=== PATIENT | female | born 1945 | race Caucasian/White ===

== ENCOUNTER → 2017-06-11 06:35 | Outpatient (CLI) | payer MEDICARE, SELFPAY ==
[2017-06-11 07:48] LABS: AST(SGOT) 20 U/L (15-37); Alanine Aminotransfer ALT/SGPT 19 U/L (13-56); Albumin, Serum 3.7 g/dL (3.2-5.0); Alkaline Phosphatase 116 U/L (45-117); Cholesterol 147 mg/dL (200); Globulin 3.8 g/dL (2.2-4.2); High Density Lipoprotein 63 mg/dL; Protein, Total 7.5 g/dL (6.4-8.2); Triglycerides 111 mg/dL; Very Low Density Lipoprotein 22 mg/dL (5-40)
== END ==
PROVIDERS: Family Provider Nurse Practitioner; PCP Nurse Practitioner; Visit Provider Internal Medicine Cardiovascular Disease
DX: E78.5 Hyperlipidemia, unspecified (principal); Z79.899 Other long term (current) drug therapy
CPT/HCPCS: 36415; 80061; 80076

== ENCOUNTER → 2017-12-17 06:07 | Outpatient (CLI) | payer MEDICARE, SELFPAY ==
[2017-12-17 07:43] LABS: AST(SGOT) 21 U/L (15-37); Alanine Aminotransfer ALT/SGPT 19 U/L (13-56); Albumin, Serum 3.5 g/dL (3.2-5.0); Alkaline Phosphatase 131 U/L (45-117); Bilirubin, Direct 0.19 mg/dL (0.00-0.30); Cholesterol 125 mg/dL (200); Globulin 3.9 g/dL (2.2-4.2); High Density Lipoprotein 50 mg/dL; Protein, Total 7.4 g/dL (6.4-8.2); Triglycerides 123 mg/dL; Very Low Density Lipoprotein 25 mg/dL (5-40)
== END ==
PROVIDERS: Family Provider Nurse Practitioner; PCP Nurse Practitioner; Referring Provider Internal Medicine Cardiovascular Disease; Visit Provider Internal Medicine Cardiovascular Disease
DX: E78.5 Hyperlipidemia, unspecified (principal); Z79.899 Other long term (current) drug therapy
CPT/HCPCS: 36415; 80061; 80076

== ENCOUNTER 2018-02-17 20:04 | Emergency (ER) | payer MEDICARE, SELFPAY ==
[2018-02-17 20:04] VITALS: BP 161/100; PULSE 96; RESP 22; TEMP 36.9; O2SAT 96; BMI 32.8
[2018-02-17 20:41] VITALS: PULSE 95; RESP 25; O2SAT 97
--- NOTE | 2018-02-17 20:57 | RAD_ITS ---
STUDY: X-RAY CHEST REASON FOR EXAM: Female, 72 years old. Shortness of breath. TECHNIQUE: PA and lateral views of the chest. February 13, 2017 COMPARISON: None. FINDINGS: The lungs are hyperexpanded. There is chronic interstitial changes without new infiltrate or mass. There is no demonstrated pleural abnormality. Stable cardiomegaly. Stable cardiac pacemaker. Normal mediastinum and obinna. Normal visualized pulmonary arteries. There is atherosclerotic calcification of the aortic arch with tortuosity. There is demineralization of the osseous structures. There is degenerative osteoarthritis of the bilateral shoulders. Again seen is a large retrocardiac hiatal hernia. RAD/Chest PA and Lateral IMPRESSION: 1. Stable cardiac pacemaker and cardiomegaly. 2. Stable retrocardiac hiatal hernia. 3. No acute pulmonary disease or interval change. Electronically Signed: Norbert Menendez DO at 23:15 EST Tel [phone], Service support ,
--- NOTE | 2018-02-17 20:57 | EKG12_ITS ---
Test Reason : SOB Blood Pressure : / mmHG Vent. Rate : 090 BPM Atrial Rate : 090 BPM P-R Int : 184 ms QRS Dur : 080 ms QT Int : 368 ms P-R-T Axes : 040 004 060 degrees QTc Int : 450 ms Normal sinus rhythm Low voltage QRS Confirmed by ANJELICA GASPAR, KILEY ([id number]), deputy editor in chief EVANGELINA CAO ([id number] on 02/19/2018 3:23:02 PM Referred By: Pop Hurd Confirmed By:KILEY DEJESUS MD
[2018-02-17] MEDS: Ipratropium/Albuterol Sulfate 3 ML AMPUL.NEB INHALATION (21:04)
[2018-02-17] MEDS: Albuterol 2.5 MG/3 ML VIAL.NEB. INHALATION ×2 (21:04→21:17)
[2018-02-17 21:05] VITALS: PULSE 90; RESP 15
[2018-02-17] MEDS: MethylPREDNISolone 125 MG/2 ML Vial IV (21:13)
[2018-02-17 21:20] VITALS: PULSE 98; RESP 19
[2018-02-17 21:37] LABS: Absolute Lymphocyte Count 1.54 X10^3/ul (0.83-4.51); Absolute Neutrophil Count 4.3 X10^3/uL (2.0-7.7); Basophil# 0.03 X10^3/uL; Basophil% 0.4 % (0-1); Eosinophil# 0.29 X10^3/uL; Eosinophils% 4.2 % (0-5); Hematocrit 38.8 % (37-47); Hemoglobin 13.3 g/dl (12.0-15.0); Lymphocyte # 1.54 X10^3/ul (4.0); Lymphocyte % 22.1 % (19-41); Mean Corp Hgb Conc 34.3 g/gl (32-36); Mean Corpuscular Hgb 32.8 pg (27.0-32.0); Mean Corpuscular Volume 95.6 fL (81-99); Mean Platelet Vol. 9.9 fl (6.2-12.0); Monocyte# 0.77 X10^3/uL; Neutrophil # 4.33 X10^3/uL (2.7-7.7); Neutrophil % 62.2 % (47-70); POSITIVE COUNT NO; POSITIVE DIFFERENTIAL NO; POSITIVE MORPHOLOGY NO; Platelet Count 137 K/mm3 (150-450); RBC Distribution Width CV 12.3 % (11.6-14.6); RBC Distribution Width SD 42.7 fl (35.1-43.9); Red Blood Count 4.06 M/mm3 (4.2-5.4)
[2018-02-17 22:08] VITALS: BP 155/85; PULSE 68; RESP 25; O2SAT 98
[2018-02-17 22:14] LABS: Anion Gap 9 (5-15); BUN 15 mg/dL (7-18); BUN/Creat Ratio 13.4 RATIO (10-20); Calcium,Total 8.9 mg/dL (8.5-10.1); Chloride 107 mmol/L (98-107); Creatinine, Serum 1.12 mg/dL (0.55-1.02); EST Glomerular Filtration Rate 51 mL/min (>60); Est Glom Filt Rate - Afr Amer 61 mL/min (>60); Estimated Creatinine Clearance 41.88 ml/min; Glucose 94 mg/dL (74-106); Potassium 4.1 mmol/L (3.5-5.1); Sodium Level 143 mmol/L (136-145)
--- NOTE | 2018-02-17 22:46 | ED.VISSUMM ---
- ER Visit Summary Date of Service: 02/17/18 Chief Complaint: Shortness of breath, chills, wheezing History of Present Illness: The patient is a 72 F with a history of asthma. Patient is at increased shortness of breath over the past 3 or 4 weeks. She was seen by her PCP and started on Advair twice a day along with albuterol MDI. Patient reports no significant change in her symptoms with that. [facility] was exposed to a lot of cigarette smoke. She has increased shortness of breath and wheezing. She has not had fever or chills. She has not had significant chest pain. She has had mild cough with clear sputum. Physical Examination: Blood pressure is 161/100, temperature 98.5, heart rate 96, respiratory rate 22, pulse ox 96% on room air. When I enter the room she was on nasal cannula for comfort. Head and neck examination unremarkable. Heart is regular rate and rhythm. Lungs sounds with respiratory and expiratory wheezes throughout. Abdomen is soft nontender. Lower external examination was no calf tenderness or edema. Test Results: Two-view chest x-ray shows a stable hiatal hernia. No acute disease noted. EKG is sinus at 90 with no sign of acute ischemia. CBC significant only for platelet count of 137,000. Chemistry studies normal. Emergency Department Course and Treatment: Patient was given Solu-Medrol cycle of aerosols. On repeat evaluation she has significantly improved air movement throughout. She is taken off of the nasal cannula and on repeat examination her O2 sat was 91%. I walked her up and down the [place] on room air and her sats remained 94-95% with ambulation. At this time patient will continue her Advair twice a day and I want her to use her albuterol every 4-6 hours. She will also be given prednisone for home. She is to follow-up with her primary care provider in the next 5-7 days. Treatment Plan: [] Disposition: Discharge Impression: Asthma exacerbation This note was generated with [employer] dictation software. It may contain incorrect words, spelling, and punctuation that were not noted in review of the chart prior to signing ED Disposition - Plan for ED Patient: Disposition: Home or Assisted Living Chief Complaint: Shortness of Breath Instructions: ED Reactive Airway Disease Prescriptions: Prednisone 10 mg PO UD #33 tablet Referrals: Janessa Bravo, ADMINISTRATIVE ASST-C [Primary Care Provider] - 3-5 Days
--- NOTE | 2018-02-17 22:46 | ED.DEP ---
ED Disposition - Plan for ED Patient: Disposition: Home or Assisted Living Chief Complaint: Shortness of Breath Instructions: ED Reactive Airway Disease Prescriptions: Prednisone 10 mg PO UD #33 tablet Referrals: Janessa Bravo NP-C [Primary Care Provider] - 3-5 Days
[2018-02-17 22:58] VITALS: BP 138/92; PULSE 91; O2SAT 93
--- OUTSIDE RECORDS SUMMARY | 2018-04-13 01:52 | XMS RPT_ITS | Continuity of Care Document ---
:1945 Author Organization [facility] Address [facility] [place] [address] Phone Care Team Providers Name Role Phone Debi GASPAR, Ivana Albarado Unavailable Dr. Eduardo Lord Unavailable Shayy Oro Unavailable Unavailable Janessa Bravo CNP Unavailable Unavailable Unavailable Problems Name Dates Details Abnormal TSH (R79.89, 790.6) Comments: slight off recheck Status: Active Allergic rhinitis (J30.9, 477.9) Status: Active Annual Medicare Physical (Renamed from Medicare annual wellness visit, subsequent) (Z00.00, V70.0) Comments: 2-16 reveiwed with patient allquestions will do mammo plan every few years. colonscopy 2-16. told get living will and dpoa. tetanus told about. will do pneumonvax then prevnar in year and shingles at pharmacy now Status: Active BMI 35.0-35.9,adult (Z68.35, V85.35) Status: Active Bronchitis, acute (J20.9, 466.0) Comments: humdifier mucinex Status: Active Cardiomyopathy (I42.9, 425.4) 1995 Comments: cath good 00, ronald, EF 30%, defib Status: Active Current nonsmoker (Renamed from Current non-smoker) (Z78.9, V49.89) Status: Active Deliveries (Parity) Comments: 1 Status: Active Gastrointestinal hemorrhage with melena (K92.1, 578.1) Comments: no nsaids. no nose bleeds. EGD and colonscopy negative. [facility]. 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) Comments: told to use advair twice daily as maintennce for asthma, before spirometry is mod severe after albuterol spriometry mod airway, was not using advair, instructing to do so.has wood burner but may need to have off Status: Active Low back pain (M54.5, 724.2) Status: Active Mitral valve prolapse (I34.1, 424.0) Status: Active Obese (E66.9, 278.00) Status: Active Pregnancies () Comments: 1 Status: Active Short of breath on exertion (R06.02, 786.05) Comments: likely from untreat asthma Status: Active Medications Name Dates Details Advair Diskus 100-50 MCG/DOSE Inhalation Aerosol Powder Breath Activated 1 (one) Puff bid for 0 days Quantity: 1 {Disk} Refills: 0 Ordered:30-Jan-2018 Janessa Bravo CNP Start : 30-Jan-2018 Active COREG, 25MG (Oral Tablet) 1 Tablet bid for 0 days Quantity: 60 {Tablet} Refills: 0 Ordered:10-Mar-2015 Debi GASPAR, Ivana Chowdary MD Start : 10-Mar-2015 Active Losartan Potassium 25 MG Oral Tablet 1 (one) Tablet daily for 30 days Quantity: 30 {Tablet} Refills: 0 Ordered:30-Jan-2018 Janessa Bravo CNP Start : 30-Jan-2018 Active PRILOSEC OTC, 20MG (Oral Tablet Delayed Release) 1 qd for 0 days Refills: 0 Ordered:23-Feb-2009 Akshat LEO, Chelseactive ZOCOR, 20MG (Oral Tablet) 1 qd for 0 days Refills: 0 Ordered:23-Feb-2009 Akshat FINANCIAL PLANNING CONSULTANT, ChrissieActive ADVAIR DISKUS, 250-50MCG/DOSE (Inhalation Aerosol Powder Breath Activated) 1 (one) Misc BID for 0 days Quantity: 1 {Each} Refills: 0 Ordered:09-Mar-2015 Jackie Xavier Start : 01-Jan-2015 End : 09-Mar-2015 Inactive ALDACTONE, 25MG (Oral Tablet) 1 qd for 0 days Refills: 0 Ordered:01-Jan-2015 NIKHIL Reza End : 01-Jan-2015 Inactive CHERATUSSIN AC, 100-10MG/5ML (Oral Solution) 1 (one) Solution 1-2 tsp every 6 horus prn cough for 0 days Quantity: 8 {Fluid_Ounce} Refills: 0 Ordered:12-Jul-2015 NIKHIL Reza Start : 04-Jun-2015 End : 12-Jul-2015 Inactive Comments:eight LEVAQUIN, 500MG (Oral Tablet) 1 Tablet daily for 0 days Quantity: 10 {Tablet} Refills: 0 Ordered:09-Mar-2015 Jackie Xavier Start : 01-Jan-2015 End : 09-Mar-2015 Inactive LEVOFLOXACIN, 500MG (Oral Tablet) 1 (one) Tablet daily for 7 days Quantity: 7 {Tablet} Refills: 0 Ordered:30-Jan-2014 Shelly MCKEONJanessa Start : 30-Jan-2014 End : 06-Feb-2014 Inactive PREDNISONE, 10MG (Oral Tablet) 1 (one) Tablet TAD for 0 days Quantity: 12 {Tablet} Refills: 0 Ordered:09-Mar-2015 Jackei Xavier Start : 01-Jan-2015 End : 09-Mar-2015 Inactive Comments:2 a d for 3 d, 1 a d for 3d, 1/2 a d for 3 d VENTOLIN HFA, 108 (90 Base)MCG/ACT (Inhalation Aerosol Solution) 2 (two) Aerosol Soln Q 4hr/PRN for 0 days Quantity: 1 {Inhaler} Refills: 0 Ordered:09-Mar-2015 Jackie Xavier Start : 30-Jan-2014 End : 09-Mar-2015 Inactive ZITHROMAX Z-DIANE, 250MG (Oral Tablet) 1 (one) Tablet uad for 0 days Quantity: 1 {Package} Refills: 0 Ordered:12-Jul-2015 NIKHIL Reza Start : 04-Jun-2015 End : 12-Jul-2015 Inactive ZYRTEC, 10MG (Oral Tablet) Tablet QD for 0 days Quantity: 30 {Tablet} Refills: 1 Ordered:19-Aug-2009 NIKHIL Reza Start : 21-Feb-2008 Inactive ADVAIR DISKUS, 250-50MCG/DOSE (Inhalation Aerosol Powder Breath Activated) 1 Misc Twice daily for 0 days Quantity: 1 {Misc} Refills: 2 Ordered:30-Jan-2014 Brittani Oden LPN Start : 02-Jan-2011 End : 30-Jan-2014 Discontinued Cozaar 25 MG Oral Tablet 1 Tablet qd for 0 days Quantity: 30 {Tablet} Refills: 0 Ordered:30-Jan-2018 Shayy Oro Start : 01-Jan-2015 End : 30-Jan-2018 Discontinued FERREX 150 FORTE PLUS, 50-100MG (Oral Capsule) 1 (one) Capsule bid for 0 days Quantity: 60 {Capsule} Refills: 2 Ordered:23-Apr-2015 Debi GASPAR, Ivana Dias MD, Ivana Albarado Start : 23-Apr-2015 End : 23-Apr-2015 Discontinued Allergies and Adverse Reactions Name Dates Details Penicillins (Allergy) Status: Active Past Medical History Name Dates Details Acute sinusitis, unspecified (J01.90, 461.9) Status: Inactive as of 19-Aug-2009 Anemia, unspecified type (D64.9, 285.9) Comments: pt never have colonscopy no bleeding. yoel stool cards send for scope and labs. asa on hold Status: Inactive as of 04-Jun-2015 CHRONIC OBSTRUCTIVE ASTHMA WITH (ACUTE) EXACERBATION (J44.1, 493.22) Comments: refuse solmedrol because cause tachy adn anxious. if not turn around or worsen then willhav eot do injectionl Status: Inactive as of 23-Apr-2015 Cough (R05, 786.2) Status: Inactive as of 23-Apr-2015 Encounter for screening mammogram for breast cancer (Renamed from Encounter for screening mammogram for malignant neoplasm of breast) (Z12.31, V76.12) Status: Inactive as of 23-Apr-2015 Encounter for screening mammogram for breast cancer (Renamed from Encounter for screening mammogram for malignant neoplasm of breast) (Z12.31, V76.12) Status: Inactive as of 04-Jun-2015 FMX of DM Comments: check fbs at home 90's talk about following Status: Inactive as of 03-Sep-2008 Functional disturbances following cardiac surgery (429.4) Comments: sinus nodual dysfunction pacer Status: Inactive as of 01-Jan-2015 Pneumococcal vaccination given (Z23, V06.6) Status: Inactive as of 04-Jun-2015 Screening for osteoporosis (Renamed from Encounter for screening for osteoporosis) (Z13.820, V82.81) Status: Inactive as of 04-Jun-2015 sinus dominique dysfunction Comments: pacer Status: Inactive as of 19-Aug-2009 Unspecified asthma with (acute) exacerbation (J45.901, 493.92) Status: Inactive as of 01-Jan-2015 Well Woman Exam (V72.31) (Renamed from Well Woman V72.31 (p,m)) (V72.31) Status: Inactive as of 01-Jan-2015 Wheezing (R06.2, 786.07) Status: Inactive as of 01-Jan-2015 Procedures Procedure Dates Details Appendectomy Completed Comments: 2006 Pacemaker, defibrillator 2005 Dr. Hurd Completed Tubal Ligation - Laproscopic Completed Comments: 1978 Date Value Details 18-Jan-2018 Cardiology Visit Report Result: Comments: See Note; NOTES: [facility] [address] [place] [address]. [address] [place] [address] OFFICE VISIT Date of Service: 01/15/18 MR#: [id number] Acct: [id number] Name: LIBIA MOYA Re p #: [id number] : 1945 Provider: Velma Sullivan Age/Sex: 72/F Location: [facility] Status: Signed HPI HPI Chief Complaint: Follow-up visit. Details: LIBIA MOYA, is a 72 F who presents to the [facility] today for a cardiovascular follow-up. She has a history of nonischemic cardiomyopathy with a biventricular ICD, hypertension and hyperlipidemia From a cardiac standpoint, patient is doing well. S he does not have any chest discomfort/heaviness/tightness. Her exercise tolerance is stable for her age. She does not have any worsening symptoms of shortness of breath. She does not have any orthopnea. She denies PND. She does not have any symptoms of congestive heart failure. She does not have any palpitations that she is aware of. She does not have any lightheadedness or dizziness. She does not hav e any near-syncope or syncope. She does not have any lower extremity edema. She does not have any symptoms of claudication. Intake Vital Signs01/15/18 Height 5 ft 6 in 01/15/18 Weight: 206 lb 8 Body Mass Index (BMI) 33.2 01/15/18 Blood Pressure 138/84 H 01/15/18 Blood Pressure Location Lt brachial Intake Visit Reasons: 6 M FU Paleobotanist Required: No Accompanied by: none Is patient in pain ?: No Allergies amlodipine [From Norvasc] Allergy (Verified 01/15/18 13:24) Unknown clarithromycin [From Biaxin] Allergy (Verified 01/15/18 13:24) Unknown lisinopril [From Prinivil] Allergy (Verified 1 13:24) Unknown pantoprazole [From Protonix] Allergy (Verified 01/15/18 13:24) Unknown Penicillins [PCN] Allergy (Verified 01/15/18 13:24) Rash Medications Fluticasone/Salmeterol [Advair 100-5 0 Diskus] 1 ea IH BID PRN 02/14/17 [History Confirmed 01/15/18] carvedilol 25 mg tablet 25 mg PO BID #180 tab 01/15/18 [Rx Confirmed 01/15/18] losartan 25 mg tablet 25 mg PO DAILY #90 tab 01/15/18 [Rx C onfirmed 01/15/18] omeprazole 20 mg capsule,delayed release 20 mg PO DAILY #90 cap 01/15/18 [Rx Confirmed 01/15/18] simvastatin 20 mg tablet 20 mg PO QHS #90 tab 01/15/18 [Rx Confirmed 01/15/18] PFSH Medical History Chronic systolic congestive heart failure (Chronic) LBBB (left bundle branch block) (Chronic) Cardiomyopathy in other diseases classified elsewhere (Chronic) HTN (hypertension) (Chroni c) HLD (hyperlipidemia) (Chronic) Dilated cardiomyopathy (Chronic) Paroxysmal ventricular tachycardia (Chronic) MVP (mitral valve prolapse) (Chronic) Palpitations (Chronic) Surgical History Presence of biventricular implantable cardioverter-defibrillator (ICD) (Chronic) History of appendectomy (Chronic 03/2006) History of tubal ligation (Chronic 1979) Hx laparoscopic cholecystectomy (Chronic 2009) Family History Father Myocardial infarction CAD (coronary artery disease) Ferry's disease Mother Diabetes Myocardial infarction Hypertension FH: CABG (coronary artery bypa ss surgery) Grandfather Myocardial infarction Brother Ferry's disease Sister Ferry's disease Diabetes Son Diabetes Social History Smoking Status: Never smoker alcohol intake: never substance use type: does not use caffeine: Yes Type: coffee what type of physical activity do you participate in: none seatbelt use: always do you feel safe at home: Yes ROS Const Const: Negative fo r body ache, fever(s), chills, night sweats, daytime sleepiness, difficulty sleeping, weight gain, weight loss, increased appetite, poor appetite, anorexia, other, frequent falls, headache(s), weakness, fatigue or excessive sweating Eyes Eyes: Negative for blind spots, loss of peripheral vision, transient loss of vision, change in vision, floaters, tunnel vision, other, blurry vision or double vision ENT ENT: Negative for headache(s) or balance problems Cardio Chest Pain: No Palpitations: Yes Edema: None Muscle aches with walking: None Resp Respiratory: Positive for SOB with activity; negative for S OB at rest, SOB orthopnea\SOB lying down, Cough, Coughing up blood/hemoptysis, chest congestion, pain on inspiration, snoring, stridor, wheezing, crackles, paroxysmal nocturnal dyspnea or other GI GI: N egative nausea, vomiting, heartburn, constipation, belching, bloating, cramping, vomiting blood/hematemesis, bright, red blood in stools, black,tarry stools, loose stools, Difficulty Swallowing or other : Negative for hematuria, frequent nighttime urination/ nocturia, erectile dysfunction or abnormal vaginal bleeding Musc Musc: Negative for muscle aches/ myalgia, muscle weakness, joint pain or ba jonah problems Skin Skin: Negative redness, non-healing lesions, unusual bruising, skin ulcer, wounds, jaundice, other or rash Neuro Neuro: Negative for frequent falls, headache(s), weakness, blurry vis ion or double vision Jc Hematologic/Lymphatic: Negative for easy bleeding, easy bruising, enlarged lymph nodes or other Endo Endo: Negative for fatigue or excessive sweating Psych Psych: Negative for anxiety, depression, thoughts of harming anyone, thoughts of harming yourself, visual hallucinations, panic attacks or audible hallucinations Allergy Allergy/Immunology: Negative for rash Cardiology E xam Const Appearance: cooperative, no acute distress and well developed Orientation: alert, awake and oriented x3 Head Head: normocephalic and atraumatic Mouth: moist mucous membranes Eyes General: appe arance normal, both eyes and all related structures Conjunctivae: conjunctivae normal Pupils: PERRL EOM: EOM intact bilaterally Neck Neck: normal visual inspection, no lymphadenopathy and no JVD Carotid s: Negative bruit Neck Mass: Negative Neck mass Chest Chest inspection: normal inspection of the chest, symmetric chest movement and Pacemaker/ICD Yes left pectoral incision Auscultation: Bilateral: Yaakov ar to Auscultation Cardio Palpation: normal PMI Rate: regular rate Rhythm: regular rhythm Heart sounds: S1 normal and S2 normal; negative rub, gallop or murmur GI GI: normal to inspection, soft, no hepa tosplenomegaly and bowel sounds present; negative tender Neuro General: alert, awake, oriented x3, CN's II-XI intact bilaterally and moves all extremities Extremities Pulses: Normal: Right Posterior Tib ial Pulse, Left Posterior Tibial Pulse, Right Radial Pulse, Left Radial Pulse Lower Extremity Edema: None: Bilateral Psych Psychological: normal affect Supplemental Info Echocardiogram in 2016 demonst rated: Normal LV size. Mild concentric left ventricular hypertrophy. Moderately severe global left ventricular systolic dysfunction. The estimated ejection fraction is 35 %. Mild-Moderate (1-2+) eccent ronda mitral valve insufficiency. Pulmonary artery systolic pressure is 32 mmHg. Mild (1+) eccentric aortic valve insufficiency. Contrast injection was performed. Compared to prior study, there is no sign ificant change. Assessment AND Plan 1. Cardiomyopathy in other diseases classified elsewhere I43 Plan - CLAUDIO Meza Stable, patient does not have any symptoms of congestive heart failure. She will continue with current medical management and risk factor modification 2. Essential hypertension I10 Plan - CLAUDIO Meza Adequately controlled on current medications. Will not make any adjustments. 3. Pure hypercholesterolemia E78.00; E78.0 Sander - CLAUDIO Meza Patient will continue with current low-dose statin. Recent lipid profile demonstrates total cholesterol of 1 25, HDL 50, LDL 50 4. Presence of biventricular implantable cardioverter-defibrillator (ICD) Z95.810 ICD REPLACEMENT 03/23/2011; GENERATOR CHANGE 02/15/2017 Plan - CLAUDIO Meza ICD is func tioning appropriately. We will continue to monitor with routine scheduled ICD interrogations. Patient has not had any discharges from their device. Plan Detail Other Medications New: Changed: Refilled: Additional Comments - CLAUDIO Meza The above patient was discussed with Dr. Hurd, he agrees with plan of care. Thank you for allowing us to participate in patient's plan of care, if you have any questions please do not hesitate to call. This note was generated using a voice recognition system and there may be incorrect words, spelling or punctuation errors that were not noted when rev iewing the office note prior to saving. 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) Coding Level of Care Code Off vis,est,level 3 Diagnoses Cardiomyopathy in other diseases classified elsewhere I43 Essential hypertension I10 Hypertension type: essential hypertension Pure hypercholesterolemia E78.00; E78.0 Hyperlipidemia type: pure hypercholesterolemia Presence of biventricular implantable cardioverter-defi brillator (ICD) Z95.810 Coding Level of Care Code Off vis,est,level 3 Diagnoses Cardiomyopathy in other diseases classified elsewhere I43 Essential hypertension I10 Hypertension type: essential hyper tension Pure hypercholesterolemia E78.00; E78.0 Hyperlipidemia type: pure hypercholesterolemia Presence of biventricular implantable cardioverter-defibrillator (ICD) Z95.810 01/17/18 1023 <El ectronically signed by Velma SNYDER> Date Velma SNYDER 01/18/18 0823<Electronically signed by Pop Hurd MD&amp ;#62; Cosigner Signature: Date (if applicable) Pop Hurd MD CC: Janessa Bravo MUNA 29-Nov-2017 Pacemaker Check Result: Comments: See Note; NOTES: [facility] [address] [place] [address] Pacemaker Check Date of Service: 11/28/171704 MR#: [id number] Acct: [id number] Name: CAMACHO MOYA Rep #: [id number] : 1945 From: Cathleen Cross Age/Sex: 72/F Location[facility] Status: Signed Billing Codes ICD Device Billing: ICD Dev Interrogate (Rmt) 11/28/171708 <Electroni john paul signed by Cathleen Cross > Date Cathleen Cross 11/29/17 1026<Electronically signed by Pop Hurd MD> Cosigner Signature: Date (if applicable) Pop Hurd MD CC: 12-Jul-2017 Cardiology Visit Report Result: Comments: See Note; NOTES: [facility] [address] [place] [address] OFFICE VISIT Date of Service: 07/12/17 MR#: [id number] Acct: [id number] Name: LIBIA MOYA Re p #: [id number] : 1945 Provider: Pop Hurd MD Age/Sex: 71/F Location: [facility] Status: Signed HPI HPI Chief Complaint: Follow-up visit. Details: LIBIA MOYA, is a 71 F who presents to the [facility] today for a follow-up visit. She is a lady with a history of nonischemic cardiomyopathy status post biventricular ICD implantation hypertension hyperlipidemia who underwent a generator change in 2016. She returns for routine follow-up visit she denies any neck, jaw discomfort suggest angina no dizziness no diaphoresis no near syncope or syncope and no defibrillator discharge. She says that she has been short of breath sometimes when she works outside with activity but not when she is inside. You do remember that she had previously had a pulmonary function test. Her last echocardiogram had demonstrated an ejection fraction of 35% with global hypokinesis moderate mitral regurgitation and right ventricular systolic pressure of 32 mmHg. No significant changes were noted compared to the prev ious test. Her physical exam today demonstrates clear lung voss regular rate and rhythm and no pedal edema. Intake Vital Signs07/12/17 Height 5 ft 6 in 07/12/17 Weight: 206 lb 07/12/17 Body Mass Ind ex (BMI) 33.2 07/12/17 Blood Pressure 112/88 07/12/17 Blood Pressure Location Lt brachial Intake Visit Reasons: 6 M FU Paleobotanist Required: No Accompanied by: None Is patient in pain?: No Allergies amlodipine [From Norvasc] Allergy (Verified 07/12/17 11:28) Unknown clarithromycin [From Biaxin] Allergy (Verified 07/12/17 11:28) Unknown lisinopril [From Prinivil] Allergy (Verified 07/12/17 11:28) Un known pantoprazole [From Protonix] Allergy (Verified 07/12/17 11:28) Unknown Penicillins [PCN] Allergy (Verified 07/12/17 11:28) Rash Medications Carvedilol [Coreg] 25 mg PO BID 03/25/15 [History Con firmed 07/12/17] Omeprazole [Prilosec] 20 mg PO DAILY 03/25/15 [History Confirmed 07/12/17] Simvastatin [Zocor] 20 mg PO QHS 03/25/15 [History Confirmed 07/12/17] Fluticasone/Salmeterol [Advair 100-50 D iskus] 1 ea IH BID PRN 02/14/17 [History Confirmed 07/12/17] Furosemide 40 mg PO DAILY PRN 02/14/17 [History Confirmed 07/12/17] Losartan Potassium [Cozaar] 25 mg PO DAILY 02/14/17 [History Confirmed ] Ejection fraction %: 35 to 39 (35% per echo 07/23/2015) [facility] Medical History Chronic systolic congestive heart failure (Chronic) LBBB (left bun dle branch block) (Chronic) Cardiomyopathy in other diseases classified elsewhere (Chronic) HTN (hypertension) (Chronic) HLD (hyperlipidemia) (Chronic) Dilated cardiomyopathy (Chronic) Paroxysmal ventri cular tachycardia (Chronic) MVP (mitral valve prolapse) (Chronic) Palpitations (Chronic) Surgical History Presence of biventricular implantable cardiove rter-defibrillator (ICD) (Chronic) History of appendectomy (Chronic 03/2006) History of tubal ligation (Chronic 1979) Hx laparoscopic cholecystectomy (Chronic 04/2009) Family History (Reviewed 06/18 09/03 @ 11:44 by Pop Hurd MD) Father Myocardial infarction CAD (coronary artery disease) Ferry's disease Mother Diabetes Myocardial infarction Hypertension FH: CABG (coronary a rtery bypass surgery) Grandfather Myocardial infarction Brother Ferry's disease Sister Ferry's disease Diabetes Son Diabetes Social History Smoking Status: Never smoker alcohol int marshall: never substance use type: does not use caffeine: Yes Type: coffee what type of physical activity do you participate in: none seatbelt use: always do you feel safe at home: Yes ROS Const C onst: Negative for body ache, fever(s), chills, night sweats, daytime sleepiness, difficulty sleeping, weight gain, weight loss, increased appetite, poor appetite, anorexia, other, frequent falls, heada alli(s), weakness, fatigue or excessive sweating Eyes Eyes: Negative for blind spots, loss of peripheral vision, transient loss of vision, change in vision, floaters, tunnel vision, other, blurry vision or double vision ENT ENT: Negative for hearing loss, tinnitus, Nosebleed/epistaxis, post nasal drip, bleeding gums, hoarseness, neck pain, dry mouth, other, balance problems, dizziness, headache(s), ton [place] swelling or lip swelling Cardio Chest Pain: No Palpitations: Yes Edema: None Muscle aches with walking: None Resp Respiratory: Positive for SOB with activity; negative for SOB at rest, SOB orthopnea \SOB lying down, Cough, Coughing up blood/hemoptysis, chest congestion, pain on inspiration, snoring, stridor, wheezing, crackles, paroxysmal nocturnal dyspnea or other GI GI: Negative nausea, vomiting, heartburn, constipation, belching, bloating, cramping, vomiting blood/hematemesis, bright, red blood in stools, black,tarry stools, loose stools, Difficulty Swallowing or other : Negative for jc turia, frequent nighttime urination/ nocturia, erectile dysfunction or abnormal vaginal bleeding Musc Musc: Negative for muscle aches/ myalgia, muscle weakness, joint pain or balance problems Skin Skin: Negative redness, non-healing lesions, unusual bruising, skin ulcer, wounds, jaundice, other or rash Neuro Neuro: Negative for dizziness, lightheadedness, near syncope, syncope, orthostatic symptoms, f requent falls, headache(s), weakness, confusion, memory loss, restless legs, blurry vision, double vision, vertigo, seizures, lack of coordination or other Jc Hematologic/Lymphatic: Negative for easy bleeding, easy bruising, enlarged lymph nodes or other Endo Endo: Negative for fatigue, cold intolerance, heat intolerance, excessive sweating, flushing, increased thirst/drinking, increased hunger, rosy r loss, hair growth or other Psych Psych: Negative for anxiety, depression, thoughts of harming anyone, thoughts of harming yourself, visual hallucinations, panic attacks or audible hallucinations Aller gy Allergy/Immunology: Negative for throat swelling, Negative for tongue swelling, Negative for hives, Negative for rash, Negative for lip swelling Cardiology Exam Const Appearance: cooperative, healt hy appearing, well developed, well groomed and no acute distress Nutritional Appearance: well nourished and average body habitus Orientation: alert, awake and oriented x3 Head Head: normal to inspection , normocephalic and atraumatic Ears: hearing grossly normal bilaterally and external ears normal Nose: external nose normal, nasal mucous membranes and turbinates normal, nares normal, septum normal, no nasal discharge Face and Sinus: face symmetric Mouth: oral mucosae normal, tongue normal, oropharynx normal and moist mucous membranes Teeth and gingiva: dentition normal Throat: posterior oropharynx n ormal, tonsils normal and uvula midline Eyes General: appearance normal, both eyes and all related structures Eyelids: eyelids normal Conjunctivae: conjunctivae normal Pupils: PERRL, normal by confronta tion and accommodation normal EOM: EOM intact bilaterally Neck Neck: normal visual inspection, trachea midline and no JVD JVD: +5 Carotids: normal carotid upstroke and bounding pulses Chest Chest inspec tion: normal inspection of the chest, symmetric chest movement and normal respiratory effort Auscultation: Bilateral: Clear to Auscultation Cardio Palpation: normal PMI Rate: regular rate Rhythm: regula r rhythm Heart sounds: S1 normal, S2 normal and normal, physiologic split S2; negative rub, gallop or murmur GI GI: normal to inspection, soft, no hepatosplenomegaly and bowel sounds present Neuro Gener al: alert, awake, oriented x3, no focal sensory deficit, gait normal and moves all extremities Skin Skin: no rashes or lesions noted Extremities Pulses: Normal: Right Femoral Pulse, Left Femoral Pulse, Right Dorsalis Pedis Pulse, Left Dorsalis Pedis Pulse, Right Posterior Tibial Pulse, Left Posterior Tibial Pulse, Right Radial Pulse, Left Radial Pulse Lower Extremity Edema: None: Bilateral Musculoskel Musculoskeletal: No joint tenderness Psych Psychological: normal affect Assessment AND Plan 1. 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 She does not have any angiographically active coronary disease but she does have left ventricular systolic dysfunction but with pulmonary artery systolic pressures which are acceptable. It is not c lear whether this is due to allergic phenomenon or whether this may be due to an intrinsic lung condition. She is on fluticasone salmeterol and I may recommend that she have another pulmonary function t est performed. 2. Cardiomyopathy in other diseases classified elsewhere I43 Plan She does have a history of cardiomyopathy with stable ejection fraction. She is on the losartan and the beta-honey as well as a diuretic as needed. No other changes will be advocated. 3. Presence of biventricular implantable cardioverter-defibrillator (ICD) Z95.810 ICD REPLACEMENT 03/23/2011; GENERATOR CHANGE 02/16/20 17 Plan She does have a history of a biventricular defibrillator placement. Her last ICD interrogation post change out demonstrated no evidence of VT or VF and adequate lead and battery impedance. She will continue to follow up in the ICD clinic. 4. HLD (hyperlipidemia) E78.5 Plan Her most recent lipid profile demonstrated total cholesterol of 47 LDL 62 and HDL 63. No changes will be made with regar d to the above. Her liver function tests within normal limits. Thank you for allowing me to participate in her care. Thank you for allowing me to participate in the care of your patient. Please don't h esitate to call if any issues arise Plan Detail Follow Up 6 Months (mmm) Coding Level of Care Code Off vis,est,level 3 Diagnoses Shortness of breath on exertion R06.02 Cardiomyopathy in other diseas es classified elsewhere I43 Presence of biventricular implantable cardioverter- defibrillator (ICD) Z95.810 HLD (hyperlipidemia) E78.5 Coding Level of Care Code Off vis,est,level 3 Diagnoses Shortness of breath on exertion R06.02 Cardiomyopathy in other diseases classified elsewhere I43 Presence of biventricular implantable cardioverter-defibrillator (ICD) Z95.810 HLD (hyperlipidemia) E78.5 07/12 1148 <Electronically signed by Pop Hurd MD> Date Pop Hurd MD Cosigner Signature: Date (if applicable) CC: Janessa Bravo MUNA 31-May-2017 Pacemaker Check Result: Comments: See Note; NOTES: [facility] [address] [place] [address]. [address] [place] [address] Pacemaker Check Date of Service: 05/21/17 1144 MR#: [id number] Acct: [id number] Name: CAMACHO MOYA Rep #: [id number] : 1945 From: Pop Hurd MD Age/Sex: 71/F [place] [facility] Status: Signed Comments Summary Comments: Remote Bi-VICD Evaluation: Remote interrogation shows no VT/VF epis odes since generator change 01/27/30. Presenting rhythm shows NSR @ 82 bpm. Cliff pacing programmed to ventricular pace as little as possible and programmed VVI @ 40 ppm d/t narrow QRS.Battery longev ity approx 8 yrs. 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 Lead impedances and sensing remain stable. Normal remote Bi-VICD function. Pt notified remote transmission received and next f/u appt scheduled for in 3 mos. Device Device Claudy e Interviewed: 05/21/17 Follow-up Location: remote Interview Reason: scheduled follow up Classroom Monitor: Major Aide Name: [employer] SALES REPRESENTATIVE-D IS-1/DF-1 Model: G154 Serial #: [id number] Implant Date: 02/15/17 Year(s): 0 Implant Physician: Dr. Mohinder Garcia Patient Characteristics Patient Substrate: Nonischemic cardiomyopathy Ejection fraction %: 35 to 39 By: Echo Underlying rhythm: Sinus rhythm Pacemaker Depe ndent: No Device Characteristics Device: Biventricular Type: Implantable defibrillator Remote Follow-Up: Latitude Leads Lead #1 Classroom Monitor Lead 1: [employer] Model Lead 1: 4470 Serial# Lead 1: [id number] D ate Implanted Lead 1: 05/16/05 Position Lead 1: RA Lead #2 Classroom Monitor Lead 2: [employer] Model Lead 2: 0814 Serial# Lead 2: [id number] Date Implanted Lead 2: 05/16/05 Position Lead 2: RV Lead #3 Classroom Monitor Lead 3: [employer] Model Lead 3: 4518 Serial# Lead 3: [id number] Date Implanted Lead 3: 05/16/05 Position Lead 3: LV Diagnostics Pacing % RA Pacin % RV Pacin % LV Pacin Arrhythmias VF Episodes: 0 Fast VT Episodes: 0 Slow VT Episodes: 0 Non-Sust Episodes: 0 Measurements Battery Charge Time (Sec): 9.7 Battery Status: MAYUR Predicted Remaining Longevity (months or years): 8 mos RA Measurements Si gnal Amplitude (mV): 2.4 Impedance (Ohms): 471 RV Measurements Signal Amplitude (mV): 20.5 Impedance (Ohms): 699 Shock Impedance (Ohms): 46 LV Measurements Signal Amplitude (mV): 9.2 Impedance (Ohms): 5 19 Tachy Settings VF Therapies VF Therapy Status On On On On On On Energy 41 41 41 41 41 41 Pathway ATP: During charging on FVT Therapies FVT Therapy Status On On On On On On VT Therapies FVT T herapy Status Off Off Off Off Off Off Comments: Cliff Settings Cliff Settings Pacemaker Mode VVI Lower Rate Limit (bpm) 40 Hysteresis Rate (bpm) Max Track Rate (bpm) Max Sensor Rate (bpm) Max AV Delay (msec) Max PV Delay (msec) Max PVARP (msec) Output/Sensing V/PW (ms) 2.0/0.4 2.3/0.4 Sensitivity RA RV LV AGC 0.25 0.6 1.0 AGC Comments: Billing Codes ICD Device Billing: ICD Dev Inte rrogate (Rmt) Assessment AND Plan Problems 1. Presence of biventricular implantable cardioverter-defibrillator (ICD) Z95.810 2. Syncope and collapse R55 3. Paroxysmal ventricular tachycardia I47.2 4. Dilated cardiomyopathy I42.0 05/31/17 1053 <Electronically signed by Pop Hurd MD> Date Pop Hurd MD 05/31/17 1009<Elec tronically signed by Cathleen Cross > Cosignquin Signature: Date (if applicable) Cathleen Cross CC: 01-Mar-2017 Office Visit Report Result: Comments: See Note; NOTES: [facility] [address] [place] [address]. [place] [address] OFFICE VISIT Date of Service: 02/23/17 MR#: [id number] Acct: [id number] Patient: LIBIA MOYA Rep #: [id number] : 1945 Provider: Cathleen Cross Age/Sex: 71/F Location[place] [facility] Status: Signed Device Device Date Interviewed: 02/23/17 Follow-up Location: in office Interview Reason: device implant (woun d check post generator change) Classroom Monitor: [employer] Name: [employer]QUIPMENT SALES REPRESENTATIVE- D IS-1/DF-1 Model: G154 Serial #: [id number] Implant Date: 02/15/17 Year(s): 0 Implant Physician: Dr. Mohinder Garcia Patient Ashwini racteristics Patient Substrate: Nonischemic cardiomyopathy Ejection fraction %: 35 to 39 By: Echo Underlying rhythm: Sinus rhythm Pacemaker Dependent: No Device Characteristics Device: Biventricular Typ e: Implantable defibrillator Remote Follow-Up: Latitude Device Physical Exam Yes Incision well healed and Incision erythema Leads Lead #1 Classroom Monitor Lead 1: [employer] Model Lead 1: 4470 Serial# Lead 1 : [id number] Date Implanted Lead 1: 05/16/05 Position Lead 1: RA Lead #2 Classroom Monitor Lead 2: [employer] Model Lead 2: 0814 Serial# Lead 2: [id number] Date Implanted Lead 2: 05/16/05 Position Lead 2: RV Lead #3 Ma nufacturer Lead 3: [employer] Model Lead 3: 4518 Serial# Lead 3: [id number] Date Implanted Lead 3: 05/16/05 Position Lead 3: LV Tachy Settings VF ms (bpm) FVT ms (bpm) VT ms (bpm) Monitor Monitor Only ms (b pm) VF Therapies VF Therapy Status On/Off On/Off On/Off On/Off On/Off On/Off Energy Pathway ATP: During charging FVT Therapies FVT Therapy Status On/Off On/Off On/Off On/Off On/Off On/Off VT Therap ies FVT Therapy Status On/Off On/Off On/Off On/Off On/Off On/Off Comments: Cliff Settings Cliff Settings Pacemaker Mode Lower Rate Limit (bpm) Hysteresis Rate (bpm) Max Track Rate (bpm) Max S ensor Rate (bpm) Max AV Delay (msec) Max PV Delay (msec) Max PVARP (msec) Output/Sensing V/PW (ms) Sensitivity RA RV LV Comments: Comments Summary Comments: Wound Check: 1 wk post Bi-VICD gen erator change wound check completed. Left pectoral pocket/incision open to air with steri-strips off. Incision well approximated with some redness around incision. No drainage, hot to touch or swelling noted. No hematoma or ecchymosis noted. Pt afebrile T=98.2 degrees F temporally. Remote Latitude monitor ordered and next remote check scheduled for in 3 mos. 03/01/17 1621 <Electronically si gned by Pop Hurd MD> Date Pop Hurd MD 02/23/17 1217<Electronically signed by Cathleen Cross > Cosigner Signature: Date __ (if applicable) Cathleen Cross CC: 15-Feb-2017 Operative Report Result: Comments: See Note; NOTES: [facility] Medical Records Department [address] [place] [address] Operative Report 02/15/17 1309 MR#: [id number] Acct: [id number] Name: LIBIA MOYA Rep #: [id number] : 1945 71 From: Mohinder Garcia MD PCP: Janessa Bravo Status: REG SDC Y Location: [facility] Operative Report Date of Procedure: 02/15/17 Preoperative diagnosis is device at end of l delma for normal battery depletion. Postoperative diagnosis same as above. After informed consent and IV antibiotics the patient was brought to the [facility] and the skin over t he device was prepped and draped in the usual sterile manner. Intermittent boluses of Versed, fentanyl were used for sedation and analgesia as well as 1% subcutaneous lidocaine. An incision was made ov er the pre-existing device. Using blunt and Bovie dissection the pocket was opened and the device was removed. Careful attention was paid not to injure the pre- existing leads. The leads were removed fro m the device header and they were interrogated. There is normal lead function. Hemostasis was obtained. The pocket was flushed with antibiotic solution. The sponge and needle count were correct. The new device was brought to the field. The leads were placed in the appropriate position in the header and secured by the set screw. The leads and the device were then placed in the pocket. The pocket was cl osed with a deep layer of running 2-0 Vicryl, a superficial layer of running 4- 0 Vicryl, skin with Steri-Strips which were covered with a rolled 4 x 4 and Tegaderm. Patient left the room with the device programmed to proper parameters and there were no complications. [place] QRS is narrow so no BiV pacing for now, but reassess QRS at follow up All lead parameters were tested and found to be functiona lly normal. Lead and device serial and model numbers are available in the chart documents provided by the device company retail account representative procedure summary. 02/15/17 1314 <Electronically sig abimael by Mohinder Garcia MD> Date Mohinder Garcia MD CC: Janessa Bravo; Mohinder Garcia MD Signed 13-Feb-2017 Chest PA and Lateral Result: Comments: See Note; NOTES: [facility] Imaging Services [address] [place] [address] Chest PA and Lateral MR#: [id number] Acct: [id number] Name: LIBIA MOYA Rep #: [id number] : 1945 F 71 From: Edson Dillon MD PCP: Janessa Bravo Status: PRE VAC Study: Chest PA and Lateral Date of Exam: 02/13/17 Exam# [id number] Ordering Dr: Pop Hurd MD STUDY: X-RAY CHEST REASO N FOR EXAM: Female, 71 years old. Preoperative exam. TECHNIQUE: Frontal and lateral views of the chest. COMPARISON: None. FINDINGS: There is a 3-lead pacemaker in place. The lungs are clear. There are no pleural effusions. There is no pneumothorax. The heart is normal in size. The visualized osseous structures are within normal limits. RAD/Chest PA and Lateral IMPRESSION: Clear lungs. Electronically Signed: Edson Dillon, at 15:52 EST Tel , Service support , Fa x [phone] CC: Janessa Bravo; Pop Hurd MD Television Production Clerk: Signed 23-Jul-2015 Echocardiogram Complete Result: Comments: See Note; NOTES: [facility] Cardiovascular Services [address] [place] [address] Echo Complete W/ Contrast 07/22/15 1100 MR#: [id number] Acct: [id number] Name: LIBIA MOYA Rep #: [id number] : 1945 69 From: Pop Hurd MD Attending Dr: Ronald GASPAR,Pop Status: REG CLI Ordering Dr: Pop Hurd MD Date: 07/22/15 Location: [facility] Sex: F C Admit enzo: Reason For Study: cardiomyopathy Procedure This was a 2D Doppler, Color Flow transthoracic echocardiogram. Contrast injection was performed. Exam performed in department. Left Ventric le Normal LV size. Mild concentric left ventricular hypertrophy. Moderately severe global left ventricular systolic dysfunction. The estimated ejection fraction is 35 %. No regional wall motion abno rmalities noted. Right Ventricle Normal RV size. ICD or pacer leads identified within the right ventricle. Normal systolic function. Atria The left atrium is mildly enlarged. Normal right atrium. Mitral Valve Bileaflet diffuse mitral valve thickening. Mild-Moderate (1-2+) eccentric mitral valve insufficiency. Tricuspid Valve Normal tricuspid valve. Mild (1+) tricuspid valve insufficiency. Pulmonary artery systolic pressure is 32 mmHg. Aortic Valve Trisinus/trileaflet aortic valve. Mild diffuse aortic valve thickening. Mild (1+) eccentric aortic valve insufficiency. Pulmonic Sol ve Normal pulmonic valve. Great Vessels Normal aortic root. The pulmonary artery is normal size. Normal inferior vena cava. Pericardium/Pleural No pericardial effusion. Medication Definity0.3m l given slow IV push to enhance endocardial definition. MMode/2D Measurements AND Calculations LVIDd: 5.0 cm IVSd: 1.2 cm Ao root diam: 3.3 cm LVIDs: 3.3 cm LVPWd: 1.2 cm LA dimension: 2.7 cm RVDd: 3.2 cm FS: 33.1 % LAV(MOD-bp): 78.4 ml MR PISA radius: 0.36 cm LAV(MOD-bp) Indexed: 38.4 ml/m2 LA A4 area: 22.6 cm2 LAV(MOD-sp2): 74.5 ml LAV(MOD-sp4): 77.9 ml RA A4 area: 19.1 cm2 Doppler Measurements AND Calculations MV E max radha: 58.5 cm/sec Lat Peak E' Radha: 4.3 cm/sec Med Peak E' Radha: 4.4 cm/sec MV A max radha: 91.7 cm/sec E/E' lat: 13.6 E/E' med: 13.2 MV E/A: 0.64 Ao V2 max: 119.5 cm/sec LV V1 max: 68.3 cm/sec MR max radha: 529.5 cm/sec Ao max P.7 mmHg LV V1 max P.9 mmHg MR max P.2 mmHg MR mean radha: 414.0 cm/sec MR ángel n P.9 mmHg MR VTI: 190.3 cm MR PISA: 0.83 cm2 PA V2 max: 92.4 cm/sec PI end-d radha: 126.1 cm/sec TR max radha: 261.2 cm/sec TR max P.3 mmHg Interpretation Summary Normal LV size. Mild concentric left ventricular hypertrop hy. Moderately severe global left ventricular systolic dysfunction. The estimated ejection fraction is 35 %. Mild-Moderate (1-2+) eccentric mitral valve insufficiency. Pulmonary artery systolic pres sure is 32 mmHg. Mild (1+) eccentric aortic valve insufficiency. Contrast injection was performed. Compared to prior study, there is no significant change. Ordering Physician: Pop Hurd Referring Physician: Ivana Carrera M.D. Performed By: Rhonda Haro, FERNANDEZ, RVT 07/23/15 0732 Date Pop Hurd MD CC: Ivana Carrera MD Date Dictated: 07/22/15 1100 Date Transc ribed: 07/23/15 0732 Television Production Clerk: Signed Family History Unknown Family Member Name Dates Details Father Comments: [place], HTN, hyperlipidemia, age 58 Status: Active Maternal Grandmother Comments: pancreatic cancer Status: Active Mother Comments: IDDM,HYN, hyperlipidemia, [place] age 68 Status: Active Sister 1 Comments: IDDM later, younger than pt Status: Active Social History Name Dates Details Caffeine Use Comments: very little Status: Active Current Work/Study Status Comments: Retired Status: Active Exercise History Comments: Light Status: Active Living Situation Comments: , Lives with spouse Status: Active No Drug Use Status: Active Non Drinker/No Alcohol Use Status: Active Non Smoker/No Tobacco Use Status: Active Tobacco Use: Never smoker. Status: Active Smoking Status Name Dates Details Never smoker Vital Signs Date Test Result Details :26 Temperature 97 f Pulse 75 /min Comments: Pattern: Regular Respiration Rate 18 /min Comments: Pattern: Unlabored O2 SAT 95 % Comments: Room air BP Systolic 132 mm[Hg] Comments: Patient Position: Sitting; Cuff Location: Left Arm; Cuff Size: Standard BP Diastolic 86 mm[Hg] Comments: Patient Position: Sitting; Cuff Location: Left Arm; Cuff Size: Standard Weight 205.375 lb Height 63.75 in Body Mass Index Calculated 35.53 kg/m2 Body Surface Area Calculated 1.97 m2 :07 Temperature 97.6 f Comments: Method: Temporal Pulse 90 /min Comments: Pattern: Regular Respiration Rate 28 /min Comments: Pattern: Wheezing O2 SAT 96 % Comments: Room air BP Systolic 124 mm[Hg] Comments: Patient Position: Sitting; Cuff Location: Left Arm; Cuff Size: Large BP Diastolic 80 mm[Hg] Comments: Patient Position: Sitting; Cuff Location: Left Arm; Cuff Size: Large Weight 215 lb Height 63.75 in Body Mass Index Calculated 37.19 kg/m2 Body Surface Area Calculated 2.01 m2 :15 Pulse 80 /min Comments: Pattern: Regular Respiration Rate 16 /min Comments: Pattern: Unlabored O2 SAT 97 % Comments: Room air BP Systolic 118 mm[Hg] Comments: Patient Position: Sitting; Cuff Location: Left Arm; Cuff Size: Standard BP Diastolic 80 mm[Hg] Comments: Patient Position: Sitting; Cuff Location: Left Arm; Cuff Size: Standard Weight 215 lb Height 63.75 in Body Mass Index Calculated 37.19 kg/m2 Body Surface Area Calculated 2.01 m2 :07 Temperature 97 f Comments: Method: Oral Pulse 95 /min Comments: Pattern: Regular Respiration Rate 16 /min Comments: Pattern: Unlabored O2 SAT 97 % Comments: Room air BP Systolic 102 mm[Hg] Comments: Patient Position: Sitting; Cuff Location: Left Arm; Cuff Size: Standard BP Diastolic 60 mm[Hg] Comments: Patient Position: Sitting; Cuff Location: Left Arm; Cuff Size: Standard Weight 215 lb Height 63.75 in Body Mass Index Calculated 37.19 kg/m2 Body Surface Area Calculated 2.01 m2 :13 Temperature 97.8 f Comments: Method: Temporal Pulse 95 /min Comments: Pattern: Regular Respiration Rate 24 /min Comments: Pattern: Wheezing O2 SAT 98 % Comments: Room air BP Systolic 104 mm[Hg] Comments: Patient Position: Sitting; Cuff Location: Left Arm; Cuff Size: Large BP Diastolic 74 mm[Hg] Comments: Patient Position: Sitting; Cuff Location: Left Arm; Cuff Size: Large Weight 215 lb Height 63.75 in Body Mass Index Calculated 37.19 kg/m2 Body Surface Area Calculated 2.01 m2 :51 Temperature 97.9 f Comments: Method: Oral Pulse 70 /min Comments: Pattern: Regular Respiration Rate 18 /min O2 SAT 98 % Comments: Room air BP Systolic 146 mm[Hg] Comments: Patient Position: Sitting; Cuff Location: Left Arm; Cuff Size: Standard BP Diastolic 88 mm[Hg] Comments: Patient Position: Sitting; Cuff Location: Left Arm; Cuff Size: Standard Weight 215 lb Height 63.75 in Body Mass Index Calculated 37.19 kg/m2 Body Surface Area Calculated 2.01 m2 :32 Temperature 98.4 f Comments: Method: Oral Pulse 72 /min Comments: Pattern: Regular Respiration Rate 18 /min Comments: Pattern: Unlabored O2 SAT 96 % Comments: Room air BP Systolic 122 mm[Hg] Comments: Patient Position: Sitting; Cuff Location: Left Arm; Cuff Size: Large BP Diastolic 82 mm[Hg] Comments: Patient Position: Sitting; Cuff Location: Left Arm; Cuff Size: Large Weight 215 lb Height 63.75 in Body Mass Index Calculated 37.19 kg/m2 Body Surface Area Calculated 2.01 m2 :47 Temperature 98.6 f Comments: Method: Oral Pulse 80 /min Comments: Pattern: Regular Respiration Rate 20 /min Comments: Pattern: Wheezing O2 SAT 98 % Comments: Room air BP Systolic 124 mm[Hg] Comments: Patient Position: Sitting; Cuff Location: Left Arm; Cuff Size: Large BP Diastolic 80 mm[Hg] Comments: Patient Position: Sitting; Cuff Location: Left Arm; Cuff Size: Large :29 Temperature 97.7 f Comments: Method: Oral Pulse 94 /min Comments: Pattern: Regular Respiration Rate 18 /min Comments: Pattern: Unlabored O2 SAT 97 % Comments: Room air BP Systolic 126 mm[Hg] Comments: Patient Position: Sitting; Cuff Location: Left Arm; Cuff Size: Standard BP Diastolic 84 mm[Hg] Comments: Patient Position: Sitting; Cuff Location: Left Arm; Cuff Size: Standard Weight 0 lb Height 0 in Head Circumference 0.00 cm :23 Temperature 98.3 f Comments: Method: Undefined Pulse 68 /min Comments: Pattern: Regular Respiration Rate 18 /min Comments: Pattern: Undefined O2 SAT 97 % Comments: Room air BP Systolic 124 mm[Hg] Comments: Patient Position: Sitting; Cuff Location: Left Arm; Cuff Size: Large BP Diastolic 88 mm[Hg] Comments: Patient Position: Sitting; Cuff Location: Left Arm; Cuff Size: Large Weight 0 lb Height 0 in Head Circumference 0.00 cm :23 Temperature 97.5 f Comments: Method: Oral Pulse 84 /min Comments: Pattern: Regular Respiration Rate 18 /min Comments: Pattern: Unlabored Weight 0 lb Height 0 in Head Circumference 0.00 cm :00 Temperature 97.8 f Comments: Method: Oral Pulse 60 /min Comments: Pattern: Regular Respiration Rate 16 /min Comments: Pattern: Unlabored BP Systolic 124 mm[Hg] Comments: Patient Position: Sitting; Cuff Location: Left Arm; Cuff Size: Standard BP Diastolic 80 mm[Hg] Comments: Patient Position: Sitting; Cuff Location: Left Arm; Cuff Size: Standard Weight 210 lb Height 63.75 in Body Mass Index Calculated 36.33 kg/m2 Body Surface Area Calculated 1.99 m2 Head Circumference 0.00 cm Results Date Description Value Details :13 Lipid Profile Comments: [facility] [address], [place], [id number] VLDL 25 mg/dL (Normal) Range: 5-40 LDL 50 mg/dL (Normal) Range: 0-130 HDL 50 mg/dL (Normal) Comments: The drugs N-Acetylcysteine and Metamizole may falselydepress this assay. Reference Range HDL <40 mg/dL Low HDL Cholesterol HDL >or= 60 mg/dL High HDL Cholesterol TRIG 123 mg/dL (Normal) Comments: The drugs N-Acetylcysteine and Metamizole may falselydepress this assay.Serum Triglycerides Reference Interval Normal <150 mg/dL Borderline high 150 - 199 mg/dL High 200 - 499 mg/dL Very High > or = 500 mg/dL CHOL 125 mg/dL (Normal) Comments: <200 mg/dL Desirable 200-240 mg/dL Borderline >240 mg/dL High Risk :13 Liver Profile Comments: [facility] [address] [place], [place], [id number] D BILI 0.19 mg/dL (Normal) Range: 0.00-0.30 T BILI 0.60 mg/dL (Normal) Range: 0.20-1.00 ALT 19 U/L (Normal) Range: 13-56 ALK P 131 U/L (Abnormal) Range: 45-117 AST 21 U/L (Normal) Range: 15-37 GLOB 3.9 g/dL (Normal) Range: 2.2-4.2 ALB 3.5 g/dL (Normal) Range: 3.2-5.0 T PROT 7.4 g/dL (Normal) Range: 6.4-8.2 [id number]:40 Lipid Profile Comments: Order Date: 12/21/16Order Info: [id number] - *Hepatic Function PanelOrder Info: [id number] - *Lipid Profile CC PCPComments: 12 hours fasting, may have water.[facility] [address] [place], [place], [id number] VLDL 22 mg/dL (Normal) Range: 5-40 LDL 62 mg/dL (Normal) Range: 0-130 HDL 63 mg/dL (Normal) Comments: The drugs N-Acetylcysteine and Metamizole may falselydepress this assay. Reference Range HDL <40 mg/dL Low HDL Cholesterol HDL >or= 60 mg/dL High HDL Cholesterol TRIG 111 mg/dL (Normal) Comments: The drugs N-Acetylcysteine and Metamizole may falselydepress this assay.Serum Triglycerides Reference Interval Normal <150 mg/dL Borderline high 150 - 199 mg/dL High 200 - 499 mg/dL Very High > or = 500 mg/dL CHOL 147 mg/dL (Normal) Comments: <200 mg/dL Desirable 200-240 mg/dL Borderline >240 mg/dL High Risk 63-Hhc-46807:40 Liver Profile Comments: Order Date: 12/21/16Order Info: [id number] - *Hepatic Function PanelOrder Info: [id number] - *Lipid Profile CC PCPComments: 12 hours fasting, may have water.[facility] [address] [place], [place], [id number] D BILI 0.20 mg/dL (Normal) Range: 0.00-0.30 T BILI 0.70 mg/dL (Normal) Range: 0.20-1.00 ALT 19 U/L (Normal) Range: 13-56 Comments: Please note revised ALT reference range wkepgphnk25/28/2018. ALK P 116 U/L (Normal) Range: 45-117 AST 20 U/L (Normal) Range: 15-37 GLOB 3.8 g/dL (Normal) Range: 2.2-4.2 ALB 3.7 g/dL (Normal) Range: 3.2-5.0 T PROT 7.5 g/dL (Normal) Range: 6.4-8.2 01-Syz-013935:17 Basic Metabolic Profile (BMP) Comments: Order Date: 02/12/17Order Info: [id number] - *BMPComments: Reason: For ICD generator change with Dr. Garcia [facility]/17[facility] [address] [place], [place], [id number] GAP 7 (Normal) Range: 5-15 CO2 27.0 mmol/L (Normal) Range: 21.0-32.0 CL 109 mmol/L (Abnormal) Range: 98-107 K 3.9 mmol/L (Normal) Range: 3.5-5.1 NA 143 mmol/L (Normal) Range: 136-145 CA 8.8 mg/dL (Normal) Range: 8.5-10.1 BUN/CRE 12.7 {RATIO} (Normal) Range: 10-20 EST GFR - AA 69 mL/min (Normal) Comments: GFR Calc EST GFR 57 mL/min (Abnormal) Comments: Non- GFR Calc CREAT,SERUM 1.02 mg/dL (Normal) Range: 0.55-1.02 Comments: The validity of the calculated GFR AND GFRAA in patients over70 years has not been determined. Clinical correlation isessential. BUN 13 mg/dL (Normal) Range: 7-18 GLU 97 mg/dL (Normal) Range: 70-110 11-Vqy-517081:17 CBC-Complete Blood Cnt No Diff Comments: Order Date: 02/12/17Order Info: [id number] - *CBC without DiffComments: Reason: For ICD generator change with Dr. Garcia on 02/15/17[facility] [address] [place], [address] MPV 11.2 fL (Normal) Range: 6.2-12.0 PLT 168 K/mm3 (Normal) Range: 150-450 RDW SD 41.6 fL (Normal) Range: 35.1-43.9 RDW CV 12.1 % (Normal) Range: 11.6-14.6 MCHC 35.0 {g/gl} (Normal) Range: 32-36 MCH 34.3 pg (Abnormal) Range: 27.0-32.0 MCV 97.9 fL (Normal) Range: 81-99 HCT 37.1 % (Normal) Range: 37-47 HGB 13.0 g/dL (Normal) Range: 12.0-15.0 RBC 3.79 {M/mm3} (Abnormal) Range: 4.2-5.4 WBC 7.6 K/mm3 (Normal) Range: 4.4-11.0 77-Iex-304284:17 Prothrombin Time w/INR Comments: Order Date: 02/12/17Order Info: [id number] - *PT/INRComments: For ICD generator change with Dr. Garcia on 02/15/17[facility] [address] [place], [address]( [phone] INR 1.1 (Normal) PROTIME 13.8 s (Normal) Range: 11.7-14.9 58-Sdq-145042:17 Urinalysis, Routine (Dipstick) Comments: Order Date: 02/12/17Order Info: [id number] - *UA - Urinalysis w/o MicroComments: Reason: For ICD generator change with Dr. Garcia on 02/15/17How was Urine Obtained? BLUE PRINTS TRIMMER TO [facility] [address] [place], [place], [id number] LEUK ESTERASE 500 /ul (Abnormal) OCCULT BLOOD-UR 10 /ul (Abnormal) NITRITE UR Negative (Normal) UROBILI Normal mg/dL (Normal) PROT DIPSTX 15 mg/dL (Abnormal) pH UR 5.0 (Normal) Range: 5.0 - 8.0 SP.GR. DIPSTX 1.020 (Normal) Range: 1.002-1.030 KETONE UR Negative mg/dL (Normal) BILIRUBIN URINE 1 mg/dL (Abnormal) Comments: COLOR OF URINE MAY AFFECT DIPSTICK RESULTS. GLUCOSE, UR Normal mg/dL (Normal) CLARITY Sl. Cloudy (Normal) COLOR Yellow (Normal) :09 Lipid Profile Comments: Order Date: 06/14/16Order Info: [id number] - *Hepatic Function PanelOrder Info: [id number] - *Lipid Profile CC PCPComments: 12 hours fasting, may have water.[facility] Vcqqendyqb3852 [facility] [address]. [place], [place], [address] VLDL 21 mg/dL (Normal) Range: 5-40 LDL 69 mg/dL (Normal) Range: 0-130 HDL 60 mg/dL (Normal) Comments: The drugs N-Acetylcysteine and Metamizole may falselydepress this assay. Reference Range HDL <40 mg/dL Low HDL Cholesterol HDL >or= 60 mg/dL High HDL Cholesterol TRIG 103 mg/dL (Normal) Comments: The drugs N-Acetylcysteine and Metamizole may falselydepress this assay.Serum Triglycerides Reference Interval Normal <150 mg/dL Borderline high 150 - 199 mg/dL High 200 - 499 mg/dL Very High > or = 500 mg/dL CHOL 150 mg/dL (Normal) Comments: <200 mg/dL Desirable 200-240 mg/dL Borderline >240 mg/dL High Risk :09 Liver Profile Comments: Order Date: 06/14/16Order Info: [id number] - *Hepatic Function PanelOrder Info: [id number] - *Lipid Profile CC PCPComments: 12 hours fasting, may have water.[facility] [address] [place], [place], [id number] D BILI 0.18 mg/dL (Normal) Range: 0.00-0.30 T BILI 0.80 mg/dL (Normal) Range: 0.20-1.00 ALT 20 U/L (Normal) Range: 12-78 ALK P 122 U/L (Abnormal) Range: 45-117 AST 18 U/L (Normal) Range: 15-37 GLOB 3.8 g/dL (Abnormal) Range: 2.3-3.5 ALB 3.5 g/dL (Normal) Range: 3.4-5.0 T PROT 7.3 g/dL (Normal) Range: 6.4-8.2 01-Uzo-498673:12 CBC W/Diff, Automated Comments: Order Date: 01/06/16Order Info: [id number] - *CBC with DifferentialComments: Reason: hx anemiaOrder Date: 01/06/16Order Info: [id number] - *FerritinComments: Reason: hx anemiaWooAdams [facility] Hospital [facility] [address] [place], [place], [id number] Absolute Lymph 1.80 {X10_3/ul} (Normal) Range: 0.83-4.51 Absolute Neut 3.7 {X10_3/uL} (Normal) Range: 2.0-7.7 IM GRAN % 0.300 % (Normal) Range: 0.0-0.9 Comments: IG% - Immature Granulocytes (promyelocytes, myelocytes andmetamyelocytes) > 1% indicates that a LEFT SHIFT is Present. BASO% 0.3 % (Normal) Range: 0-1 EO% 6.0 % (Abnormal) Range: 0-5 MONO% 8.2 % (Normal) Range: 0-10 LY% 27.7 % (Normal) Range: 19-41 NEUT% 57.5 % (Normal) Range: 47-70 MPV 10.8 fL (Normal) Range: 6.2-12.0 PLT 176 K/mm3 (Normal) Range: 150-450 RDW SD 41.1 fL (Normal) Range: 35.1-43.9 RDW CV 12.0 % (Normal) Range: 11.6-14.6 MCHC 33.9 {g/gl} (Normal) Range: 32-36 MCH 33.0 pg (Abnormal) Range: 27.0-32.0 MCV 97.2 fL (Normal) Range: 81-99 HCT 38.3 % (Normal) Range: 37-47 HGB 13.0 g/dL (Normal) Range: 12.0-15.0 RBC 3.94 {M/mm3} (Abnormal) Range: 4.2-5.4 WBC 6.5 K/mm3 (Normal) Range: 4.4-11.0 62-Vuw-458742:12 Ferritin Comments: Order Date: 01/06/16Order Info: [id number] - *IronOrder Info: [id number] - *FerritinComments: Reason: hx anemiaOrder Date: 01/06/16Order Info: [id number] - *FerritinComments: Reason: [facility] [address] [place], [place], [phone] FERRITIN 131 ng/mL (Normal) Range: 8-252 19-Oyo-909164:12 Iron Comments: Order Date: 01/06/16Order Info: [id number] - *IronOrder Info: [id number] - *FerritinComments: Reason: hx anemiaOrder Date: 01/06/16Order Info: [id number] - *FerritinComments: Reason: [facility] anemiaWDetwiler [facility] [address]dd[address] [place], [place], [address] IRON 206 ug/dL (Abnormal) Range: 50-170 17-Xvf-46953:48 Lipid Profile Comments: Order Date: 12/15/15OV Order #: [id number] Healthcare [facility] Glen[facility]igh [address] [place], [address] VLDL 21 mg/dL (Normal) Range: 5-40 LDL 67 mg/dL (Normal) Range: 0-130 HDL 57 mg/dL (Normal) Comments: The drugs N-Acetylcysteine and Metamizole may falsely deressthis assay. Reference Range HDL <40 mg/dL Low HDL Cholesterol HDL >or= 60 mg/dL High HDL Cholesterol TRIG 106 mg/dL (Normal) Comments: The drugs N-Acetylcysteine and Metamizole may falsely deressthis assay.Serum Triglycerides Reference Interval Normal <150 mg/dL Borderline high 150 - 199 mg/dL High 200 - 499 mg/dL Very High > or = 500 mg/dL CHOL 145 mg/dL (Normal) Comments: <200 mg/dL Desirable 200-240 mg/dL Borderline >240 mg/dL High Risk :48 Liver Profile Comments: Order Date: 12/15/15OV Order #: [id number] [facility] Hospital [address]hx[address] [place], [place], [address] D BILI 0.18 mg/dL (Normal) Range: 0.00-0.30 T BILI 0.70 mg/dL (Normal) Range: 0.20-1.00 ALT 18 U/L (Normal) Range: 12-78 ALK P 124 U/L (Normal) Range: 50-136 AST 20 U/L (Normal) Range: 15-37 GLOB 3.8 g/dL (Abnormal) Range: 2.3-3.5 ALB 3.6 g/dL (Normal) Range: 3.4-5.0 T PROT 7.4 g/dL (Normal) Range: 6.4-8.2 :56 Lipid Profile Comments: [facility] [address] [place], [place], [address] VLDL 30 mg/dL (Normal) Range: 5-40 LDL 91 mg/dL (Normal) Range: 0-130 HDL 59 mg/dL (Normal) Comments: Reference Range HDL <40 mg/dL Low HDL Cholesterol HDL >or= 60 mg/dL High HDL Cholesterol TRIG 151 mg/dL (Normal) Comments: Serum Triglycerides Reference Interval Normal <150 mg/dL Borderline high 150 - 199 mg/dL High 200 - 499 mg/dL Very High > or = 500 mg/dL CHOL 180 mg/dL (Normal) Comments: <200 mg/dL Desirable 200-240 mg/dL Borderline >240 mg/dL High Risk :56 Liver Profile Comments: [facility] [address] [place], [place], [address] D BILI 0.13 mg/dL (Normal) Range: 0.00-0.30 T BILI 0.60 mg/dL (Normal) Range: 0.20-1.00 ALT 23 U/L (Normal) Range: 12-78 ALK P 119 U/L (Normal) Range: 50-136 AST 23 U/L (Normal) Range: 15-37 Comments: Slight Hemolysis, Result may be falsely increased. GLOB 4.5 g/dL (Abnormal) Range: 2.3-3.5 ALB 3.4 g/dL (Normal) Range: 3.4-5.0 T PROT 7.9 g/dL (Normal) Range: 6.4-8.2 :19 CBC WITH MANUAL DIFF Comments: recheck in 4 weeks; PATIENT NOT FASTINGPERFORMED BY: [facility][id number] [facility] [id number] Information: [id number] (83548) Immature Grans (Abs) 0.0 {x10E3/uL} (Normal) Range: 0.0-0.1 Immature Granulocytes 0 % (Normal) Baso (Absolute) 0.0 {x10E3/uL} (Normal) Range: 0.0-0.2 Eos (Absolute) 0.5 {x10E3/uL} (Abnormal) Range: 0.0-0.4 Monocytes(Absolute) 0.6 {x10E3/uL} (Normal) Range: 0.1-0.9 Lymphs (Absolute) 1.8 {x10E3/uL} (Normal) Range: 0.7-3.1 Neutrophils (Absolute) 4.8 {x10E3/uL} (Normal) Range: 1.4-7.0 Basos 1 % (Normal) Eos 7 % (Normal) Monocytes 8 % (Normal) Lymphs 23 % (Normal) Neutrophils 61 % (Normal) Platelets 187 {x10E3/uL} (Normal) Range: 150-379 RDW 18.4 % (Abnormal) Range: 12.3-15.4 MCHC 32.8 g/dL (Normal) Range: 31.5-35.7 MCH 29.0 pg (Normal) Range: 26.6-33.0 MCV 88 fL (Normal) Range: 79-97 Hematocrit 39.0 % (Normal) Range: 34.0-46.6 Hemoglobin 12.8 g/dL (Normal) Range: 11.1-15.9 RBC 4.41 {x10E6/uL} (Normal) Range: 3.77-5.28 WBC 7.8 {x10E3/uL} (Normal) Range: 3.4-10.8 :15 CBC W/Diff, Automated Comments: [facility] [address] [place], [place], [address] Absolute Lymph 1.36 {X10_3/ul} (Normal) Range: 0.83-4.51 Absolute Neut 2.7 {X10_3/uL} (Normal) Range: 2.0-7.7 IM GRAN % 0.200 % (Normal) Range: 0.0-0.9 Comments: IG% - Immature Granulocytes (promyelocytes, myelocytes andmetamyelocytes) > 1% indicates that a LEFT SHIFT is Present. BASO% 0.4 % (Normal) Range: 0-1 EO% 5.9 % (Abnormal) Range: 0-5 MONO% 7.6 % (Normal) Range: 0-10 LY% 28.6 % (Normal) Range: 19-41 NEUT% 57.3 % (Normal) Range: 47-70 MPV 10.1 fL (Normal) Range: 6.2-12.0 PLT 189 K/mm3 (Normal) Range: 150-450 RDW SD 60.1 fL (Abnormal) Range: 35.1-43.9 RDW CV 18.0 % (Abnormal) Range: 11.6-14.6 MCHC 31.0 {g/gl} (Abnormal) Range: 32-36 MCH 28.4 pg (Normal) Range: 27.0-32.0 MCV 91.5 fL (Normal) Range: 81-99 HCT 35.5 % (Abnormal) Range: 37-47 HGB 11.0 g/dL (Abnormal) Range: 12.0-15.0 RBC 3.88 {M/mm3} (Abnormal) Range: 4.2-5.4 WBC 4.8 K/mm3 (Normal) Range: 4.4-11.0 :15 Iron Comments: [facility] [address] [place], [address] IRON 70 ug/dL (Normal) Range: 50-170 Comments: Moderate Hemolysis, Result may be falsely increased. :15 Iron Binding Capacity,Total Comments: [facility] [address] [place], [address] TIBC 285 ug/dL (Normal) Range: 250-450 Comments: Moderate Hemolysis, Result may be falsely increased. :15 Retic Panel Comments: [facility] [address] [place], [address] IPF 2.9 % (Normal) Range: 1.0-7.9 Comments: Low PLT + Low IPF suggest a bone marrow production disorderLow PLT + high IPF suggests peripheral destruction(e.g.ITP, TTP, HIT, DIC, autoimmune) or bone marrow recoveryTrending of serial IPF measuremen ts is recommended whenevaluating for bone marrow responesValue above normal range indicates an increase in RBCcellular response from bone marrow. RET-HE 33.0 pg (Normal) Range: 30-35 IM RET FRACTION 5.70 % (Normal) Range: 3.00-15.90 RETIC 1.94 % (Abnormal) Range: 0.5-1.5 01-Wum-544349:08 Fecal Occult Blood , Office (17245) Fecal Occult Blood , Office (Inhouse) positive (Normal) 70-Zyi-632571:42 HAPTOGLOBIN (46775) Comments: all rest today; PATIENT NOT FASTINGPERFORMED BY: [employer]6370 [facility] [id number] BY: [employer] [id number] Haptoglobin 59 mg/dL (Normal) Range: 34-200 66-Tfe-395814:42 CBC, PLATELETS & AUT DIFF Comments: recheck this in 6 weeks; PATIENT NOT FASTINGPERFORMED BY: [employer] Ugneje3241 [facility] [id number] BY: [employer] [id number] Information: [id number] (00172) Immature Grans (Abs) 0.0 {x10E3/uL} (Normal) Range: 0.0-0.1 Immature Granulocytes 0 % (Normal) Baso (Absolute) 0.0 {x10E3/uL} (Normal) Range: 0.0-0.2 Eos (Absolute) 0.4 {x10E3/uL} (Normal) Range: 0.0-0.4 Monocytes(Absolute) 0.5 {x10E3/uL} (Normal) Range: 0.1-0.9 Lymphs (Absolute) 1.7 {x10E3/uL} (Normal) Range: 0.7-3.1 Neutrophils (Absolute) 3.7 {x10E3/uL} (Normal) Range: 1.4-7.0 Basos 1 % (Normal) Eos 7 % (Normal) Monocytes 8 % (Normal) Lymphs 26 % (Normal) Neutrophils 58 % (Normal) Platelets 239 {x10E3/uL} (Normal) Range: 150-379 RDW 13.9 % (Normal) Range: 12.3-15.4 MCHC 32.8 g/dL (Normal) Range: 31.5-35.7 MCH 28.3 pg (Normal) Range: 26.6-33.0 MCV 86 fL (Normal) Range: 79-97 Hematocrit 24.4 % (Abnormal) Range: 34.0-46.6 Hemoglobin 8.0 g/dL (Abnormal) Range: 11.1-15.9 RBC 2.83 {x10E6/uL} (Abnormal) Range: 3.77-5.28 WBC 6.4 {x10E3/uL} (Normal) Range: 3.4-10.8 96-Ide-475791:42 SPEP (06880) Comments: PATIENT NOT FASTINGPERFORMED BY: [facility] Hyyxjh2386 [facility] [id number] BY: BN [facility] Vnzusgxiqh6982 [facility] [id number] Please note: SPRCS (Normal) Comments: Protein electrophoresis scan will follow via computer, mail, orcourier delivery. A/G Ratio 1.3 (Normal) Range: 0.7-2.0 Globulin, Total 2.9 g/dL (Normal) Range: 2.0-4.5 M-Simeon Not Observed g/dL (Normal) Gamma Globulin 1.2 g/dL (Normal) Range: 0.5-1.6 Beta Globulin 1.0 g/dL (Normal) Range: 0.6-1.3 Lqaub-7-Vegljjuh 0.6 g/dL (Normal) Range: 0.4-1.2 Owsun-5-Kluofunb 0.2 g/dL (Normal) Range: 0.1-0.4 Albumin 3.7 g/dL (Normal) Range: 3.2-5.6 Protein, Total, Serum 6.6 g/dL (Normal) Range: 6.0-8.5 :42 FOLIC ACID SERUM (32951) Comments: PATIENT NOT FASTINGPERFORMED BY: Ovelin [facility] [id number] BY: [employer] [id number] Folate (Folic Acid), Serum 18.8 ng/mL (Normal) Comments: A serum folate concentration of less than 3.1 ng/mL isconsidered to represent clinical deficiency. 92-Pii-001587:42 Methymalonic Acid, Serum Comments: PATIENT NOT FASTINGPERFORMED BY: Ovelin [facility] Memorial HospitalPet ReadyUNC Health Wayne [id number] BY: [employer] [id number] (61047) Methylmalonic Acid, Serum 479 nmol/L (Abnormal) Range: 0-378 86-Pin-993482:42 VITAMIN B-12 Comments: PATIENT NOT FASTINGPERFORMED BY: Ovelin [facility] [id number] BY: [employer] [id number] (CYANOCOBALAMIN) (79295) Vitamin B12 259 pg/mL (Normal) Range: 211-946 93-Icq-334369:42 RETICULOCYTE COUNT MANUL Comments: PATIENT NOT FASTINGPERFORMED BY: [place] [id number] [facility] [id number] BY: [address] [id number] (10681) Reticulocyte Count 2.5 % (Normal) Range: 0.6-2.6 22-Ilp-684606:42 LDH (LD) (LACTATE Comments: PATIENT NOT FASTINGPERFORMED BY: [address] [id number] BY: [address] [id number] DEHYDROGENASE) (58144) LDH 175 [iU]/L (Normal) Range: 119-226 74-Lcc-573168:42 IRON BINDING CAPACITY Comments: PATIENT NOT FASTINGPERFORMED BY: [address] [id number] BY: [address] [id number] (TIBC) (44019) Iron Saturation 6 % (Abnormal) Range: 15-55 Iron, Serum 17 ug/dL (Abnormal) Range: 35-155 UIBC 265 ug/dL (Normal) Range: 150-375 Iron Bind.Cap.(TIBC) 282 ug/dL (Normal) Range: 250-450 48-Xzy-112130:42 FERRITIN (63921) Comments: PATIENT NOT FASTINGPERFORMED BY: [address] [id number] BY: [address] [id number] Ferritin, Serum 7 ng/mL (Abnormal) Range: 15-150 39-Gio-863361:44 CBC W/Diff, Automated Comments: [facility] [address] [place], [place], [id number] Absolute Lymph 1.47 {X10_3/ul} (Normal) Range: 0.83-4.51 Absolute Neut 3.4 {X10_3/uL} (Normal) Range: 2.0-7.7 IM GRAN % 0.000 % (Normal) Range: 0.0-0.9 Comments: IG% - Immature Granulocytes (promyelocytes, myelocytes andmetamyelocytes) > 1% indicates that a LEFT SHIFT is Present. BASO% 0.4 % (Normal) Range: 0-1 EO% 6.0 % (Abnormal) Range: 0-5 MONO% 7.3 % (Normal) Range: 0-10 LY% 26.2 % (Normal) Range: 19-41 NEUT% 60.1 % (Normal) Range: 47-70 MPV 10.2 fL (Normal) Range: 6.2-12.0 PLT 243 K/mm3 (Normal) Range: 150-450 RDW SD 43.1 fL (Normal) Range: 35.1-43.9 RDW CV 13.4 % (Normal) Range: 11.6-14.6 MCHC 31.5 {g/gl} (Abnormal) Range: 32-36 MCH 28.1 pg (Normal) Range: 27.0-32.0 MCV 89.4 fL (Normal) Range: 81-99 HCT 27.0 % (Abnormal) Range: 37-47 HGB 8.5 g/dL (Abnormal) Range: 12.0-15.0 RBC 3.02 {M/mm3} (Abnormal) Range: 4.2-5.4 WBC 5.6 K/mm3 (Normal) Range: 4.4-11.0 07-Ydr-867268:44 Comprehensive Metabolic Profil Comments: [facility] [address]frxtkrp[address] [place], [place], [id number] GAP 7 (Normal) Range: 5-15 CO2 23.0 mmol/L (Normal) Range: 21.0-32.0 CL 110 mmol/L (Abnormal) Range: 98-107 K 4.2 mmol/L (Normal) Range: 3.5-5.1 NA 140 mmol/L (Normal) Range: 136-145 T BILI 0.60 mg/dL (Normal) Range: 0.20-1.00 ALT 23 U/L (Normal) Range: 12-78 ALK P 104 U/L (Normal) Range: 50-136 AST 19 U/L (Normal) Range: 15-37 CA 8.7 mg/dL (Normal) Range: 8.5-10.1 A/G 1.0 {RATIO} (Normal) Range: 0.9-2.4 GLOB 3.7 g/dL (Abnormal) Range: 2.3-3.5 ALB 3.7 g/dL (Normal) Range: 3.4-5.0 T PROT 7.4 g/dL (Normal) Range: 6.4-8.2 BUN/CRE 16.8 {RATIO} (Normal) Range: 10-20 EST GFR - AA 70 mL/min (Normal) Comments: GFR Calc EST GFR 58 mL/min (Abnormal) Comments: Non- GFR Calc CREAT,SERUM 1.01 mg/dL (Normal) Range: 0.55-1.20 Comments: The validity of the calculated GFR AND GFRAA in patients over70 years has not been determined. Clinical correlation isessential. BUN 17 mg/dL (Normal) Range: 7-18 GLU 90 mg/dL (Normal) Range: 70-110 :44 T4 Total, Thyroxin Comments: [facility] F[address]yszjdfld1236 [facility] [address]. [place], [place], [id number] T4 THYROXIN 8.5 ug/dL (Normal) Range: 4.8-13.9 :44 Thyroid Stim Hormone (TSH) Comments: [facility] [address] [place], [place], [address] TSH 3.80 {uIU/mL} (Abnormal) Range: 0.358-3.74 :57 Lipid Profile Comments: Test performed at:[facility] Ehkxvmyxkc3538 [facility] [address]. [place], [place] [address] VLDL 24 mg/dL (Normal) Range: 5-40 LDL 74 mg/dL (Normal) Range: 0-130 HDL 58 mg/dL (Normal) Comments: Reference Range HDL <40 mg/dL Low HDL Cholesterol HDL >or= 60 mg/dL High HDL Cholesterol TRIG 121 mg/dL (Normal) Comments: Serum Triglycerides Reference Interval Normal <150 mg/dL Borderline high 150 - 199 mg/dL High 200 - 499 mg/dL Very High > or = 500 mg/dL CHOL 156 mg/dL (Normal) Comments: <200 mg/dL Desirable 200-240 mg/dL Borderline >240 mg/dL High Risk :57 Liver Profile Comments: Test performed at:[facility] [address]ric[address] [place] [address] D BILI 0.14 mg/dL (Normal) Range: 0.00-0.30 T BILI 0.60 mg/dL (Normal) Range: 0.20-1.00 ALT 24 U/L (Normal) Range: 12-78 ALK P 131 U/L (Normal) Range: 50-136 AST 23 U/L (Normal) Range: 15-37 GLOB 3.5 g/dL (Normal) Range: 2.3-3.5 ALB 3.6 g/dL (Normal) Range: 3.4-5.0 T PROT 7.1 g/dL (Normal) Range: 6.4-8.2 :40 Lipid Profile Comments: Test performed at:[facility] [address] [place] [address] VLDL 19 mg/dL (Normal) Range: 5-40 LDL 89 mg/dL (Normal) Range: 0-130 HDL 57 mg/dL (Normal) Comments: Reference Range HDL <40 mg/dL Low HDL Cholesterol HDL >or= 60 mg/dL High HDL Cholesterol TRIG 93 mg/dL (Normal) Range: 0-199 Comments: Serum Triglycerides Reference Interval Normal <150 mg/dL Borderline high 150 - 199 mg/dL High 200 - 499 mg/dL Very High > or = 500 mg/dL CHOL 165 mg/dL (Normal) Comments: <200 mg/dL Desirable 200-240 mg/dL Borderline >240 mg/dL High Risk :40 Liver Profile Comments: Test performed at:[facility] Ponhhbfjnn4969 [facility] [place], [place] [id number] D BILI 0.18 mg/dL (Normal) Range: 0.00-0.30 T BILI 0.80 mg/dL (Normal) Range: 0.00-4.00 ALT 23 U/L (Normal) Range: 12-78 ALK P 130 U/L (Normal) Range: 50-136 AST 23 U/L (Normal) Range: 15-37 GLOB 3.9 g/dL (Normal) Range: 2.7-4.2 ALB 3.8 g/dL (Normal) Range: 3.4-5.0 T PROT 7.7 g/dL (Normal) Range: 6.4-8.2 :42 LIPID VLDL 23 mg/dL (Normal) Range: 5-40 LDL 75 mg/dL (Normal) Range: 0-130 HDL 54 mg/dL (Normal) Comments: Reference RangeHDL <40 mg/dL Low HDL CholesterolHDL >or= 60 mg/dL High HDL Cholesterol TRIG 114 mg/dL (Normal) Range: 0-199 Comments: Serum Triglycerides Reference IntervalNormal <150 mg/dLBorderline high 150 - 199 mg/dLHigh 200 - 499 mg/ dLVery High > or = 500 mg/dL CHOL 152 mg/dL (Normal) Comments: <200 mg/dL [id number] mg/dL Borderline>240 mg/dL High Risk :42 LIVER BID 0.20 mg/dL (Normal) Range: 0.00-0.30 BIT 0.80 mg/dL (Normal) Range: 0.00-4.00 ALT 23 U/L (Normal) Range: 12-78 ALK 123 U/L (Normal) Range: 50-136 AST 22 U/L (Normal) Range: 15-37 ALB 3.8 g/dL (Normal) Range: 3.4-5.0 TPROT 7.7 g/dL (Normal) Range: 6.4-8.2 :08 LIPID HDL 55 mg/dL (Normal) Comments: Reference RangeHDL <40 mg/dL Low HDL CholesterolHDL >or= 60 mg/dL High HDL Cholesterol LDL 79 mg/dL (Normal) Range: 0-130 VLDL 25 mg/dL (Normal) Range: 5-40 CHOL 159 mg/dL (Normal) Comments: <200 mg/dL [id number] mg/dL Borderline>240 mg/dL High Risk TRIG 124 mg/dL (Normal) Comments: Serum Triglycerides Reference IntervalNormal <150 mg/dLBorderline high 150 - 199 mg/dLHigh 200 - 499 mg/ dLVery High > or = 500 mg/dL :08 LIVER ALB 3.7 g/dL (Normal) Range: 3.4-5.0 ALK P 111 U/L (Normal) Range: 50-136 ALT 19 U/L (Normal) Range: 12-78 AST 14 U/L (Abnormal) Range: 15-37 D BILI 0.13 mg/dL (Normal) Range: 0.00-0.30 T BILI 0.60 mg/dL (Normal) Range: 0.00-1.00 T PROT 7.5 g/dL (Normal) Range: 6.4-8.2 :06 LIPID CHOL 142 mg/dL (Normal) Comments: <200 mg/dL [id number] mg/dL Borderline>240 mg/dL High Risk HDL 50 mg/dL (Normal) Comments: Reference RangeHDL <40 mg/dL Low HDL CholesterolHDL >or= 60 mg/dL High HDL Cholesterol LDL 73 mg/dL (Normal) Range: 0-130 TRIG 95 mg/dL (Normal) Comments: Serum Triglycerides Reference IntervalNormal <150 mg/dLBorderline high 150 - 199 mg/dLHigh 200 - 499 mg/ dLVery High > or = 500 mg/dL VLDL 19 mg/dL (Normal) Range: 5-40 :06 LIVER ALK P 116 U/L (Normal) Range: 50-136 ALT 25 U/L (Normal) Range: 12-78 D BILI 0.17 mg/dL (Normal) Range: 0.00-0.30 T BILI 0.60 mg/dL (Normal) Range: 0.00-1.00 ALB 3.8 g/dL (Normal) Range: 3.4-5.0 AST 21 U/L (Normal) Range: 15-37 T PROT 7.5 g/dL (Normal) Range: 6.4-8.2 [id number] BILAT SCRN DIGITAL & CAD Radiology Report See Note (Normal) Comments: Exam Number: [id number] MAMMOGRAM, BILATERAL SCREENING DIGITAL AND CAD HISTORYRoutine screening. Full field digital images were obtained in mediolateral oblique andcraniocaudal projections. CAD images w ere reviewed. The current study is compared to the examinations of June 1998 andAugust 1999. There is a mild extent of fibroglandular parenchyma present. There isno skin thickening or retraction, vinay ectural distortion, or clusterof suspicious microcalcifications. There are a few scatteredcalcifications on both sides. A pacemaker battery projects in theright axilla. If there is no suspicious palp able abnormality,followup mammogram in 1 year is recommended. IMPRESSIONThere is no radiographic evidence of malignancy identified. FINAL ASSESSMENTBenign findings. BIRADS Category 2. A letter regardin g these results has been sent to the patient. This interpretation was rendered by a radiologist certified under theMammography Quality Standards Act of 1992 (MQSA). The mammograms werealso examined wi th computer-aided detection software ([employer].). Reported By: MIKA ALVAREZ M.D. [id number] BMP BUN 15 mg/dL (Normal) Range: 7-18 BUN/CRE 13.6 {RATIO} (Normal) Range: 10-20 CA 9.5 mg/dL (Normal) Range: 8.5-10.1 CL 101 mmol/L (Normal) Range: 98-107 CO2 29.9 mmol/L (Normal) Range: 21.0-32.0 CREAT,SERUM 1.1 mg/dL (Abnormal) Range: 0.6-1.0 GAP 7 (Normal) Range: 5-15 GLU 83 mg/dL (Normal) Range: 70-110 K 4.3 mmol/L (Normal) Range: 3.5-5.1 NA 138 mmol/L (Normal) Range: 136-145 [id number] CBCD BASO% 0.6 % (Normal) Range: 0-1 EO% 6.9 % (Abnormal) Range: 0-5 HCT 38.6 % (Normal) Range: 37-47 HGB 13.7 g/dL (Normal) Range: 12.0-16.0 LY% 23.0 % (Normal) Range: 19-41 MCH 33.8 pg (Abnormal) Range: 27.0-32.0 MCHC 35.6 g/dL (Normal) Range: 32-36 MCV 95.1 fL (Normal) Range: 81-99 MONO% 5.8 % (Normal) Range: 0-10 MPV 9.0 fL (Normal) Range: 6.5-12.0 NEUT% 63.7 % (Normal) Range: 47-70 PLT 232 K/mm3 (Normal) Range: 150-450 RBC 4.06 {M/mm3} (Abnormal) Range: 4.2-5.4 RDW 12.5 % (Normal) Range: 11.6-14.6 WBC 9.1 K/mm3 (Normal) Range: 4.4-11.0 [id number] ROUTINE UA BILIRUBIN URINE SeeNote (Normal) Comments: Result: NEGATIVE CLARITY CLEAR (Normal) COLOR STRAW (Normal) GLUCOSE, UR SeeNote (Normal) Comments: Result: NEGATIVE KETONE UR SeeNote mg/dL (Normal) Comments: Result: NEGATIVE LEUK ESTERASE 1+ (Abnormal) NITRITE UR SeeNote (Normal) Comments: Result: NEGATIVE OCCULT BLOOD-UR SeeNote (Normal) Comments: Result: NEGATIVE pH UR 5.5 (Normal) Range: 5.0-8.0 PROT DIPSTX SeeNote (Normal) Comments: Result: NEGATIVE SP.GR. DIPSTX 1.010 (Normal) Range: 1.002-1.030 UROBILI 0.2 EU/dl (Normal) Range: 0.2 - 1.0 Plan of Care Name Dates Details Instructions BMI 35.0-35.9,adult : Follow up in 4 weeks Indication: BMI 35.0-35.9,adult Current nonsmoker (Renamed from Current non-smoker) : Eprescribed prescriptions (G8553) Indication: Current nonsmoker (Renamed from Current non-smoker) Screening for osteoporosis (Renamed from Encounter for screening for osteoporosis) : Self breast exam Indication: Screening for osteoporosis (Renamed from Encounter for screening for osteoporosis) Screening for osteoporosis (Renamed from Encounter for screening for osteoporosis) : *Well Female Maintenance (KF) Indication: Screening for osteoporosis (Renamed from Encounter for screening for osteoporosis) Annual Medicare Physical (Renamed from Medicare annual wellness visit, subsequent) : Eprescribed prescriptions (G8553) Indication: Annual Medicare Physical (Renamed from Medicare annual wellness visit, subsequent) Anemia, unspecified type : Anemia: anemia Indication: Anemia, unspecified type Anemia, unspecified type : Eprescribed prescriptions (G8553) Indication: Anemia, unspecified type Current nonsmoker (Renamed from Current non-smoker) : Eprescribed prescriptions (G8553) Indication: Current nonsmoker (Renamed from Current non-smoker) Cough : Follow up if no improvement or if symptoms worsen Indication: Cough Unspecified asthma with (acute) exacerbation : Eprescribed prescriptions (G8553) Indication: Unspecified asthma with (acute) exacerbation Cough : [facility] Indication: Cough CHRONIC OBSTRUCTIVE ASTHMA WITH (ACUTE) EXACERBATION : Solu Medrol Injection/ Education Indication: CHRONIC OBSTRUCTIVE ASTHMA WITH (ACUTE) EXACERBATION Planned Observations T4, FREE (THYROXINE) ([id number])Indication: Abnormal TSH On: :01 Request TSH ([id number])Indication: Abnormal TSH On: :01 Request Ferritin ([id number])Indication: AJIT (iron deficiency anemia) On: :00 Request CBC with auto diff ([id number])Indication: AJIT (iron deficiency anemia) On: :00 Request T4, FREE (THYROXINE) ([id number])Indication: Abnormal TSH On: :20 Request Comments: recheck 6 weeks. Anti-TPO Antibody ([id number])Indication: Abnormal TSH On: :19 Request Comments: recheck 6 weeks TSH ([id number])Indication: Abnormal TSH On: :19 Request Comments: recheck 6 weeks FECAL OCCULT- Tubes sent home ([id number])Indication: Anemia, unspecified type On: :18 Request IRON ([id number])Indication: Anemia, unspecified type On: [id number] Request URINALYSIS W/O MICRO ([id number])Indication: Hyperlipemia, mixed On: :33 Request CBC (Auto) ([id number])Indication: Hyperlipemia, mixed On: :33 Request Metabolic Panel, Basic ([id number])Indication: Hyperlipemia, mixed On: :33 Request Planned Encounters Medical; 3 Week FU - 4 week On: 27-Feb-2018 10:15 [facility] Janessa Bravo CNP Planned Procedures Aerosol Treatment ([id number])By: Shelly On: 30-Jan-2018 Intent Janessa MCKEON Spirometry ([id number])By: Shelly MCKEON, On: 30-Jan-2018 Intent Janessa Baker Radiology - ChestBy: Debi GASPAR, On: 04-Jun-2015 Intent Ivana Carrera MD, Ivana Albarado Comments: if not mario rin 1 week PNEUM VAC ADLT/IMUMNOSPR, SBC/INTRM On: 23-Apr-2015 Intent ([id number])By: Ivana Carrera MD, MD, Dana M DEXA SCAN AXIAL SKELETON ([id number])By: On: 23-Apr-2015 Intent Ivana Carrera MD, MD, Dana Comments: do at least 2 years from last M MAMMOGRAM, SCREENING, BOTH BREAST On: 23-Apr-2015 Intent ([id number])By: Ivana Carrera MD, MD, Dana M MAMMOGRAM, SCREENING, BOTH BREAST On: 09-Mar-2015 Intent ([id number])By: Ivana Carrera MD, MD, Dana M Aerosol Treatment ([id number])By: On: 01-Jan-2015 Intent Ivana Carrera MD, MD, Dana M Aerosol Treatment ([id number])By: Shelly On: 30-Jan-2014 Intent MIKE Ana Cristina Aerosol Treatment ([id number])By: Shelly On: 02-Jan-2011 Intent MIKE Ana Cristina Pulse Oximetry ([id number])By: Higinio GARCIA, On: 02-Jan-2011 Intent Sissy Pulse Oximetry ([id number])By: Juaquin On: 19-Aug-2009 Intent NIKHIL Spirometry ([id number])By: Juaquin On: 19-Aug-2009 Intent NIKHIL Inhaler Demonstration ([id number])By: On: 23-Feb-2009 Intent Shelly MCKEON Ana Cristina Pulse Oximetry ([id number])By: Shelly On: 23-Feb-2009 Intent MIKE Ana Cristina Aerosol Treatment ([id number])By: Shelly On: 23-Feb-2009 Intent MIKE Ana Cristina Solu -Medrol Injection, 125 mg On: 23-Feb-2009 Intent ([id number])By: Shelly MCKEON Ana Cristina Comments: Lot #[id number]-right [id number] mggiven by:BRIANNE Aerosol Treatment ([id number])By: Bridget On: 22-Jun-2008 Gabriela Suggs DO Comments: done by drew air exchg less wheeze Solu- Medrol Injection, 125mg On: 22-Jun-2008 Intent ([id number])By: Gabriela Gill DO Comments: Lot #:[id number] date:mount given:125mgRoute: IMSite given:right buttuckGiven by: CUAUHTEMOC Ramirez Pulse Oximetry ([id number])By: Billy, On: 22-Jun-2008 Intent Mehnaz Comments: 97% Spirometry ([id number])By: Debi GASPAR, On: 21-Feb-2008 Intent Ivana Cornell MD Pulse Oximetry ([id number])By: Debi On: 21-Feb-2008 Intent Ivana GASPAR MD, Dana M MAMMOGRAM, SCREENING, BOTH BREASTS On: 01-Nov-2007 Intent ([id number])By: Ivana Carrera MD, MD, Dana M Bio Z ([id number])By: Ivana Carrera MD On: 01-Nov-2007 Intent Ivana Carrera MD Instructions Name Dates Details Current nonsmoker (Renamed from Current non-smoker) : How to access health information online Indication: Current nonsmoker (Renamed from Current non-smoker) Current nonsmoker (Renamed from Current non-smoker) : How to access health information online - Detail Indication: Current nonsmoker (Renamed from Current non-smoker) Current nonsmoker (Renamed from Current non-smoker) : Patient Instructions Indication: Current nonsmoker (Renamed from Current non-smoker) Bronchitis, acute : How to access health information online Indication: Bronchitis, acute Bronchitis, acute : How to access health information online - Detail Indication: Bronchitis, acute Bronchitis, acute : Patient Instructions Indication: Bronchitis, acute Annual Medicare Physical (Renamed from Medicare annual wellness visit, subsequent) : How to access health information online Indication: Annual Medicare Physical (Renamed from Medicare annual wellness visit, subsequent) Annual Medicare Physical (Renamed from Medicare annual wellness visit, subsequent) : How to access health information online - Detail Indication: Annual Medicare Physical (Renamed from Medicare annual wellness visit, subsequent) Annual Medicare Physical (Renamed from Medicare annual wellness visit, subsequent) : Patient Instructions Indication: Annual Medicare Physical (Renamed from Medicare annual wellness visit, subsequent) Anemia, unspecified type : How to access health information online Indication: Anemia, unspecified type Anemia, unspecified type : How to access health information online - Detail Indication: Anemia, unspecified type Anemia, unspecified type : Patient Instructions Indication: Anemia, unspecified type Current nonsmoker (Renamed from Current non-smoker) : How to access health information online Indication: Current nonsmoker (Renamed from Current non-smoker) Current nonsmoker (Renamed from Current non-smoker) : How to access health information online - Detail Indication: Current nonsmoker (Renamed from Current non-smoker) Current nonsmoker (Renamed from Current non-smoker) : Patient Instructions Indication: Current nonsmoker (Renamed from Current non-smoker) Unspecified asthma with (acute) exacerbation : How to access health information online Indication: Unspecified asthma with (acute) exacerbation Encounters Office Visit On: 30-Jan-2018 11:26 Encounter Reason: Shortness of Breath - Symptoms include dyspnea (on exersion). Onset was 2 month(s) ago. 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 [place] like full of phlegm in am Was told in past had allergy and asthma but did not have to use advair routinely only as needed. Went to porcelain technician and did not feel problem with heart.Encounter Diagnosis: Current nonsmoker (Renamed from Current non-smoker), Hypertensive heart disease, BMI 35.0-35.9,adult, Short of breath on exertion, Intrinsic asthma [facility] Office Visit On: 04-Jun-2015 12:06 Encounter Reason: Bronchitis, Acute, Adult - The last clinic visit was 1 week(s) ago. Symptoms include productive cough, wheezing, shortness of breath, fatigue, rhinorrhea and pleuritic chest pain.Encounter Diagnosis: Bronchitis, acute, End: 04-Jun-2015 12:16 Current nonsmoker (Renamed from Current non-smoker) [facility] Lab Order On: 23-Apr-2015 17:26 Encounter Diagnosis: AJIT (iron deficiency anemia) End: 23-Apr-2015 17:26 [facility] Office Visit On: 23-Apr-2015 11:12 Encounter Reason: Follow up tests - Date: (04/19/15 blood work)., [ADDITIONAL REASON] Annual Medicare Exam - The patient had reviewed and updated the family history, End: 23-Apr-2015 12:18 medication/s, past medical history and social history. Yes the patient did have ( Alert) a mini mental status exam done today. The activities of daily living the patient needs help with are none. T he patient has put area rugs through house, but the patient has not had fecal incontinence, had urinary incontinence, missed or ran out of medications to soon, driven in past 6 months, fallen in the pas t 6 months, gotten lost, has a medalert necklace or bracelet or put handrails in bathroom. The patient has completed the following preventative measures: mammography (possibly 3 yrs) and colonoscopy (04/19/15 Dr. Lord). The patient does not have durable power of workers compensation attorney or living will. The patient has noticed nothing from the geriatic depression scale. Other providers contributing to the patient's care are porcelain technician (Dr. Hurd). Encounter Diagnosis: Annual Medicare Physical (Renamed from Medicare annual wellness visit, subsequent), Encounter for screening mammogram for breast cancer (Renamed from Encounter for screening mammogram for malignant neoplasm of breast), Screening for osteoporosis (Renamed from Encounter for screening for osteoporosis), Hypertensive heart disease, Hyperlipemia, mixed, Intrinsic asthma, Current nonsmoker (Renamed from Current non-smoker), GERD (gastroesophageal reflux disease), Allergic rhinitis, Mitral valve prolapse, Anemia, unspecified type, Low back pain, Obese, Abnormal TSH, AJIT (iron deficiency anemia), Cardiomyopathy, Gastrointestinal hemorrhage with melena, Pneumococcal vaccination given [facility] Office Visit On: 01-Apr-2015 10:07 Encounter Diagnosis: Anemia, unspecified type End: 05-Apr-2015 6:24 [facility] Phone Encounter On: 22-Mar-2015 11:16 Encounter Diagnosis: AJIT (iron deficiency anemia) End: 22-Mar-2015 11:20 [facility] Office Visit On: 09-Mar-2015 15:06 Encounter Reason: Follow up tests - Date: (03/08 blood work from [facility]Encounter Diagnosis: Anemia, unspecified type, Abnormal TSH, Encounter for screening mammogram for breast cancer (Renamed from Encounter for screening mammogram f End: 09-Mar-2015 15:26 or malignant neoplasm of breast) [facility] Office Visit On: 01-Jan-2015 8:33 Encounter Reason: COPD, Acute Exacerbation - The last clinic visit was 5 day(s) ago. Symptoms include dyspnea, wheezing and productive cough. Onset was sudden. The patient describes this as moderate in severity and worse End: 01-Jan-2015 11:27 hamzah. Associated symptoms include upper respiratory infection symptoms. Previous presentation included dyspnea, wheezing and cough.Encounter Diagnosis: CHRONIC OBSTRUCTIVE ASTHMA WITH (ACUTE) EXACERBATION (493.22), Current nonsmoker (Renamed from Current non-smoker) [facility] Office Visit On: 30-Jan-2014 9:45 Encounter Reason: Cough - The onset of the cough has been sudden. The cough is characterized as productive of mucoid sputum. The amount of sputum produced is scanty. The cough occurs all the time. The symptoms have been End: 30-Jan-2014 10:08 associated with runny nose and wheezing, while the symptoms have not been associated with headache.Encounter Diagnosis: ASTHMA, UNSPECIFIED, WITH ACUTE EXACERBATION (493.92), Wheezing (786.07), Cough (786.2) [facility] Office Visit On: 02-Jan-2011 11:29 Encounter Reason: Cough - The onset of the cough has been acute (x 3 weeks). The cough is characterized as productive of mucoid sputum. The amount of sputum produced is less than a half a cup per day. The cough occurs a End: 02-Jan-2011 14:59 ll the time. The symptoms are aggravated by supine posture. The symptoms have been associated with dyspnea and wheezing. the color of the sputum is clear (unknown (she says that she swallows it)).Encounter Diagnosis: Wheezing (786.07), Cough (786.2) , ASTHMA, UNSPECIFIED, WITH ACUTE EXACERBATION (493.92) [facility] Office Visit On: 19-Aug-2009 11:46 Encounter Reason: Cough - The onset of the cough has been acute. The cough is characterized as productive of mucoid sputum. The amount of sputum produced is less than a half a cup per day. The cough occurs all the time. End: 19-Aug-2009 12:17 The symptoms have been associated with dyspnea ,hoarseness and wheezing. the color of the sputum is yellowish. Encounter Diagnosis: Wheezing (786.07), Asthma,Intrinsic (493.11) [facility] Office Visit On: 23-Feb-2009 10:20 Encounter Reason: Asthma - The onset of the asthma has been sudden and has been occurring in all year round pattern for 3 weeks. The course has been constant. nothing. The asthma has no relieving factors. Associated feat End: 23-Feb-2009 12:23 ures include wheezing ,short of breath ,fatigue and night symptoms. Previous evaluations have included pulmonary function test. There has been no use of medications. Encounter Diagnosis: CHRONIC OBSTRUCTIVE ASTHMA WITH (ACUTE) EXACERBATION (493.22), Wheezing (786.07), Acute sinusitis, unspecified (461.9), Cough (786.2) [facility] Historical Summary On: 03-Sep-2008 16:16 [facility] End: 03-Sep-2008 16:19 Office Visit On: 22-Jun-2008 11:21 Encounter Reason: Upper respiratory infection - The duration of the symptoms are 2 weeks The course has been without change. The upper respiratory infection has no relieving factors. Associated features include cough ,na End: 22-Jun-2008 13:04 sachin discharge/stuffy nose and purulent nasal discharge. Previous evaluations have included sinus CT scan. allergies ,cardiac arrythmias and heart disease. Encounter Diagnosis: CHRONIC OBSTRUCTIVE ASTHMA WITH (ACUTE) EXACERBATION (493.22), Wheezing (786.07) [facility] Office Visit On: 21-Feb-2008 11:19 Encounter Reason: Cough - The onset of the cough has been gradual and 3 weeks ago. The cough is characterized as productive of mucoid sputum. The amount of sputum produced is less than a half a cup per day. The cough occ End: 21-Feb-2008 12:06 urs all the time. The symptoms have been associated with runny nose ,sore throat (scratchy) and wheezing (at night.), while the symptoms have not been associated with fever or headache. Note for Cough : allergies. wheeze at night alot nasal drip. no purulent sputum. have woodburner stove. use claritin in pastEncounter Diagnosis: Allergic Rhinitis(477.9), Wheezing (786.07), Cardiomyopathy(425.4) [facility] Office Visit On: 01-Nov-2007 10:54 Encounter Reason: new patient female physical - Last seen more than 1 year ago. General health: feels well with minor complaints ,has good energy level and is sleeping well. The patient's appetite is normal. Nutrition: n End: 01-Nov-2007 11:43 ormal/adequate. Exercises 2 days per week. Sleeps on average 6 hours per night. Normal bowel and bladder habits. Safety measures include appropriate use of safety belts and home smoke detectors. There a re no current emotional problems. screening, mammography () ,screening, Pap smear ( Dr. Carver ) and screening, visual acuity (wears glasses 2006 ). Encounter Diagnosis: sinus dominique dysfunction, Cardiomyopathy(425.4), Low back pain (724.2), Obesity (278.00), GERD (530.81), Hyperlipidemia, Mixed (272.2), Hypertensive heart dx. (402.90), Allergic Rhinitis(477.9), FMX of DM, Well Woman Exam (V72.31) (Renamed from Well Woman V72.31 (p,m)) [facility] Payers [facility]; a guarantor
--- OUTSIDE RECORDS SUMMARY | 2018-04-13 01:54 | XMS RPT_ITS | Continuity of Care Document ---
:1945 Author Organization [facility] Address [facility] [facility] 2 [place] [address] Phone Care Team Providers Name Role Phone Debi GASPAR, Ivana Albarado Unavailable Dr. Eduardo Lord Unavailable Shayy Oro Unavailable Unavailable Shelly MCKEON, Ana Cristina Unavailable Julito VILLALTANMiranda L Unavailable Unavailable Unavailable Unavailable Problems Name Dates Details [...] 00, ronald, EF 30%, defib Status: Active Cough (R05, 786.2) Status: Active Current nonsmoker (Renamed from Current non-smoker) (Z78.9, V49.89) Status: Active Deliveries (Parity) Comments: 1 Status: Active Gastrointestinal hemorrhage with melena (K92.1, 578.1) Comments: no nsaids. no nose bleeds. EGD and colonscopy negative. will call [place] and see what set up for. Status: [...] advair, instructing to do so.has wood burner recent smoke ex posure to cigarette at [facility] with flare to ER on 02-20-18 Status: Active Low back pain (M54.5, 724.2) Status: Active Mitral valve prolapse (I34.1, 424.0) Status: Active Obese (E66.9, 278.00) Status: Active Pregnancies () Comments: 1 Status: Active Short of breath on exertion (R06.02, 786.05) Comments: likely from untreat asthma Status: Active Unspecified Diagnosis Status: Active Medications Name Dates Details Advair Diskus 100-50 MCG/DOSE Inhalation Aerosol Powder Breath Activated 1 (one) Puff bid for 0 days Quantity: 2 {Disk} Refills: 4 Ordered:20-Feb-2018 Shelly MCKEON Ana Cristina Start : 20-Feb-2018 Active Albuterol Sulfate (2.5 MG/3ML) 0.083% Inhalation Nebulization Solution 1 (one) each qid prn for 30 days Quantity: 1 {Box} Refills: 11 Ordered:25-Feb-2018 Gabriela Gill DO Start : 25-Feb-2018 Active COREG, 25MG (Oral Tablet) 1 Tablet bid for 0 days Quantity: 60 {Tablet} Refills: 0 Ordered:10-Mar-2015 Debi GASPAR, Ivana Dias MD, Ivana Albarado Start : 10-Mar-2015 Active Levaquin 500 MG Oral Tablet 1 Tablet daily for 7 days Quantity: 7 {Tablet} Refills: 0 Ordered:20-Feb-2018 Shelly MCKEONJanessa Start : 20-Feb-2018 Active Losartan Potassium 25 MG Oral Tablet 1 (one) Tablet daily for 30 days Quantity: 30 {Tablet} Refills: 0 Ordered:30-Jan-2018 Brittneeshane Janessa MCKEON Start : 30-Jan-2018 Active Nebulizer Device 1 (one) Device uad qid prn for 999 days Quantity: 1 {Each} Refills: 0 Ordered:20-Feb-2018 Long MEAT AND POULTRY INSPECTOR, Miranda L Start : 20-Feb-2018 Active Nebulizer/Tubing/Mouthpiece Kit 1 (one) Kit uad qid prn for albuterol for 30 days Quantity: 30 {Each} Refills: 3 Ordered:20-Feb-2018 Long MEAT AND POULTRY INSPECTOR, Miranda L Start : 20-Feb-2018 Active PRILOSEC OTC, 20MG (Oral Tablet Delayed Release) 1 qd for 0 days Refills: 0 Ordered:23-Feb-2009 Akshat MEAT AND POULTRY INSPECTOR, ChrissieActive ZOCOR, 20MG (Oral Tablet) 1 qd for 0 days Refills: 0 Ordered:23-Feb-2009 Akshat MEAT AND POULTRY INSPECTOR, ChrissieActive ADVAIR DISKUS, 250-50MCG/DOSE (Inhalation Aerosol Powder [...] : 04-Jun-2015 End : 12-Jul-2015 Inactive Comments:eight LEVOFLOXACIN, 500MG (Oral Tablet) 1 (one) Tablet daily for 7 days Quantity: 7 {Tablet} Refills: 0 Ordered:30-Jan-2014 Janessa Bravo CNP Start : 30-Jan-2014 End : 06-Feb-2014 Inactive PREDNISONE, 10MG (Oral Tablet) 1 (one) Tablet TAD for 0 days Quantity: 12 {Tablet} Refills: 0 Ordered:09-Mar-2015 Jackie Xavier Start [...] days Quantity: 60 {Capsule} Refills: 2 Ordered:23-Apr-2015 Ivana Carrera MD, MD, Ivana Albarado Start : 23-Apr-2015 End : 23-Apr-2015 Discontinued Allergies and Adverse Reactions Name Dates Details Penicillins (Allergy) Status: Active Past Medical History Name Dates Details Acute sinusitis, unspecified (J01.90, 461.9) Status: Inactive as of 19-Aug-2009 Anemia, unspecified type (D64.9, 285.9) Comments: pt never have colonscopy no bleeding. [email or web address] stool cards send for scope and labs. asa on hold Status: Inactive as of 04-Jun-2015 CHRONIC OBSTRUCTIVE ASTHMA WITH (ACUTE) EXACERBATION (J44.1, 493.22) Comments: refuse solmedrol because cause tachy adn anxious. if not turn around or worsen then willhav eot do injectionl Status: Inactive as of 23-Apr-2015 Encounter for screening mammogram for breast cancer (Renamed from Encounter for screening mammogram for malignant neoplasm of breast) (Z12.31, V76.12) Status: Inactive as of 04-Jun-2015 Encounter for screening mammogram for breast cancer (Renamed from Encounter for screening mammogram for malignant neoplasm of breast) (Z12.31, V76.12) Status: Inactive as of 23-Apr-2015 FMX of DM Comments: check fbs at [...] Laproscopic Completed Comments: 1979 Date Value Details 19-Feb-2018 12 Lead Electrocardiogram Result: Comments: See Note; NOTES: [facility] Cardiovascular Services [address] [place] [address] 12 Lead EKG 02/17/182017 MR#: [id number] Acct: [id number] Name: LIBIA MOYA Rep # : [id number] : 1945 72 From: Matthew Dejesus MD Attending Dr: Status: DEP ER Ordering Dr: Mehnaz Sun MD Date: 02/17/18 Location: ED Sex: F C Admitted: Test Reason : SOB Blood Pressure : / mmHG Vent. Rate : 090 BPM Atrial Rate : 090 BPM P-R Int : 184 ms QRS Dur : 080 ms QT Int : 368 ms P-R-T Axes : 040 004 060 degrees QTc Int : 450 ms Normal sinus rhythm Low voltage QRS Confirmed by ANJELICA GASPAR, MATTHEW ([id number]), editorial director EVANGELINA CAO ([id number]) on 02/19/2018 3:23:02 PM Referred By: Pop Hurd Confirmed By:MATTHEW DEJESUS MD 02/19/18 1523 Date __ Matthew Dejesus MD CC: Janessa Bravo NP; Pop Hurd MD; Mehnaz Sun MD Signed 18-Feb-2018 Emergency Department Summary Result: Comments: See Note; NOTES: [facility] Medical Records Department [address] [place] [address] Emergency Department Summary 02/17/18 2246 MR#: [id number] Acct: [id number] Name: LIBIA MOYA Rep #: [id number] : 1945 72 From: Mehnaz Sun MD PCP: Janessa Bravo NP Status: DEP ER - ER Visit Summary Date of Service: 02/17/18 Chief Complaint: Shortness of breath, chills, wheezing History of Present Illness: The patient is a 72 F with a history of asthma. Patient is at increased shortness of breath over the past 3 or 4 weeks. She was seen by her PCP and started on Adva ir twice a day along with albuterol MDI. Patient reports no significant change in her symptoms with that. [facility]. She has increased shortnes s of breath and wheezing. She has not had fever or chills. She has not had significant chest pain. She has had mild cough with clear sputum. Physical Examination: Blood pressure is 161/100, temperature 98.5, heart rate 96, respiratory rate 22, pulse ox 96% on room air. When I enter the room she was on nasal cannula for comfort. Head and neck examination unremarkable. Heart is regular rate and rhythm. Lungs sounds with respiratory and expiratory wheezes throughout. Abdomen is soft nontender. Lower external examination was no calf tenderness or edema. Test Results: Two-view chest x-ray shows a stabl e hiatal hernia. No acute disease noted. EKG is sinus at 90 with no sign of acute ischemia. CBC significant only for platelet count of 137,000. Chemistry studies normal. Emergency Department Course and Treatment: Patient was given Solu-Medrol cycle of aerosols. On repeat evaluation she has significantly improved air movement throughout. She is taken off of the nasal cannula and on repeat examination her O2 sat was 91%. I walked her up and down the [place] on room air and her sats remained 94-95% with ambulation. At this time patient will continue her Advair twice a day and I want her to use her albute rol every 4-6 hours. She will also be given prednisone for home. She is to follow- up with her primary care provider in the next 5-7 days. Treatment Plan: [] Disposition: Discharge Impression: Asthma exacerbation This note was generated with [employer] dictation software. It may contain incorrect words, spelling, and punctuation that were not noted in review of the chart prior to signing ED Disposi tion - Plan for ED Patient: Disposition: Home or Assisted Living Chief Complaint: Shortness of Breath Instructions: ED Reactive Airway Disease Prescriptions: Prednisone 10 mg PO UD #33 tablet Referrals : Janessa Bravo NP-C [Primary Care Provider] - 3-5 Days What to do if you have Problems For any increased pain, shortness of breath, bleeding, nausea or vomiting, chest pain, or any unexpected problem s, contact your Primary Care Provider. Call [facility] ([phone]) or report to the closest Emergency Room. Call 911 if necessary. [phone] <Electronically signed by Mehnaz banda MD> Date Mehnaz Sun MD Cosigner Signature (If Indicated): Date CC: Janessa Bravo BRAZER FURNACE 17-Feb-2018 Discharge Instruction Result: Comments: See Note; NOTES: [facility] Medical Records Department [address] [place] [address] Discharge Instruction 02/17/182245 MR#: [id number] Acct: [id number] Name: CAMACHO MOYA Rep #: [id number] : 1945 72 From: Mehnaz Sun MD PCP: Janessa Bravo NP Status: REG ER ED Disposition - Plan for ED Patient: Disposition: Home or Assisted Living Chief Complaint: Short ness of Breath Instructions: ED Reactive Airway Disease Prescriptions: Prednisone 10 mg PO UD #33 tablet Referrals: Janessa Bravo BRAZER FURNACE-C [Primary Care Provider] - 3- 5 Days What to do if you have Problems For any increased pain, shortness of breath, bleeding, nausea or vomiting, chest pain, or any unexpected problems, contact your Primary Care Provider. Call [facility] ([phone]) or report to the closest Emergency Room. Call 911 if necessary. 02/17/182246 <Electronically signed by Mehnaz Sun MD> Date Mehnaz Sun MD Cosigner Signature (If Indicated): Date CC: Janessa Bravo NP 17-Feb-2018 Chest PA and Lateral Result: Comments: See Note; NOTES: [facility] Imaging Services [address] [place] [address] Chest PA and Lateral MR#: [id number] Acct: [id number] Name: LIBIA MOYA Rep #: [id number] : 1945 F 72 From: Norbert Menendez DO PCP: Janessa Bravo NP Status: DEP ER Study: Chest PA and Lateral Date of Exam: 02/17/18 Exam# [id number] Ordering Dr: Mehnaz Sun MD STUDY: X-RAY CHEST REAS ON FOR EXAM: Female, 72 years old. Shortness of breath. TECHNIQUE: PA and lateral views of the chest. February 13, 2017 COMPARISON: None. FINDINGS: The lungs are hyperexpanded. There is chronic interstitial changes without new infiltrate or mass. There is no demonstrated pleural abnormality. Stable cardiomegaly. Stable cardiac pacemaker. Normal mediastinum and obinna. Normal visualized pulmonary arteries. There is atherosclerotic calcification of the aortic arch with tortuosity. There is demineralization of the osseous structures. There is degenerative osteoar thritis of the bilateral shoulders. Again seen is a large retrocardiac hiatal hernia. RAD/Chest PA and Lateral IMPRESSION: 1. Stable cardiac pac emaker and cardiomegaly. 2. Stable retrocardiac hiatal hernia. 3. No acute pulmonary disease or interval change. Electronically Signed: Norbert Menendez DO at 23:15 EST Tel [phone], Service s upport , CC: Janessa Bravo NP; Mehnaz Sun MD Fly Raiser Lockstitch: Signed 18-Jan-2018 Cardiology Visit Report Result: Comments: See Note; NOTES: [facility] [address] [place] [address] OFFICE VISIT Date of Service: 01/15/18 MR#: [id number] Acct: [id number] Name: LIBIA MOYA Re p #: [id number] : 1945 Provider: Velma Sullivan Age/Sex: 72/F [place] [facility] Status: Signed [facility] Chief Complaint: Follow-up visit. Details: LIBIA MOYA, is a 72 F [facility]. She has [...] Lt brachial Intake Visit Reasons: 6 M Beauty Operator Required: No Accompanied by: none Is patient [...] Father Myocardial infarction CAD (coronary artery disease) Negra's disease Mother Diabetes Myocardial infarction Hypertension FH: CABG (coronary artery bypa ss surgery) Grandfather Myocardial infarction Brother Negra's disease Sister Negra's disease Diabetes Son Diabetes Social History Smoking [...] any adjustments. 3. Pure hypercholesterolemia E78.00; E78.0 Plan - CLAUDIO Meza Patient will continue with [...] saving. Follow Up 6 Months (6-9 months DEXTRINE MIXER) Coding Level of Care Code Off vis,est,level [...] applicable) Pop Hurd MD CC: Janessa Bravo NP 29-Nov-2017 Pacemaker Check Result: Comments: See Note; NOTES: [facility] [address] [place] [address] Pacemaker Check Date of Service: 11/28/171704 MR#: [id number] Acct: [id number] Name: CAMACHO MOYA Rep #: [id number] : 1945 From: Cathleen Cross Age/Sex: 72/F [place] [facility] Status: Signed Billing Codes ICD Device Billing: ICD Dev Interrogate (Rmt) 11/28/17 170 <Fela coker signed by Cathleen Cross > Date Cathleen Cross 11/29/17 1026<Electronically signed by Pop Hurd MD> Cosigner Signature: Date (if applicable) Pop Hurd MD CC: 12-Jul-2017 Cardiology Visit Report Result: Comments: See Note; NOTES: [facility] [address] [place] [address] OFFICE VISIT Date of Service: 07/12/17 MR#: [id number] Acct: [id number] Name: LIBIA MOYA p #: [id number] : 1945 Provider: Pop Hurd MD Age/Sex: 71/F [place] [facility] Status: Signed HPI HPI Chief Complaint: Follow-up visit. Details: LIBIA MOYA, is a 71 F who presents to the [facility] today for a follow-up visit. She is [...] Lt brachial Intake Visit Reasons: 6 M Beauty Operator Required: No Accompanied by: None Is patient [...] Father Myocardial infarction CAD (coronary artery disease) Tate's disease Mother Diabetes Myocardial infarction Hypertension FH: CABG (coronary a rtery bypass surgery) Grandfather Myocardial infarction Brother Negra's disease Sister Negra's disease Diabetes Son Diabetes Social History Smoking [...] history of shortness of breath which is lead pressman abraham. She does not have any angiographically [...] Signature: Date (if applicable) CC: Janessa Bravo BRAZER FURNACE 31-May-2017 Pacemaker Check Result: Comments: See Note; NOTES: [facility] [address] [place] [address] Pacemaker Check Date of Service: 05/21/17 1144 MR#: [id number] Acct: [id number] Name: CAMACHO MOYA Rep #: [id number] : 1945 From: Pop Hurd MD Age/Sex: 71/F Location[place] [facility] Status: Signed Comments Summary Comments: Remote Bi-VICD Evaluation: Remote interrogation shows no VT/VF epis odes since generator change 01/27/30. Presenting rhythm shows NSR @ 82 bpm. Cliff pacing programmed to ventricular pace as little as possible and programmed VVI @ 40 ppm d/t narrow QRS.Battery longev ity approx 8 yrs. CASINO CASHIER MANAGER=0%. Lead impedances and sensing remain stable. Normal remote Bi-VICD function. Pt notified remote transmission received and next f/u appt scheduled for in 3 mos. Device Device Claudy e Interviewed: 05/21/17 Follow-up Location: remote Interview Reason: scheduled follow up Sole Seamer: Buggl Name: Dynagen SANDWICH BOARD CARRIER-D IS-1/DF-1 Model: G154 Serial #: [id number] Implant Date: 02/15/17 Year(s): 0 Implant Physician: Dr. Mohinder Garcia Patient Characteristics Patient Substrate: Nonischemic cardiomyopathy Ejection fraction %: 35 to 39 By: Echo Underlying rhythm: Sinus rhythm Pacemaker Depe ndent: No Device Characteristics Device: Biventricular Type: Implantable defibrillator Remote Follow-Up: Latitude Leads Lead #1 Sole Seamer Lead 1: SecureOne Data Solutionsant Model Lead 1: 4470 Serial# Lead 1: [id number] D ate Implanted Lead 1: 05/16/05 Position Lead 1: RA Lead #2 Sole Seamer Lead 2: Guidant Model Lead 2: 0814 Serial# Lead 2: [id number] Date Implanted Lead 2: 05/16/05 Position Lead 2: RV Lead #3 Sole Seamer Lead 3: Guidant Model Lead 3: 4518 Serial# Lead 3: [id number] Date Implanted Lead 3: 05/16/05 Position Lead [...] 1009<Elec tronically signed by Cathleen Cross > Anna Signature: Date (if applicable) Cathleen Cross CC: 01-Mar-2017 Office Visit Report Result: Comments: See Note; NOTES: [place] [address] [place] [address] OFFICE VISIT Date of Service: 02/23/17 MR#: [id number] Acct: [id number] Patient: LIBIA MOYA Rep #: [id number] : 1945 Provider: Cathleen Cross Age/Sex: 71/F [place] [facility] Status: Signed Device Device Date Interviewed: 02/23/17 Follow-up Location: in office Interview Reason: device implant (woun d check post generator change) Sole Seamer: Buggl Name: Dynagen SANDWICH BOARD CARRIER- D IS-1/DF-1 Model: G154 Serial #: [id number] Implant Date: 02/15/17 Year(s): 0 Implant Physician: Dr. Mohinder Garcia Patient Ashwini racteristics Patient Substrate: Nonischemic cardiomyopathy Ejection fraction %: 35 to 39 By: Echo Underlying rhythm: Sinus rhythm Pacemaker Dependent: No Device Characteristics Device: Biventricular Typ e: Implantable defibrillator Remote Follow-Up: Latitude Device Physical Exam Yes Incision well healed and Incision erythema Leads Lead #1 Sole Seamer Lead 1: SecureOne Data Solutionsant Model Lead 1: 4470 Serial# Lead 1 : [id number] Date Implanted Lead 1: 05/16/05 Position Lead 1: RA Lead #2 Sole Seamer Lead 2: SecureOne Data Solutionsant Model Lead 2: 0814 Serial# Lead 2: [id number] Date Implanted Lead 2: 05/16/05 Position Lead 2: RV Lead #3 Ma nufacturer Lead 3: Guidant Model Lead 3: 4518 Serial# Lead 3: [id number] Date Implanted Lead 3: 05/16/05 Position Lead [...] Operative Report Result: Comments: See Note; NOTES: [facility] Medical Records Department [address] [place] [address] Operative Report 02/15/17 1309 MR#: [id number] Acct: [id number] Name: LIBIA MOYA Rep #: [id number] : 1945 71 From: Mohinder Garcia MD PCP: Janessa Bravo Status: REG [facility] Location: [facility] Operative Report Date of Procedure: 02/15/17 Preoperative diagnosis is device at end of l delma for normal battery depletion. Postoperative diagnosis same as above. After informed consent and IV antibiotics the patient was brought to the [facility] and the skin over t [...] proper parameters and there were no complications. [place] QRS is narrow so no BiV pacing for now, but reassess QRS at follow up All lead parameters were tested and found to be functiona lly normal. Lead and device serial and model numbers are available in the chart documents provided by the device company counter sales representative procedure summary. 02/15/17 1314 <Electronically sig abimael by Mohinder Garcia MD> Date Mohinder Garcia MD CC: Janessa Bravo; Mohinder Garcia MD Signed 13-Feb-2017 Chest PA and Lateral Result: Comments: See Note; NOTES: [facility] Imaging Services [address] [place] [address] Chest PA and Lateral MR#: [id number] Acct: [id number] Name: LIBIA MOYA Rep #: [id number] : 1945 F 71 From: Edson Dillon MD PCP: Janessa Bravo Status: PRE [facility] Study: Chest PA and Lateral Date of Exam: 02/13/17 Exam# [id number] Ordering Dr: Pop Hurd MD STUDY: X-RAY [...] Tel , Service support , Fa x [phone] CC: Janessa Bravo; Pop Hurd MD Fly Raiser Lockstitch: Signed 23-Jul-2015 Echocardiogram Complete Result: Comments: See Note; NOTES: [facility] Cardiovascular Services [address] [place] [address] Echo Complete W/ Contrast 07/22/15 1100 MR#: [id number] Acct: [id number] Name: LIBIA MOYA Rep #: [id number] : 1945 69 From: Pop Hurd MD Attending Dr: Pop Hurd MD Status: REG CLI Ordering Dr: Pop Hurd [...] Date Dictated: 07/22/15 1100 Date Transc ribed: 07/23/1532 Fly Raiser Lockstitch: Signed Family History Unknown Family Member Name Dates Details Father Comments: [place], HTN, hyperlipidemia, age 58 Status: Active Maternal Grandmother Comments: pancreatic cancer Status: Active Mother Comments: IDDM,HYN, hyperlipidemia, [place] age 68 Status: Active Sister 1 Comments: [...] smoker Vital Signs Date Test Result Details :53 Temperature 97.8 f Comments: Method: Temporal Pulse 79 /min Comments: Pattern: Regular Respiration Rate 18 /min Comments: Pattern: Unlabored O2 SAT 94 % Comments: Room air BP Systolic 140 mm[Hg] Comments: Patient Position: Sitting; Cuff Location: Left Arm; Cuff Size: Standard BP Diastolic 86 mm[Hg] Comments: Patient Position: Sitting; Cuff Location: Left Arm; Cuff Size: Standard Weight 203.375 lb Height 63.75 in Body Mass Index Calculated 35.18 kg/m2 Body Surface Area Calculated 1.96 m2 :26 Temperature 97 f Pulse 75 /min [...] 0.00 cm Results Date Description Value Details :29 Basic Metabolic Profile (BMP) Comments: [facility] [address] [place], [place], [id number] GAP 9 (Normal) Range: 5-15 CO2 27.0 mmol/L (Normal) Range: 21.0-32.0 CL 107 mmol/L (Normal) Range: 98-107 K 4.1 mmol/L (Normal) Range: 3.5-5.1 NA 143 mmol/L (Normal) Range: 136-145 CA 8.9 mg/dL (Normal) Range: 8.5-10.1 BUN/CRE 13.4 {RATIO} (Normal) Range: 10-20 Estimated CRCL 41.88 ml/min (Normal) EST GFR - AA 61 mL/min (Normal) Comments: GFR Calc EST GFR 51 mL/min (Abnormal) Comments: Non- GFR Calc CREAT,SERUM 1.12 mg/dL (Abnormal) Range: 0.55-1.02 Comments: The validity of the calculated GFR AND GFRAA in patients over70 years has not been determined. Clinical correlation isessential. BUN 15 mg/dL (Normal) Range: 7-18 GLU 94 mg/dL (Normal) Range: 74-106 Comments: Please note revised GLUCOSE reference range mnotujenw65/02/2018. 3-Qcq-919662:29 CBC W/Diff, Automated Comments: [facility] [address] [place], [address] Absolute Lymph 1.54 {X10_3/ul} (Normal) Range: 0.83-4.51 Absolute Neut 4.3 {X10_3/uL} (Normal) Range: 2.0-7.7 IM GRAN % 0.100 % (Normal) Range: 0.0-0.9 Comments: IG% - Immature Granulocytes (promyelocytes, myelocytes andmetamyelocytes) > 1% indicates that a LEFT SHIFT is Present. BASO% 0.4 % (Normal) Range: 0-1 EO% 4.2 % (Normal) Range: 0-5 MONO% 11.0 % (Abnormal) Range: 0-10 LY% 22.1 % (Normal) Range: 19-41 NEUT% 62.2 % (Normal) Range: 47-70 MPV 9.9 fL (Normal) Range: 6.2-12.0 PLT 137 K/mm3 (Abnormal) Range: 150-450 RDW SD 42.7 fL (Normal) Range: 35.1-43.9 RDW CV 12.3 % (Normal) Range: 11.6-14.6 MCHC 34.3 {g/gl} (Normal) Range: 32-36 MCH 32.8 pg (Abnormal) Range: 27.0-32.0 MCV 95.6 fL (Normal) Range: 81-99 HCT 38.8 % (Normal) Range: 37-47 HGB 13.3 g/dL (Normal) Range: 12.0-15.0 RBC 4.06 {M/mm3} (Abnormal) Range: 4.2-5.4 WBC 7.0 K/mm3 (Normal) Range: 4.4-11.0 17-Dec-20176:13 Lipid Profile Comments: [facility] [address] [place], [address] VLDL 25 mg/dL (Normal) Range: 5-40 LDL [...] 200-240 mg/dL Borderline >240 mg/dL High Risk 17-Dec-20176:13 Liver Profile Comments: [facility] [address] [place], [place], [id number] D BILI 0.19 mg/dL (Normal) Range: 0.00-0.30 T BILI 0.60 mg/dL (Normal) Range: 0.20-1.00 ALT 19 U/L (Normal) Range: 13-56 ALK P 131 U/L (Abnormal) Range: 45-117 AST 21 U/L (Normal) Range: 15-37 GLOB 3.9 g/dL (Normal) Range: 2.2-4.2 ALB 3.5 g/dL (Normal) Range: 3.2-5.0 T PROT 7.4 g/dL (Normal) Range: 6.4-8.2 93-Qcu-78082:40 Lipid Profile Comments: Order Date: 12/21/16Order Info: [id number] - *Hepatic Function PanelOrder Info: [id number] - *Lipid Profile CC PCPComments: 12 hours fasting, may have water.[facility] [address] [place], [place], [address] VLDL 22 mg/dL (Normal) Range: 5-40 LDL [...] 200-240 mg/dL Borderline >240 mg/dL High Risk 76-Gij-95911:40 Liver Profile Comments: Order Date: 12/21/16Order Info: [id number] - *Hepatic Function PanelOrder Info: [id number] - *Lipid Profile CC PCPComments: 12 hours fasting, may have water.[facility] [address] [place], [place], [id number] D BILI 0.20 mg/dL (Normal) Range: 0.00-0.30 T BILI 0.70 mg/dL (Normal) Range: 0.20-1.00 ALT 19 U/L (Normal) Range: 13-56 Comments: Please note revised ALT reference range memptbfnj99/28/2018. ALK P 116 U/L (Normal) Range: 45-117 AST 20 U/L (Normal) Range: 15-37 GLOB 3.8 g/dL (Normal) Range: 2.2-4.2 ALB 3.7 g/dL (Normal) Range: 3.2-5.0 T PROT 7.5 g/dL (Normal) Range: 6.4-8.2 33-Ulg-954515:17 Basic Metabolic Profile (BMP) Comments: Order Date: 02/12/17Order Info: 0667-1 - *BMPComments: Reason: For ICD generator change with Dr. Garcia on 02/15/17[facility] [address] [place], [place], [address] GAP 7 (Normal) Range: 5-15 CO2 27.0 [...] 7-18 GLU 97 mg/dL (Normal) Range: 70-110 44-Fuw-176118:17 CBC-Complete Blood Cnt No Diff Comments: Order Date: 02/12/17Order Info: 24779-7 - *CBC without DiffComments: Reason: For ICD generator change with Dr. Garcia on 02/15/17[facility] [address] [place] [place], [address] MPV 11.2 fL (Normal) Range: [...] 4.2-5.4 WBC 7.6 K/mm3 (Normal) Range: 4.4-11.0 93-Vzh-551510:17 Prothrombin Time w/INR Comments: Order Date: 02/12/17Order Info: 6301-6 - *PT/INRComments: For ICD generator change with Dr. Garcia on 02/15/17[facility] [address] [place], [address]( [phone] INR 1.1 (Normal) PROTIME 13.8 s (Normal) Range: 11.7-14.9 52-Jnr-168867:17 Urinalysis, Routine (Dipstick) Comments: Order Date: 02/12/17Order Info: 0610-1 - *UA - Urinalysis w/o MicroComments: Reason: For ICD generator change with Dr. Garcia on 02/15/17How was Urine Obtained? [employer] [facility] [address] [place], [place], [address] LEUK ESTERASE 500 /ul (Abnormal) OCCULT BLOOD-UR [...] Info: 0788-1 - *Hepatic Function PanelOrder Info: 63790-2 - *Lipid Profile CC PCPComments: 12 hours fasting, may have water.[facility] [address] [facility] [address]. [place], [place], [address] VLDL 21 mg/dL (Normal) Range: 5-40 LDL [...] Info: 0788-1 - *Hepatic Function PanelOrder Info: 97801-1 - *Lipid Profile CC PCPComments: 12 hours fasting, may have water.[facility] [address], [address] D BILI 0.18 mg/dL (Normal) Range: 0.00-0.30 T BILI 0.80 mg/dL (Normal) Range: 0.20-1.00 ALT 20 U/L (Normal) Range: 12-78 ALK P 122 U/L (Abnormal) Range: 45-117 AST 18 U/L (Normal) Range: 15-37 GLOB 3.8 g/dL (Abnormal) Range: 2.3-3.5 ALB 3.5 g/dL (Normal) Range: 3.4-5.0 T PROT 7.3 g/dL (Normal) Range: 6.4-8.2 35-Gsh-666879:12 CBC W/Diff, Automated Comments: Order Date: 01/06/16Order Info: [id number] - *CBC with DifferentialComments: Reason: hx anemiaOrder Date: 01/06/16Order Info: [id number] - *FerritinComments: Reason: [facility]WOhio[facility] [address] [place], [place], [address] Absolute Lymph 1.80 {X10_3/ul} (Normal) Range: 0.83-4.51 [...] 4.2-5.4 WBC 6.5 K/mm3 (Normal) Range: 4.4-11.0 41-Fde-707234:12 Ferritin Comments: Order Date: 01/06/16Order Info: [id number] - *IronOrder Info: 2276-4 - *FerritinComments: Reason: hx anemiaOrder Date: 01/06/16Order Info: 2275-4 - *FerritinComments: Reason: hx anemiaWOhioHealth [address]olinp[address] [place], [place], [address](368) FERRITIN 131 ng/mL (Normal) Range: 8-252 99-Vda-012889:12 Iron Comments: Order Date: 01/06/16Order Info: 2498-4 - *IronOrder Info: 2276-4 - *FerritinComments: Reason: hx anemiaOrder Date: 01/06/16Order Info: 2276-4 - *FerritinComments: Reason: hx anemiaWOhioHealth [address]zebyj[address] [place], [place], [address](351) IRON 206 ug/dL (Abnormal) Range: 50-170 :48 Lipid Profile Comments: Order Date: 12/15/15OV Order #: [id number] Memorial Hospital [address] [place], [place], [address](686) VLDL 21 mg/dL (Normal) Range: 5-40 LDL [...] Profile Comments: Order Date: 12/15/15OV Order #: [id number] [facility] [address] [place], [place], [address] D BILI 0.18 mg/dL (Normal) Range: 0.00-0.30 T BILI 0.70 mg/dL (Normal) Range: 0.20-1.00 ALT 18 U/L (Normal) Range: 12-78 ALK P 124 U/L (Normal) Range: 50-136 AST 20 U/L (Normal) Range: 15-37 GLOB 3.8 g/dL (Abnormal) Range: 2.3-3.5 ALB 3.6 g/dL (Normal) Range: 3.4-5.0 T PROT 7.4 g/dL (Normal) Range: 6.4-8.2 :56 Lipid Profile Comments: [facility] [address] [place], [place], [address] VLDL 30 mg/dL (Normal) Range: 5-40 LDL [...] mg/dL High Risk :56 Liver Profile Comments: [facility] [address] [place], [place], [address] D BILI 0.13 mg/dL (Normal) Range: 0.00-0.30 [...] 4 weeks; PATIENT NOT FASTINGPERFORMED BY: MILTON LabCoVirtua MarltonHbxchn6575 [facility] [id number] Information: [id number] (43024) Immature Grans (Abs) 0.0 {x10E3/uL} (Normal) Range: [...] Range: 3.4-10.8 :15 CBC W/Diff, Automated Comments: [facility] [address] [place], [place], [address] Absolute Lymph 1.36 {X10_3/ul} (Normal) Range: 0.83-4.51 [...] K/mm3 (Normal) Range: 4.4-11.0 :15 Iron Comments: [facility] [address] [place], [address] IRON 70 ug/dL (Normal) Range: 50-170 Comments: Moderate Hemolysis, Result may be falsely increased. :15 Iron Binding Capacity,Total Comments: [facility] [address] [place], [address] TIBC 285 ug/dL (Normal) Range: 250-450 Comments: Moderate Hemolysis, Result may be falsely increased. :15 Retic Panel Comments: [facility] [address] [place], [address] IPF 2.9 % (Normal) Range: 1.0-7.9 Comments: [...] 3.00-15.90 RETIC 1.94 % (Abnormal) Range: 0.5-1.5 66-Mja-869144:08 Fecal Occult Blood , Office (62183) Fecal Occult Blood , Office (Inhouse) positive (Normal) 15-Shw-168574:42 HAPTOGLOBIN (00957) Comments: all rest today; PATIENT NOT FASTINGPERFORMED BY: [facility] [facility] [id number] BY: [employer] [id number] Haptoglobin 59 mg/dL (Normal) Range: 34-200 16-Yka-047387:42 CBC, PLATELETS & AUT DIFF Comments: recheck this in 6 weeks; PATIENT NOT FASTINGPERFORMED BY: [employer] [address] [facility] [id number] BY: [employer] [id number] Information: [id number] (15811) Immature Grans (Abs) 0.0 {x10E3/uL} (Normal) Range: [...] 3.77-5.28 WBC 6.4 {x10E3/uL} (Normal) Range: 3.4-10.8 64-Xuw-893112:42 [facility] (63285) Comments: PATIENT NOT FASTINGPERFORMED BY: [facility] Faatlx0392 [facility] [id number] BY: BN [facility] [address] [id number] Please note: SPRCS (Normal) Comments: Protein electrophoresis scan will follow via computer, mail, orcourier delivery. A/G Ratio 1.3 (Normal) Range: 0.7-2.0 Globulin, Total 2.9 g/dL (Normal) Range: 2.0-4.5 M-Simeon Not Observed g/dL (Normal) Gamma Globulin 1.2 g/dL (Normal) Range: 0.5-1.6 Beta Globulin 1.0 g/dL (Normal) Range: 0.6-1.3 Ewedz-7-Vcrzgfmd 0.6 g/dL (Normal) Range: 0.4-1.2 Zouvs-8-Ovmshcmm 0.2 g/dL (Normal) Range: 0.1-0.4 Albumin 3.7 g/dL (Normal) Range: 3.2-5.6 Protein, Total, Serum 6.6 g/dL (Normal) Range: 6.0-8.5 :42 FOLIC ACID SERUM (38469) Comments: PATIENT NOT FASTINGPERFORMED BY: [facility]70 [place] [facility] [id number] BY: [employer] [id number] Folate (Folic Acid), Serum 18.8 ng/mL (Normal) Comments: A serum folate concentration of less than 3.1 ng/mL isconsidered to represent clinical deficiency. 46-Npt-728054:42 Methymalonic Acid, Serum Comments: PATIENT NOT FASTINGPERFORMED BY: [facility]70 [facility] [id number] BY: [employer] [id number] (65449) Methylmalonic Acid, Serum 479 nmol/L (Abnormal) Range: 0-378 84-Wau-911808:42 VITAMIN B-12 Comments: PATIENT NOT FASTINGPERFORMED BY: Clickst6370 [place] [facility] [place] [id number] BY: [employer] [id number] (CYANOCOBALAMIN) (07308) Vitamin B12 259 pg/mL (Normal) Range: 211-946 61-Vxb-789496:42 RETICULOCYTE COUNT MANUL Comments: PATIENT NOT FASTINGPERFORMED BY: [employer] [address] [facility] [id number] BY: [address] [id number] (73227) Reticulocyte Count 2.5 % (Normal) Range: 0.6-2.6 :42 LDH (LD) (LACTATE Comments: PATIENT NOT FASTINGPERFORMED BY: [address] [id number] BY: [address] [id number] DEHYDROGENASE) (20299) LDH 175 [iU]/L (Normal) Range: 119-226 38-Hqb-996046:42 IRON BINDING CAPACITY Comments: PATIENT NOT FASTINGPERFORMED BY: [address] [id number] BY: [address] [id number] (TIBC) (32670) Iron Saturation 6 % (Abnormal) Range: 15-55 Iron, Serum 17 ug/dL (Abnormal) Range: 35-155 UIBC 265 ug/dL (Normal) Range: 150-375 Iron Bind.Cap.(TIBC) 282 ug/dL (Normal) Range: 250-450 :42 FERRITIN (42612) Comments: PATIENT NOT FASTINGPERFORMED BY: [address] [id number] BY: [address] [id number] Ferritin, Serum 7 ng/mL (Abnormal) Range: 15-150 84-Tdk-937363:44 CBC W/Diff, Automated Comments: [facility] [address] [place], [address] Absolute Lymph 1.47 {X10_3/ul} (Normal) Range: 0.83-4.51 [...] 4.2-5.4 WBC 5.6 K/mm3 (Normal) Range: 4.4-11.0 85-Ymx-829796:44 Comprehensive Metabolic Profil Comments: [facility] [address] [place], [address] GAP 7 (Normal) Range: 5-15 CO2 23.0 [...] Range: 70-110 :44 T4 Total, Thyroxin Comments: [facility] [address] [place], [address] T4 THYROXIN 8.5 ug/dL (Normal) Range: 4.8-13.9 :44 Thyroid Stim Hormone (TSH) Comments: [facility] Rky[address] [facility] [place], [address] TSH 3.80 {uIU/mL} (Abnormal) Range: 0.358-3.74 :57 Lipid Profile Comments: Test performed at:[facility] Ihenghmiox5162 [facility]. [place], [place] [address] VLDL 24 mg/dL (Normal) Range: 5-40 LDL [...] Risk :57 Liver Profile Comments: Test performed at:[facility] [address] [place] [address] D BILI 0.14 mg/dL (Normal) Range: 0.00-0.30 T BILI 0.60 mg/dL (Normal) Range: 0.20-1.00 ALT 24 U/L (Normal) Range: 12-78 ALK P 131 U/L (Normal) Range: 50-136 AST 23 U/L (Normal) Range: 15-37 GLOB 3.5 g/dL (Normal) Range: 2.3-3.5 ALB 3.6 g/dL (Normal) Range: 3.4-5.0 T PROT 7.1 g/dL (Normal) Range: 6.4-8.2 :40 Lipid Profile Comments: Test performed at:[facility] [address] [place] [address] VLDL 19 mg/dL (Normal) Range: [...] Risk :40 Liver Profile Comments: Test performed at:[facility] [address] [place], [place] [address] D BILI 0.18 mg/dL (Normal) Range: 0.00-0.30 [...] CHOL 152 mg/dL (Normal) Comments: <200 mg/dL Qzijwzccb782-726 mg/dL Borderline>240 mg/dL High Risk :42 LIVER [...] CHOL 159 mg/dL (Normal) Comments: <200 mg/dL Pjzvmuqir819-245 mg/dL Borderline>240 mg/dL High Risk TRIG 124 [...] CHOL 142 mg/dL (Normal) Comments: <200 mg/dL Gkwscqjlm394-778 mg/dL Borderline>240 mg/dL High Risk HDL 50 [...] T PROT 7.5 g/dL (Normal) Range: 6.4-8.2 87-Yem-475137:42 BILAT SCRN DIGITAL & CAD Radiology Report See Note (Normal) Comments: Exam Number: [id number] MAMMOGRAM, BILATERAL SCREENING DIGITAL AND CAD HISTORYRoutine [...] werealso examined wi th computer-aided detection software ([employer].). Reported By: MIKA ALVAREZ M.D. :46 BMP BUN 15 mg/dL (Normal) Range: 7-18 BUN/CRE 13.6 {RATIO} (Normal) Range: 10-20 CA 9.5 mg/dL (Normal) Range: 8.5-10.1 CL 101 mmol/L (Normal) Range: 98-107 CO2 29.9 mmol/L (Normal) Range: 21.0-32.0 CREAT,SERUM 1.1 mg/dL (Abnormal) Range: 0.6-1.0 GAP 7 (Normal) Range: 5-15 GLU 83 mg/dL (Normal) Range: 70-110 K 4.3 mmol/L (Normal) Range: 3.5-5.1 NA 138 mmol/L (Normal) Range: 136-145 :46 CBCD BASO% 0.6 % (Normal) Range: 0-1 [...] 11.6-14.6 WBC 9.1 K/mm3 (Normal) Range: 4.4-11.0 57-Esh-899614:46 ROUTINE UA BILIRUBIN URINE SeeNote (Normal) Comments: [...] Details Instructions BMI 35.0-35.9,adult : Follow up if no improvement or if symptoms worsen Indication: BMI 35.0-35.9,adult Current nonsmoker (Renamed from Current non-smoker) : Eprescribed prescriptions (G8553) Indication: Current nonsmoker (Renamed from Current non-smoker) BMI 35.0-35.9,adult : Follow up in 4 [...] exacerbation Cough : [facility] Indication: Cough CHRONIC OBSTRUCTIVE ASTHMA WITH (ACUTE) EXACERBATION : Solu Medrol Injection/ Education Indication: CHRONIC OBSTRUCTIVE ASTHMA WITH (ACUTE) EXACERBATION Planned Observations T4, FREE (THYROXINE) (55913)Indication: Abnormal TSH On: : Request TSH ([id number])Indication: Abnormal TSH On: : Request Ferritin (49746)Indication: AJIT (iron deficiency anemia) On: : Request CBC with auto diff (29650)Indication: AJIT (iron deficiency anemia) On: :00 Request T4, FREE (THYROXINE) (62340)Indication: Abnormal TSH On: :20 Request Comments: recheck 6 weeks. Anti-TPO Antibody (04745)Indication: Abnormal TSH On: :19 Request Comments: recheck 6 weeks TSH (56155)Indication: Abnormal TSH On: :19 Request Comments: recheck 6 weeks FECAL OCCULT- Tubes sent home (99271)Indication: Anemia, unspecified type On: :18 Request IRON (85202)Indication: Anemia, unspecified type On: :18 Request URINALYSIS W/O MICRO (66431)Indication: Hyperlipemia, mixed On: :33 Request CBC (Auto) (71221)Indication: Hyperlipemia, mixed On: :33 Request Metabolic Panel, Basic (98262)Indication: Hyperlipemia, mixed On: :33 Request Planned Encounters Medical; 1 Week FU - On: 27-Feb-2018 14:45 [facility] Janessa Bravo CNP Planned Procedures Aerosol Treatment (50716)By: Shelly On: 20-Feb-2018 Intent Janessa MCKEON Solu -Medrol Injection, 125 mg On: 20-Feb-2018 Intent (J2930)By: Janessa Bravo CNP Comments: Solumedrol 125mg InjectionLot-- [id number]-- GMpt tolerated wellAHMET DIEZ Aerosol Treatment (60430)By: Shelly On: 30-Jan-2018 Intent MIKEJanessa Spirometry (97243)By: Shelly MCKEON, On: 30-Jan-2018 Intent Janessa Baker Radiology - ChestBy: Debi GASPAR, On: 04-Jun-2015 Intent Ivana Cornell MD Comments: if not mario rin 1 week PNEUM VAC ADLT/IMUMNOSPR, SBC/INTRM On: 23-Apr-2015 Intent (24004)By: Ivana Carrera MD, MD, Dana M DEXA SCAN AXIAL SKELETON (04513)By: On: 23-Apr-2015 Intent Ivana Carrera MD, MD, Dana Comments: do at least 2 years from last M MAMMOGRAM, SCREENING, BOTH BREAST On: 23-Apr-2015 Intent (02523)By: Ivana Carrera MD, MD, Dana M MAMMOGRAM, SCREENING, BOTH BREAST On: 09-Mar-2015 Intent (13985)By: Ivana Carrera MD, MD, Dana M Aerosol Treatment (68840)By: On: 01-Jan-2015 Intent Ivana Carrera MD, MD, Dana M Aerosol Treatment (19377)By: Shelly On: 30-Jan-2014 Intent MIKEJanessa Aerosol Treatment (46472)By: Shelly On: 02-Jan-2011 Intent MIKE Ana Cristina Pulse Oximetry (83319)By: Higinio RN, On: 02-Jan-2011 Intent Sissy Pulse Oximetry (94939)By: Juaquin, On: 19-Aug-2009 Intent NIKHIL Spirometry (11779)By: Juaquin On: 19-Aug-2009 Intent NIKHIL Inhaler Demonstration (49218)By: On: 23-Feb-2009 Intent Shelly MCKEON Ana Cristina Pulse Oximetry (18439)By: Shelly On: 23-Feb-2009 Intent MIKE Ana Cristina Aerosol Treatment (97947)By: Shelly On: 23-Feb-2009 Intent Janessa MCKEON Solu -Medrol Injection, 125 mg On: 23-Feb-2009 Intent (J2930)By: Janessa Bravo CNP Comments: Lot #[id number]-right [id number] mggiven by:BRIANNE Aerosol Treatment (22710)By: Bridget On: 22-Jun-2008 Gabriela Suggs DO Comments: done by drew air exchg less wheeze Solu- Medrol Injection, 125mg On: 22-Jun-2008 Intent (J2930)By: Gabriela Gill DO Comments: Lot #:[id number] date:mount given:125mgRoute: IMSite given:right buttuckGiven by: CUAUHTEMOC Ramirez Pulse Oximetry (43590)By: Billy On: 22-Jun-2008 Intent Mehnaz Comments: 97% Spirometry (84164)By: Debi GASPAR, On: 21-Feb-2008 Intent Ivana Cornell MD Pulse Oximetry (45498)By: Debi On: 21-Feb-2008 Intent Ivana GASPAR MD, Dana M MAMMOGRAM, SCREENING, BOTH BREASTS On: 01-Nov-2007 Intent (34428)By: Ivana Carrera MD, MD, Dana M Bio Z (57091)By: Ivana Carrera MD On: 01-Nov-2007 Intent Ivana Carrera MD Planned Medications INJECTION, METHYLPREDNISOLONE SODIUM SUCCINATE, UP TO 125 MG Ordered: 20-Feb-2018 Pending Janessa Bravo CNP Instructions Name Dates Details Current nonsmoker (Renamed [...] Indication: Unspecified asthma with (acute) exacerbation Encounters Phone Encounter On: 20-Feb-2018 15:24 Encounter Diagnosis: Unspecified Diagnosis End: 20-Feb-2018 15:26 [facility] Office Visit On: 20-Feb-2018 14:52 Encounter Reason: Follow up ER - Reason for hospitalization note: (shortness of breath/asthma exacerbation). Patient has been compliant with instructions. Current medication use: experiencing side effects (having trouble End: 20-Feb-2018 16:09 sleeping from prednisone). The patient feels well with minor complaints, has good energy level and is sleeping poorly. Patient sleeps 4 hours per night. Nutrition: balanced diet. Note for Follow up ER : Had asthma flare after exposed to cigarette smoke, went to ER with reactive airway disease put on prednisone po at home and continues advair and albuterol., [ADDITIONAL REASON] Asthma, Acute Episode - Note for Acute episode of asthma: ASthma flares worse in last 6 months then with smoke exposure had to go to ER is asking for nebulizer Encounter Diagnosis: Current nonsmoker (Renamed from Current non-smoker), BMI 35.0-35.9,adult, Intrinsic asthma, Cough (786.2) [facility] Office Visit On: 30-Jan-2018 11:26 Encounter Reason: Shortness of Breath - Symptoms include dyspnea (on exersion). Onset was 2 month(s) ago. 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 [place] like full of phlegm in am Was told in past had allergy and asthma but did not have to use advair routinely only as needed. Went to commercial engineer and did not feel problem with heart.Encounter [...] patient does not have durable power of media senior recruiter or living will. The patient has noticed nothing from the geriatic depression scale. Other providers contributing to the patient's care are commercial engineer (Dr. Hurd). Encounter Diagnosis: Annual Medicare Physical [...] Woman V72.31 (p,m)) [facility] Payers [facility]/[employer]; a guarantor
--- OUTSIDE RECORDS SUMMARY | 2018-04-13 01:55 | XMS RPT_ITS | Continuity of Care Document ---
:1945 Author Organization [facility] Address [facility] 2 [place] [address] Phone Care Team Providers Name Role Phone [...] bleeds. EGD and colonscopy negative. [facility] and see what set up for. Status: [...] for 0 days Refills: 0 Ordered:23-Feb-2009 Akshat WEB MOBILE DESIGNER, ChrissieActive ADVAIR DISKUS, 250-50MCG/DOSE (Inhalation Aerosol Powder [...] Visit Report Result: Comments: See Note; NOTES: [facility] [address] [place] [address]. [address] [place] [address] OFFICE VISIT Date of Service: 01/15/18 MR#: [id number] Acct: [id number] Name: ILBIA MOYA Re p #: [id number] : 1945 Provider: Velma Sullivan Age/Sex: 72/F Location: [facility] Status: Signed HPI HPI Chief Complaint: Follow-up visit. Details: LIBIA MOYA, is a 72 F who [facility] for a cardiovascular follow-up. 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 [place] [address] Pacemaker Check Date of Service: 11/28/171704 MR#: [id number] Acct: [id number] Name: CAMACHO MOYA Rep #: [id number] : 1945 From: Cathleen Cross Age/Sex: 72/F Location: [facility] Status: Signed Billing Codes ICD Device Billing: ICD Dev Interrogate (Rmt) 11/28/171708 <Electroni john paul signed by Cathleen Cross > Date Cathleen Cross 11/29/17 1026<Electronically signed by Pop Hurd MD> Cosigner Signature: Date (if applicable) Pop Hurd MD CC: 12-Jul-2017 Cardiology Visit Report Result: Comments: See Note; NOTES: [facility] [address] [place] [address] OFFICE VISIT Date of Service: 07/12/17 MR#: [id number] Acct: [id number] Name: LIBIA MOYA Re p #: [id number] : 1945 Provider: Pop Hurd MD Age/Sex: 71/F Location: [facility] Status: Signed HPI HPI Chief Complaint: Follow-up visit. Details: LIBIA MOYA, is a 71 F who presents [facility] for a follow-up visit. 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 She does not have any angiographically [...] Pacemaker Check Result: Comments: See Note; NOTES: [facility] [address] [place] [address]. [address] [place] [address] Pacemaker Check Date of Service: 05/21/17 1144 MR#: [id number] Acct: [id number] Name: CAMACHO MOYA Rep #: [id number] : 1945 From: Pop Hurd MD Age/Sex: 71/F Location: [facility] Status: Signed Comments Summary Comments: Remote Bi-VICD Evaluation: Remote interrogation shows no VT/VF epis odes since generator change 01/27/30. Presenting rhythm shows NSR @ 82 bpm. Cliff pacing programmed to ventricular pace as little as possible and programmed VVI @ 40 ppm d/t narrow QRS.Battery longev ity approx 8 yrs. PACKAGE DYER=0%. Lead impedances and sensing remain stable. Normal remote Bi-VICD function. Pt notified remote transmission received and next f/u appt scheduled for in 3 mos. Device Device Claudy e Interviewed: 05/21/17 Follow-up Location: remote Interview Reason: scheduled follow up Vehicle Technician: [employer] Name: Dynagen ARMORED TRUCK DRIVER-D IS-1/DF-1 Model: G154 Serial #: [id number] Implant Date: 02/15/17 Year(s): 0 Implant Physician: Dr. Mohinder Garcia Patient Characteristics Patient Substrate: Nonischemic cardiomyopathy Ejection fraction %: 35 to 39 By: Echo Underlying rhythm: Sinus rhythm Pacemaker Depe ndent: No Device Characteristics Device: Biventricular Type: Implantable defibrillator Remote Follow-Up: Latitude Leads Lead #1 Vehicle Technician Lead 1: FlipKey Model Lead 1: 4470 Serial# Lead 1: [id number] D ate Implanted Lead 1: 05/16/05 Position Lead 1: RA Lead #2 Vehicle Technician Lead 2: FlipKey Model Lead 2: 0814 Serial# Lead 2: [id number] Date Implanted Lead 2: 05/16/05 Position Lead 2: RV Lead #3 Vehicle Technician Lead 3: FlipKey Model Lead 3: 4518 Serial# Lead 3: [id number] Date Implanted Lead 3: 05/16/05 Position Lead [...] Visit Report Result: Comments: See Note; NOTES: [facility] [address] [place] [address]. [place] [address] OFFICE VISIT Date of Service: 02/23/17 MR#: [id number] Acct: [id number] Patient: LIBIA MOYA Rep #: [id number] : 1945 Provider: Cathleen Cross Age/Sex: 71/F Location: [facility] Status: Signed Device Device Date Interviewed: 02/23/17 Follow-up Location: in office Interview Reason: device implant (woun d check post generator change) Vehicle Technician: [employer] Name: Dynagen ARMORED TRUCK DRIVER- D IS-1/DF-1 Model: G154 Serial #: [id number] Implant Date: 02/15/17 Year(s): 0 Implant Physician: Dr. Mohinder Garcia Patient Ashwini racteristics Patient Substrate: Nonischemic cardiomyopathy Ejection fraction %: 35 to 39 By: Echo Underlying rhythm: Sinus rhythm Pacemaker Dependent: No Device Characteristics Device: Biventricular Typ e: Implantable defibrillator Remote Follow-Up: Latitude Device Physical Exam Yes Incision well healed and Incision erythema Leads Lead #1 Vehicle Technician Lead 1: Guidant Model Lead 1: 4470 Serial# Lead 1 : [id number] Date Implanted Lead 1: 05/16/05 Position Lead 1: RA Lead #2 Vehicle Technician Lead 2: Guidant Model Lead 2: 0814 Serial# Lead 2: [id number] Date Implanted Lead 2: 05/16/05 Position Lead 2: RV Lead #3 Ma nufacturer Lead 3: Guidant Model Lead 3: 4518 Serial# Lead 3: [id number] Date Implanted Lead 3: 05/16/05 Position Lead [...] Operative Report Result: Comments: See Note; NOTES: [facility] Medical Records Department [address] [place] [address] Operative Report 02/15/17 1309 MR#: [id number] Acct: [id number] Name: LIBIA MOYA Rep #: [id number] : 1945 71 From: Mohinder Garcia MD PCP: Janessa Bravo Status: REG SDC Y Location: [facility] Operative Report Date of Procedure: 02/15/17 Preoperative diagnosis is device at end of l delma for normal battery depletion. Postoperative diagnosis same as above. After informed consent and IV antibiotics the patient was brought to the [facility] and the skin over t [...] proper parameters and there were no complications. [place] QRS is narrow so no BiV pacing for now, but reassess QRS at follow up All lead parameters were tested and found to be functiona lly normal. Lead and device serial and model numbers are available in the chart documents provided by the device company sales solutions representative procedure summary. 02/15/17 1314 <Electronically sig abimael by Mohinder Garcia MD> Date Mohinder Garcia MD CC: Janessa Bravo; Mohinder Garcia MD Signed 13-Feb-2017 Chest PA and Lateral Result: Comments: See Note; NOTES: [facility] Imaging Services [address] [place] [address] Chest PA and Lateral MR#: [id number] Acct: [id number] Name: LIBIA MOYA Rep #: [id number] : 1945 F 71 From: Edson Dillon MD PCP: Janessa Bravo Status: PRE WIC Study: Chest PA and Lateral Date of Exam: 02/13/17 Exam# [id number] Ordering Dr: Pop Hurd MD STUDY: X-RAY [...] Tel , Service support , Fa x [phone] CC: Janessa Bravo; Pop Hurd MD Receiving Inspector: Signed 23-Jul-2015 Echocardiogram Complete Result: Comments: See Note; NOTES: [facility] Cardiovascular Services [address] [place] [address] Echo Complete W/ Contrast 07/22/15 1100 MR#: [id number] Acct: [id number] Name: LIBIA MOYA Rep #: [id number] : 1945 69 From: Pop Hurd MD [...] 07/22/15 1100 Date Transc ribed: 07/23/15 0732 Receiving Inspector: Signed Family History Unknown Family Member Name Dates Details Father Comments: [place], HTN, hyperlipidemia, age 58 Status: Active Maternal Grandmother Comments: pancreatic cancer Status: Active Mother Comments: IDDM,HYN, hyperlipidemia, [place] age 68 Status: Active Sister 1 Comments: [...] Description Value Details :13 Lipid Profile Comments: [facility] [address], [place], [address] VLDL 25 mg/dL (Normal) Range: 5-40 LDL [...] mg/dL High Risk :13 Liver Profile Comments: [facility] [address] [place], [place], [address] D BILI 0.19 mg/dL (Normal) Range: 0.00-0.30 T BILI 0.60 mg/dL (Normal) Range: 0.20-1.00 ALT 19 U/L (Normal) Range: 13-56 ALK P 131 U/L (Abnormal) Range: 45-117 AST 21 U/L (Normal) Range: 15-37 GLOB 3.9 g/dL (Normal) Range: 2.2-4.2 ALB 3.5 g/dL (Normal) Range: 3.2-5.0 T PROT 7.4 g/dL (Normal) Range: 6.4-8.2 04-Toa-24591:40 Lipid Profile Comments: Order Date: 12/21/16Order Info: 0788-1 - *Hepatic Function PanelOrder Info: 35769-8 - *Lipid Profile CC PCPComments: 12 hours fasting, may have water.[facility] [address] [place], [place], [address] VLDL 22 mg/dL (Normal) Range: 5-40 LDL [...] 200-240 mg/dL Borderline >240 mg/dL High Risk 65-Tde-80079:40 Liver Profile Comments: Order Date: 12/21/16Order Info: 0788-1 - *Hepatic Function PanelOrder Info: 23696-0 - *Lipid Profile CC PCPComments: 12 hours fasting, may have water.[facility] [address] [place], [place], [address] D BILI 0.20 mg/dL (Normal) Range: 0.00-0.30 T BILI 0.70 mg/dL (Normal) Range: 0.20-1.00 ALT 19 U/L (Normal) Range: 13-56 Comments: Please note revised ALT reference range hokoxrixp72/28/2018. ALK P 116 U/L (Normal) Range: 45-117 AST 20 U/L (Normal) Range: 15-37 GLOB 3.8 g/dL (Normal) Range: 2.2-4.2 ALB 3.7 g/dL (Normal) Range: 3.2-5.0 T PROT 7.5 g/dL (Normal) Range: 6.4-8.2 38-Kax-925718:17 Basic Metabolic Profile (BMP) Comments: Order Date: 02/12/17Order Info: 0667-1 - *BMPComments: Reason: For ICD generator change with [facility]. Garcia [facility] [address] [place], [place], [address] GAP 7 (Normal) Range: 5-15 CO2 27.0 [...] 7-18 GLU 97 mg/dL (Normal) Range: 70-110 29-Xva-667974:17 CBC-Complete Blood Cnt No Diff Comments: Order Date: 02/12/17Order Info: 61513-8 - *CBC without DiffComments: Reason: For ICD generator change with Dr. Garcia on 02/15/17[facility] [address] [place], [address] MPV 11.2 fL (Normal) Range: [...] 4.2-5.4 WBC 7.6 K/mm3 (Normal) Range: 4.4-11.0 29-Zct-874715:17 Prothrombin Time w/INR Comments: Order Date: 02/12/17Order Info: 6301-6 - *PT/INRComments: For ICD generator change with Dr. Garcia on 02/15/17[facility] [address] [place], [address]( [phone] INR 1.1 (Normal) PROTIME 13.8 s (Normal) Range: 11.7-14.9 86-Yij-813918:17 Urinalysis, Routine (Dipstick) Comments: Order Date: 02/12/17Order Info: 0610-1 - *UA - Urinalysis w/o MicroComments: Reason: For ICD generator change with Dr. Garcia on 02/15/17How was Urine Obtained? SALES OPERATIONS ASSISTANT TO [facility] [address] [place], [place], [address] LEUK ESTERASE 500 /ul (Abnormal) OCCULT BLOOD-UR [...] Info: 0788-1 - *Hepatic Function PanelOrder Info: 91443-1 - *Lipid Profile CC PCPComments: 12 hours fasting, may have water.[facility] [address] [facility] [address]. [place], [place], [address] VLDL 21 mg/dL (Normal) Range: 5-40 LDL [...] Info: 0788-1 - *Hepatic Function PanelOrder Info: 31591-3 - *Lipid Profile CC PCPComments: 12 hours fasting, may have water.[facility] [address] [place], [place], [address] D BILI 0.18 mg/dL (Normal) Range: 0.00-0.30 T BILI 0.80 mg/dL (Normal) Range: 0.20-1.00 ALT 20 U/L (Normal) Range: 12-78 ALK P 122 U/L (Abnormal) Range: 45-117 AST 18 U/L (Normal) Range: 15-37 GLOB 3.8 g/dL (Abnormal) Range: 2.3-3.5 ALB 3.5 g/dL (Normal) Range: 3.4-5.0 T PROT 7.3 g/dL (Normal) Range: 6.4-8.2 81-Fdh-577367:12 CBC W/Diff, Automated Comments: Order Date: 01/06/16Order Info: 0184-1 - *CBC with DifferentialComments: Reason: hx anemiaOrder Date: 01/06/16Order Info: 2276-4 - *FerritinComments: Reason: hx anemiaWooUC [facility] [address] [place], [place], [address] Absolute Lymph 1.80 {X10_3/ul} (Normal) Range: 0.83-4.51 [...] 4.2-5.4 WBC 6.5 K/mm3 (Normal) Range: 4.4-11.0 17-Qur-805552:12 Ferritin Comments: Order Date: 01/06/16Order Info: 2498-4 - *IronOrder Info: 2276-4 - *FerritinComments: Reason: hx anemiaOrder Date: 01/06/16Order Info: 2276-4 - *FerritinComments: Reason: [facility]WTri[facility] [address] [place], [place], [address]) FERRITIN 131 ng/mL (Normal) Range: 8-252 60-Xky-778206:12 Iron Comments: Order Date: 01/06/16Order Info: 2498-4 - *IronOrder Info: 2276-4 - *FerritinComments: Reason: hx anemiaOrder Date: 01/06/16Order Info: 2276-4 - *FerritinComments: Reason: hx anemiaWTriHealth [facility] [address] [place], [place], [address] IRON 206 ug/dL (Abnormal) Range: 50-170 48-Fmi-05967:48 Lipid Profile Comments: Order Date: 12/15/15OV Order #: [id number] [address] [place], [address] VLDL 21 mg/dL (Normal) Range: [...] Profile Comments: Order Date: 12/15/15OV Order #: [id number] [address] [place], [place], [address] D BILI 0.18 mg/dL (Normal) Range: 0.00-0.30 T BILI 0.70 mg/dL (Normal) Range: 0.20-1.00 ALT 18 U/L (Normal) Range: 12-78 ALK P 124 U/L (Normal) Range: 50-136 AST 20 U/L (Normal) Range: 15-37 GLOB 3.8 g/dL (Abnormal) Range: 2.3-3.5 ALB 3.6 g/dL (Normal) Range: 3.4-5.0 T PROT 7.4 g/dL (Normal) Range: 6.4-8.2 :56 Lipid Profile Comments: [facility] [address] [place], [place], [address] VLDL 30 mg/dL (Normal) Range: 5-40 LDL [...] mg/dL High Risk :56 Liver Profile Comments: [facility] [address] [place], [place], [address] D BILI 0.13 mg/dL (Normal) Range: 0.00-0.30 [...] 4 weeks; PATIENT NOT FASTINGPERFORMED BY: MILTON LabCoRobert Wood Johnson University Hospital at RahwayUhadux0192 [facility] [id number] Information: [id number] (63704) Immature Grans (Abs) 0.0 {x10E3/uL} (Normal) Range: [...] Range: 3.4-10.8 :15 CBC W/Diff, Automated Comments: [facility] [address] [place], [place], [address] Absolute Lymph 1.36 {X10_3/ul} (Normal) Range: 0.83-4.51 [...] K/mm3 (Normal) Range: 4.4-11.0 :15 Iron Comments: [facility] [address] [place], [address] IRON 70 ug/dL (Normal) Range: 50-170 Comments: Moderate Hemolysis, Result may be falsely increased. :15 Iron Binding Capacity,Total Comments: [facility] [address] [place], [address] TIBC 285 ug/dL (Normal) Range: 250-450 Comments: Moderate Hemolysis, Result may be falsely increased. :15 Retic Panel Comments: [facility] [address] [place], [address] IPF 2.9 % (Normal) Range: 1.0-7.9 Comments: [...] 3.00-15.90 RETIC 1.94 % (Abnormal) Range: 0.5-1.5 54-Rog-024432:08 Fecal Occult Blood , Office (14949) Fecal Occult Blood , Office (Inhouse) positive (Normal) 87-Heh-154996:42 HAPTOGLOBIN (66697) Comments: all rest today; PATIENT NOT FASTINGPERFORMED BY: [employer]6370 [facility] [id number] BY: [employer] [id number] Haptoglobin 59 mg/dL (Normal) Range: 34-200 86-Cho-253886:42 CBC, PLATELETS & AUT DIFF Comments: recheck this in 6 weeks; PATIENT NOT FASTINGPERFORMED BY: Critical Linksrp Svixxa9618 [facility] [id number] BY: [employer] [id number] Information: [id number] (75815) Immature Grans (Abs) 0.0 {x10E3/uL} (Normal) Range: [...] 3.77-5.28 WBC 6.4 {x10E3/uL} (Normal) Range: 3.4-10.8 06-Mkm-463112:42 SPEP (49637) Comments: PATIENT NOT FASTINGPERFORMED BY: CB [facility] Xrxbno9232 [facility] [id number] BY: BN [facility] Wzgmpjpfeg4275 [facility] [id number] Please note: SPRCS (Normal) Comments: Protein electrophoresis scan will follow via computer, mail, orcourier delivery. A/G Ratio 1.3 (Normal) Range: 0.7-2.0 Globulin, Total 2.9 g/dL (Normal) Range: 2.0-4.5 M-Simeon Not Observed g/dL (Normal) Gamma Globulin 1.2 g/dL (Normal) Range: 0.5-1.6 Beta Globulin 1.0 g/dL (Normal) Range: 0.6-1.3 Fjlwd-2-Swigbpxu 0.6 g/dL (Normal) Range: 0.4-1.2 Dycwc-7-Miiprjxx 0.2 g/dL (Normal) Range: 0.1-0.4 Albumin 3.7 g/dL (Normal) Range: 3.2-5.6 Protein, Total, Serum 6.6 g/dL (Normal) Range: 6.0-8.5 :42 FOLIC ACID SERUM (68694) Comments: PATIENT NOT FASTINGPERFORMED BY: [employer] [facility] [id number] BY: [employer] [id number] Folate (Folic Acid), Serum 18.8 ng/mL (Normal) Comments: A serum folate concentration of less than 3.1 ng/mL isconsidered to represent clinical deficiency. 16-Hwe-402686:42 Methymalonic Acid, Serum Comments: PATIENT NOT FASTINGPERFORMED BY: [employer] [facility] HospitalZevez CorporationFirstHealth [facility] [id number] BY: [employer] [id number] (78[address]) Methylmalonic Acid, Serum 479 nmol/L (Abnormal) Range: 0-378 24-Nwv-638550:42 VITAMIN B-12 Comments: PATIENT NOT FASTINGPERFORMED BY: [place] [facility] [id number] BY: PIE [employer] [id number] (CYANOCOBALAMIN) (09880) Vitamin B12 259 pg/mL (Normal) Range: 211-946 81-Yvp-699647:42 RETICULOCYTE COUNT MANUL Comments: PATIENT NOT FASTINGPERFORMED BY: [place] 6[address] [facility] [id number] BY: [address] [id number] (83303) Reticulocyte Count 2.5 % (Normal) Range: 0.6-2.6 94-Hcp-281705:42 LDH (LD) (LACTATE Comments: PATIENT NOT FASTINGPERFORMED BY: [address] [id number] BY: [address] [id number] DEHYDROGENASE) (23404) LDH 175 [iU]/L (Normal) Range: 119-226 85-Mjo-546190:42 IRON BINDING CAPACITY Comments: PATIENT NOT FASTINGPERFORMED BY: [address] [id number] BY: [address] [id number] (TIBC) (01379) Iron Saturation 6 % (Abnormal) Range: 15-55 Iron, Serum 17 ug/dL (Abnormal) Range: 35-155 UIBC 265 ug/dL (Normal) Range: 150-375 Iron Bind.Cap.(TIBC) 282 ug/dL (Normal) Range: 250-450 55-Ofp-923499:42 FERRITIN (68089) Comments: PATIENT NOT FASTINGPERFORMED BY: [address] [id number] BY: [address] [id number] Ferritin, Serum 7 ng/mL (Abnormal) Range: 15-150 74-Sik-073537:44 CBC W/Diff, Automated Comments: [facility] [address] [place], [place], [address] Absolute Lymph 1.47 {X10_3/ul} (Normal) Range: 0.83-4.51 [...] 4.2-5.4 WBC 5.6 K/mm3 (Normal) Range: 4.4-11.0 69-Tnw-176313:44 Comprehensive Metabolic Profil Comments: [facility] [address] [place], [place], [address] GAP 7 (Normal) Range: 5-15 CO2 23.0 [...] Range: 70-110 :44 T4 Total, Thyroxin Comments: [facility] [address]wae[address] [facility] [address] [place], [place], [address] T4 THYROXIN 8.5 ug/dL (Normal) Range: 4.8-13.9 :44 Thyroid Stim Hormone (TSH) Comments: [facility] [address] [place], [place], [address] TSH 3.80 {uIU/mL} (Abnormal) Range: 0.358-3.74 :57 Lipid Profile Comments: Test performed at:[facility] G[address]fgzsxcea6839 [facility] [address] [place], [place] [address] VLDL 24 mg/dL (Normal) Range: 5-40 LDL [...] Risk :57 Liver Profile Comments: Test performed at:[facility] [address] [place] [address] D BILI 0.14 mg/dL (Normal) Range: 0.00-0.30 T BILI 0.60 mg/dL (Normal) Range: 0.20-1.00 ALT 24 U/L (Normal) Range: 12-78 ALK P 131 U/L (Normal) Range: 50-136 AST 23 U/L (Normal) Range: 15-37 GLOB 3.5 g/dL (Normal) Range: 2.3-3.5 ALB 3.6 g/dL (Normal) Range: 3.4-5.0 T PROT 7.1 g/dL (Normal) Range: 6.4-8.2 :40 Lipid Profile Comments: Test performed at:[facility] [address] [place] [address] VLDL 19 mg/dL (Normal) Range: [...] Risk :40 Liver Profile Comments: Test performed at:[facility] Vnarjbgpft1849 [facility] [place], [place] [address] D BILI 0.18 mg/dL (Normal) Range: 0.00-0.30 [...] CHOL 152 mg/dL (Normal) Comments: <200 mg/dL Tmqbhxxzb717-954 mg/dL Borderline>240 mg/dL High Risk :42 LIVER [...] CHOL 159 mg/dL (Normal) Comments: <200 mg/dL Vvwseragg783-354 mg/dL Borderline>240 mg/dL High Risk TRIG 124 [...] CHOL 142 mg/dL (Normal) Comments: <200 mg/dL Ceeqnyapx042-667 mg/dL Borderline>240 mg/dL High Risk HDL 50 [...] T PROT 7.5 g/dL (Normal) Range: 6.4-8.2 09-Ymf-635020:42 BILAT SCRN DIGITAL & CAD Radiology Report See Note (Normal) Comments: Exam Number: [id number] MAMMOGRAM, BILATERAL SCREENING DIGITAL AND CAD HISTORYRoutine [...] werealso examined wi th computer-aided detection software (HaveMyShift.). Reported By: MIKA ALVAREZ M.D. 95-Rhn-254346:46 BMP BUN 15 mg/dL (Normal) Range: 7-18 BUN/CRE 13.6 {RATIO} (Normal) Range: 10-20 CA 9.5 mg/dL (Normal) Range: 8.5-10.1 CL 101 mmol/L (Normal) Range: 98-107 CO2 29.9 mmol/L (Normal) Range: 21.0-32.0 CREAT,SERUM 1.1 mg/dL (Abnormal) Range: 0.6-1.0 GAP 7 (Normal) Range: 5-15 GLU 83 mg/dL (Normal) Range: 70-110 K 4.3 mmol/L (Normal) Range: 3.5-5.1 NA 138 mmol/L (Normal) Range: 136-145 07-Izu-325702:46 CBCD BASO% 0.6 % (Normal) Range: 0-1 [...] 11.6-14.6 WBC 9.1 K/mm3 (Normal) Range: 4.4-11.0 07-Gyl-535509:46 ROUTINE UA BILIRUBIN URINE SeeNote (Normal) Comments: [...] exacerbation Cough : [facility] Indication: Cough CHRONIC OBSTRUCTIVE ASTHMA WITH (ACUTE) EXACERBATION : Solu Medrol Injection/ Education Indication: CHRONIC OBSTRUCTIVE ASTHMA WITH (ACUTE) EXACERBATION Planned Observations T4, FREE (THYROXINE) (77301)Indication: Abnormal TSH On: :01 Request TSH (61775)Indication: Abnormal TSH On: :01 Request Ferritin (41283)Indication: AIJT (iron deficiency anemia) On: :00 Request CBC with auto diff (16072)Indication: AJIT (iron deficiency anemia) On: :00 Request T4, FREE (THYROXINE) (19455)Indication: Abnormal TSH On: :20 Request Comments: recheck 6 weeks. Anti-TPO Antibody (22749)Indication: Abnormal TSH On: :19 Request Comments: recheck 6 weeks TSH (04142)Indication: Abnormal TSH On: :19 Request Comments: recheck 6 weeks FECAL OCCULT- Tubes sent home (18058)Indication: Anemia, unspecified type On: :18 Request IRON (42934)Indication: Anemia, unspecified type On: 78-Ncm-360409:18 Request URINALYSIS W/O MICRO (02386)Indication: Hyperlipemia, mixed On: :33 Request CBC (Auto) (40313)Indication: Hyperlipemia, mixed On: :33 Request Metabolic Panel, Basic (10059)Indication: Hyperlipemia, mixed On: :33 Request Planned Encounters Medical; 3 Week FU - 4 week On: 27-Feb-2018 10:15 [facility] Janessa Bravo CNP Planned Procedures Aerosol Treatment (24329)By: Shelly On: 30-Jan-2018 Intent Janessa MCKEON Spirometry (76252)By: Shelly MCKEON, On: 30-Jan-2018 Intent Janessa Baker Radiology - ChestBy: Debi GASPAR, On: 04-Jun-2015 Intent Ivana Carrera MD, Ivana Albarado Comments: if not mario rin 1 week PNEUM VAC ADLT/IMUMNOSPR, SBC/INTRM On: 23-Apr-2015 Intent (14249)By: Ivana Carrera MD, MD, Dana M DEXA SCAN AXIAL SKELETON ([id number])By: On: 23-Apr-2015 Intent Ivana Carrera MD, MD, Dana Comments: do at least 2 years from last M MAMMOGRAM, SCREENING, BOTH BREAST On: 23-Apr-2015 Intent ([id number])By: Ivana Carrera MD, MD, Dana M MAMMOGRAM, SCREENING, BOTH BREAST On: 09-Mar-2015 Intent ([id number])By: Ivana Carrera MD, MD, Dana M Aerosol Treatment ([id number])By: On: 01-Jan-2015 Intent Ivana Carrera MD, MD, Dana M Aerosol Treatment ([id number])By: Shelly On: 30-Jan-2014 Intent MIKE Ana Cristina Aerosol Treatment ([id number])By: Shelly On: 02-Jan-2011 Intent MIKE Ana Cristina Pulse Oximetry ([id number])By: Higinio GARCIA, On: 02-Jan-2011 Intent Sissy Pulse Oximetry ([id number])By: Juaquin On: 19-Aug-2009 Intent NIKHIL Spirometry ([id number])By: Juaquin On: 19-Aug-2009 Intent NIKHIL Inhaler Demonstration ([id number])By: On: 23-Feb-2009 Intent Shelly MCKEON Ana Cristina Pulse Oximetry ([id number])By: Shelly On: 23-Feb-2009 Intent MIKE Ana Cristina Aerosol Treatment ([id number])By: Shelly On: 23-Feb-2009 Intent MIKE Ana Cristina Solu -Medrol Injection, 125 mg On: 23-Feb-2009 Intent ([id number])By: Shelly MCKEON Ana Cristina Comments: Lot #[id number]-right [id number] mggiven by:BRIANNE Aerosol Treatment ([id number])By: Bridget On: 22-Jun-2008 Gabriela Suggs DO Comments: done by drew air exchg less wheeze Solu- Medrol Injection, 125mg On: 22-Jun-2008 Intent ([id number])By: Gabriela Gill DO Comments: Lot #:[id number] date:mount given:125mgRoute: IMSite given:right buttuckGiven by: CUAUHTEMOC Ramirez Pulse Oximetry ([id number])By: Billy, On: 22-Jun-2008 Intent Mehnaz Comments: 97% Spirometry ([id number])By: Debi GASPAR, On: 21-Feb-2008 Intent Ivana Cornell MD Pulse Oximetry ([id number])By: Debi On: 21-Feb-2008 Intent Ivana GASPAR MD, Dana M MAMMOGRAM, SCREENING, BOTH BREASTS On: 01-Nov-2007 Intent ([id number])By: Ivana Carrera MD, MD, Dana M Bio Z ([id number])By: Ivana Carrera MD On: 01-Nov-2007 Intent Ivana [...] 30-Jan-2018 12:45 has had wheezing at night. Osgood like full of phlegm in am Was told in past had allergy and asthma but did not have to use advair routinely only as needed. Went to superior court clerk and did not feel problem with heart.Encounter [...] patient does not have durable power of sports attorney or living will. The patient has noticed nothing from the geriatic depression scale. Other providers contributing to the patient's care are superior court clerk (Dr. Hurd). Encounter Diagnosis: Annual Medicare Physical [...] Woman V72.31 (p,m)) [facility]/StudentFunder; a guarantor
--- OUTSIDE RECORDS SUMMARY | 2018-04-13 01:57 | XMS RPT_ITS | Continuity of Care Document ---
:1945 Author Organization [facility] Address [facility]7 [facility] 2 [place] [address] Phone Care Team Providers Name Role Phone [...] bleeds. EGD and colonscopy negative. will call monika and see what set up for. 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 Status: Active Low back pain (M54.5, 724.2) [...] days Quantity: 2 {Disk} Refills: 4 Ordered:20-Feb-2018 Janessa Bravo CNP Start : 20-Feb-2018 Active Albuterol Sulfate (2.5 MG/3ML) 0.083% Inhalation Nebulization Solution 1 (one) each qid prn for 30 days Quantity: 1 {Box} Refills: 11 Ordered:25-Feb-2018 Gabriela Gill DO Start : 25-Feb-2018 Active COREG, 25MG (Oral Tablet) 1 Tablet bid for 0 days Quantity: 60 {Tablet} Refills: 0 Ordered:10-Mar-2015 Debi GASPAR, Ivana Dias MD, Ivana Albarado Start : 10-Mar-2015 Active Losartan Potassium 25 MG Oral Tablet 1 (one) Tablet daily for 30 days Quantity: 30 {Tablet} Refills: 0 Ordered:30-Jan-2018 Shelly MCKEON Ana Cristina Start : 30-Jan-2018 Active Nebulizer Device 1 (one) Device Device uad qid prn for 999 days Quantity: 1 {Each} Refills: 0 Ordered:20-Feb-2018 Shayy Oro Start : 20-Feb-2018 Active Nebulizer/Tubing/Mouthpiece Kit 1 (one) Kit Kit uad qid prn for albuterol for 30 days Quantity: 30 {Each} Refills: 3 Ordered:20-Feb-2018 Shayy Oro Start : 20-Feb-2018 Active PRILOSEC OTC, 20MG (Oral Tablet Delayed Release) 1 qd for 0 days Refills: 0 Ordered:23-Feb-2009 Akshat CONTROL PANEL TESTER, ChrissieActive ZOCOR, 20MG (Oral Tablet) 1 qd for 0 days Refills: 0 Ordered:23-Feb-2009 Akshat CONTROL PANEL TESTER, ChrissieActive ADVAIR DISKUS, 250-50MCG/DOSE (Inhalation Aerosol Powder [...] : 04-Jun-2015 End : 12-Jul-2015 Inactive Comments:eight Levaquin 500 MG Oral Tablet 1 Tablet daily for 7 days Quantity: 7 {Tablet} Refills: 0 Ordered:20-Feb-2018 Shelly MCKEON Ana Cristina Start : 20-Feb-2018 End : 27-Feb-2018 Inactive LEVOFLOXACIN, 500MG (Oral Tablet) 1 (one) [...] Comments: pt never have colonscopy no bleeding. [facility] medical stool cards send for scope and labs. [...] Lead Electrocardiogram Result: Comments: See Note; NOTES: [facility] Cardiovascular Services [address] [place] [address] 12 Lead EKG 02/17/182017 MR#: [id number] Acct: [id number] Name: LIBIA MOYA Rep # : [id number] : 1945 72 From: Matthew Dejesus MD [...] QRS Confirmed by ANJELICA GASPAR, MATTHEW ([id number]), desk editor EVANGELINA CAO ([id number]) on 02/19/2018 3:23:02 PM Referred By: Pop Hurd Confirmed By:MATTHEW DEJESUS MD 02/19/18 1523 Date __ Matthew Dejesus MD CC: Janessa Bravo NP; Pop Hurd MD; Mehnaz Sun MD Signed 18-Feb-2018 Emergency Department Summary Result: Comments: See Note; NOTES: [facility] Medical Records Department [address] [place] [address] Emergency Department Summary 02/17/18 2246 MR#: [id number] Acct: [id number] Name: LIBIA MOYA Rep #: [id number] : 1945 72 From: Mehnaz Sun MD [...] with that. [facility] [...] Asthma exacerbation This note was generated with [employer] dictation software. It may contain incorrect words, [...] your Primary Care Provider. Call [facility] ([phone]) or report to the closest Emergency Room. Call 911 if necessary. 02/18/18 004 <Electronically signed by Mehnaz banda MD> Date Mehnaz Sun MD Cosigner Signature (If Indicated): Date CC: Janessa Bravo CHROMOSOMAL DISORDERS COUNSELOR 17-Feb-2018 Discharge Instruction Result: Comments: See Note; NOTES: [facility] Medical Records Department [address] [place] [address] Discharge Instruction 02/17/182245 MR#: [id number] Acct: [id number] Name: CAMACHO MOYA Rep #: [id number] : 1945 72 From: Mehnaz Sun MD PCP: Janessa Bravo NP Status: REG ER ED Disposition - Plan for ED Patient: Disposition: Home or Assisted Living Chief Complaint: Short ness of Breath Instructions: ED Reactive Airway Disease Prescriptions: Prednisone 10 mg PO UD #33 tablet Referrals: Janessa Bravo NP-C [Primary Care Provider] - 3- 5 Days What to do if you have Problems For any increased pain, shortness of breath, bleeding, nausea or vomiting, chest pain, or any unexpected problems, contact your Primary Care Provider. Call [facility] ([phone]) or report to the closest Emergency Room. Call 911 if necessary. 02/17/182246 <Electronically signed by Mehnaz Sun MD> Date Mehnaz Sun MD Cosigner Signature (If Indicated): Date CC: Janessa Bravo NP 17-Feb-2018 Chest PA and Lateral Result: Comments: See Note; NOTES: [facility] Imaging Services [address] [place] [address] Chest PA and Lateral MR#: [id number] Acct: [id number] Name: LIBIA MOYA Rep #: [id number] : 1945 F 72 From: Norbert Menendez DO PCP: Janessa Bravo NP Status: DEP ER Study: Chest PA and Lateral Date of Exam: 02/17/18 Exam# [id number] Ordering Dr: Mehnaz Sun MD STUDY: X-RAY [...] Norbert Menendez DO at 23:15 EST Tel [phone], Service s upport , CC: Janessa Bravo NP; Mehnaz Sun MD Aviation Technical Systems Specialist: Signed 18-Jan-2018 Cardiology Visit Report Result: Comments: See Note; NOTES: [facility] [address] [place] [address] OFFICE VISIT Date of Service: 01/15/18 MR#: [id number] Acct: [id number] Name: LIBIA MOYA Re p #: [id number] : 1945 Provider: Velma Sullivan Age/Sex: 72/F Location: [facility] Status: Signed HPI HPI Chief Complaint: Follow-up visit. Details: LIBIA MOYA, is a 72 F who presents to the [facility] today for a cardiovascular follow-up. 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 [place] [address] Pacemaker Check Date of Service: 11/28/171704 MR#: [id number] Acct: [id number] Name: CAMACHO MOYA Rep #: [id number] : 1945 From: Cathleen Cross Age/Sex: 72/F Location: [facility] Status: Signed Billing Codes ICD Device Billing: ICD Dev Interrogate (Rmt) 11/28/17 170 <Fela amatoy signed by Cathleen Cross > Date Cathleen Cross 11/29/17 1026<Electronically signed by Pop Hurd MD> Cosigner Signature: Date (if applicable) Pop Hurd MD CC: 12-Jul-2017 Cardiology Visit Report Result: Comments: See Note; NOTES: [facility] [address] [place] [address] OFFICE VISIT Date of Service: 07/12/17 MR#: [id number] Acct: [id number] Name: LIBIA MOYA p #: [id number] : 1945 Provider: Pop Hurd MD Age/Sex: 71/F Location: [facility] Status: Signed HPI HPI Chief Complaint: Follow-up visit. Details: LIBIA MOYA, is a 71 F who presents to the [facility] today for a follow-up visit. She [...] brachial Intake Visit Reasons: 6 M FU Geography Teacher Required: No Accompanied by: None Is patient [...] 35 to 39 (35% per echo 07/23/2015) [facility] Medical History Chronic systolic congestive [...] Father Myocardial infarction CAD (coronary artery disease) Horry's disease Mother Diabetes Myocardial infarction Hypertension FH: CABG (coronary a rtery bypass surgery) Grandfather Myocardial infarction Brother Negra's disease Sister Horry's disease Diabetes Son Diabetes Social History Smoking [...] history of shortness of breath which is chromosomal disorders counselor abraham. She does not have any angiographically [...] Signature: Date (if applicable) CC: Janessa Bravo CHROMOSOMAL DISORDERS COUNSELOR 31-May-2017 Pacemaker Check Result: Comments: See Note; NOTES: [facility] [address] [place] [address] Pacemaker Check Date of Service: 05/21/17 1144 MR#: [id number] Acct: [id number] Name: CAMACHO MOYA Rep #: [id number] : 1945 From: Pop Hurd MD Age/Sex: 71/F Location: [facility] Status: Signed Comments Summary Comments: Remote Bi-VICD Evaluation: Remote interrogation shows no VT/VF epis odes since generator change 01/27/30. Presenting rhythm shows NSR @ 82 bpm. Cliff pacing programmed to ventricular pace as little as possible and programmed VVI @ 40 ppm d/t narrow QRS.Battery longev ity approx 8 yrs. ICE PULLER=0%. Lead impedances and sensing remain stable. Normal remote Bi-VICD function. Pt notified remote transmission received and next f/u appt scheduled for in 3 mos. Device Device Claudy e Interviewed: 05/21/17 Follow-up Location: remote Interview Reason: scheduled follow up Heater Worker: [employer] Name: Dynagen PERINATAL BREASTFEEDING ASSISTANT-D IS-1/DF-1 Model: G154 Serial #: [id number] Implant Date: 02/15/17 Year(s): 0 Implant Physician: Dr. Mohinder Garcia Patient Characteristics Patient Substrate: Nonischemic cardiomyopathy Ejection fraction %: 35 to 39 By: Echo Underlying rhythm: Sinus rhythm Pacemaker Depe ndent: No Device Characteristics Device: Biventricular Type: Implantable defibrillator Remote Follow-Up: Latitude Leads Lead #1 Heater Worker Lead 1: Guidant Model Lead 1: 4470 Serial# Lead 1: [id number] D ate Implanted Lead 1: 05/16/05 Position Lead 1: RA Lead #2 Heater Worker Lead 2: Guidant Model Lead 2: 0814 Serial# Lead 2: [id number] Date Implanted Lead 2: 05/16/05 Position Lead 2: RV Lead #3 Heater Worker Lead 3: Guidant Model Lead 3: 4518 Serial# Lead 3: [id number] Date Implanted Lead 3: 05/16/05 Position Lead [...] 1009<Elec tronically signed by Cathleen Cross > Cosigner Signature: Date (if applicable) Cathleen Cross CC: 01-Mar-2017 Office Visit Report Result: Comments: See Note; NOTES: [place] [address] [place] [address] OFFICE VISIT Date of Service: 02/23/17 MR#: [id number] Acct: [id number] Patient: LIBIA MOYA Rep #: [id number] : 1945 Provider: Cathleen Cross Age/Sex: 71/F Location: [facility] Status: Signed Device Device Date Interviewed: 02/23/17 Follow-up Location: in office Interview Reason: device implant (woun d check post generator change) Heater Worker: [employer] Name: Dynagen PERINATAL BREASTFEEDING ASSISTANT- D IS-1/DF-1 Model: G154 Serial #: [id number] Implant Date: 02/15/17 Year(s): 0 Implant Physician: Dr. Mohinder Garcia Patient Ashwini racteristics Patient Substrate: Nonischemic cardiomyopathy Ejection fraction %: 35 to 39 By: Echo Underlying rhythm: Sinus rhythm Pacemaker Dependent: No Device Characteristics Device: Biventricular Typ e: Implantable defibrillator Remote Follow-Up: Latitude Device Physical Exam Yes Incision well healed and Incision erythema Leads Lead #1 Heater Worker Lead 1: Ontuitiveant Model Lead 1: 4470 Serial# Lead 1 : [id number] Date Implanted Lead 1: 05/16/05 Position Lead 1: RA Lead #2 Heater Worker Lead 2: Guidant Model Lead 2: 0814 Serial# Lead 2: [id number] Date Implanted Lead 2: 05/16/05 Position Lead 2: RV Lead #3 Ma nufacturer Lead 3: Guidant Model Lead 3: 4518 Serial# Lead 3: [id number] Date Implanted Lead 3: 05/16/05 Position Lead [...] Operative Report Result: Comments: See Note; NOTES: [facility] Medical Records Department [address] [place] [address] Operative Report 02/15/17 1309 MR#: [id number] Acct: [id number] Name: LIBIA MOYA Rep #: [id number] : 1945 71 From: Mohinder Garcia MD PCP: Janessa Bravo Status: REG SD Y Location: [facility] Operative Report Date of Procedure: 02/15/17 Preoperative diagnosis is device at end of l delma for normal battery depletion. Postoperative diagnosis same as above. After informed consent and IV antibiotics the patient was brought to the [facility] and the skin over t [...] proper parameters and there were no complications. [place] QRS is narrow so no BiV pacing for now, but reassess QRS at follow up All lead parameters were tested and found to be functiona lly normal. Lead and device serial and model numbers are available in the chart documents provided by the device company telephone service representative procedure summary. 02/15/17 1314 <Electronically sig abimael by Mohinder Garcia MD> Date Mohinder Garcia MD CC: Janessa Bravo; Mohinder Garcia MD Signed 13-Feb-2017 Chest PA and Lateral Result: Comments: See Note; NOTES: [facility] Imaging Services [address] [place] [address] Chest PA and Lateral MR#: [id number] Acct: [id number] Name: LIBIA MOYA Rep #: [id number] : 1945 F 71 From: Edson Dillon MD PCP: Janessa Bravo Status: PRE [facility] Study: Chest PA and Lateral Date of Exam: 02/13/17 Exam# [id number] Ordering Dr: Pop Hurd MD STUDY: X-RAY [...] Tel , Service support , Fa x [phone] CC: Janessa Bravo; Pop Hurd MD Aviation Technical Systems Specialist: Signed 23-Jul-2015 Echocardiogram Complete Result: Comments: See Note; NOTES: [facility] Cardiovascular Services [address] [place] [address] Echo Complete W/ Contrast 07/22/15 1100 MR#: [id number] Acct: [id number] Name: LIBIA MOYA Rep #: [id number] : 1945 69 From: Pop Hurd MD [...] Dictated: 07/22/15 1100 Date Transc ribed: 07/23/1532 Aviation Technical Systems Specialist: Signed Family History Unknown Family Member Name Dates Details Father Comments: [place], HTN, hyperlipidemia, age 58 Status: Active Maternal Grandmother Comments: pancreatic cancer Status: Active Mother Comments: IDDM,HYN, hyperlipidemia, [place] age 68 Status: Active Sister 1 Comments: [...] smoker Vital Signs Date Test Result Details :34 Temperature 98.2 f Comments: Method: Temporal Pulse 68 /min Comments: Pattern: Regular Respiration Rate 17 /min Comments: Pattern: Unlabored O2 SAT 97 % Comments: Room air BP Systolic 126 mm[Hg] Comments: Patient Position: Sitting; Cuff Location: Left Arm; Cuff Size: Standard BP Diastolic 80 mm[Hg] Comments: Patient Position: Sitting; Cuff Location: Left Arm; Cuff Size: Standard Weight 203.375 lb Height 63.75 in Body Mass Index Calculated 35.18 kg/m2 Body Surface Area Calculated 1.96 m2 :53 Temperature 97.8 f Comments: Method: Temporal [...] Height 0 in Head Circumference 0.00 cm : Temperature 97.8 f Comments: Method: Oral Pulse [...] 0.00 cm Results Date Description Value Details 0-Vhb-452272:29 Basic Metabolic Profile (BMP) Comments: [facility] [address] [place], [address] GAP 9 (Normal) Range: 5-15 CO2 27.0 [...] Comments: Please note revised GLUCOSE reference range gwzozpibj08/02/2018. 4-Tyf-941782:29 CBC W/Diff, Automated Comments: [facility] [address] [place], [place], [address] Absolute Lymph 1.54 {X10_3/ul} (Normal) Range: 0.83-4.51 [...] (Normal) Range: 4.4-11.0 17-Dec-20176:13 Lipid Profile Comments: [facility] [address] [place], [place], [address] VLDL 25 mg/dL (Normal) Range: 5-40 LDL [...] mg/dL High Risk 17-Dec-20176:13 Liver Profile Comments: [facility] [address] [place], [place], [address] D BILI 0.19 mg/dL (Normal) Range: 0.00-0.30 T BILI 0.60 mg/dL (Normal) Range: 0.20-1.00 ALT 19 U/L (Normal) Range: 13-56 ALK P 131 U/L (Abnormal) Range: 45-117 AST 21 U/L (Normal) Range: 15-37 GLOB 3.9 g/dL (Normal) Range: 2.2-4.2 ALB 3.5 g/dL (Normal) Range: 3.2-5.0 T PROT 7.4 g/dL (Normal) Range: 6.4-8.2 96-Eet-29928:40 Lipid Profile Comments: Order Date: 12/21/16Order Info: 0788-1 - *Hepatic Function PanelOrder Info: 45461-0 - *Lipid Profile CC PCPComments: 12 hours fasting, may have water.[facility] [address] [place], [place], [address] VLDL 22 mg/dL (Normal) Range: 5-40 LDL [...] 200-240 mg/dL Borderline >240 mg/dL High Risk 73-Cig-86489:40 Liver Profile Comments: Order Date: 12/21/16Order Info: 0788-1 - *Hepatic Function PanelOrder Info: 79452-0 - *Lipid Profile CC PCPComments: 12 hours fasting, may have water.[facility] [address] [place], [place], [address] D BILI 0.20 mg/dL (Normal) Range: 0.00-0.30 T BILI 0.70 mg/dL (Normal) Range: 0.20-1.00 ALT 19 U/L (Normal) Range: 13-56 Comments: Please note revised ALT reference range xsmvzyqoz37/28/2018. ALK P 116 U/L (Normal) Range: 45-117 AST 20 U/L (Normal) Range: 15-37 GLOB 3.8 g/dL (Normal) Range: 2.2-4.2 ALB 3.7 g/dL (Normal) Range: 3.2-5.0 T PROT 7.5 g/dL (Normal) Range: 6.4-8.2 72-Ltq-828454:17 Basic Metabolic Profile (BMP) Comments: Order Date: 02/12/17Order Info: 0667-1 - *BMPComments: Reason: For ICD generator change with Dr. Garcia on 02/15/17[facility] [address] [place], [place], [address] GAP 7 (Normal) Range: 5-15 CO2 27.0 [...] 7-18 GLU 97 mg/dL (Normal) Range: 70-110 63-Qsr-696842:17 CBC-Complete Blood Cnt No Diff Comments: Order Date: 02/12/17Order Info: 15582-6 - *CBC without DiffComments: Reason: For ICD generator change with Dr. Garcia on 02/15/17[facility] [address] [place], [place], [address] MPV 11.2 fL (Normal) Range: 6.2-12.0 PLT [...] 4.2-5.4 WBC 7.6 K/mm3 (Normal) Range: 4.4-11.0 56-Kkz-611329:17 Prothrombin Time w/INR Comments: Order Date: 02/12/17Order Info: 6301-6 - *PT/INRComments: For ICD generator change with Dr. Garcia on 02/15/17[facility] [address] [place], [place], [address]( [phone] INR 1.1 (Normal) PROTIME 13.8 s (Normal) Range: 11.7-14.9 73-Jcn-600612:17 Urinalysis, Routine (Dipstick) Comments: Order Date: 02/12/17Order Info: 0610-1 - *UA - Urinalysis w/o MicroComments: Reason: For ICD generator change with Dr. Garcia on 02/15/17How was Urine Obtained? PREPRESS SUPERVISOR TO [facility] [address] [facility] [place], [address] LEUK ESTERASE 500 /ul (Abnormal) OCCULT BLOOD-UR [...] CLARITY Sl. Cloudy (Normal) COLOR Yellow (Normal) 02-Ywl-43543:09 Lipid Profile Comments: Order Date: 06/14/16Order Info: 0788-1 - *Hepatic Function PanelOrder Info: 29438-0 - *Lipid Profile CC PCPComments: 12 hours fasting, may have water.[facility] [address] [place], [place], [address] VLDL 21 mg/dL (Normal) Range: 5-40 LDL [...] Info: 0788-1 - *Hepatic Function PanelOrder Info: 95223-8 - *Lipid Profile CC PCPComments: 12 hours fasting, may have water.[facility] [address] [place], [address] D BILI 0.18 mg/dL (Normal) Range: 0.00-0.30 T BILI 0.80 mg/dL (Normal) Range: 0.20-1.00 ALT 20 U/L (Normal) Range: 12-78 ALK P 122 U/L (Abnormal) Range: 45-117 AST 18 U/L (Normal) Range: 15-37 GLOB 3.8 g/dL (Abnormal) Range: 2.3-3.5 ALB 3.5 g/dL (Normal) Range: 3.4-5.0 T PROT 7.3 g/dL (Normal) Range: 6.4-8.2 15-Fov-083553:12 CBC W/Diff, Automated Comments: Order Date: 01/06/16Order Info: 0184-1 - *CBC with DifferentialComments: Reason: hx anemiaOrder Date: 01/06/16Order Info: 2276-4 - *FerritinComments: Reason: hx anemiaWooAshtabula [facility] Labor [address] [place], [place], [address] Absolute Lymph 1.80 {X10_3/ul} (Normal) Range: 0.83-4.51 [...] 4.2-5.4 WBC 6.5 K/mm3 (Normal) Range: 4.4-11.0 87-Uyx-825064:12 Ferritin Comments: Order Date: 01/06/16Order Info: 2498-4 - *IronOrder Info: 2276-4 - *FerritinComments: Reason: hx anemiaOrder Date: 01/06/16Order Info: 2276-4 - *FerritinComments: Reason: [facility]WCl[facility] [address] [place], [address] FERRITIN 131 ng/mL (Normal) Range: 8-252 71-Hrc-422147:12 Iron Comments: Order Date: 01/06/16Order Info: 2498-4 - *IronOrder Info: 2276-4 - *FerritinComments: Reason: hx anemiaOrder Date: 01/06/16Order Info: 2276-4 - *FerritinComments: Reason: hx anemiaWCl[facility] Hospital [address] [place], [place], [address](086) IRON 206 ug/dL (Abnormal) Range: 50-170 :48 Lipid Profile Comments: Order Date: 12/15/15OV Order #: [id number] Medical [facility] [address], [place], [address] VLDL 21 mg/dL (Normal) Range: 5-40 LDL [...] Profile Comments: Order Date: 12/15/15OV Order #: [id number] [facility] Medical Center [address] [place], [place], [address] D BILI 0.18 mg/dL (Normal) Range: 0.00-0.30 T BILI 0.70 mg/dL (Normal) Range: 0.20-1.00 ALT 18 U/L (Normal) Range: 12-78 ALK P 124 U/L (Normal) Range: 50-136 AST 20 U/L (Normal) Range: 15-37 GLOB 3.8 g/dL (Abnormal) Range: 2.3-3.5 ALB 3.6 g/dL (Normal) Range: 3.4-5.0 T PROT 7.4 g/dL (Normal) Range: 6.4-8.2 :56 Lipid Profile Comments: [facility] [address] [facility] [place], [place], [address] VLDL 30 mg/dL (Normal) Range: 5-40 LDL [...] mg/dL High Risk :56 Liver Profile Comments: [facility] [address] [place], [place], [address] D BILI 0.13 mg/dL (Normal) Range: 0.00-0.30 [...] in 4 weeks; PATIENT NOT FASTINGPERFORMED BY: [facility]CoR[facility]itan [facility] CenterPwfwbf4431 [facility] [id number] Information: [id number] ([id number]) Immature Grans (Abs) 0.0 {x10E3/uL} (Normal) Range: [...] Range: 3.4-10.8 :15 CBC W/Diff, Automated Comments: [facility] [address] [facility] [place]. [place], [place], [address] Absolute Lymph 1.36 {X10_3/ul} (Normal) Range: 0.83-4.51 [...] K/mm3 (Normal) Range: 4.4-11.0 :15 Iron Comments: [address] [place], [address] IRON 70 ug/dL (Normal) Range: 50-170 Comments: Moderate Hemolysis, Result may be falsely increased. :15 Iron Binding Capacity,Total Comments: [address] [place], [address] TIBC 285 ug/dL (Normal) Range: 250-450 Comments: Moderate Hemolysis, Result may be falsely increased. :15 Retic Panel Comments: [address] [place], [place], [address](577) IPF 2.9 % (Normal) Range: 1.0-7.9 Comments: [...] 3.00-15.90 RETIC 1.94 % (Abnormal) Range: 0.5-1.5 15-Zus-967240:08 Fecal Occult Blood , Office (45443) Fecal Occult Blood , Office (Inhouse) positive (Normal) 12-Kgq-917387:42 HAPTOGLOBIN (07036) Comments: all rest today; PATIENT NOT FASTINGPERFORMED BY: CB [facility] Ohhfav3130 [facility] [id number] BY: BN [facility] [id number] Haptoglobin 59 mg/dL (Normal) Range: 34-200 34-Zwc-245847:42 CBC, PLATELETS & AUT DIFF Comments: recheck this in 6 weeks; PATIENT NOT FASTINGPERFORMED BY: MILTON [facility] Bgcbhw6109 Oshea [facility] [id number] BY: [facility] [address] [id number] Information: [id number] (23780) Immature Grans (Abs) 0.0 {x10E3/uL} (Normal) Range: [...] 3.77-5.28 WBC 6.4 {x10E3/uL} (Normal) Range: 3.4-10.8 04-Tld-408579:42 SPEP (39454) Comments: PATIENT NOT FASTINGPERFORMED BY: [employer] Vgquhc2101 [facility] [id number] BY: [employer] [id number] Please note: SPRCS (Normal) Comments: Protein electrophoresis scan will follow via computer, mail, orcourier delivery. A/G Ratio 1.3 (Normal) Range: 0.7-2.0 Globulin, Total 2.9 g/dL (Normal) Range: 2.0-4.5 M-Siemon Not Observed g/dL (Normal) Gamma Globulin 1.2 g/dL (Normal) Range: 0.5-1.6 Beta Globulin 1.0 g/dL (Normal) Range: 0.6-1.3 Nkobc-3-Yolesofl 0.6 g/dL (Normal) Range: 0.4-1.2 Jfspq-1-Irdobxmz 0.2 g/dL (Normal) Range: 0.1-0.4 Albumin 3.7 g/dL (Normal) Range: 3.2-5.6 Protein, Total, Serum 6.6 g/dL (Normal) Range: 6.0-8.5 37-Fen-367173:42 FOLIC ACID SERUM (10507) Comments: PATIENT NOT FASTINGPERFORMED BY: Qoostar Iyjitg6711 [facility] [id number] BY: [address] [id number] Folate (Folic Acid), Serum 18.8 ng/mL (Normal) Comments: A serum folate concentration of less than 3.1 ng/mL isconsidered to represent clinical deficiency. 17-Chy-869781:42 Methymalonic Acid, Serum Comments: PATIENT NOT FASTINGPERFORMED BY: [employer] Ftqome2099 [facility] [id number] BY: [employer] [id number] (75755) Methylmalonic Acid, Serum 479 nmol/L (Abnormal) Range: 0-378 77-Lpa-344004:42 VITAMIN B-12 Comments: PATIENT NOT FASTINGPERFORMED BY: [facility]6370 [facility] [id number] BY: [address] [id number] (CYANOCOBALAMIN) (95392) Vitamin B12 259 pg/mL (Normal) Range: 211-946 28-Hjl-591912:42 RETICULOCYTE COUNT MANUL Comments: PATIENT NOT FASTINGPERFORMED BY: [facility] FoundationSh[facility] ExtremeElizabeth [place] [id number] [facility] [id number] BY: [address] [id number] (83371) Reticulocyte Count 2.5 % (Normal) Range: 0.6-2.6 38-Zee-289428:42 LDH (LD) (LACTATE Comments: PATIENT NOT FASTINGPERFORMED BY: [address] [id number] BY: [address] [id number] DEHYDROGENASE) (91692) LDH 175 [iU]/L (Normal) Range: 119-226 69-Kxg-816901:42 IRON BINDING CAPACITY Comments: PATIENT NOT FASTINGPERFORMED BY: [facility] Extreme[place] 7494870 [facility] [id number] BY: [address] [id number] (TIBC) (82262) Iron Saturation 6 % (Abnormal) Range: 15-55 Iron, Serum 17 ug/dL (Abnormal) Range: 35-155 UIBC 265 ug/dL (Normal) Range: 150-375 Iron Bind.Cap.(TIBC) 282 ug/dL (Normal) Range: 250-450 60-Hgc-418239:42 FERRITIN (25832) Comments: PATIENT NOT FASTINGPERFORMED BY: [place] [id number] [facility] [id number] BY: [address] [id number] Ferritin, Serum 7 ng/mL (Abnormal) Range: 15-150 76-Fbh-984657:44 CBC W/Diff, Automated Comments: [facility] [address] [place], [place], [id number] Absolute Lymph 1.47 {X10_3/ul} (Normal) Range: 0.83-4.51 [...] 4.2-5.4 WBC 5.6 K/mm3 (Normal) Range: 4.4-11.0 75-Gbz-910023:44 Comprehensive Metabolic Profil Comments: [facility] [address] [place], [place], [id number] GAP 7 (Normal) Range: 5-15 CO2 23.0 [...] 7-18 GLU 90 mg/dL (Normal) Range: 70-110 02-Rpi-419186:44 T4 Total, Thyroxin Comments: [facility] [address] [place], [address] T4 THYROXIN 8.5 ug/dL (Normal) Range: 4.8-13.9 01-Bty-279871:44 Thyroid Stim Hormone (TSH) Comments: [facility] [address] [facility] [place], [address] TSH 3.80 {uIU/mL} (Abnormal) Range: 0.358-3.74 46-Rcn-91598:57 Lipid Profile Comments: Test performed at:[facility] [address] [place] [address] VLDL 24 mg/dL (Normal) Range: 5-40 LDL [...] Risk :57 Liver Profile Comments: Test performed at:[facility] [address] [place], [place] [id number] D BILI 0.14 mg/dL (Normal) Range: 0.00-0.30 T BILI 0.60 mg/dL (Normal) Range: 0.20-1.00 ALT 24 U/L (Normal) Range: 12-78 ALK P 131 U/L (Normal) Range: 50-136 AST 23 U/L (Normal) Range: 15-37 GLOB 3.5 g/dL (Normal) Range: 2.3-3.5 ALB 3.6 g/dL (Normal) Range: 3.4-5.0 T PROT 7.1 g/dL (Normal) Range: 6.4-8.2 :40 Lipid Profile Comments: Test performed at:[facility] [address] [place] [address] VLDL 19 mg/dL (Normal) Range: [...] Risk :40 Liver Profile Comments: Test performed at:[facility] [address] [facility] [place] [address] D BILI 0.18 mg/dL (Normal) Range: 0.00-0.30 [...] CHOL 152 mg/dL (Normal) Comments: <200 mg/dL Iziuqcquu320-643 mg/dL Borderline>240 mg/dL High Risk :42 LIVER [...] CHOL 159 mg/dL (Normal) Comments: <200 mg/dL Wmbwdaudf025-840 mg/dL Borderline>240 mg/dL High Risk TRIG 124 [...] CHOL 142 mg/dL (Normal) Comments: <200 mg/dL Ajkvqkdss085-389 mg/dL Borderline>240 mg/dL High Risk HDL 50 [...] T PROT 7.5 g/dL (Normal) Range: 6.4-8.2 71-Jiu-774172:42 BILAT SCRN DIGITAL & CAD Radiology Report See Note (Normal) Comments: Exam Number: [id number] MAMMOGRAM, BILATERAL SCREENING DIGITAL AND CAD HISTORYRoutine [...] werealso examined wi th computer-aided detection software (COZero, Tendril, iCatapult.). Reported By: MIKA ALVAREZ M.D. 29-Adg-303192:46 BMP BUN 15 mg/dL (Normal) Range: 7-18 BUN/CRE 13.6 {RATIO} (Normal) Range: 10-20 CA 9.5 mg/dL (Normal) Range: 8.5-10.1 CL 101 mmol/L (Normal) Range: 98-107 CO2 29.9 mmol/L (Normal) Range: 21.0-32.0 CREAT,SERUM 1.1 mg/dL (Abnormal) Range: 0.6-1.0 GAP 7 (Normal) Range: 5-15 GLU 83 mg/dL (Normal) Range: 70-110 K 4.3 mmol/L (Normal) Range: 3.5-5.1 NA 138 mmol/L (Normal) Range: 136-145 66-Wta-759149:46 CBCD BASO% 0.6 % (Normal) Range: 0-1 [...] 11.6-14.6 WBC 9.1 K/mm3 (Normal) Range: 4.4-11.0 50-Afn-248021:46 ROUTINE UA BILIRUBIN URINE SeeNote (Normal) Comments: [...] Plan of Care Name Dates Details Instructions Intrinsic asthma : Reviewed Diagnostic Tests Indication: Intrinsic asthma Intrinsic asthma : Reviewed Lab Indication: Intrinsic asthma Current nonsmoker (Renamed from Current non-smoker) : Eprescribed prescriptions (G8553) Indication: Current nonsmoker (Renamed from Current non-smoker) BMI 35.0-35.9,adult : Follow up if no [...] exacerbation Cough : [facility] Indication: Cough CHRONIC OBSTRUCTIVE ASTHMA WITH (ACUTE) EXACERBATION : Solu Medrol Injection/ Education Indication: CHRONIC OBSTRUCTIVE ASTHMA WITH (ACUTE) EXACERBATION Planned Observations T4, FREE (THYROXINE) (78725)Indication: Abnormal TSH On: : Request TSH ([id number])Indication: Abnormal TSH On: : Request Ferritin (98392)Indication: AJIT (iron deficiency anemia) On: :00 Request CBC with auto diff (49110)Indication: AJIT (iron deficiency anemia) On: :00 Request T4, FREE (THYROXINE) ([id number])Indication: Abnormal TSH On: :20 Request Comments: recheck 6 weeks. Anti-TPO Antibody (21419)Indication: Abnormal TSH On: :19 Request Comments: recheck 6 weeks TSH (29155)Indication: Abnormal TSH On: :19 Request Comments: recheck 6 weeks FECAL OCCULT- Tubes sent home (19201)Indication: Anemia, unspecified type On: :18 Request IRON ([id number])Indication: Anemia, unspecified type On: 51-Ghg-180712:18 Request URINALYSIS W/O MICRO (57611)Indication: Hyperlipemia, mixed On: :33 Request CBC (Auto) (45122)Indication: Hyperlipemia, mixed On: :33 Request Metabolic Panel, Basic (85183)Indication: Hyperlipemia, mixed On: :33 Request Planned Procedures Aerosol Treatment (93489)By: Shelly On: 20-Feb-2018 Intent Janessa MCKEON Solu -Medrol Injection, 125 mg On: 20-Feb-2018 Intent (J2930)By: Janessa Bravo CNP Comments: Solumedrol 125mg InjectionLot-- [id number]-- GMpt tolerated wellTLOCKLEAR, CONTROL PANEL TESTER Aerosol Treatment (94104)By: Shelly On: 30-Jan-2018 Intent Janessa MCKEON Spirometry (66542)By: Shelly MCKEON, On: 30-Jan-2018 Intent Janessa Baker Radiology - ChestBy: Debi GASPAR, On: 04-Jun-2015 Intent Ivana Cornell MD Comments: if not mario rin 1 week PNEUM VAC ADLT/IMUMNOSPR, SBC/INTRM On: 23-Apr-2015 Intent ([id number])By: Ivana Carrera MD, MD, Dana M DEXA SCAN AXIAL SKELETON (37659)By: On: 23-Apr-2015 Intent Ivana Carrera MD, MD, Dana Comments: do at least 2 years from last M MAMMOGRAM, SCREENING, BOTH BREAST On: 23-Apr-2015 Intent ([id number])By: Ivana Carrera MD, MD, Dana M MAMMOGRAM, SCREENING, BOTH BREAST On: 09-Mar-2015 Intent (20973)By: Ivana Carrera MD, MD, Dana M Aerosol Treatment (36221)By: On: 01-Jan-2015 Intent Ivana Carrera MD, MD, Dana M Aerosol Treatment (84955)By: Shelly On: 30-Jan-2014 Intent MIKE Ana Cristina Aerosol Treatment (11167)By: Shelly On: 02-Jan-2011 Intent Janessa MCKEON Pulse Oximetry (33225)By: Higinio GARCIA, On: 02-Jan-2011 Intent Sissy Pulse Oximetry (88651)By: Juaquin, On: 19-Aug-2009 Intent NIKHIL Spirometry (03958)By: Juaquin, On: 19-Aug-2009 Intent NIKHIL Inhaler Demonstration (09447)By: On: 23-Feb-2009 Intent Shelly Janessa MCKEON Pulse Oximetry (69595)By: Shelly On: 23-Feb-2009 Intent Janessa MCKEON Aerosol Treatment (61810)By: Shelly On: 23-Feb-2009 Intent Janessa MCKEON Solu -Medrol Injection, 125 mg On: 23-Feb-2009 Intent ([id number])By: Shelly Janessa MCKEON Comments: Lot #[id number]-right [id number] mggiven by:BRIANNE Aerosol Treatment (95269)By: Bridget On: 22-Jun-2008 Intent Gabriela LYNNE Comments: done by drew air exchg less wheeze Solu- Medrol Injection, 125mg On: 22-Jun-2008 Intent ([id number])By: Gabriela Gill DO Comments: Lot #:[id number] date:mount given:125mgRoute: IMSite given:right buttuckGiven by: CUAUHTEMOC Ramirez Pulse Oximetry (71710)By: Billy On: 22-Jun-2008 Intent Mehnaz Comments: 97% Spirometry (51523)By: Debi GASPAR, On: 21-Feb-2008 Intent Ivana Cornell MD Pulse Oximetry (86019)By: Debi On: 21-Feb-2008 Intent Ivana GASPAR MD, Dana M MAMMOGRAM, SCREENING, BOTH BREASTS On: 01-Nov-2007 Intent (82050)By: Ivana Carrera MD, MD, Dana M Bio Z ([id number])By: Ivana Carrera MD On: 01-Nov-2007 Intent Ivana Carrera MD Planned Medications INJECTION, METHYLPREDNISOLONE SODIUM SUCCINATE, UP TO 125 MG Ordered: 5-Dec-2018 Pending Janessa Bravo CNP Instructions Name Dates [...] with (acute) exacerbation Encounters Office Visit On: 27-Feb-2018 14:33 Encounter Reason: Follow up acute care visit - The patient feeling better since last seen. Note for Follow up acute care visit: Tapering off of prednisone, was triggered by smokeEncounter Diagnosis: BMI 35.0-35.9,adult, End: 27-Feb-2018 15:20 Current nonsmoker (Renamed from Current non-smoker), Intrinsic asthma, Hypertensive heart disease [facility] Phone Encounter On: 20-Feb-2018 15:24 Encounter Diagnosis: [...] 30-Jan-2018 12:45 has had wheezing at night. [place] like full of phlegm in am Was told in past had allergy and asthma but did not have to use advair routinely only as needed. Went to information technology data analyst and did not feel problem with heart.Encounter [...] patient does not have durable power of patent attorney or living will. The patient has noticed nothing from the geriatic depression scale. Other providers contributing to the patient's care are information technology data analyst (Dr. Hurd). Encounter Diagnosis: Annual Medicare Physical [...] Woman V72.31 (p,m)) [facility] Payers [facility]/[employer]; a guarantor
--- OUTSIDE RECORDS SUMMARY | 2018-04-13 01:58 | XMS RPT_ITS | Continuity of Care Document ---
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 (Normal) Range: 4.4-11.0 [id number]:46 ROUTINE UA BILIRUBIN URINE SeeNote (Normal) Comments: [...] exacerbation Cough : [facility] with [facility] Indication: Cough CHRONIC OBSTRUCTIVE ASTHMA WITH (ACUTE) EXACERBATION : Solu Medrol Injection/ Education Indication: CHRONIC OBSTRUCTIVE ASTHMA WITH (ACUTE) EXACERBATION Planned Observations T4, FREE (THYROXINE) ([id number])Indication: Abnormal TSH On: : Request TSH ([id number])Indication: Abnormal TSH On: : Request Ferritin ([id number])Indication: AJIT (iron deficiency anemia) On: : Request CBC with auto diff ([id number])Indication: AJIT (iron deficiency anemia) On: :00 Request T4, FREE (THYROXINE) ([id number])Indication: Abnormal TSH On: :20 Request Comments: recheck 6 weeks. Anti-TPO Antibody ([id number])Indication: Abnormal TSH On: :19 Request Comments: recheck 6 weeks TSH ([id number])Indication: Abnormal TSH On: :19 Request Comments: recheck 6 weeks FECAL OCCULT- Tubes sent home ([id number])Indication: Anemia, unspecified type On: :18 Request IRON ([id number])Indication: Anemia, unspecified type On: :18 Request URINALYSIS W/O MICRO ([id number])Indication: Hyperlipemia, mixed On: :33 Request CBC (Auto) ([id number])Indication: Hyperlipemia, mixed On: :33 Request Metabolic Panel, Basic ([id number])Indication: Hyperlipemia, mixed On: :33 Request Planned Encounters Medical; 1 Week FU - On: 27-Feb-2018 14:45 [facility] Janessa Bravo CNP Planned Procedures Aerosol Treatment ([id number])By: Shelly On: 20-Feb-2018 Intent Janessa MCKEON Solu -Medrol Injection, 125 mg On: 20-Feb-2018 Intent ([id number])By: Janessa Bravo CNP Comments: Solumedrol 125mg InjectionLot-- [id number]-- GMpt tolerated wellAHMET DIEZ Aerosol Treatment ([id number])By: Shelly On: 30-Jan-2018 Intent MIKEJanessa Spirometry ([id number])By: Shelly MCKEON, On: 30-Jan-2018 Intent Janessa Baker Radiology - ChestBy: Debi GASPAR, On: 04-Jun-2015 Intent Ivana Cornell MD Comments: if not mario rin 1 week PNEUM VAC ADLT/IMUMNOSPR, SBC/INTRM On: 23-Apr-2015 Intent ([id number])By: Ivana Carrera MD, MD, Dana M DEXA SCAN AXIAL SKELETON ([id number])By: On: 23-Apr-2015 Intent Ivana Carrera MD, MD, Dana Comments: do at least 2 years from last M MAMMOGRAM, SCREENING, BOTH BREAST On: 23-Apr-2015 Intent ([id number])By: Ivana Carrera MD, MD, Dana M MAMMOGRAM, SCREENING, BOTH BREAST On: 09-Mar-2015 Intent ([id number])By: Ivana Carrera MD, MD, Dana M Aerosol Treatment ([id number])By: On: 01-Jan-2015 Intent Ivana Carrera MD, MD, Dana M Aerosol Treatment ([id number])By: Shelly On: 30-Jan-2014 Intent MIKEJanessa Aerosol Treatment ([id number])By: Shelly On: 02-Jan-2011 Intent MIKE Ana Cristina Pulse Oximetry ([id number])By: Higinio RN, On: 02-Jan-2011 Intent Sissy Pulse Oximetry ([id number])By: Juaquin, On: 19-Aug-2009 Intent NIKHIL Spirometry ([id number])By: Juaquin On: 19-Aug-2009 Intent NIKHIL Inhaler Demonstration ([id number])By: On: 23-Feb-2009 Intent Shelly MCKEON Ana Cristina Pulse Oximetry ([id number])By: Shelly On: 23-Feb-2009 Intent MIKE Ana Cristina Aerosol Treatment ([id number])By: Shelly On: 23-Feb-2009 Intent Janessa MCKEON Solu -Medrol Injection, 125 mg On: 23-Feb-2009 Intent ([id number])By: Janessa Bravo CNP Comments: Lot #[id number]-right payBtoz589 mggiven by:BRIANNE Aerosol Treatment ([id number])By: Bridget On: 22-Jun-2008 Gabriela Suggs DO Comments: done by drew air exchg less wheeze Solu- Medrol Injection, 125mg On: 22-Jun-2008 Intent ([id number])By: Gabriela Gill DO Comments: Lot #:[id number] date:mount given:125mgRoute: IMSite given:right buttuckGiven by: CUAUHTEMOC Ramirez Pulse Oximetry ([id number])By: Billy On: 22-Jun-2008 Intent Mehnaz Comments: 97% Spirometry ([id number])By: Debi GASPAR, On: 21-Feb-2008 Intent Ivana Cornell MD Pulse Oximetry ([id number])By: Debi On: 21-Feb-2008 Intent Ivana GASPAR MD, Dana M MAMMOGRAM, SCREENING, BOTH BREASTS On: 01-Nov-2007 Intent ([id number])By: Ivana Carrera MD, MD, Dana M Bio Z ([id number])By: Ivana Carrera MD On: 01-Nov-2007 Intent Ivana [...] 30-Jan-2018 12:45 has had wheezing at night. [place] like full of phlegm in am Was told in past had allergy and asthma but did not have to use advair routinely only as needed. Went to manager of application development and did not feel problem with heart.Encounter [...] patient does not have durable power of wellhead pumper or living will. The patient has noticed nothing from the geriatic depression scale. Other providers contributing to the patient's care are manager of application development (Dr. Hurd). Encounter Diagnosis: Annual Medicare Physical [...] Woman V72.31 (p,m)) [facility] Payers [facility]/27 bards; a guarantor
--- OUTSIDE RECORDS SUMMARY | 2018-04-13 01:58 | XMS RPT_ITS ---
:1945 Author Organization [place] Support Name Relationship Address Phone ZELDA MOYA) [address] + [place] [address] NITA, ZI [address] + [place] [address] R Unknown Unavailable Unavailable ZELDA MOYA) [address] + [place] [address] NITA, ZI [employer] Unavailable + [place] [address] R Unknown Unavailable Unavailable ZELDA MOYA) [address] + [place] [address] NITA, ZI [employer] Unavailable + [place] [address] R Unknown Unavailable Unavailable ZELDA MOYA) [address] + [place] [address] NITA, ZI [employer] Unavailable + R Unknown Unavailable Unavailable ZELDA MOYA) [address] + [place] [address] NITA, ZI [employer] Unavailable + R Unknown Unavailable Unavailable ZELDA MOYA) [address] + [place] [address] NITA, ZI [employer] Unavailable + R Unknown Unavailable Unavailable ZELDA MOYA) [address] + [place] [address] NITA, ZI [employer] Unavailable + R Unknown Unavailable Unavailable ZELDA MOYA) [address] + [place] [address] NITA, ZI [employer] Unavailable + R Unknown Unavailable Unavailable ZELDA MOYA) [address] + [place] [address] NITA, ZI [facility] . + ., [place] . R Unknown Unavailable Unavailable Care Team Providers Name Role Phone Ivana Carrera MD Attending Unavailable Ivana Carrera MD Referring Unavailable Ivana Carrera MD Consulting Unavailable Vannessa, Pop Attending Unavailable Ciesa, Janessa Referring Unavailable Ciesa, Janessa Primary Care Unavailable Vannessa, Pop Attending Unavailable Vannessa, Napoleon Referring Unavailable Ciesa, Janessa Primary Care Unavailable Jannet Hall Attending Unavailable Vannessa, Pop Attending Unavailable Ciesa, Janessa Referring Unavailable Ciesa, Janessa Primary Care Unavailable Cathleen Cross Attending Unavailable Ciesa, Janessa Referring Unavailable Ciesa, Janessa Primary Care Unavailable Cathleen Cross Attending Unavailable Ciesa, Janessa Referring Unavailable Ciesa, Janessa Primary Care Unavailable Vannessa, Napoleon Attending Unavailable Vannessa, Pop Referring Unavailable Ciesa, Janessa Primary Care Unavailable Velma Sullivan Attending Unavailable Ciesa, Janessa Referring Unavailable Ciesa, Janessa Primary Care Unavailable Mehnaz Sun Attending Unavailable Vannessa, Napoleon Referring Unavailable Purpose Purpose PROBLEMS PROBLEMS DATE TYPE CONDITION / CODE ATTENDING STATUS SOURCE 07/12/2017 Unknown E78.5 - Vannessa, Napoleon Active [facility] Hyperlipidemia, Community unspecified / Hospital E78.5(ICD-10) Repository 07/12/2017 Unknown R06.02 - Shortness Vannessa, Pop Active [facility] of breath / Community R06.02(ICD-10) Hospital Repository 07/12/2017 Unknown I43 - Cardiomyopathy Vannessa, Napoleon Active [facility] in diseases Community classified elsewhere Hospital / I43(ICD-10) Repository 07/12/2017 Unknown Z95.810 - Presence Vannessa, Pop Active [facility] automatic Community (implantable) Hospital cardiac Repository defibrillator / Z95.810(ICD-10) 06/11/2017 Unknown Z79.899 - Other long Vannessa, Napoleon Active [facility] term (current) drug Community therapy / Hospital Z79.899(ICD-10) Repository PROCEDURES PROCEDURES No Procedure Records FoundVITAL SIGNS VITAL SIGNS No Vital Signs Records FoundRESULTS RESULTS 12 LEAD ELECTROCARDIOGRAM Observed: 02/19/2018 Status: F Source: [facility] 3:23 PM [facility] Cardiovascular Services [address] [place] [address] 12 Lead EKG 02/17/182017 MR#: [id number] Acct: [id number] Name: DAVID MOYA Rep #: [id number] : 1945 72 From: Matthew Dejesus MD [...] QRS Confirmed by ANJELICA GASPAR, MATTHEW ([id number]), pictures editor EVANGELINA CAO ([id number]) on 02/19/2018 3:23:02 PM Referred By: Pop Hurd Confirmed By:MATTHEW DEJESUS MD 02/19/18 1523 Date Matthew Dejesus MD CC: Janessa Bravo NP; Pop Hurd MD; Mehnaz Sun MD Signed EMERGENCY DEPARTMENT Observed: 02/18/2018 Status: F Source: [facility] SUMMARY 12:46 AM [facility] Medical Records Department [address] [place] [address] Emergency Department Summary 02/17/18 2246 MR#: [id number] Acct: [id number] Name: DAVID MOYA Rep #: [id number] : 1945 72 From: Mehnaz Sun MD [...] seen by her PCP and started on Advair twice a day along with albuterol MDI. Patient reports no significant change in her symptoms with that. Today she went to the [facility] was exposed to a lot of cigarette smoke. She has increased shortness of breath and wheezing. She has not [...] Test Results: Two-view chest x-ray shows a stable hiatal hernia. No acute disease noted. EKG [...] and I want her to use her albuterol every 4-6 hours. She will also be given prednisone for home. She is to follow-up with her primary care provider in the next 5-7 days. Treatment Plan: [] Disposition: Discharge Impression: Asthma exacerbation This note was generated with [employer] dictation software. It may contain incorrect words, spelling, and punctuation that were not noted in review of the chart prior to signing ED Disposition - Plan for ED Patient: Disposition: Home or Assisted Living Chief Complaint: Shortness of Breath Instructions: ED Reactive Airway Disease Prescriptions: Prednisone 10 mg PO UD #33 tablet Referrals: Janessa Bravo, MUNA-C [Primary Care Provider] - 3-5 Days What to do if you have Problems For any increased pain, shortness of breath, bleeding, nausea or vomiting, chest pain, or any unexpected problems, contact your Primary Care Provider. Call [facility] ([phone]) or report to the closest Emergency Room. Call 911 if necessary. 02/18/18 0046 <Electronically signed by Mehnaz Sun MD> Date Mehnaz Sun MD Cosigner Signature (If Indicated): Date CC: Janessa Bravo NP DISCHARGE INSTRUCTION Observed: 02/17/2018 Status: F Source: [place] 10:47 PM [facility] REPOSITORY [facility] Medical Records Department [address] [place] [address] Discharge Instruction 02/17/182245 MR#: [id number] Acct: [id number] Name: DAVID MOYA Rep #: [id number] : 1945 72 From: Mehnaz Sun MD [...] your Primary Care Provider. Call [facility] ([phone]) or report to the closest Emergency Room. Call 911 if necessary. 02/17/182246 <Electronically signed by Mehnaz Sun MD> Date Mehnaz Sun MD Cosigner Signature (If Indicated): Date CC: Janessa Bravo ADJUNCT PSYCHOLOGY PROFESSOR CBC W/DIFF, AUTOMATED Collected: 02/17/2018 Status: F Source: [place] 9:29 PM [facility] REPOSITORY TYPE CODE TESTS RESULT OUT OF RANGE REFERENCE UNITS LAB L100.1000 4.4-11.0 K/mm3 Normal WBC 7.0 LAB L100.1200 4.2-5.4 M/mm3 Low RBC 4.06 LAB L100.1300 12.0-15.0 g/dl Normal HGB 13.3 LAB L100.1400 37-47 % Normal HCT 38.8 LAB L100.1500 81-99 fL Normal MCV 95.6 LAB L100.1600 27.0-32.0 pg High MCH 32.8 LAB L100.1700 32-36 g/gl Normal MCHC 34.3 LAB L100.1810 11.6-14.6 % Normal RDW CV 12.3 LAB L100.1820 35.1-43.9 fl Normal RDW SD 42.7 LAB L100.1900 150-450 K/mm3 Low PLT 137 LAB L100.2000 6.2-12.0 fl Normal MPV 9.9 LAB L100.2100 47-70 % Normal NEUT% 62.2 LAB L100.2200 19-41 % Normal LY% 22.1 LAB L100.2300 0-10 % High MONO% 11.0 LAB L100.2400 0-5 % Normal EO% 4.2 LAB L100.2500 0-1 % Normal BASO% 0.4 LAB L100.2550 0.0-0.9 % Normal IM GRAN % 0.100 Result Comment: IG% - Immature Granulocytes (promyelocytes, myelocytes and metamyelocytes) > 1% indicates that a LEFT SHIFT is Present. LAB L100.2620 2.0-7.7 X10 3/uL Normal Absolute Neut 4.3 LAB L100.2720 0.83-4.51 X10 3/ul Normal Absolute Lymph 1.54 Performed By: #### L100.0100 #### [facility] [place], [place], [id number] BASIC METABOLIC Collected: 02/17/2018 Status: F Source: [facility] PROFILE (BMP) 9:29 PM [facility] REPOSITORY TYPE CODE TESTS RESULT OUT OF RANGE REFERENCE UNITS LAB L501.0100 74-106 mg/dL Normal GLU 94 Result Comment: Please note revised GLUCOSE reference range effective 2017. LAB L501.1000 7-18 mg/dL Normal BUN 15 LAB L501.1100 0.55-1.02 mg/dL High CREAT,SERUM 1.12 Result Comment: The validity of the calculated GFR AND GFRAA in patients over 70 years has not been determined. Clinical correlation is essential. LAB L501.1110 >60 mL/min Low EST GFR 51 Result Comment: Non- GFR Calc LAB L501.1115 >60 mL/min Normal EST GFR - AA 61 Result Comment: GFR Calc LAB L501.1255 ml/min Normal Estimated CRCL 41.88 LAB L501.1300 10-20 RATIO Normal BUN/CRE 13.4 LAB L501.2200 8.5-10 mg/dL Normal .1 CA 8.9 LAB L501.5300 136-14 mmol/L Normal 5 NA 143 LAB L501.5600 3.5-5. mmol/L Normal 1 K 4.1 LAB L501.5900 98-107 mmol/L Normal CL 107 LAB L501.6100 21.0-3 mmol/L Normal 2.0 CO2 27.0 LAB L501.6200 5-15 Normal GAP 9 Performed By: #### L500.2500 #### [facility] [address] [place], [address] CHEST PA AND LATERAL Observed: 02/17/2018 Status: F Source: [place] 8:59 PM [facility] REPOSITORY [facility] Imaging Services [address] [place] [address] Chest PA and Lateral MR#: [id number] Acct: [id number] Name: DAVID MOYA Rep #: [id number] : 1945 F 72 From: Norbert Menendez DO PCP: Janessa Bravo NP Status: DEP ER Study: Chest PA and Lateral Date of Exam: 02/17/18 Exam# [id number] Ordering Dr: Mehnaz Sun MD STUDY: X-RAY CHEST REASON FOR EXAM: Female, 72 years old. Shortness [...] of the osseous structures. There is degenerative osteoarthritis of the bilateral shoulders. Again seen is a large retrocardiac hiatal hernia. RAD/Chest PA and Lateral IMPRESSION: 1. Stable cardiac pacemaker and cardiomegaly. 2. Stable retrocardiac hiatal hernia. 3. No acute pulmonary disease or interval change. Electronically Signed: Norbert Menendez DO at 23:15 EST Tel [phone], Service support , CC: Janessa Bravo NP; Mehnaz Sun MD [place] Tender: Signed CARDIOLOGY VISIT Observed: 01/18/2018 Status: F Source: [place] REPORT 8:23 AM [facility] REPOSITORY [facility] [address] [place] [address] OFFICE VISIT Date of Service: 01/15/18 MR#: [id number] Acct: [id number] Name: DAVID MOYA Rep #: [id number] : 1945 Provider: Velma Sullivan Age/Sex: 72/F Location: [facility] Status: Signed [facility] Chief Complaint: Follow-up visit. Details: DAVID MOYA is a 72 F who presents to the office today for a cardiovascular follow-up. She has a history of nonischemic cardiomyopathy with a biventricular ICD, hypertension and hyperlipidemia From a cardiac standpoint, patient is doing well. She does not have any chest discomfort/heaviness/tightness. Her [...] any lightheadedness or dizziness. She does not have any near-syncope or syncope. She does not have any lower extremity edema. She does not have any symptoms of claudication. Intake Vital Signs01/15/18 Height 5 ft 6 in 01/15/18 Weight: 206 lb 01/15/18 Body Mass Index (BMI) 33.2 01/15/18 Blood Pressure 138/84 H 01/15/18 Blood Pressure Location Lt brachial Intake Visit Reasons: 6 M Refinish Technician Required: No Accompanied by: none Is patient in pain?: No Allergies amlodipine [From Norvasc] Allergy (Verified 01/15/18 13:24) Unknown clarithromycin [From Biaxin] Allergy (Verified 01/15/18 13:24) Unknown lisinopril [From Prinivil] Allergy (Verified 01/15/18 13:24) Unknown pantoprazole [From Protonix] Allergy (Verified 01/15/18 13:24) Unknown Penicillins [PCN] Allergy (Verified 01/15/18 13:24) Rash Medications Fluticasone/Salmeterol [Advair 100-50 Diskus] 1 ea IH BID PRN 02/14/17 [History Confirmed 01/15/18] carvedilol 25 mg tablet 25 mg PO BID #180 tab 01/15/18 [Rx Confirmed 01/15/18] losartan 25 mg tablet 25 mg PO DAILY #90 tab 01/15/18 [Rx Confirmed 01/15/18] omeprazole 20 mg capsule,delayed release 20 [...] Hx laparoscopic cholecystectomy (Chronic 04/2009) Family History Father Myocardial infarction CAD (coronary artery disease) Ontario's disease Mother Diabetes Myocardial infarction Hypertension FH: CABG (coronary artery bypass surgery) Grandfather Myocardial infarction Brother Ontario's disease Sister Ontario's disease Diabetes Son Diabetes Social History Smoking Status: Never smoker alcohol intake: never substance use type: does not use caffeine: Yes Type: coffee what type of physical activity do you participate in: none seatbelt use: always do you feel safe at home: Yes ROS Const Const: Negative for body ache, fever(s), chills, night [...] activity; negative for SOB at rest, SOB orthopnea\SOB lying down, Cough, [...] Negative for frequent falls, headache(s), weakness, blurry vision or double vision Jc Hematologic/Lymphatic: Negative for easy bleeding, easy bruising, enlarged lymph nodes or other Endo Endo: Negative for fatigue or excessive sweating Psych Psych: Negative for anxiety, depression, thoughts of harming anyone, thoughts of harming yourself, visual hallucinations, panic attacks or audible hallucinations Allergy Allergy/Immunology: Negative for rash Cardiology Exam Const Appearance: cooperative, no acute distress and well developed Orientation: alert, awake and oriented x3 Head Head: normocephalic and atraumatic Mouth: moist mucous membranes Eyes General: appearance normal, both eyes and all related structures Conjunctivae: conjunctivae normal Pupils: PERRL EOM: EOM intact bilaterally Neck Neck: normal visual inspection, no lymphadenopathy and no JVD Carotids: Negative bruit Neck Mass: Negative Neck mass Chest Chest inspection: normal inspection of the chest, symmetric chest movement and Pacemaker/ICD Yes left pectoral incision Auscultation: Bilateral: Clear to Auscultation Cardio Palpation: normal PMI Rate: regular rate Rhythm: regular rhythm Heart sounds: S1 normal and S2 normal; negative rub, gallop or murmur GI GI: normal to inspection, soft, no hepatosplenomegaly and bowel sounds present; negative tender Neuro General: alert, awake, oriented x3, CN's II-XI intact bilaterally and moves all extremities Extremities Pulses: Normal: Right Posterior Tibial Pulse, Left Posterior Tibial Pulse, Right Radial Pulse, Left Radial Pulse Lower Extremity Edema: None: Bilateral Psych Psychological: normal affect Supplemental Info Echocardiogram in 2016 demonstrated: Normal LV size. Mild concentric left ventricular hypertrophy. Moderately severe global left ventricular systolic dysfunction. The estimated ejection fraction is 35 %. Mild-Moderate (1-2+) eccentric mitral valve insufficiency. Pulmonary artery systolic pressure is 32 mmHg. Mild (1+) eccentric aortic valve insufficiency. Contrast injection was performed. Compared to prior study, there is no significant change. Assessment AND Plan 1. Cardiomyopathy in [...] Recent lipid profile demonstrates total cholesterol of 125, HDL 50, LDL 50 4. Presence of biventricular implantable cardioverter-defibrillator (ICD) Z95.810 ICD REPLACEMENT 03/23/2011; GENERATOR CHANGE 02/15/2017 Plan - CLAUDIO Meza ICD is functioning appropriately. We will continue to monitor with [...] punctuation errors that were not noted when reviewing the office note prior to saving. 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) Coding Level of Care Code Off vis,est,level 3 Diagnoses Cardiomyopathy in other diseases classified elsewhere I43 Essential hypertension I10 Hypertension type: essential hypertension Pure hypercholesterolemia E78.00; E78.0 Hyperlipidemia type: pure hypercholesterolemia Presence of biventricular implantable cardioverter-defibrillator (ICD) Z95.810 Coding Level of Care Code Off vis,est,level 3 Diagnoses Cardiomyopathy in other diseases classified elsewhere I43 Essential hypertension I10 Hypertension type: essential hypertension Pure hypercholesterolemia E78.00; E78.0 Hyperlipidemia type: pure hypercholesterolemia Presence of biventricular implantable cardioverter-defibrillator (ICD) Z95.810 01/17/18 1023 <Electronically signed by Velma SNYDER> Date Velma SNYDER 01/18/18 0823<Electronically signed by Pop Hurd MD> Cosigner Signature: Date (if applicable) Pop Hurd MD CC: Janessa Bravo NP LIVER PROFILE Collected: 12/17/2017 Status: F Source: [place] 6:13 AM [facility] REPOSITORY TYPE CODE TESTS RESULT OUT OF RANGE REFERENCE UNITS LAB L501.1500 6.4-8.2 g/dL Normal T PROT 7.4 LAB L501.1800 3.2-5.0 g/dL Normal ALB 3.5 LAB L501.1950 2.2-4.2 g/dL Normal GLOB 3.9 LAB L501.4100 15-37 U/L Normal AST 21 LAB L501.4305 45-117 U/L High ALK P 131 LAB L501.4405 13-56 U/L Normal ALT 19 LAB L501.4600 0.20-1.00 mg/dL Normal T BILI 0.60 LAB L501.4700 0.00-0.30 mg/dL Normal D BILI 0.19 Performed By: #### L500.3400, L500.4100 #### [facility] [address] [place], [place], [address] LIPID PROFILE Collected: 12/17/2017 Status: F Source: [place] 6:13 AM [facility] REPOSITORY TYPE CODE TESTS RESULT OUT OF RANGE REFERENCE UNITS LAB L501.4900 200 mg/dL Normal CHOL 125 Result Comment: <200 mg/dL Desirable 200-240 mg/dL Borderline >240 mg/dL High Risk LAB L501.5000 mg/dL Normal TRIG 123 Result Comment: The drugs N-Acetylcysteine and Metamizole may falsely depress this assay. Serum Triglycerides Reference Interval Normal <150 mg/dL Borderline high 150 - 199 mg/dL High 200 - 499 mg/dL Very High > or = 500 mg/dL LAB L501.6400 mg/dL Normal HDL 50 Result Comment: The drugs N-Acetylcysteine and Metamizole may falsely depress this assay. Reference Range HDL <40 mg/dL Low HDL Cholesterol HDL >or= 60 mg/dL High HDL Cholesterol LAB L501.6500 0-130 mg/dL Normal LDL 50 LAB L501.6600 5-40 mg/dL Normal VLDL 25 Performed By: #### L500.3400, L500.4100 #### [facility] [address] [place], [place], [address] PACEMAKER CHECK Observed: 11/29/2017 Status: F Source: [place] 10:26 AM [facility] REPOSITORY [address] [place] [address] Pacemaker Check Date of Service: 11/28/171704 MR#: [id number] Acct: [id number] Name: DAVID MOYA Rep #: [id number] : 1945 From: Cathleen Cross Age/Sex: 72/F Location: [facility] Status: Signed Billing Codes ICD Device Billing: ICD Dev Interrogate (Rmt) 11/28/17 170 <Electronically signed by Cathleen Cross > Date Cathleen Cross 11/29/17 1026<Electronically signed by Pop Hurd MD> Cosigner Signature: Date (if applicable) Pop Hurd MD CC: CARDIOLOGY VISIT Observed: 07/12/2017 Status: F Source: NAT[place] REPORT 11:48 AM [facility] REPOSITORY [facility] [address] [place] [address] OFFICE VISIT Date of Service: 07/12/17 MR#: [id number] Acct: [id number] Name: DAVID MOYA Rep #: [id number] : 1945 Provider: Pop Hurd MD Age/Sex: 71/F Location: [facility] Status: Signed HPI HPI Chief Complaint: Follow-up visit. Details: DAVID MOYA, is a 71 F who presents to the office today for a follow-up visit. She is a lady with a history of nonischemic cardiomyopathy status post biventricular ICD implantation hypertension hyperlipidemia who underwent a generator change in January 2017. She returns for routine follow-up visit she [...] significant changes were noted compared to the previous test. Her physical exam today demonstrates clear lung voss regular rate and rhythm and no pedal edema. Intake Vital Signs07/12/17 Height 5 ft 6 in 07/12/17 Weight: 206 lb 07/12/17 Body Mass Index (BMI) 33.2 07/12/17 Blood Pressure 112/88 07/12/17 Blood Pressure Location Lt brachial Intake Visit Reasons: 6 M Refinish Technician Required: No Accompanied by: None Is patient in pain?: No Allergies amlodipine [From Norvasc] Allergy (Verified 07/12/17 11:28) Unknown clarithromycin [From Biaxin] Allergy (Verified 07/12/17 11:28) Unknown lisinopril [From Prinivil] Allergy (Verified 07/12/17 11:28) Unknown pantoprazole [From Protonix] Allergy (Verified 07/12/17 11:28) Unknown Penicillins [PCN] Allergy (Verified 07/12/17 11:28) Rash Medications Carvedilol [Coreg] 25 mg PO BID 03/25/15 [History Confirmed 07/12/17] Omeprazole [Prilosec] 20 mg PO DAILY 03/25/15 [History Confirmed 07/12/17] Simvastatin [Zocor] 20 mg PO QHS 03/25/15 [History Confirmed 07/12/17] Fluticasone/Salmeterol [Advair 100-50 Diskus] 1 ea IH BID PRN 02/14/17 [History Confirmed 07/12/17] Furosemide 40 mg PO DAILY PRN 02/14/17 [History Confirmed 07/12/17] Losartan Potassium [Cozaar] 25 mg PO DAILY 02/14/17 [History Confirmed 07/12/17] Ejection fraction %: 35 to 39 (35% per echo 07/23/2015) [facility] Medical History Chronic systolic congestive heart [...] Hx laparoscopic cholecystectomy (Chronic 04/2009) Family History Father Myocardial infarction CAD (coronary artery disease) Ontario's disease Mother Diabetes Myocardial infarction Hypertension FH: CABG (coronary artery bypass surgery) Grandfather Myocardial infarction Brother Ontario's disease Sister Ontario's disease Diabetes Son Diabetes Social History Smoking Status: Never smoker alcohol intake: never substance use type: does not use caffeine: Yes Type: coffee what type of physical activity do you participate in: none seatbelt use: always do you feel safe at home: Yes ROS Const Const: Negative for body ache, fever(s), chills, night [...] dry mouth, other, balance problems, dizziness, headache(s), tongue swelling or lip swelling Cardio Chest Pain: No Palpitations: Yes Edema: None Muscle aches with walking: None Resp Respiratory: Positive for SOB with activity; negative for SOB at rest, SOB orthopnea\SOB lying down, Cough, [...] dizziness, lightheadedness, near syncope, syncope, orthostatic symptoms, frequent falls, headache(s), weakness, confusion, memory loss, restless legs, blurry vision, double vision, vertigo, seizures, lack of coordination or other Jc Hematologic/Lymphatic: Negative for easy bleeding, easy bruising, enlarged lymph nodes or other Endo Endo: Negative for fatigue, cold intolerance, heat intolerance, excessive sweating, flushing, increased thirst/drinking, increased hunger, hair loss, hair growth or other Psych Psych: Negative for anxiety, depression, thoughts of harming anyone, thoughts of harming yourself, visual hallucinations, panic attacks or audible hallucinations Allergy Allergy/Immunology: Negative for throat swelling, Negative for tongue swelling, Negative for hives, Negative for rash, Negative for lip swelling Cardiology Exam Const Appearance: cooperative, healthy appearing, well developed, well groomed and no acute distress Nutritional Appearance: well nourished and average body habitus Orientation: alert, awake and oriented x3 Head Head: normal to inspection, normocephalic and atraumatic Ears: hearing grossly normal bilaterally and external ears normal Nose: external nose normal, nasal mucous membranes and turbinates normal, nares normal, septum normal, no nasal discharge Face and Sinus: face symmetric Mouth: oral mucosae normal, tongue normal, oropharynx normal and moist mucous membranes Teeth and gingiva: dentition normal Throat: posterior oropharynx normal, tonsils normal and uvula midline Eyes General: appearance normal, both eyes and all related structures Eyelids: eyelids normal Conjunctivae: conjunctivae normal Pupils: PERRL, normal by confrontation and accommodation normal EOM: EOM intact bilaterally Neck Neck: normal visual inspection, trachea midline and no JVD JVD: +5 Carotids: normal carotid upstroke and bounding pulses Chest Chest inspection: normal inspection of the chest, symmetric chest movement and normal respiratory effort Auscultation: Bilateral: Clear to Auscultation Cardio Palpation: normal PMI Rate: regular rate Rhythm: regular rhythm Heart sounds: S1 normal, S2 normal and normal, physiologic split S2; negative rub, gallop or murmur GI GI: normal to inspection, soft, no hepatosplenomegaly and bowel sounds present Neuro General: alert, awake, oriented x3, no focal sensory [...] history of shortness of breath which is chronic. She does not have any angiographically active coronary disease but she does have left ventricular systolic dysfunction but with pulmonary artery systolic pressures which are acceptable. It is not clear whether this is due to allergic phenomenon or whether this may be due to an intrinsic lung condition. She is on fluticasone salmeterol and I may recommend that she have another pulmonary function test performed. 2. Cardiomyopathy in other diseases classified elsewhere I43 Plan She does have a history of cardiomyopathy with stable ejection fraction. She is on the losartan and the beta-honey as well as a diuretic as needed. No other changes will be advocated. 3. Presence of biventricular implantable cardioverter-defibrillator (ICD) Z95.810 ICD REPLACEMENT 03/23/2011; GENERATOR CHANGE 02/15/2017 Plan She does have a history of [...] 63. No changes will be made with regard to the above. Her liver function tests within normal limits. Thank you for allowing me to participate in her care. Thank you for allowing me to participate in the care of your patient. Please don't hesitate to call if any issues arise Plan Detail Follow Up 6 Months (mmm) Coding Level of Care Code Off vis,est,level 3 Diagnoses Shortness of breath on exertion R06.02 Cardiomyopathy in other diseases classified elsewhere I43 Presence of biventricular implantable cardioverter-defibrillator (ICD) Z95.810 HLD (hyperlipidemia) E78.5 Coding Level of Care Code Off vis,est,level 3 Diagnoses Shortness of breath on exertion R06.02 Cardiomyopathy in other diseases classified elsewhere I43 Presence of biventricular implantable cardioverter-defibrillator (ICD) Z95.810 HLD (hyperlipidemia) E78.5 07/12/17 1148 <Electronically signed by Pop Hurd MD> Date Pop Hurd MD Cosigner Signature: Date (if applicable) CC: Janessa Bravo NP LIVER PROFILE Collected: 06/11/2017 Status: F Source: [place] 6:40 AM [facility] REPOS[facility] Order Comment: Order Date: 12/21/16 Order Info: 0788-1 - *Hepatic Function Panel Order Info: 18927-0 - *Lipid Profile CC PCP Comments: 12 hours fasting, may have water. TYPE CODE TESTS RESULT OUT OF RANGE REFERENCE UNITS LAB L501.1500 6.4-8.2 g/dL Normal T PROT 7.5 LAB L501.1800 3.2-5.0 g/dL Normal ALB 3.7 LAB L501.1950 2.2-4.2 g/dL Normal GLOB 3.8 LAB L501.4100 15-37 U/L Normal AST 20 LAB L501.4305 45-117 U/L Normal ALK P 116 LAB L501.4405 13-56 U/L Normal ALT 19 Result Comment: Please note revised ALT reference range effective 2017. LAB L501.4600 0.20-1.00 mg/dL Normal T BILI 0.70 LAB L501.4700 0.00-0.30 mg/dL Normal D BILI 0.20 Performed By: #### L500.3400 #### [facility], [address] LIPID PROFILE Collected: 06/11/2017 Status: F Source: NATALIYA 6:40 AM [facility] REPOSIT[facility] Order Comment: Order Date: 12/21/16 Order Info: 0788-1 - *Hepatic Function Panel Order Info: 51260-5 - *Lipid Profile CC PCP Comments: 12 hours fasting, may have water. TYPE CODE TESTS RESULT OUT OF RANGE REFERENCE UNITS LAB L501.4900 200 mg/dL Normal CHOL 147 Result Comment: <200 mg/dL Desirable 200-240 mg/dL Borderline >240 mg/dL High Risk LAB L501.5000 mg/dL Normal TRIG 111 Result Comment: The drugs N-Acetylcysteine and Metamizole may falsely depress this assay. Serum Triglycerides Reference Interval Normal <150 mg/dL Borderline high 150 - 199 mg/dL High 200 - 499 mg/dL Very High > or = 500 mg/dL LAB L501.6400 mg/dL Normal HDL 63 Result Comment: The drugs N-Acetylcysteine and Metamizole may falsely depress this assay. Reference Range HDL <40 mg/dL Low HDL Cholesterol HDL >or= 60 mg/dL High HDL Cholesterol LAB L501.6500 0-130 mg/dL Normal LDL 62 LAB L501.6600 5-40 mg/dL Normal VLDL 22 Performed By: #### L500.4100 #### [facility] [address] [place], [address] PACEMAKER CHECK Observed: 05/31/2017 Status: F Source: NATALIYA 10:53 AM [facility] REPOSITORY [facility] [address] [place] [address] Pacemaker Check Date of Service: 05/21/17 1144 MR#: [id number] Acct: [id number] Name: DAVID MOYA Rep #: [id number] : 1945 From: Pop Hurd MD Age/Sex: 71/F Location: [facility] Status: Signed Comments Summary Comments: Remote Bi-VICD Evaluation: Remote interrogation shows no VT/VF episodes since generator change 01/27/30. Presenting rhythm shows NSR @ 82 bpm. Cliff pacing programmed to ventricular pace as little as possible and programmed VVI @ 40 ppm d/t narrow QRS.Battery longevity approx 8 yrs. TECHNICAL TRAINING MANAGER=0%. Lead impedances and sensing remain stable. Normal remote Bi-VICD function. Pt notified remote transmission received and next f/u appt scheduled for in 3 mos. Device Device Date Interviewed: 05/21/17 Follow-up Location: remote Interview Reason: scheduled follow up Artificial Flowers Supervisor: eNovance Name: Dynagen SOURCING CONSULTANT-D IS-1/DF-1 Model: G154 Serial #: [id number] Implant Date: 02/15/17 Year(s): 0 Implant Physician: Dr. Mohinder Garcia Patient Characteristics Patient Substrate: Nonischemic cardiomyopathy Ejection fraction %: 35 to 39 By: Echo Underlying rhythm: Sinus rhythm Pacemaker Dependent: No Device Characteristics Device: Biventricular Type: Implantable defibrillator Remote Follow-Up: Latitude Leads Lead #1 Artificial Flowers Supervisor Lead 1: Hire Space Model Lead 1: 4470 Serial# Lead 1: [id number] Date Implanted Lead 1: 05/16/05 Position Lead 1: RA Lead #2 Artificial Flowers Supervisor Lead 2: Hire Space Model Lead 2: 0814 Serial# Lead 2: [id number] Date Implanted Lead 2: 05/16/05 Position Lead 2: RV Lead #3 Artificial Flowers Supervisor Lead 3: Improve Digitalant Model Lead 3: 4518 Serial# Lead 3: [id number] Date Implanted Lead 3: 05/16/05 Position Lead 3: LV Diagnostics Pacing % RA Pacin % RV Pacin % LV Pacin Arrhythmias VF Episodes: 0 Fast VT Episodes: 0 Slow VT Episodes: 0 Non-Sust Episodes: 0 Measurements Battery Charge Time (Sec): 9.7 Battery Status: MAYUR Predicted Remaining Longevity (months or years): 8 mos RA Measurements Signal Amplitude (mV): 2.4 Impedance (Ohms): 471 RV Measurements Signal Amplitude (mV): 20.5 Impedance (Ohms): 699 Shock Impedance (Ohms): 46 LV Measurements Signal Amplitude (mV): 9.2 Impedance (Ohms): 519 Tachy Settings VF Therapies VF Therapy Status On On On On On On Energy 41 41 41 41 41 41 Pathway ATP: During charging on FVT Therapies FVT Therapy Status On On On On On On VT Therapies FVT Therapy Status Off Off Off Off Off Off [...] ICD Device Billing: ICD Dev Interrogate (Rmt) Assessment AND Plan Problems 1. Presence of biventricular implantable cardioverter-defibrillator (ICD) Z95.810 2. Syncope and collapse R55 3. Paroxysmal ventricular tachycardia I47.2 4. Dilated cardiomyopathy I42.0 05/31/17 1053 <Electronically signed by Pop Hurd MD> Date Pop Hurd MD 05/31/17 1009<Electronically signed by Cathleen Cross > Cosigner Signature: Date (if applicable) Cathleen Cross CC: ALLERGIES ALLERGIES DATE TYPE / CODE NAME / CODE REACTION SEVERITY SOURCE 02/17/2018 Drug Penicillins/ Rash Unknown [facility] All[facility]4160 [id number](R Hospital 38369(SNOMED XNORM) Repository CT) 02/17/2018 Drug lisinopril/F Unknown Unknown [facility] Allergy/4160 [id number](RX Hospital 94671(SNOMED NORM) Repository CT) 02/17/2018 Drug clarithromyc Unknown Unknown [facility] Allergy/4160 in/[id number] Hospital 98735(SNOMED 8(RXNORM) Repository CT) 02/17/2018 Drug amlodipine/F Unknown Unknown [facility] Allergy/4160 [id number]( Hospital 47511(SNOMED NORM) Repository CT) 02/17/2018 Drug pantoprazole Unknown Unknown [facility] Allergy/4160 /[id number]( Hospital [facility](SNOMED RXNORM) Repository CT) ENCOUNTERS ENCOUNTERS ADMIT/DISCHARGE ACCOUNT ADMITTING ENCOUNTER LOCATION SOURCE NUMBER CLASS 02/20/2018 [id number] Ambulatory Building:[facility] Practices Repository 02/17/2018/ [id number] Emergency Nataliya Nataliya 8 3 [facility] ing:ED Repository 01/15/2018/ [id number] Ambulatory BMSBuilding:B [facility] 8 5 [facility] Repository 12/17/2017 [id number] Ambulatory [facility] 0 [facility] ing:LAB Repository 11/28/2017/ [id number] Ambulatory BMSBuilding:B [place] 8 4 [facility] Repository 08/23/2017/ [id number] Ambulatory BMSBuilding:B [place] 8 2 [facility] Repository 07/12/2017/ [id number] Ambulatory BMSBuilding:B [facility] 8 0 [facility] Repository 07/09/2017 [id number] Ambulatory BMSBuilding:B Nataliya 9 [facility] Repository 06/11/2017 [id number] Ambulatory [facility] 4 [facility] ing:LAB Repository 05/21/2017/ [id number] Ambulatory BMSBuilding:B [place] 8 2 [facility] Repository FUNCTIONAL STATUS FUNCTIONAL STATUS No Functional Status Records FoundEQUIPMENT EQUIPMENT No Equipment Records FoundPAYERS PAYERS ENCOUNTER GUARANTOR PAYER SUBSCRIBER SOURCE 02/20/2018 David A CorpDOB: Primary David A CorpDOB: [place]IP Practices Insurance:Medical [id number] Repository [facility] Number: [place], [place] [address]Uzw: [phone] [phone] [address]Msr: Date:0730-28-84Dzpg [phone] () ()Tel: [phone]) Name:CPO [place] [phone] () [address], [place] [address]AY: 02/20/2018 Secondary GD CorpDOB: [place]IP Practices Insurance:Medical [id number] [facility] Number: [facility] [place] [id number] [address]Bns: (330) Date: - [phone] (HP) [id number] Name:[facility] [place]e [place] [id number]: 02/20/2018 Tertiary David Pickard CorpDOB: [place]IP Practices Insurance:Medical [id number] Repository [facility] Jitendra Number: [place] [id number] [address]Odo: Date:2009-03-19 - ~(3 2563-90-05Xzzg 30 (HP) Name:[facility] Carolee [place] [id number]: 02/20/2018 Tertiary David Pickard CorpDOB: [place]IP Practices Insurance:MedicarePol [id number] Repository icy Number: Jitendra [id number] [place], [place] Date: - [phone]: [id number] ~(3 Name:[facility] [address] (HP) [address], [place] [address]KO: 02/20/2018 Tertiary David Pickard CorpDOB: [place]IP Practices Insurance:Hum//Medica [id number] Repository re [facility] Jitendra Number: [place] [id number] [address]Ixn: Date:2009-10-17 - ~(3 [id number] 30 (HP) Name:[address] [address]NX: 02/17/2018 JUWAN ZELDA Primary Insurance:MMO DAVID A CORPDOB: Nataliya [id number] JITENDRA MEDICAREPolicy [id number] [place], [place] Number: [facility] [address]Kuz: [phone] [id number] Repository [phone] (HP) Date:3178-45-63VV [address] [place] [address]EO: 02/17/2018 Secondary NOT GIVENUNK Nataliya Insurance:SELF PAY [facility] Number: Effective Repository Date:2018-02-17 01/15/2018 JUWAN ZELDA Primary Insurance:MMO DAVID Melly CORPDOB: Nataliya [id number] JITENDRA MEDICAREPolicy [id number] Number: Hospital [address]Lgu: [phone] [id number] Repository [phone] (HP) Date:6750-67-70HI [address] [address]GZ: 01/15/2018 Secondary NOT GIVENUNK [facility] Insurance:SELF PAY [facility] Number: Effective Repository Date:2018-01-14 12/17/2017 JUWAN NDIAYE Primary Insurance:MMO DAVID Melly CORPDOB: Nataliya [id number] JITENDRA MEDICAREPolicy [id number], [place] Number: Hospital [address]Zey: [phone] [id number] Repository [phone] (HP) Date:3852-51-74GJ [address] [place], [place] [address]WP: 12/17/2017 Secondary NOT GIVENUNK Nataliya Insurance:SELF PAY Community [facility] Number: Effective Repository Date:2017-12-17 11/28/2017 Juwan Ndiaye Primary Insurance:MMAnnie HERNANDEZ Melly CORPDOB: [place] [id number] Jitendra MEDICAREPoly [id number] Number: Hospital [id number]: [phone] [id number] Repository [phone] (HP) Date:1271-25-43FH [address] [address]WZ: 11/28/2017 Secondary NOT GIVENUNK Nataliya Insurance:SELF PAY Community [facility] Number: Effective Repository Date:2017-11-28 08/23/2017 Juwan Zelda Primary Insurance:MMO DAVID Melly CORPDOB: [facility] [id number] Jitendra MEDICAREPolicy [id number][place] Number: Hospital [address]Jlt: [phone] [id number] Repository [phone] (HP) Date:4897-08-20OH [address] [place], [place] [address]WP: 08/23/2017 Secondary NOT GIVENUNK Nataliya Insurance:SELF PAY Community [facility] Number: Effective Repository Date:2017-09-05 07/12/2017 Juwan Zelda Primary Insurance:MMAnnie Pickard CORPDOB: Nataliya [id number] Jitendra MEDICAREPolicy [id number] Number: Hospital [address]Gff: [phone] [id number] Repository [phone] (HP) Date:5469-13-11AO [address] [address]RV: 07/12/2017 Secondary NOT GIVENUNK Nataliya Insurance:SELF PAY [facility] Number: Effective Repository Date:2017-06-20 07/09/2017 Juwan Zelda Primary Insurance:MMO DAVID Pickard CORPDOB: Nataliya [id number] Jitendra MEDICAREPolicy [id number], [place] Number: Hospital [id number]: 330 [id number] Repository [phone] (HP) Date:4322-77-19[address] [address]TF: 07/09/2017 Secondary NOT GIVENUNK Nataliya Insurance:SELF PAY Community [facility] Number: Effective Repository Date:2017-07-09 06/11/2017 Juwan Zelda Primary Insurance:MMAnnie Pickard CORPDOB: [place] [id number] Jitendra MEDICAREPolicy [id number], [place] Number: Hospital [id number]: 330 [id number] Repository [phone] (HP) Date:9177-01-41NQ [address] [address]GE: 06/11/2017 Secondary NOT GIVENUNK Nataliya Insurance:SELF PAY Community [facility] Number: Effective Repository Date:2017-06-11 05/21/2017 Juwan Zelda Primary Insurance:JENI Pickard CORPDOB: Nataliya [id number] Jitendra MEDICAREPolicy [id number], [place] Number: Hospital [address]Wjr: [phone] [id number] Repository [phone] () Date:3215-67-30AV [address] [address]BQ: 05/21/2017 Secondary NOT GIVENUNK [place] Insurance:SELF PAY [facility] Number: Effective Repository Date:2017-02-23 SOCIAL HISTORY SOCIAL HISTORY No Social History Records FoundFAMILY HISTORY FAMILY HISTORY No Family History Records FoundADVANCE DIRECTIVES ADVANCE DIRECTIVES No Advanced Directives Records FoundINFORMATION SOURCE INFORMATION SOURCE DATE CREATED AUTHOR AUTHOR'S ORGANIZATION 03/06/2018 [facility]
== END 2018-02-17 22:58 | disposition home or self-care (01) ==
PROVIDERS: Emergency Provider Emergency Medicine; Family Provider Nurse Practitioner; PCP Nurse Practitioner; Referring Provider Internal Medicine Cardiovascular Disease
DX: J45.901 Unspecified asthma with (acute) exacerbation (principal); I10 Essential (primary) hypertension; E78.00 Pure hypercholesterolemia, unspecified; K44.9 Diaphragmatic hernia without obstruction or gangrene
CPT/HCPCS: 36415; 71046; 80048; 85025; 93005; 94640; 96374; 99283; A4216

== ENCOUNTER 2018-04-19 07:19 | Emergency (ER) | payer MEDICARE, SELFPAY ==
[2018-04-19 07:20] VITALS: BP 117/77; PULSE 105; RESP 18; TEMP 37; O2SAT 96; BMI 30.7
[2018-04-19] MEDS: 0.9% Normal Saline 1,000 ML 1000 ML IV (08:03)
[2018-04-19] MEDS: Ondansetron 4 MG/2 ML Vial IV (08:03)
[2018-04-19 08:04] LABS: Absolute Neutrophil Count 10.2 X10^3/uL (2.0-7.7); Basophil# 0.02 X10^3/uL; Basophil% 0.2 % (0-1); Eosinophil# 0.06 X10^3/uL; Eosinophils% 0.5 % (0-5); Hematocrit 42.3 % (37-47); Hemoglobin 14.7 g/dl (12.0-15.0); Mean Corp Hgb Conc 34.8 g/gl (32-36); Mean Corpuscular Hgb 32.9 pg (27.0-32.0); Mean Corpuscular Volume 94.6 fL (81-99); Mean Platelet Vol. 10.5 fl (6.2-12.0); Monocyte# 1.08 X10^3/uL; Monocyte% 8.5 % (0-10); Neutrophil # 10.18 X10^3/uL (2.7-7.7); Neutrophil % 79.6 % (47-70); Platelet Count 154 K/mm3 (150-450); RBC Distribution Width CV 12.5 % (11.6-14.6); RBC Distribution Width SD 42.9 fl (35.1-43.9); Red Blood Count 4.47 M/mm3 (4.2-5.4); White Blood Count 12.8 K/mm3 (4.4-11.0)
[2018-04-19 08:09] LABS: POSITIVE COUNT NO; POSITIVE DIFFERENTIAL NO; POSITIVE MORPHOLOGY NO
[2018-04-19 08:16] LABS: Anion Gap 13 (5-15); BUN 19 mg/dL (7-18); BUN/Creat Ratio 12.4 RATIO (10-20); Calcium,Total 8.9 mg/dL (8.5-10.1); Chloride 108 mmol/L (98-107); Creatinine, Serum 1.53 mg/dL (0.55-1.02); EST Glomerular Filtration Rate 35 mL/min (>60); Est Glom Filt Rate - Afr Amer 43 mL/min (>60); Estimated Creatinine Clearance 30.66 ml/min; Glucose 124 mg/dL (74-106); Potassium 3.7 mmol/L (3.5-5.1); Sodium Level 138 mmol/L (136-145)
--- NOTE | 2018-04-19 09:17 | ED.DCSUM_ITS ---
- ER Visit Summary Date of Service: 04/19/18 Chief Complaint: Nausea, vomiting and diarrhea History of Present Illness: The patient is a 72 F history of asthma and prior appendectomy, cholecystectomy and a pacemaker defibrillator. Patient states for the last 3 days she has had nausea, vomiting and diarrhea. Has been able to hold some fluids down. But limited. No melena. No hematemesis. Other than some mild cramping no significant abdominal pain. No fever or dysuria. She has had no recent hospitalization. She is on no antibiotics recently. No history of C. difficile or exposure to it. Physical Examination: Older female no acute distress. Vital signs are stable and afebrile. H EENT exam dry mucous membranes. Otherwise unremarkable. Neck nontender no lymphadenopathy. Lungs clear to auscultation bilaterally. Heart regular rhythm no murmur. Abdomen is soft, nontender. Normal bowel sounds no peritoneal signs. No signs of obstruction. Extremities moves all 4. No edema. Skin unremarkable. No rashes. Back nontender. Neurologically she is awake and alert. Moving all 4 extremities. No focal motor deficits. Test Results: CBC shows a white count of 12.8. Hemoglobin 14 and hematocrit 42. No bands. Electrolytes show a CO2 of 17. Gap of 13. BUN 19 and creatinine 1.53 which is higher than her baseline. Emergency Department Course and Treatment: Patient clinically appears to be mildly dehydrated. I do not think she needs tested for C. difficile because she has had no recent hospitalization or surgery. She is been on no recent antibiotics. And this is only been a 3-day history. She and I discussed that the diarrhea would continue she may need stool testing. Patient was treated with a liter of normal saline. And IV Zofran. She is feeling much better on repeat exam at ms 9:15 AM. Is able to tolerate p.o. fluids. Is comfortable being discharged home. Treatment Plan: Zofran as needed. Imodium as needed. Plenty of fluids and rest. Follow-up with your doctor if not improving or return if worse. Disposition: Discharge Impression: Acute nausea, vomiting and diarrhea secondary to viral gastroenteritis Mild dehydration This note was generated with [employer] software. It may contain incorrect words, spelling, and punctuation that were not noted in review of the chart prior to signing ED Disposition - Plan for ED Patient: Referrals: Janessa Bravo, DRUGLESS PHYSICIAN-C [Primary Care Provider] -
--- NOTE | 2018-04-19 09:19 | DCINST.ED_ITS ---
ED Disposition - Plan for ED Patient: Disposition: Home or Assisted Living Instructions: ED Gastroenteritis Viral Prescriptions: Ondansetron [Zofran Odt] 4 mg PO Q8H PRN PRN #7 tab PRN Reason: Nausea Referrals: Janessa Bravo, MANAGER [employer]POR[employer]ATEGY-C [Primary Care Provider] - 3-5 Days if not improving Additional Instructions: Plenty of fluids and rest. Zofran as needed for nausea. Imodium as needed for diarrhea. Follow-up with your primary care provider if not improving you may need stool cultures done but at this time this appears to be a viral gastroenteritis.
[2018-04-19 10:04] VITALS: BP 118/67; PULSE 71; RESP 16; O2SAT 96
== END 2018-04-19 10:05 | disposition home or self-care (01) ==
PROVIDERS: Emergency Provider Emergency Medicine; Family Provider Nurse Practitioner; PCP Nurse Practitioner
DX: E86.0 Dehydration (principal); K52.9 Noninfective gastroenteritis and colitis, unspecified; J45.909 Unspecified asthma, uncomplicated; Z90.49 Acquired absence of other specified parts of digestive tract; Z95.0 Presence of cardiac pacemaker
CPT/HCPCS: 80048; 85025; 96361; 96374; 99283; J7030; A4216; J2405

== ENCOUNTER → 2018-09-05 10:45 | Outpatient (CLI) | payer MEDICARE, SELFPAY ==
[2018-08-09 10:49] VITALS: BMI 32.9
--- NOTE | 2018-09-05 10:46 | ECHOD_ITS ---
Reason For Study: NON-ischemic Cardiomyopathy Procedure This was a 2D Doppler, Color Flow transthoracic echocardiogram. Exam performed in department. Left Ventricle Normal LV size. The estimated ejection fraction is 35 %. Stage 2 diastolic dysfunction. There is moderate to severe global hypokinesis of the left ventricle. Right Ventricle Normal RV size. ICD or pacer leads identified within the right ventricle. Normal systolic function. Atria The left atrium is mildly enlarged. The right atrium is mildly enlarged. Mitral Valve Normal mitral valve. Mild (1+) eccentric mitral valve insufficiency. Tricuspid Valve Normal tricuspid valve. Mild (1+) tricuspid valve insufficiency. Pulmonary artery systolic pressure is 25 mmHg. Aortic Valve Trisinus/trileaflet aortic valve. Mild focal aortic valve calcification. Pulmonic Valve Normal pulmonic valve. Great Vessels Normal aortic root. The pulmonary artery is normal size. Normal inferior vena cava. Pericardium/Pleural No pericardial effusion. MMode/2D Measurements & Calculations LVIDd: 5.5 cm IVSd: 1.2 cm Ao root diam: 3.5 cm LVIDs: 4.4 cm LVPWd: 1.2 cm RVDd: 3.5 cm FS: 20.9 % LAV(MOD-bp): 73.5 ml LA A4 area: 22.4 cm2 LA dimension(2D): 2.9 cm LAV(MOD-bp) Indexed: 36.4 ml/m2 LAV(MOD-sp2): 72.4 ml LAV(MOD-sp4): 73.0 ml RA A4 area: 19.2 cm2 Time Measurements MV dec time: 0.17 sec Doppler Measurements & Calculations MV E max mikhail: 64.4 cm/sec Lat Peak E' Mikhail: 3.7 cm/sec Med Peak E' Mikhail: 2.6 cm/sec MV A max mikhail: 107.9 cm/sec E/E' lat: 17.4 E/E' med: 24.9 MV E/A: 0.60 Ao V2 max: 119.6 cm/sec LV V1 max: 67.2 cm/sec MR max mikhail: 519.8 cm/sec Ao max P.7 mmHg LV V1 max P.8 mmHg MR max P.1 mmHg PA V2 max: 75.9 cm/sec TR max mikhail: 232.9 cm/sec TR max P.7 mmHg Interpretation Summary Normal LV size. The estimated ejection fraction is 35 %. Stage 2 diastolic dysfunction. There is moderate to severe global hypokinesis of the left ventricle. The left atrium is mildly enlarged. Mild (1+) eccentric mitral valve insufficiency. Mild focal aortic valve calcification. Compared to prior study, there is no significant change. Ordering Physician: Pop Hurd Referring Physician: Janessa Bravo Performed By: Rhonda Haro, FERNANDEZ, RVT
== END ==
PROVIDERS: Family Provider Nurse Practitioner; PCP Nurse Practitioner; Referring Provider Internal Medicine Cardiovascular Disease; Visit Provider Internal Medicine Cardiovascular Disease
DX: I42.8 Other cardiomyopathies (principal)
CPT/HCPCS: 93306

== ENCOUNTER 2018-12-05 04:54 | Emergency (ER) | payer MEDICARE, SELFPAY ==
[2018-08-09 10:49] VITALS: BMI 32.9
[2018-12-05 04:55] VITALS: BP 170/106; PULSE 80; RESP 21; TEMP 36.6; O2SAT 95; BMI 31.9
--- NOTE | 2018-12-05 04:57 | ED.RN ---
CALLED FOR EKG PER RN REQUEST, PULLED OLD EKGS FOR
--- NOTE | 2018-12-05 05:14 | RAD_ITS ---
STUDY: X-RAY CHEST REASON FOR EXAM: Female, 73 years old. Heart racing, no shortness of breath TECHNIQUE: Single AP portable view of the chest. COMPARISON: 02/17/2018. In 02/13/2017. FINDINGS: There is a multilead permanent pacemaker. There are superimposed monitor leads. Stable eventration of the left greater than right hemidiaphragm. Air lucency over the abdomen consistent with large hiatal hernia. There is no focal parenchymal abnormality. Minimal blunting of the left costophrenic angle suspected. There is cardiac enlargement. Normal mediastinum and obinna. Normal visualized pulmonary arteries. There is atherosclerotic calcification of the aortic arch with tortuosity. Obscured thoracic spine. Normal visualized ribs, clavicles, and shoulders. There is no demonstrated abnormality of the visualized soft tissue structures of the upper abdomen. RAD/Chest 1 View (Portable) IMPRESSION: Cardiomegaly, arteriosclerosis, large hiatal hernia, postsurgical changes are stable. No pulmonary edema, congestive heart failure or confluent pneumonia. Other findings as outlined above. Electronically Signed: Grecia Castellon MD at 5:54 EDT , Service support ,
--- NOTE | 2018-12-05 05:14 | EKG12_ITS ---
Test Reason : TACHYCARDIA Blood Pressure : / mmHG Vent. Rate : 077 BPM Atrial Rate : 077 BPM P-R Int : 168 ms QRS Dur : 086 ms QT Int : 408 ms P-R-T Axes : 032 -02 054 degrees QTc Int : 461 ms Normal sinus rhythm Low voltage QRS Borderline ECG Confirmed by MARU GASPAR, LI ([id number]), newspaper managing editor MARY VASQUEZ ([id number]) on 12/06/2018 1:23:31 PM Referred By: Janessa Bravo Confirmed By:ALLIE MAHONEY MD
[2018-12-05] MEDS: Aspirin 81 MG TAB.CHEW 324 MG PO (05:19)
[2018-12-05 05:20] VITALS: BP 139/85; PULSE 81; RESP 21; O2SAT 96
[2018-12-05 05:24] LABS: Absolute Lymphocyte Count 2.05 X10^3/uL (0.83-4.51); Absolute Neutrophil Count 3.9 X10^3/uL (2.0-7.7); Basophil# 0.04 X10^3/uL; Basophil% 0.6 % (0-1); Eosinophil# 0.28 X10^3/uL; Eosinophils% 4.1 % (0-5); Hematocrit 38.9 % (37-47); Hemoglobin 13.3 g/dL (12.0-15.0); Lymphocyte # 2.05 X10^3/ul (4.0); Lymphocyte % 29.7 % (19-41); Mean Corp Hgb Conc 34.2 g/dL (32-36); Mean Corpuscular Hgb 32.9 pg (27.0-32.0); Mean Corpuscular Volume 96.3 fL (81-99); Mean Platelet Vol. 10.5 fl (6.2-12.0); Monocyte# 0.65 X10^3/uL; Monocyte% 9.4 % (0-10); NRBC Flagged by Analyzer 0 % (0-5); Neutrophil # 3.87 X10^3/uL (2.7-7.7); Neutrophil % 56.1 % (47-70); Platelet Count 159 K/mm3 (150-450); RBC Distribution Width CV 12.2 % (11.6-14.6); RBC Distribution Width SD 42.9 fl (35.1-43.9); Red Blood Count 4.04 M/mm3 (4.2-5.4); White Blood Count 6.9 K/mm3 (4.4-11.0)
--- NOTE | 2018-12-05 05:50 | ED.DCSUM_ITS ---
- ER Visit Summary Date of Service: 12/05/18 Chief Complaint: Palpitations History of Present Illness: The patient is a 73 F presenting with palpitations. Patient states that she has had feelings of palpitations and heart racing over the past several nights. She states 3 out of the 4 past nights she has had these symptoms. She denies chest pain or shortness of breath. Denies fever. Denies cough. Denies syncope. Denies PE/DVT risk factors. She states that her losartan dosage has been changed recently. She states in July it was increased by Dr. Hurd to 50 mg once a day. She states she did not like the way this made her feel and she weaned herself off of it completely in October. When she saw her primary care physician they put her back on the losartan 25 mg once a day. Physical Examination: Vitals are stable. Patient is afebrile. Alert no acute distress. HEENT exam is unremarkable. Neck is supple. Lungs are clear and equal bilaterally. Heart is regular rate and rhythm. Abdomen is soft nontender nondistended. Extremities are unremarkable. Skin is warm and dry. No focal neurologic deficit. Remainder of exam is unremarkable. Emergency Department Course and Treatment: Patient was given aspirin on arrival. EKG is sinus rhythm rate of 77 with no acute ischemic changes. Chest xray shows cardiomegaly, arteriosclerosis, large hiatal hernia, postsurgical changes are stable. CBC, chemistries unremarkable. Troponin is negative. TSH 6.59. Patient believes her palpitations may be related to her losartan dose changes. Discussed with Dr. Hurd. She will take losartan 25 mg twice a day. She is advised to follow-up with Janessa Bravo for abnormal thyroid studies. Delta troponin is obtained and is pending. This will be checked by the oncoming physician. Disposition: Pending delta troponin Impression: Palpitations This note was generated with [employer] dictation software. It may contain incorrect words, spelling, and punctuation that were not noted in review of the chart prior to signing ED Disposition - Plan for ED Patient: Instructions: Palpitations Prescriptions: Losartan Potassium 25 mg PO BID #60 tab Prescription Printed Referrals: Janessa Bravo, [facility] [Primary Care Provider] -
[2018-12-05 06:01] LABS: Anion Gap 7 (5-15); BUN 13 mg/dL (7-18); BUN/Creat Ratio 13.4 RATIO (10-20); Calcium,Total 8.8 mg/dL (8.5-10.1); Chloride 112 mmol/L (98-107); Creatinine, Serum 0.97 mg/dL (0.55-1.02); EST Glomerular Filtration Rate 60 mL/min (>60); Est Glom Filt Rate - Afr Amer 72 mL/min (>60); Estimated Creatinine Clearance 47.63 ml/min; Glucose 88 mg/dL (74-106); Potassium 4.3 mmol/L (3.5-5.1); Sodium Level 144 mmol/L (136-145); Thyroid Stim Hormone (TSH) 6.59 uIU/mL (0.358-3.74)
[2018-12-05 06:23] VITALS: BP 128/77; PULSE 74; RESP 22; O2SAT 94
--- NOTE | 2018-12-05 07:53 | ED.DEP ---
ED Disposition - Plan for ED Patient: Instructions: Palpitations Prescriptions: Losartan Potassium 25 mg PO BID #60 tablet Referrals: Janessa Bravo, [facility]NA[facility] [Primary Care Provider] -
[2018-12-05 08:00] VITALS: BP 135/79; PULSE 65; RESP 11; O2SAT 96
== END 2018-12-05 09:08 | disposition home or self-care (01) ==
LOC: ED 05:42
PROVIDERS: Emergency Provider Emergency Medicine; Family Provider Nurse Practitioner; PCP Nurse Practitioner
DX: R00.2 Palpitations (principal); I51.7 Cardiomegaly; K44.9 Diaphragmatic hernia without obstruction or gangrene; I10 Essential (primary) hypertension; E78.00 Pure hypercholesterolemia, unspecified
CPT/HCPCS: 71045; 80048; 84443; 84484; 85025; 93005; 99285; A4216

== ENCOUNTER → 2018-12-06 08:56 | Outpatient (CLI) | payer MEDICARE, SELFPAY ==
[2018-12-05 04:55] VITALS: BMI 31.9
[2018-12-06 10:57] LABS: T4 Free Direct 0.79 ng/dL (0.76-1.46); Thyroid Stim Hormone (TSH) 3.24 uIU/mL (0.358-3.74)
[2018-12-07 10:17] LABS: Thyroid Peroxidase AB < 6 IU/mL (0-34)
== END ==
PROVIDERS: Family Provider Nurse Practitioner; PCP Nurse Practitioner; Referring Provider Nurse Practitioner; Visit Provider Nurse Practitioner
DX: R94.6 Abnormal results of thyroid function studies (principal)
CPT/HCPCS: 36415; 84439; 84443; 84481; 86376

== ENCOUNTER → 2018-12-23 06:27 | Outpatient (CLI) | payer MEDICARE, SELFPAY ==
[2018-12-05 04:55] VITALS: BMI 31.9
[2018-12-23 07:26] LABS: Absolute Lymphocyte Count 1.75 X10^3/uL (0.83-4.51); Absolute Neutrophil Count 3.1 X10^3/uL (2.0-7.7); Basophil# 0.03 X10^3/uL; Basophil% 0.5 % (0-1); Eosinophil# 0.34 X10^3/uL; Eosinophils% 5.9 % (0-5); Lymphocyte # 1.75 X10^3/ul (4.0); Lymphocyte % 30.4 % (19-41); Mean Corp Hgb Conc 32.5 g/dL (32-36); Mean Corpuscular Hgb 32.3 pg (27.0-32.0); Mean Corpuscular Volume 99.5 fL (81-99); Mean Platelet Vol. 10.5 fl (6.2-12.0); Monocyte# 0.52 X10^3/uL; NRBC Flagged by Analyzer 0 % (0-5); Neutrophil # 3.11 X10^3/uL (2.7-7.7); Platelet Count 151 K/mm3 (150-450); RBC Distribution Width CV 12.3 % (11.6-14.6); RBC Distribution Width SD 45.5 fl (35.1-43.9); Red Blood Count 4.02 M/mm3 (4.2-5.4); White Blood Count 5.8 K/mm3 (4.4-11.0)
[2018-12-23 08:07] LABS: ALB/GLOB Ratio 1.1 RATIO (0.9-2.4); AST(SGOT) 18 U/L (15-37); Alanine Aminotransfer ALT/SGPT 16 U/L (13-56); Albumin, Serum 3.7 g/dL (3.2-5.0); Alkaline Phosphatase 127 U/L (45-117); Anion Gap 4 (5-15); BUN 13 mg/dL (7-18); Bilirubin, Direct 0.27 mg/dL (0.00-0.30); Chloride 110 mmol/L (98-107); Cholesterol 160 mg/dL (200); EST Glomerular Filtration Rate 58 mL/min (>60); Est Glom Filt Rate - Afr Amer 70 mL/min (>60); Globulin 3.5 g/dL (2.2-4.2); Glucose 89 mg/dL (74-106); High Density Lipoprotein 63 mg/dL; Potassium 4.1 mmol/L (3.5-5.1); Protein, Total 7.2 g/dL (6.4-8.2); Sodium Level 144 mmol/L (136-145); Thyroid Stim Hormone (TSH) 5.38 uIU/mL (0.358-3.74); Triglycerides 84 mg/dL; Very Low Density Lipoprotein 17 mg/dL (5-40)
== END ==
PROVIDERS: Internal Medicine Cardiovascular Disease; Family Provider Nurse Practitioner; PCP Nurse Practitioner; Referring Provider Nurse Practitioner; Visit Provider Nurse Practitioner
DX: I11.9 Hypertensive heart disease without heart failure (principal); E78.00 Pure hypercholesterolemia, unspecified; E78.5 Hyperlipidemia, unspecified
CPT/HCPCS: 36415; 80053; 80061; 82248; 84443; 85025

== ENCOUNTER → 2019-02-05 11:34 | Outpatient (CLI) | payer MEDICARE, SELFPAY ==
[2019-02-05 10:54] VITALS: BMI 33.6
[2019-02-05 12:49] LABS: BNP,B-Type NATRIURETIC PEPTIDE 81.8 pg/mL (0-100)
== END ==
PROVIDERS: Family Provider Nurse Practitioner; PCP Nurse Practitioner; Referring Provider Physician Assistant Medical; Visit Provider Physician Assistant Medical
DX: I42.8 Other cardiomyopathies (principal)
CPT/HCPCS: 36415; 83880

== ENCOUNTER → 2019-02-27 07:17 | Outpatient (CLI) | payer MEDICARE, SELFPAY ==
[2019-02-05 10:54] VITALS: BMI 33.6
[2019-02-27 08:55] LABS: Thyroid Stim Hormone (TSH) 3.22 uIU/mL (0.358-3.74)
== END ==
PROVIDERS: Family Provider Nurse Practitioner; PCP Nurse Practitioner; Referring Provider Nurse Practitioner; Visit Provider Nurse Practitioner
DX: R94.6 Abnormal results of thyroid function studies (principal)
CPT/HCPCS: 36415; 84443

== ENCOUNTER → 2019-04-18 07:28 | Outpatient (CLI) | payer MEDICARE, SELFPAY ==
[2019-02-05 10:54] VITALS: BMI 33.6
[2019-04-18 09:47] LABS: Thyroid Stim Hormone (TSH) 2.32 uIU/mL (0.358-3.74)
== END ==
PROVIDERS: Family Provider Nurse Practitioner; PCP Nurse Practitioner; Referring Provider Nurse Practitioner; Visit Provider Nurse Practitioner
DX: R94.6 Abnormal results of thyroid function studies (principal)
CPT/HCPCS: 36415; 84443

== ENCOUNTER → 2019-05-22 | Outpatient (CLI) | payer MEDICARE, SELFPAY ==
[2019-02-05 10:54] VITALS: BMI 33.6
--- NOTE | 2019-05-22 14:20 | BI_ITS ---
MAMMOGRAPHY - BILATERAL SCREENING REASON FOR EXAM: Female, 73 years old. Routine annual screening examination. PERTINENT HISTORY: Non-contributory. TECHNIQUE: Digital bilateral breast prudence (3D mammographic acquisition) in the CC and MLO projections. 2-D mediolateral oblique (MLO) and craniocaudad (CC) views of both breasts were obtained. CAD: Full Field Digital Mammography with Computer Added Detection was performed. COMPARISON: None. Baseline examination. FINDINGS: Breast Composition: The breasts are almost entirely fatty. There are no dominant masses or suspicious calcifications. A pacemaker battery pack is seen in the left axillary region. No other significant abnormalities are identified. BI/SCREEN MAMM (CAD) W/PRUDENCE BILAT IMPRESSION: Negative screening mammogram. Yearly followup mammogram recommended. (A) ASSESSMENT CATEGORY: BIRADS Category 1: Negative. A letter regarding these results will be sent to the patient by the facility within 30 days. Approximately 10% of breast cancers are not detected by mammography. A normal mammogram should not delay biopsy of a clinically suspicious abnormality. [id number] Electronically Signed: Reyes Anglin, at 9:04 EST , Service support ,
--- NOTE | 2019-05-22 14:25 | BD_ITS ---
STUDY: DUAL ENERGY X-RAY ABSORPTIOMETRY / DXA REASON FOR EXAM: Female, 73 years old. STRAIGHTENER HAND -- TAKES LASIX PRN -- DOES NO EXERCISE -- CRISTÓBAL OF 5.5 INCHES TECHNIQUE: Bone Mineral Density (BMD) measurements of lumbar spine and bilateral hips were obtained. COMPARISON: None. FINDINGS: Lumbar Spine (L1-L4): g/cm2 (0.912) / T-score (-2.2) / Z-score (-0.5) Findings are suggestive of osteopenia with a high fracture risk. Left Femur Total: g/cm2 (0.53) / T-score (-1.2) / Z-score (0.5) Left Femoral Neck: g/cm2 (0.855) / T-score (-1.3) / Z-score (0.6) Right Femur Total: g/cm2 (0.837) / T-score (-1.4) / Z-score (0.3) Right Femoral Neck: g/cm2 (0.777) / T-score (-1.9) / Z-score (0.0) BD/Dexa Bone Density Study IMPRESSION: The patient is considered osteopenic as outlined below according to World Diony Organization (WHO) criteria with a high fracture risk. Reference Information: The T-score is the number of standard deviations above or below the standard which is normal for young adults at their peak bone mineral density. The World Health Organization (WHO) interprets the T-scores as follows: Above -1 Normal bone density Between -1 and -2.5 Osteopenia Equal to / or below -2.5 Osteoporosis As a practical clinical guideline, osteopenia may be graded as follows: Mild -1 through -1.5 Moderate -1.6 through -2.0 Severe -2.1 through -2.4 The Z-score is the number of standard deviations above or below age-matched controls. A Z-score of less than -1.5 would be considered abnormal. References: 1. NIH Osteoporosis and Related Bone Diseases http://www.osteo.org 2. International Society for Clinical Densitometry http://www.iscd.org 3. National Osteoporosis Foundation http://www.nof.org Electronically Signed: Reyes Anglin, at 14:42 EDT , Service support ,
== END | disposition home or self-care (01) ==
LOC: OPBD 14:18
PROVIDERS: PCP Nurse Practitioner; Referring Provider Nurse Practitioner; Visit Provider Nurse Practitioner
DX: Z78.0 Asymptomatic menopausal state (principal); Z12.31 Encounter for screening mammogram for malignant neoplasm of breast
CPT/HCPCS: 77063; 77067; 77080

== ENCOUNTER → 2019-09-10 | Outpatient (CLI) | payer MEDICARE, SELFPAY ==
[2019-02-05 10:54] VITALS: BMI 33.6
[2019-09-10 08:45] LABS: Absolute Lymphocyte Count 1.54 X10^3/uL (0.83-4.51); Absolute Neutrophil Count 3.3 X10^3/uL (2.0-7.7); Basophil# 0.03 X10^3/uL; Basophil% 0.5 % (0-1); Eosinophil# 0.28 X10^3/uL; Eosinophils% 4.9 % (0-5); Hematocrit 38.4 % (37-47); Hemoglobin 12.7 g/dL (12.0-15.0); Lymphocyte # 1.54 X10^3/ul (4.0); Lymphocyte % 27.2 % (19-41); Mean Corp Hgb Conc 33.1 g/dL (32-36); Mean Corpuscular Hgb 32.7 pg (27.0-32.0); Mean Platelet Vol. 10.2 fl (6.2-12.0); Monocyte# 0.54 X10^3/uL; Monocyte% 9.5 % (0-10); NRBC Flagged by Analyzer 0 % (0-5); Neutrophil # 3.27 X10^3/uL (2.7-7.7); Neutrophil % 57.7 % (47-70); Platelet Count 152 K/mm3 (150-450); RBC Distribution Width CV 12.1 % (11.6-14.6); RBC Distribution Width SD 43.7 fl (35.1-43.9); Red Blood Count 3.88 M/mm3 (4.2-5.4); White Blood Count 5.7 K/mm3 (4.4-11.0)
[2019-09-10 09:05] LABS: AST(SGOT) 18 U/L (15-37); Alanine Aminotransfer ALT/SGPT 20 U/L (13-56); Albumin, Serum 3.6 g/dL (3.2-5.0); Alkaline Phosphatase 129 U/L (45-117); Bilirubin, Direct 0.35 mg/dL (0.00-0.30); Cholesterol 153 mg/dL (200); Globulin 3.6 g/dL (2.2-4.2); High Density Lipoprotein 66 mg/dL; Iron 181 ug/dL (50-170); Protein, Total 7.2 g/dL (6.4-8.2); Thyroid Stim Hormone (TSH) 4.41 uIU/mL (0.358-3.74); Triglycerides 81 mg/dL; Very Low Density Lipoprotein 16 mg/dL (5-40)
== END | disposition home or self-care (01) ==
LOC: LAB 08:11
PROVIDERS: Internal Medicine Cardiovascular Disease; PCP Nurse Practitioner; Referring Provider Nurse Practitioner; Visit Provider Nurse Practitioner
DX: D64.9 Anemia, unspecified (principal); E03.9 Hypothyroidism, unspecified; I11.9 Hypertensive heart disease without heart failure; E78.00 Pure hypercholesterolemia, unspecified; E78.5 Hyperlipidemia, unspecified
CPT/HCPCS: 36415; 80061; 80076; 83540; 84443; 85025

== ENCOUNTER → 2019-10-20 | Outpatient (CLI) | payer MEDICARE, SELFPAY ==
[2019-02-05 10:54] VITALS: BMI 33.6
[2019-10-20 10:24] LABS: Vitamin D,25 Hydroxy 36.4 ng/mL
[2019-10-20 10:51] LABS: AST(SGOT) 18 U/L (15-37); Alanine Aminotransfer ALT/SGPT 17 U/L (13-56); Albumin, Serum 3.5 g/dL (3.2-5.0); Alkaline Phosphatase 113 U/L (45-117); Anion Gap 6 (5-15); BUN 17 mg/dL (7-18); BUN/Creat Ratio 14.9 RATIO (10-20); Calcium,Total 8.7 mg/dL (8.5-10.1); Chloride 109 mmol/L (98-107); Creatinine, Serum 1.14 mg/dL (0.55-1.02); EST Glomerular Filtration Rate 49 mL/min (>60); Est Glom Filt Rate - Afr Amer 60 mL/min (>60); Globulin 3.5 g/dL (2.2-4.2); Glucose 82 mg/dL (74-106); Potassium 3.9 mmol/L (3.5-5.1); Sodium Level 141 mmol/L (136-145); Thyroid Stim Hormone (TSH) 2.32 uIU/mL (0.358-3.74)
== END | disposition home or self-care (01) ==
LOC: LAB 09:12
PROVIDERS: PCP Nurse Practitioner; Referring Provider Nurse Practitioner; Visit Provider Nurse Practitioner
DX: E03.9 Hypothyroidism, unspecified (principal); M85.80 Other specified disorders of bone density and structure, unspecified site
CPT/HCPCS: 36415; 80053; 82306; 84443

== ENCOUNTER → 2020-01-15 | Outpatient (CLI) | payer MEDICARE, SELFPAY ==
[2019-10-28 11:40] VITALS: BMI 33.6
[2020-01-15 10:53] LABS: Thyroid Stim Hormone (TSH) 2.81 uIU/mL (0.358-3.74)
== END | disposition home or self-care (01) ==
LOC: LAB 09:31
PROVIDERS: PCP Nurse Practitioner; Referring Provider Nurse Practitioner; Visit Provider Nurse Practitioner
DX: E03.9 Hypothyroidism, unspecified (principal)
CPT/HCPCS: 36415; 84443

== ENCOUNTER → 2020-05-12 07:32 | Outpatient (CLI) | payer MEDICARE, SELFPAY ==
[2019-10-28 11:40] VITALS: BMI 33.6
[2020-05-12 08:23] LABS: Absolute Lymphocyte Count 1.47 X10^3/uL (0.83-4.51); Absolute Neutrophil Count 3.8 X10^3/uL (2.0-7.7); Basophil# 0.03 X10^3/uL; Basophil% 0.5 % (0-1); Eosinophil# 0.37 X10^3/uL; Eosinophils% 5.8 % (0-5); Hematocrit 37.5 % (37-47); Hemoglobin 12.7 g/dL (12.0-15.0); Lymphocyte # 1.47 X10^3/ul (4.0); Lymphocyte % 23.2 % (19-41); Mean Corp Hgb Conc 33.9 g/dL (32-36); Mean Corpuscular Hgb 32.9 pg (27.0-32.0); Mean Corpuscular Volume 97.2 fL (81-99); Mean Platelet Vol. 10.3 fl (6.2-12.0); Monocyte% 9.5 % (0-10); NRBC Flagged by Analyzer 0 % (0-5); Neutrophil # 3.84 X10^3/uL (2.7-7.7); Neutrophil % 60.7 % (47-70); Platelet Count 167 K/mm3 (150-450); RBC Distribution Width CV 12.2 % (11.6-14.6); RBC Distribution Width SD 43.4 fl (35.1-43.9); Red Blood Count 3.86 M/mm3 (4.2-5.4); White Blood Count 6.3 K/mm3 (4.4-11.0)
[2020-05-12 08:43] LABS: Vitamin D,25 Hydroxy 65.7 ng/mL
[2020-05-12 08:50] LABS: AST(SGOT) 18 U/L (15-37); Alanine Aminotransfer ALT/SGPT 19 U/L (13-56); Albumin, Serum 3.5 g/dL (3.2-5.0); Alkaline Phosphatase 127 U/L (45-117); Anion Gap 4 (5-15); BUN 14 mg/dL (7-18); BUN/Creat Ratio 14.4 RATIO (10-20); Bilirubin, Direct 0.19 mg/dL (0.00-0.30); Chloride 109 mmol/L (98-107); Cholesterol 148 mg/dL (200); Creatinine, Serum 0.97 mg/dL (0.55-1.02); EST Glomerular Filtration Rate 60 mL/min (>60); Est Glom Filt Rate - Afr Amer 72 mL/min (>60); Globulin 3.6 g/dL (2.2-4.2); Glucose 89 mg/dL (74-106); High Density Lipoprotein 64 mg/dL; Potassium 4.2 mmol/L (3.5-5.1); Protein, Total 7.1 g/dL (6.4-8.2); Sodium Level 142 mmol/L (136-145); Thyroid Stim Hormone (TSH) 2.58 uIU/mL (0.358-3.74); Triglycerides 80 mg/dL; Very Low Density Lipoprotein 16 mg/dL (5-40)
== END ==
PROVIDERS: Internal Medicine Cardiovascular Disease; PCP Nurse Practitioner; Referring Provider Nurse Practitioner; Visit Provider Nurse Practitioner
DX: I11.9 Hypertensive heart disease without heart failure (principal); E55.9 Vitamin D deficiency, unspecified; E78.00 Pure hypercholesterolemia, unspecified; E78.5 Hyperlipidemia, unspecified
CPT/HCPCS: 36415; 80053; 80061; 82248; 82306; 84443; 85025

== ENCOUNTER → 2020-10-18 12:35 | Outpatient (CLI) | payer MEDICARE, SELFPAY ==
[2020-07-26 10:25] VITALS: BMI 33.6
--- NOTE | 2020-10-18 12:37 | BI_ITS ---
MAMMOGRAPHY - BILATERAL SCREENING REASON FOR EXAM: Female, 74 years old. Routine annual screening examination. PERTINENT HISTORY: TECHNIQUE: Digital bilateral breast prudence (3D mammographic acquisition) in the CC and MLO projections. 2-D mediolateral oblique (MLO) and craniocaudad (CC) views of both breasts were obtained. CAD: Full Field Digital Mammography with Computer Added Detection was performed. COMPARISON: Previous mammogram obtained on 05/22/2019 FINDINGS: Breast Composition: Scattered breast parenchyma superimposed upon fatty degeneration of breast There are no dominant masses or suspicious calcifications. No other significant abnormalities are identified. A left cardiac pacemaker is noted in place. BI/SCRN MAMM (CAD)W/PRUDENCE BILAT IMPRESSION: Stable bilateral screening mammogram. Yearly follow-up mammogram recommended. (A) ASSESSMENT CATEGORY: BIRADS Category 1: Negative. A letter regarding these results will be sent to the patient by the facility within 30 days. Approximately 10% of breast cancers are not detected by mammography. A normal mammogram should not delay biopsy of a clinically suspicious abnormality. [id number] Electronically Signed: Gilberto Craig DO at 16:18 EDT Tel , Service support ,
== END ==
PROVIDERS: PCP Nurse Practitioner; Referring Provider Nurse Practitioner; Visit Provider Nurse Practitioner
DX: Z12.31 Encounter for screening mammogram for malignant neoplasm of breast (principal)
CPT/HCPCS: 77063; 77067

== ENCOUNTER 2021-01-08 11:33 | Emergency (ER) | payer MEDICARE, SELFPAY ==
[2021-01-08 11:34] VITALS: BP 115/71; PULSE 87; RESP 16; TEMP 36.7; O2SAT 100; BMI 30.2
--- NOTE | 2021-01-08 11:43 | RAD_ITS ---
STUDY: X-RAY CHEST REASON FOR EXAM: Female, 75 years old. COUGH / SOB TECHNIQUE: Frontal radiograph COMPARISON: 12/05/2018. FINDINGS: Left cardiac device. Large hiatal hernia. The lungs are clear and expanded. There is no demonstrated pleural abnormality. There is moderate cardiac enlargement. Normal mediastinum and obinna. Normal visualized pulmonary arteries. There is atherosclerotic calcification of the aortic arch with tortuosity. Normal visualized thoracic spine. Normal visualized ribs, clavicles, and shoulders. There is no demonstrated abnormality of the visualized soft tissue structures of the upper abdomen. RAD/Chest 1 View (Portable) IMPRESSION: No acute cardiopulmonary process identified. Large hiatal hernia. Electronically Signed: Je Wilburn MD at 12:40 EDT Tel , Service support ,
--- NOTE | 2021-01-08 11:44 | EKG12_ITS ---
Test Reason : Blood Pressure : / mmHG Vent. Rate : 086 BPM Atrial Rate : 086 BPM P-R Int : 174 ms QRS Dur : 084 ms QT Int : 384 ms P-R-T Axes : 014 -23 034 degrees QTc Int : 459 ms Normal sinus rhythm Normal ECG Confirmed by RIO GASPAR, SHAUNA ([id number]), staff editor MARY VASQUEZ ([id number]) on 01/11/2021 8:51:58 AM Referred By: NDE Confirmed By:SHAUNA PATE MD
[2021-01-08 12:43] VITALS: BP 114/83; PULSE 81; RESP 16; RESP 18; O2SAT 95; O2SAT 96
--- NOTE | 2021-01-08 12:49 | EDS_ITS ---
HPI History of Present Illness Chief Complaint: Cough Informant: patient Narrative Narrative: 75-year-old female presents the emergency room with a cough and diarrhea of 2 weeks duration. Patient states she feels globally fatigued. The cough is nonproductive. The diarrhea is not demonstrating any mucus or blood. She states her mouth feels very dry. She was not vaccinated against Covid. No reported fevers. Nothing is different about today symptoms as compared to a week ago it has just been ongoing. She has not yet talked with her doctors in the past 2 weeks regarding her illness. No nausea or vomiting. She took some Imodium A-D but states it is not helping. [facility] Medical History Chronic combined systolic and diastolic CHF (congestive heart failure) Diastolic dysfunction Essential (primary) hypertension HLD (hyperlipidemia) Hypothyroidism LBBB (left bundle branch block) Nonischemic cardiomyopathy Paroxysmal ventricular tachycardia Home Medications albuterol sulfate 2.5 mg INHALATION TID PRN 30 Days #270 ml 08/09/18 [History Last Taken Unknown] cholecalciferol (vitamin D3) 25 mcg (1,000 unit) capsule 8,000 unit PO DAILY cap 10/28/19 [History Last Taken Unknown] carvedilol 25 mg tablet 25 mg PO BID #180 tab 02/02/20 [Rx Last Taken Unknown] losartan 25 mg tablet 25 mg PO BID #180 tab 02/23/20 [Rx Last Taken Unknown] simvastatin 20 mg tablet 20 mg PO QHS #90 tab 03/01/20 [Rx Last Taken Unknown] levothyroxine 25 mcg tablet 25 mcg PO DAILY #90 tab 11/19/20 [Rx Last Taken Unknown] omeprazole 20 mg capsule,delayed release 20 mg PO DAILY #90 cap 12/27/20 [Rx Last Taken Unknown] ondansetron 4 mg PO Q6H PRN PRN #15 tab 01/08/21 [Rx Last Taken Unknown] Allergy/AdvReac Type Severity Reaction Status Date / Time amlodipine [From Norvasc] Allergy Unknown Verified 01/08/21 12:46 clarithromycin [From Biaxin] Allergy Unknown Verified 01/08/21 12:46 lisinopril [From Prinivil] Allergy Unknown Verified 01/08/21 12:46 pantoprazole [From Protonix] Allergy Unknown Verified 01/08/21 12:46 Penicillins [PCN] Allergy Rash Verified 01/08/21 12:46 Family History Father Myocardial infarction CAD (coronary artery disease) Negra's disease Mother Diabetes Myocardial infarction Hypertension FH: CABG (coronary artery bypass surgery) Grandfather Myocardial infarction Brother Frakes's disease Sister Frakes's disease Diabetes Son Diabetes Surgical History History of appendectomy (~03/2006) History of left heart catheterization (07/19/04) History of tubal ligation (~1979) Hx laparoscopic cholecystectomy (~04/2009) Presence of biventricular implantable cardioverter-defibrillator (ICD) (02/15/17) Social History Smoking Status: Never smoker alcohol intake: never substance use type: does not use caffeine: Yes Type: coffee what type of physical activity do you participate in: none seatbelt use: always do you feel safe at home: Yes ROS ROS ED ROS Narrative Generalized fatigue Constitutional Constitutional ED: Denies chills, fever(s) or weight loss Eyes Eyes: Denies change in vision or diplopia ENT ENT ED: Denies ear pain, rhinorrhea or sore throat Cardiovascular Cardiovascular: Denies chest pain, orthopnea, palpitations or racing heartbeat Respiratory/Chest Respiratory/Chest: Reports cough; Denies dyspnea, orthopnea or sputum Gastrointestinal Gastrointestinal: Reports diarrhea; Denies abdominal pain, nausea or vomiting Genitourinary Genitourinary ED: Denies dysuria, hematuria or urinary frequency Musculoskeletal Musculoskeletal: Reports myalgias; Denies arthralgias Integumentary Denies abscess or rash Neurologic Neurologic: Denies headache(s) or weakness Psychiatric Psychiatric: Denies anxiety, depression, suicidal ideation or suicidal thoughts Endocrine Endocrinology: Denies polydipsia, polyphagia or polyuria Allergic/Immunologic Allergic/Immunologic ED: Denies mouth swelling, tongue swelling or urticaria EXAM Physical Exam Const Vital Signs: 01/08/21 11:34 01/08/21 12:43 01/08/21 13:10 Temperature 98.1 F Temperature Source Temporal Pulse Rate 87 81 Respiratory Rate 16 18 Respiratory Effort Normal Respiratory Depth Normal Respiratory Pattern Normal Blood Pressure 115/71 114/83 H Blood Pressure Mean 85 93 Pulse Ox 100 96 96 Oxygen Delivery Method Room Air Room Air Room Air Positive well nourished and well developed General Appearance ED: well developed HEENT Reports normocephalic, head/scalp atraumatic and moist mucous membranes Eyes PERRL and EOMs intact bilaterally Neck no lymphadenopathy, supple and no JVD Resp normal respiratory effort and clear to auscultation bilaterally Cardio regular rate, regular rhythm and no murmurs GI normal to inspection, nondistended, normoactive bowel sounds and non-tender Palpation: soft Back/Spine no CVA tenderness and normal ROM Extremity normal to inspection General Extremety ED: Negative for edema General Extremity: Negative for edema Neuro oriented x3 and CN's II-XII intact bilaterally Sensorium / Orientation: alert Motor Exam: strength 5/5 throughout Psych mental status grossly normal Mood & Affect: Negative for depressed or tearful Skin no rashes or lesions noted and no wounds MDM MDM MDM Narrative Medical decision making narrative: My interpretation of the chest x-ray is no acute process. Patient is neutropenic. Platelet count is 88 with no signs of bleeding creatinine 1.69. This is change from baseline. Patient is Covid positive. EKG is a normal sinus rhythm. From a pulmonary standpoint the patient is doing well. I do not see any infiltrates on the chest x-ray. She received a liter of IV fluids. I will write for her to have Zofran at home. She is out of the window for monoclonal antibodies. I do not think she would benefit from Decadron at this time. Lab Data Attestation: I reviewed the patient's lab results. Labs: Laboratory Results - last 24 hr 01/08/21 01/08/21 13:13 13:13 WBC 3.7 L RBC 3.91 L Hgb 12.6 Hct 36.1 L MCV 92.3 MCH 32.2 H MCHC 34.9 RDW Std Deviation 40.1 RDW Coeff of Jose 11.9 Plt Count 88 L MPV 11.2 Immature Gran % (Auto) 0.300 Neut % (Auto) 56.7 Lymph % (Auto) 29.9 Custer % (Auto) 12.8 H Eos % (Auto) 0.0 Baso % (Auto) 0.3 Absolute Neuts (auto) 2.1 Absolute Lymphs (auto) 1.10 Nucleated RBC % 0 Differential Comment SCANNED Platelet Estimate SLT DEC Sodium 131 L Potassium 4.4 Chloride 98 Carbon Dioxide 23.0 Anion Gap 10 BUN 26 H Creatinine 1.69 H Estim Creat Clear Calc 26.51 Est GFR (MDRD) Af Amer 38 L Est GFR (MDRD) Non-Af 31 L BUN/Creatinine Ratio 15.4 Glucose 111 H Calcium 8.8 Total Bilirubin 0.60 AST 52 H ALT 31 Alkaline Phosphatase 84 Troponin I High Sens 25 Total Protein 7.4 Albumin 3.3 Globulin 4.1 Albumin/Globulin Ratio 0.8 L Radiography Diagnostic Testing: Clinical Impression(s) from Imaging Studies Chest X-Ray 01/08/21 11:43 IMPRESSION: No acute cardiopulmonary process identified. Large hiatal hernia. Electronically Signed: Je Wilburn MD at 12:40 EDT Tel , Service support , EKG Initial EKG: Attestation: I personally reviewed and interpreted this EKG as follows: Comments: Normal sinus rhythm with a ventricular rate of 86 bpm Discharge Plan Triage Chief Complaint: Cough ED Provider: Cheikh Fischer Dx/Rx/DC Orders Clinical Impression: COVID-19, Acute kidney injury, Thrombocytopenia associated with COVID-19 Instructions: Coronavirus Disease 2019 (COVID-19): Caring for Yourself or Others Prescriptions: New ondansetron [ondansetron] 4 MG tablet 4 mg PO Q6H PRN PRN (Reason: Nausea) Qty: 15 RF: 0 No Action albuterol sulfate 2.5 mg /3 mL (0.083 %) solution for nebulization 2.5 mg INHALATION TID PRN (Reason: Sob &/Or Wheezing) 30 Days Qty: 270 RF: 0 cholecalciferol (vitamin D3) 25 mcg (1,000 unit) capsule 8,000 unit PO DAILY RF: 0 carvedilol 25 mg tablet 25 mg PO BID Qty: 180 RF: 3 losartan 25 mg tablet 25 mg PO BID Qty: 180 RF: 3 simvastatin 20 mg tablet 20 mg PO QHS Qty: 90 RF: 3 levothyroxine [Synthroid] 25 mcg tablet 25 mcg PO DAILY Qty: 90 RF: 3 omeprazole 20 mg capsule,delayed release(DR/EC) 20 mg PO DAILY Qty: 90 RF: 3 Primary Care Provider: Janessa Bravo NP Referrals: Janessa Bravo NP, [facility]OC[facility] [Primary Care Provider] - As Needed Disposition Disposition: Home, Self Care
[2021-01-08 13:10] VITALS: O2SAT 96
[2021-01-08] MEDS: 0.9% Normal Saline 1,000 ML 1000 ML IV (13:11)
[2021-01-08 13:23] LABS: Absolute Neutrophil Count 2.1 X10^3/uL (2.0-7.7); Basophil# 0.01 X10^3/uL; Basophil% 0.3 % (0-1); Hematocrit 36.1 % (37-47); Hemoglobin 12.6 g/dL (12.0-15.0); Lymphocyte % 29.9 % (19-41); Mean Corp Hgb Conc 34.9 g/dL (32-36); Mean Corpuscular Hgb 32.2 pg (27.0-32.0); Mean Corpuscular Volume 92.3 fL (81-99); Mean Platelet Vol. 11.2 fl (6.2-12.0); Monocyte# 0.47 X10^3/uL; Monocyte% 12.8 % (0-10); NRBC Flagged by Analyzer 0 % (0-5); Neutrophil # 2.09 X10^3/uL (2.7-7.7); Neutrophil % 56.7 % (47-70); POSITIVE COUNT YES; Platelet Count 88 K/mm3 (150-450); RBC Distribution Width CV 11.9 % (11.6-14.6); RBC Distribution Width SD 40.1 fl (35.1-43.9); Red Blood Count 3.91 M/mm3 (4.2-5.4); White Blood Count 3.7 K/mm3 (4.4-11.0)
[2021-01-08 13:28] LABS: Differential Indicated SCAN CRITERIA MET
[2021-01-08 13:36] LABS: ALB/GLOB Ratio 0.8 RATIO (0.9-2.4); AST(SGOT) 52 U/L (15-37); Alanine Aminotransfer ALT/SGPT 31 U/L (13-56); Albumin, Serum 3.3 g/dL (3.2-5.0); Alkaline Phosphatase 84 U/L (45-117); Anion Gap 10 (5-15); BUN 26 mg/dL (7-18); BUN/Creat Ratio 15.4 RATIO (10-20); Calcium,Total 8.8 mg/dL (8.5-10.1); Chloride 98 mmol/L (98-107); Creatinine, Serum 1.69 mg/dL (0.55-1.02); EST Glomerular Filtration Rate 31 mL/min (>60); Est Glom Filt Rate - Afr Amer 38 mL/min (>60); Estimated Creatinine Clearance 26.51 ml/min; Globulin 4.1 g/dL (2.2-4.2); Glucose 111 mg/dL (74-106); Potassium 4.4 mmol/L (3.5-5.1); Protein, Total 7.4 g/dL (6.4-8.2); Sodium Level 131 mmol/L (136-145); Troponin-I HS 25 pg/mL (3.0-54.0)
--- NOTE | 2021-01-08 13:43 | ED.RN ---
attempt made to collect urine. antolin tillman rn [id number]
[2021-01-08 13:47] LABS: Differential Comment SCANNED; Platelet Estimate SLT DEC (ADEQ)
[2021-01-08 14:54] VITALS: BP 132/78; PULSE 82; RESP 16; O2SAT 97
== END 2021-01-08 15:02 | disposition home or self-care (01) ==
PROVIDERS: Emergency Provider Emergency Medicine; PCP Nurse Practitioner
DX: U07.1 COVID-19 (principal); N17.9 Acute kidney failure, unspecified; D69.59 Other secondary thrombocytopenia; I11.0 Hypertensive heart disease with heart failure; I50.42 Chronic combined systolic (congestive) and diastolic (congestive) heart failure; E78.5 Hyperlipidemia, unspecified; E03.9 Hypothyroidism, unspecified; Z79.899 Other long term (current) drug therapy
CPT/HCPCS: 71045; 80053; 84484; 85025; 87426; 93005; 96360; 96361; 99284; J7030

== ENCOUNTER → 2021-01-18 11:30 | Outpatient (CLI) | payer MEDICARE, SELFPAY ==
--- NOTE | 2021-01-18 11:33 | RAD_ITS ---
STUDY: X-RAY CHEST REASON FOR EXAM: Female, 75 years old. COVID TECHNIQUE: PA and lateral views of the chest. COMPARISON: Comparison is made with prior study dated 01/08/2021. FINDINGS: Mild increased markings at the lung bases more prominent at the right base. This may represent early bibasilar infiltrates. There is no demonstrated pleural abnormality. A left-sided dual-chamber pacemaker is seen. Normal mediastinum and obinna. Normal visualized pulmonary arteries. There is atherosclerotic calcification of the aortic arch with tortuosity. There are diffuse degenerative changes of the visualized thoracic spine. Increased kyphosis. Normal visualized ribs, clavicles, and shoulders. Moderate sized hiatal hernia. RAD/Chest PA and Lateral IMPRESSION: Bibasilar pulmonary infiltrates. Moderate sized hiatal hernia. Electronically Signed: Reyes Anglin MD at 12:42 EDT , Service support ,
[2021-01-18 12:05] LABS: Absolute Lymphocyte Count 1.08 X10^3/uL (0.83-4.51); Absolute Neutrophil Count 5.9 X10^3/uL (2.0-7.7); Basophil# 0.02 X10^3/uL; Basophil% 0.3 % (0-1); Eosinophil# 0.05 X10^3/uL; Eosinophils% 0.6 % (0-5); Hematocrit 39.8 % (37-47); Hemoglobin 13.6 g/dL (12.0-15.0); Lymphocyte # 1.08 X10^3/ul (0.83-4.51); Lymphocyte % 13.7 % (19-41); Mean Corp Hgb Conc 34.2 g/dL (32-36); Mean Corpuscular Hgb 31.9 pg (27.0-32.0); Mean Corpuscular Volume 93.2 fL (81-99); Mean Platelet Vol. 10.2 fl (6.2-12.0); Monocyte# 0.75 X10^3/uL; Monocyte% 9.5 % (0-10); NRBC Flagged by Analyzer 0 % (0-5); Neutrophil # 5.94 X10^3/uL (2.7-7.7); Platelet Count 223 K/mm3 (150-450); RBC Distribution Width CV 12.2 % (11.6-14.6); RBC Distribution Width SD 42.1 fl (35.1-43.9); Red Blood Count 4.27 M/mm3 (4.2-5.4); White Blood Count 7.9 K/mm3 (4.4-11.0)
[2021-01-18 12:28] LABS: ALB/GLOB Ratio 0.6 RATIO (0.9-2.4); AST(SGOT) 34 U/L (15-37); Alanine Aminotransfer ALT/SGPT 27 U/L (13-56); Albumin, Serum 2.9 g/dL (3.2-5.0); Alkaline Phosphatase 88 U/L (45-117); Anion Gap 7 (5-15); BUN 20 mg/dL (7-18); Calcium,Total 9.9 mg/dL (8.5-10.1); Chloride 107 mmol/L (98-107); Creatinine, Serum 1.05 mg/dL (0.55-1.02); EST Glomerular Filtration Rate 54 mL/min (>60); Est Glom Filt Rate - Afr Amer 66 mL/min (>60); Globulin 5.1 g/dL (2.2-4.2); Glucose 97 mg/dL (74-106); Potassium 3.7 mmol/L (3.5-5.1); Sodium Level 141 mmol/L (136-145); Thyroid Stim Hormone (TSH) 1.64 uIU/mL (0.358-3.74)
== END ==
PROVIDERS: PCP Nurse Practitioner; Referring Provider Nurse Practitioner; Visit Provider Nurse Practitioner
DX: U07.1 COVID-19 (principal)
CPT/HCPCS: 36415; 71046; 80053; 84443; 85025

== ENCOUNTER 2021-02-04 08:14 | Emergency (ER) | payer MEDICARE, SELFPAY ==
[2021-02-04 08:16] VITALS: BP 121/79; PULSE 89; RESP 16; TEMP 36.7; O2SAT 96; BMI 29.6
--- NOTE | 2021-02-04 08:30 | EDS_ITS ---
HPI History of Present Illness Chief Complaint: Weakness Detail of Chief Complaint: weak and right lat rib pain w/ cough Informant: patient and EMS Onset/Context/Timing Onset: Month(s) (1) Context: Gradual Onset Timing: Continuous Quality: weak Location: all over Current Severity: Moderate Maximum Severity: Moderate Associated Symptoms Associated Symptoms: cough, R rib pain Narrative Narrative: Patient diagnosed with Covid almost exactly 1 month ago, she has been feeling weak ever since, never had any fevers and was not vaccinated prior to this. She had no specific treatments for Covid, and she did not require hospitalization. She was coughing a lot and this got better, but 4 or 5 days ago the cough seemed to suddenly get worse, it is nonproductive she has been coughing a lot and now her right rib cage is hurting especially with coughing and deep breathing and moving all of which make it worse. This was gradual in onset, the pain did not start suddenly. She denies any dyspnea. No leg pain or swelling. No history of DVT or PE and not anticoagulated. She states she called an ambulance mostly because of the rib pain for which she has been taking Tylenol but it is not helping. They were not going to transport her, except they checked her blood pressure and it was 60 over palp. Patient did not feel lightheaded or near syncopal at any point recently including this morning when they took her blood pressure. He started an IV and gave her some IV fluid, she has received about 200 cc of fluid prior to arrival here, her blood pressure is 121/79. [facility] Medical History Chronic combined systolic and diastolic CHF (congestive heart failure) Congestive heart failure (CHF) Diastolic dysfunction Essential (primary) hypertension HLD (hyperlipidemia) Hypothyroidism LBBB (left bundle branch block) Nonischemic cardiomyopathy Paroxysmal ventricular tachycardia Home Medications albuterol sulfate 2.5 mg INHALATION TID PRN 30 Days #270 ml 08/09/18 [History Last Taken Unknown] cholecalciferol (vitamin D3) 25 mcg (1,000 unit) capsule 8,000 unit PO DAILY cap 10/28/19 [History Last Taken Unknown] losartan 25 mg tablet 25 mg PO BID #180 tab 02/23/20 [Rx Last Taken Unknown] simvastatin 20 mg tablet 20 mg PO QHS #90 tab 03/01/20 [Rx Last Taken Unknown] levothyroxine 25 mcg tablet 25 mcg PO DAILY #90 tab 11/19/20 [Rx Last Taken Unknown] omeprazole 20 mg capsule,delayed release 20 mg PO DAILY #90 cap 12/27/20 [Rx Last Taken Unknown] ondansetron 4 mg PO Q6H PRN PRN #15 tab 01/08/21 [Rx Last Taken Unknown] carvedilol 25 mg tablet 25 mg PO BID #180 tab 01/17/21 [Rx Last Taken Unknown] sulfamethoxazole-trimethoprim 1 tab PO BID #14 tablet 02/04/21 [Rx Last Taken Unknown] Allergy/AdvReac Type Severity Reaction Status Date / Time amlodipine [From Norvasc] Allergy Unknown Verified 02/04/21 08:15 clarithromycin [From Biaxin] Allergy Unknown Verified 02/04/21 08:15 lisinopril [From Prinivil] Allergy Unknown Verified 02/04/21 08:15 pantoprazole [From Protonix] Allergy Unknown Verified 02/04/21 08:15 Penicillins [PCN] Allergy Rash Verified 02/04/21 08:15 Family History Father Myocardial infarction CAD (coronary artery disease) [place]'s disease Mother Diabetes Myocardial infarction Hypertension FH: CABG (coronary artery bypass surgery) Grandfather Myocardial infarction Brother [place]'s disease Sister [place]'s disease Diabetes Son Diabetes Surgical History History of appendectomy (~03/2006) History of left heart catheterization (07/19/04) History of tubal ligation (~1979) Hx laparoscopic cholecystectomy (~04/2009) Presence of biventricular implantable cardioverter-defibrillator (ICD) (02/15/17) Social History Smoking Status: Never smoker alcohol intake: never substance use type: does not use caffeine: Yes Type: coffee what type of physical activity do you participate in: none seatbelt use: always do you feel safe at home: Yes ROS ROS ED Constitutional Constitutional ED: Reports malaise; Denies body ache(s), chills or fever(s) Eyes Eyes: Denies change in vision or diplopia ENT ENT ED: Denies rhinorrhea or sore throat Cardiovascular Cardiovascular: Reports other Details: No symptoms of angina. Patient having a right-sided inframammary/lateral rib pain. ; Denies chest pain or palpitations Respiratory/Chest Respiratory/Chest: Reports cough; Denies dyspnea Gastrointestinal Gastrointestinal: Denies abdominal pain, diarrhea, nausea or vomiting Genitourinary Genitourinary ED: Denies dysuria or hematuria Musculoskeletal Musculoskeletal: Denies back pain or neck pain Integumentary Denies abscess or rash Neurologic Neurologic: Denies headache(s), paresthesias or weakness Psychiatric Psychiatric: Denies anxiety or suicidal thoughts EXAM Physical Exam Const Vital Signs: 02/04/21 08:16 02/04/21 08:27 02/04/21 09:46 Temperature 98.1 F Temperature Source Temporal Pulse Rate 89 88 Respiratory Rate 16 19 H Respiratory Pattern Normal Blood Pressure 121/79 H 95/58 L Blood Pressure Mean 93 70 Pulse Ox 96 96 Oxygen Delivery Method Room Air Room Air 02/04/21 11:14 02/04/21 13:11 02/04/21 13:31 Temperature 97.5 F L Temperature Source Temporal Pulse Rate 82 81 81 Respiratory Rate 14 16 15 Respiratory Pattern Blood Pressure 104/57 L 105/64 106/70 Blood Pressure Mean 72 77 Pulse Ox 96 96 96 Oxygen Delivery Method Room Air Room Air Positive well nourished and well developed General Appearance ED: well developed and NAD HEENT Reports moist mucous membranes normocephalic and atraumatic Eyes PERRL and EOMs intact bilaterally Neck full ROM and supple Chest Wall Chest Narrative: Point tender right lateral/inframammary rib/intercostal space where patient indicates pain is located, reproduced with palpation. No crepitance, no step-off, no subcutaneous emphysema. Resp normal respiratory effort and clear to auscultation bilaterally Cardio regular rate, regular rhythm and no murmurs Rate: Negative for tachycardic GI non-tender and non-distended Auscultation: normoactive bowel sounds Palpation: soft Back/Spine no CVA tenderness General Back: other FROM Extremity normal to inspection, no calf tenderness and no pedal edema General Extremety ED: Negative for edema, pulses abnormal or tenderness General Extremity: Negative for edema or pulses abnormal Neuro oriented x3, CN's II-XII intact bilaterally and no sensory deficits noted Sensorium / Orientation: awake and alert Motor Exam: strength 5/5 throughout Skin no rashes or lesions noted and no wounds MDM MDM MDM Narrative Medical decision making narrative: Work-up shows a leukocytosis, her chest x-ray does not show pneumonia, but her urinalysis shows significant infection likely causing her symptoms of weakness. Her lactate is not elevated, her vital signs remained stable, and she was pancultured prior to starting antibiotics, Rocephin was given here. She was offered admission but she does not want to stay in the hospital and wants to go home. She understands risks. She also understands when to return. She probably does not have active Covid anymore. Given her allergy list will discharge her on Bactrim. Of note, the patient did have some transient hypotension, at discharge she was 87 systolic just after she had read 112 systolic and she was asymptomatic with it. I had the nurses recheck her with a different cuff/manual, it was 106/70 and her other vital signs are normal so I am okay with her going home. Of note the paramedics who dropped her off said that her's blood pressure was 60, but she was not symptomatic with that and I suspect that was incorrect. Lab Data Attestation: I reviewed the patient's lab results. Labs: Laboratory Results - last 24 hr 02/04/21 02/04/21 02/04/21 08:31 08:31 10:00 WBC 16.9 H RBC 3.57 L Hgb 11.5 L Hct 33.1 L MCV 92.7 MCH 32.2 H MCHC 34.7 RDW Std Deviation 44.0 H RDW Coeff of Jose 13.2 Plt Count TNP MPV 11.5 Immature Gran % (Auto) 0.800 Neut % (Auto) 86.7 H Lymph % (Auto) 6.3 L Nicholas % (Auto) 5.6 Eos % (Auto) 0.4 Baso % (Auto) 0.2 Absolute Neuts (auto) 14.7 H Absolute Lymphs (auto) 1.06 Nucleated RBC % 0 Platelet Estimate SLT DEC Sodium 131 L Potassium 3.5 Chloride 100 Carbon Dioxide 24.0 Anion Gap 7 BUN 21 H Creatinine 1.01 Estim Creat Clear Calc 44.36 Est GFR (MDRD) Af Amer 69 Est GFR (MDRD) Non-Af 57 L BUN/Creatinine Ratio 20.8 H Glucose 91 Lactic Acid Calcium 8.5 Troponin I High Sens 5 Urine Color Yellow Urine Clarity Sl. Cloudy Urine pH 5.0 Ur Specific [place] 1.010 Urine Protein Negative Urine Glucose (UA) Normal Urine Ketones Negative Urine Occult Blood Negative Urine Nitrite Negative Urine Bilirubin Negative Urine Urobilinogen Normal Ur Leukocyte Esterase 500 H Urine RBC 0 SEEN Urine WBC 25-50 SEEN Ur Squamous Epith Cells 5-10 SEEN Urine Bacteria 1+ Urine Mucus 0 SEEN 02/04/21 11:55 WBC RBC Hgb Hct MCV MCH MCHC RDW Std Deviation RDW Coeff of Jose Plt Count MPV Immature Gran % (Auto) Neut % (Auto) Lymph % (Auto) Nicholas % (Auto) Eos % (Auto) Baso % (Auto) Absolute Neuts (auto) Absolute Lymphs (auto) Nucleated RBC % Platelet Estimate Sodium Potassium Chloride Carbon Dioxide Anion Gap BUN Creatinine Estim Creat Clear Calc Est GFR (MDRD) Af Amer Est GFR (MDRD) Non-Af BUN/Creatinine Ratio Glucose Lactic Acid 1.1 Calcium Troponin I High Sens Urine Color Urine Clarity Urine pH Ur Specific [place] Urine Protein Urine Glucose (UA) Urine Ketones Urine Occult Blood Urine Nitrite Urine Bilirubin Urine Urobilinogen Ur Leukocyte Esterase Urine RBC Urine WBC Ur Squamous Epith Cells Urine Bacteria Urine Mucus Radiography Diagnostic Testing: Clinical Impression(s) from Imaging Studies Chest X-Ray 02/04/21 09:05 IMPRESSION: Progressive increased markings at the lung bases suggestive of a atelectasis superimposed on chronic scarring. Large hiatal hernia. Electronically Signed: Reyes Anglin MD at 9:47 EST , Service support , Rhythm Strip Rhythm Strip: Sinus Rhythm Rate: 80 Ectopy: None EKG Initial EKG: Attestation: I personally reviewed and interpreted this EKG as follows: Interpretation: Sinus Rhythm (82) and No Acute Injury Pattern Comments: normal EKG Discharge Plan Triage Chief Complaint: Weakness ED Provider: Duane Finnegan Dx/Rx/DC Orders Clinical Impression: Urinary tract infection, Generalized weakness Instructions: Understanding Urinary Tract ... Prescriptions: New sulfamethoxazole-trimethoprim [sulfamethoxazole-trimethoprim] 1 TABLET tablet 1 tab PO BID Qty: 14 RF: 0 No Action albuterol sulfate 2.5 mg /3 mL (0.083 %) solution for nebulization 2.5 mg INHALATION TID PRN (Reason: Sob &/Or Wheezing) 30 Days Qty: 270 RF: 0 cholecalciferol (vitamin D3) 25 mcg (1,000 unit) capsule 8,000 unit PO DAILY RF: 0 ondansetron [ondansetron] 4 MG tablet 4 mg PO Q6H PRN PRN (Reason: Nausea) Qty: 15 RF: 0 losartan 25 mg tablet 25 mg PO BID Qty: 180 RF: 3 simvastatin 20 mg tablet 20 mg PO QHS Qty: 90 RF: 3 levothyroxine [Synthroid] 25 mcg tablet 25 mcg PO DAILY Qty: 90 RF: 3 omeprazole 20 mg capsule,delayed release(DR/EC) 20 mg PO DAILY Qty: 90 RF: 3 carvedilol 25 mg tablet 25 mg PO BID Qty: 180 RF: 3 Primary Care Provider: Janessa Bravo NP Referrals: Janessa Bravo NP, [facility] [Primary Care Provider] - (2-3 days for reevaluation and to review culture results) Disposition Disposition: Home, Self Care
--- NOTE | 2021-02-04 08:30 | EKG12_ITS ---
Test Reason : WEAKNESS Blood Pressure : / mmHG Vent. Rate : 082 BPM Atrial Rate : 082 BPM P-R Int : 182 ms QRS Dur : 086 ms QT Int : 402 ms P-R-T Axes : 018 -09 015 degrees QTc Int : 469 ms Normal sinus rhythm Normal ECG Confirmed by RIO GASPAR, SHAUNA ([id number]), editor house organ MARY VASQUEZ ([id number]) on 02/07/2021 1:10:34 PM Referred By: JOLIE Confirmed By:SHAUNA PATE MD
[2021-02-04 08:41] LABS: Absolute Lymphocyte Count 1.06 X10^3/uL (0.83-4.51); Absolute Neutrophil Count 14.7 X10^3/uL (2.0-7.7); Basophil# 0.03 X10^3/uL; Basophil% 0.2 % (0-1); Eosinophil# 0.06 X10^3/uL; Eosinophils% 0.4 % (0-5); Hematocrit 33.1 % (37-47); Hemoglobin 11.5 g/dL (12.0-15.0); Lymphocyte # 1.06 X10^3/ul (0.83-4.51); Lymphocyte % 6.3 % (19-41); Mean Corp Hgb Conc 34.7 g/dL (32-36); Mean Corpuscular Hgb 32.2 pg (27.0-32.0); Mean Corpuscular Volume 92.7 fL (81-99); Mean Platelet Vol. 11.5 fl (6.2-12.0); Monocyte# 0.94 X10^3/uL; Monocyte% 5.6 % (0-10); NRBC Flagged by Analyzer 0 % (0-5); Neutrophil # 14.67 X10^3/uL (2.7-7.7); Neutrophil % 86.7 % (47-70); POSITIVE COUNT YES; RBC Distribution Width CV 13.2 % (11.6-14.6); Red Blood Count 3.57 M/mm3 (4.2-5.4); White Blood Count 16.9 K/mm3 (4.4-11.0)
[2021-02-04] MEDS: HYDROcodone Bitartrate/Apap 5/325 Tablet PO (08:41)
[2021-02-04 08:42] LABS: Differential Indicated SCAN CRITERIA MET
[2021-02-04 08:56] LABS: Anion Gap 7 (5-15); BUN 21 mg/dL (7-18); BUN/Creat Ratio 20.8 RATIO (10-20); Calcium,Total 8.5 mg/dL (8.5-10.1); Chloride 100 mmol/L (98-107); Creatinine, Serum 1.01 mg/dL (0.55-1.02); EST Glomerular Filtration Rate 57 mL/min (>60); Est Glom Filt Rate - Afr Amer 69 mL/min (>60); Estimated Creatinine Clearance 44.36 ml/min; Glucose 91 mg/dL (74-106); Potassium 3.5 mmol/L (3.5-5.1); Sodium Level 131 mmol/L (136-145); Troponin-I HS 5 pg/mL (3.0-54.0)
[2021-02-04 09:05] LABS: Platelet Estimate SLT DEC (ADEQ)
--- NOTE | 2021-02-04 09:05 | RAD_ITS ---
STUDY: X-RAY CHEST REASON FOR EXAM: Female, 75 years old. Cough and chest pain. TECHNIQUE: PA and lateral views of the chest. COMPARISON: Comparison is made with prior study dated 01/18/2021. FINDINGS: EKG electrodes are seen. Since prior study, there has been a mild degree of aggressive increased markings at the lung bases suggestive of bibasilar atelectasis superimposed on scarring. There is blunting of both costophrenic angles. Cardiomegaly. A left-sided dual-chamber pacemaker is seen. Normal mediastinum and obinna. Normal visualized pulmonary arteries. There is atherosclerotic calcification of the aortic arch with tortuosity. There are diffuse degenerative changes of the visualized thoracic spine. Normal visualized ribs, clavicles, and shoulders. Large hiatal hernia. RAD/Chest PA and Lateral IMPRESSION: Progressive increased markings at the lung bases suggestive of a atelectasis superimposed on chronic scarring. Large hiatal hernia. Electronically Signed: Reyes Anglin MD at 9:47 EST , Service support ,
[2021-02-04 09:46] VITALS: BP 95/58; PULSE 88; RESP 19; O2SAT 96
[2021-02-04 10:08] LABS: Mucous, Urine 0 SEEN /hpf (<or=2+); Red Blood Cells-Urine 0 SEEN /hpf (0-5)
[2021-02-04 10:15] LABS: Color, Urine Yellow (Yellow); Glucose, Dipstick Normal (Normal); Ketone-Dipstick Negative (Negative); Leukocyte Esterase-Dipstick 500 /ul (Negative); Nitrite-Dipstick Negative (Negative); Occult Blood-Urine Negative /ul (Negative); Protein-Dipstick Negative (Negative); Urine Bilirubin Dipstick Negative (Negative); Urine Clarity Sl. Cloudy (Clear); Urine Urobilinogen Normal (Normal)
[2021-02-04 10:21] LABS: Bacteria 1+ /hpf (None Seen); Squamous Epithelial Cells - UA 5-10 SEEN /hpf (5-10); White Blood Cells 25-50 SEEN /hpf (0-5)
[2021-02-04 11:14] VITALS: BP 104/57; PULSE 82; RESP 14; O2SAT 96
[2021-02-04 12:46] LABS: Lactic Acid 1.1 mmol/L (0.4-1.9)
[2021-02-04] MEDS: Ceftriaxone 1 GM/50 ML BAG IV (13:10)
[2021-02-04 13:11] VITALS: BP 105/64; PULSE 81; RESP 16; TEMP 36.4; O2SAT 96
[2021-02-04 13:31] VITALS: BP 106/70; PULSE 81; RESP 15; O2SAT 96
== END 2021-02-04 14:15 | disposition home or self-care (01) ==
PROVIDERS: Emergency Provider Emergency Medicine; PCP Nurse Practitioner
DX: N39.0 Urinary tract infection, site not specified (principal); R53.1 Weakness; I50.42 Chronic combined systolic (congestive) and diastolic (congestive) heart failure; I11.0 Hypertensive heart disease with heart failure; E78.5 Hyperlipidemia, unspecified; E03.9 Hypothyroidism, unspecified; Z79.51 Long term (current) use of inhaled steroids; Z79.899 Other long term (current) drug therapy
CPT/HCPCS: 71046; 80048; 81001; 83605; 84484; 85025; 87040; 87077; 87086; 87088; 87186; 93005; 96365; 99285; A4216

== ENCOUNTER → 2021-03-04 13:48 | Outpatient (CLI) | payer MEDICARE, SELFPAY ==
--- NOTE | 2021-03-04 14:01 | VDLE_ITS ---
Reason For Study: PAIN RIGHT LEFT GSV is normal. GSV is normal. CFV is compressible, spontaneous, phasic, CFV is compressible, spontaneous, phasic, competent and demonstrates normal competent, and demonstrates normal augmentation. augmentation. FV is compressible, spontaneous, phasic, FV is compressible, spontaneous, phasic, competent and demonstrates normal competent and demonstrates normal augmentation. augmentation. POP V is compressible, spontaneous, phasic, POP V is compressible, spontaneous, phasic, competent and demonstrates normal competent and demonstrates normal augmentation. augmentation. T/P Trunk is compressible. T/P Trunk is compressible. PTV is compressible. PTV is compressible. RT PerV is compressible. LT PerV is compressible. Procedure This is a venous duplex using B-mode, color flow and spectral Doppler. Exam performed in department. A preliminary report was called and/or faxed to GREG GAMBOA. VL/Venous Duplex US - Yovany Extrem Interpretation Summary Deep veins of the lower extremities are bilaterally patent and compressible seg mentally. There is no evidence of deep vein thrombosis on either side. Valvular competence appears in tact within the proximal deep venous systems bilaterally. The great saphenous veins appear bila terally patent and compressible segmentally. Ordering Physician: Greg Gamboa Referring Physician: Greg Gamboa Performed By: Kareen Laughlin, RDCS, RVT
== END ==
PROVIDERS: PCP Nurse Practitioner; Referring Provider Nurse Practitioner; Visit Provider Nurse Practitioner
DX: M79.604 Pain in right leg (principal); M79.605 Pain in left leg
CPT/HCPCS: 93970

== ENCOUNTER 2021-03-23 10:49 | Outpatient (CLI) | payer MEDICARE, SELFPAY ==
--- NOTE | 2021-03-23 10:52 | ECHOD_ITS ---
Reason For Study: Cardiomyopathy Procedure This was a 2D Doppler, Color Flow transthoracic echocardiogram. Exam performed in department. Left Ventricle Mildly dilated left ventricle. The estimated ejection fraction is 25 %. Stage 1 diastolic dysfunction. There is severe global hypokinesis of the left ventricle. Right Ventricle Normal RV size. ICD or pacer leads identified within the right ventricle. Normal systolic function. Atria Normal left atrium. Normal right atrium. ICD or pacer leads identified within the right atrium. Mitral Valve Bileaflet diffuse mitral valve thickening. Mild (1+) eccentric mitral valve insufficiency. Tricuspid Valve Normal tricuspid valve. Mild (1+) tricuspid valve insufficiency. Pulmonary artery systolic pressure is 31 mmHg. Aortic Valve Trisinus/trileaflet aortic valve. Pulmonic Valve Normal pulmonic valve. Great Vessels Normal aortic root. The pulmonary artery is normal size. Normal inferior vena cava. Pericardium/Pleural Small pericardial effusion. MMode/2D Measurements & Calculations LVIDd: 4.7 cm IVSd: 1.2 cm Ao root diam: 3.6 cm LVIDs: 3.9 cm LVPWd: 1.4 cm LA dimension: 2.3 cm FS: 16.9 % LAV(MOD-bp): 55.3 ml LA A4 area: 22.3 cm2 RA A4 area: 18.7 cm2 LAV(MOD-bp) Indexed: 28.8 ml/m2 LAV(MOD-sp2): 45.1 ml LAV(MOD-sp4): 64.9 ml Doppler Measurements & Calculations MV E max mikhail: 50.4 cm/sec Lat Peak E' Mikhail: 3.0 cm/sec Med Peak E' Mikhail: 2.7 cm/sec MV A max mikhail: 98.8 cm/sec E/E' lat: 17.0 E/E' med: 18.6 MV E/A: 0.51 MV V2 max: 124.2 cm/sec Ao V2 max: 134.4 cm/sec LV V1 max: 87.2 cm/sec MV max P.2 mmHg Ao max P.2 mmHg LV V1 max P.0 mmHg MV V2 mean: 77.5 cm/sec MV mean P.8 mmHg MV V2 VTI: 24.0 cm MR max mikhail: 535.8 cm/sec PA V2 max: 87.6 cm/sec TR max mikhail: 259.6 cm/sec MR max P.8 mmHg TR max P.0 mmHg ECHO/Echo Complete Interpretation Summary Mildly dilated left ventricle. The estimated ejection fraction is 25 %. There is severe global hypokinesis of the left ventricle. Stage 1 diastolic dysfunction. Compared to previous study, the left ventricular systolic function has worsened .. Ordering Physician: Janessa Bravo Referring Physician: Janessa Bravo Performed By: Royce Haines RCS
== END 2021-03-23 23:59 | disposition home or self-care (01) ==
PROVIDERS: PCP Nurse Practitioner; Referring Provider Nurse Practitioner; Visit Provider Nurse Practitioner
DX: I42.9 Cardiomyopathy, unspecified (principal); I51.7 Cardiomegaly
CPT/HCPCS: 93306

== ENCOUNTER 2021-06-07 10:18 | Outpatient (CLI) | payer MEDICARE, SELFPAY ==
[2021-06-07 12:20] LABS: Absolute Lymphocyte Count 2.15 X10^3/uL (0.83-4.51); Absolute Neutrophil Count 4.3 X10^3/uL (2.0-7.7); Basophil# 0.02 X10^3/uL; Basophil% 0.3 % (0-1); Eosinophils% 2.8 % (0-5); Hematocrit 38.5 % (37-47); Hemoglobin 13.1 g/dL (12.0-15.0); Lymphocyte # 2.15 X10^3/ul (0.83-4.51); Lymphocyte % 29.7 % (19-41); Mean Corpuscular Hgb 31.6 pg (27.0-32.0); Mean Corpuscular Volume 92.8 fL (81-99); Mean Platelet Vol. 10.4 fl (6.2-12.0); Monocyte# 0.55 X10^3/uL; Monocyte% 7.6 % (0-10); NRBC Flagged by Analyzer 0 % (0-5); Neutrophil % 59.3 % (47-70); Platelet Count 155 K/mm3 (150-450); RBC Distribution Width CV 11.9 % (11.6-14.6); RBC Distribution Width SD 40.2 fl (35.1-43.9); Red Blood Count 4.15 M/mm3 (4.2-5.4); White Blood Count 7.2 K/mm3 (4.4-11.0)
[2021-06-07 12:48] LABS: ALB/GLOB Ratio 1.1 RATIO (0.9-2.4); AST(SGOT) 16 U/L (15-37); Alanine Aminotransfer ALT/SGPT 17 U/L (13-56); Albumin, Serum 3.8 g/dL (3.2-5.0); Alkaline Phosphatase 136 U/L (45-117); Anion Gap 3 (5-15); BUN 16 mg/dL (7-18); BUN/Creat Ratio 15.7 RATIO (10-20); Calcium,Total 9.8 mg/dL (8.5-10.1); Chloride 111 mmol/L (98-107); Creatinine, Serum 1.02 mg/dL (0.55-1.02); EST Glomerular Filtration Rate 56 mL/min (>60); Est Glom Filt Rate - Afr Amer 68 mL/min (>60); Ferritin 175 ng/mL (8-252); Globulin 3.5 g/dL (2.2-4.2); Glucose 95 mg/dL (74-106); Iron 191 ug/dL (50-170); Iron Binding Capacity,Total 234 ug/dL (250-450); PERCENT IRON SATURATION 81.6 % (15.0-55.0); Potassium 3.9 mmol/L (3.5-5.1); Protein, Total 7.3 g/dL (6.4-8.2); Sodium Level 141 mmol/L (136-145); Thyroid Stim Hormone (TSH) 3.32 uIU/mL (0.358-3.74)
== END 2021-06-07 23:59 | disposition home or self-care (01) ==
LOC: MTLAB 10:21
PROVIDERS: PCP Nurse Practitioner; Referring Provider Nurse Practitioner; Visit Provider Nurse Practitioner
DX: E03.9 Hypothyroidism, unspecified (principal); D64.9 Anemia, unspecified; I11.9 Hypertensive heart disease without heart failure
CPT/HCPCS: 36415; 80053; 82728; 83540; 83550; 84443; 85025

== ENCOUNTER → 2021-10-03 | Outpatient (CLI) | payer MEDICARE, SELFPAY ==
--- NOTE | 2021-10-03 10:54 | ECHOL_ITS ---
Reason For Study: CMP Procedure This was a limited 2D transthoracic echocardiogram. Myocardial strain analysis was performed in this exam to aid in the assessment of cardiac function. Exam performed in department. Left Ventricle Normal LV size. The estimated ejection fraction is 25 %. Stage 1 diastolic dysfunction. There is moderate to severe global hypokinesis of the left ventricle. Right Ventricle Normal RV size. ICD or pacer leads identified within the right ventricle. Normal systolic function. Mitral Valve Normal mitral valve. Tricuspid Valve Normal tricuspid valve. Aortic Valve The aortic valve is not well visualized. Pulmonic Valve Normal pulmonic valve. Great Vessels Normal aortic root. The pulmonary artery is normal size. Normal inferior vena cava. Pericardium/Pleural No pericardial effusion. MMode/2D Measurements & Calculations LVIDd: 5.0 cm IVSd: 1.0 cm Ao root diam: 3.8 cm LVIDs: 4.1 cm LVPWd: 1.1 cm LA dimension: 3.1 cm FS: 17.9 % LVAd ap4: 32.2 cm2 SV(MOD-sp4): 28.6 ml SV(sp4-el): 32.1 ml LVLd ap4: 7.2 cm EDV(MOD-sp4): 116.0 ml EDV(sp4-el): 121.7 ml LVAs ap4: 26.7 cm2 LVLs ap4: 6.8 cm ESV(MOD-sp4): 87.4 ml ESV(sp4-el): 89.6 ml EF(MOD-sp4): 24.7 % EF(sp4-el): 26.4 % Time Measurements MV dec time: 0.23 sec Doppler Measurements & Calculations MV E max mikhail: 65.7 cm/sec Lat Peak E' Mikhail: 3.4 cm/sec Med Peak E' Mikhail: 4.0 cm/sec MV A max mikhail: 106.3 cm/sec E/E' lat: 19.6 E/E' med: 16.5 MV E/A: 0.62 MR max mikhail: 581.5 cm/sec MR max P.3 mmHg ECHO/Echo, Limited Study Interpretation Summary Normal LV size. The estimated ejection fraction is 25 %. There is moderate to severe global hypokinesis of the left ventricle. ICD or pacer leads identified within the right ventricle. Stage 1 diastolic dysfunction. The global longitudinal strain is severely abnormal. The global longitudinal st rain = -9.7% (abnormal). Ordering Physician: Velma Sullivan Referring Physician: Janessa Braov Performed By: Royce Haines RCS
== END | disposition home or self-care (01) ==
LOC: CVS 10:53
PROVIDERS: PCP Nurse Practitioner; Referring Provider Physician Assistant Medical; Visit Provider Physician Assistant Medical
DX: I44.7 Left bundle-branch block, unspecified (principal)
CPT/HCPCS: 93308

== ENCOUNTER → 2021-10-19 | Outpatient (CLI) | payer MEDICARE, SELFPAY ==
--- NOTE | 2021-10-19 10:24 | BI_ITS ---
MAMMOGRAPHY - BILATERAL SCREENING 3-D TOMOSYNTHESIS REASON FOR EXAM: Female, 75 years old. Annual screening mammogram. PERTINENT HISTORY: Left cardiac defibrillator/pacemaker. TECHNIQUE: 2-D mammograms and 3-D Tomosynthesis of the breast (s) were performed. CAD was performed. COMPARISON: 10/18/2020, 05/22/2019. FINDINGS: The breast composition is composed of scattered fibroglandular density. Stable lymph nodes. No dense spiculated masses or suspicious microcalcifications are identified. No architectural distortion is identified. There is no skin thickening or retraction. BI/SCRN MAMM (CAD)W/PRUDENCE BILAT IMPRESSION: No interval change and no mammographic signs of malignancy. Routine yearly mammograms recommended. ASSESSMENT CATEGORY: BIRADS Category 2: Benign. A letter regarding these results will be sent to the patient by the facility within 30 days. FOLLOW UP RECOMMENDATION: Yearly follow up mammogram recommended. (A) Approximately 10% of breast cancers are not detected by mammography. A normal mammogram should not delay biopsy of a clinically suspicious abnormality. Electronically Signed: Maynor Bautista MD at 12:15 EDT ,
--- NOTE | 2021-10-19 10:30 | BD_ITS ---
STUDY: DUAL ENERGY X-RAY ABSORPTIOMETRY / DXA REASON FOR EXAM: Female, 75 years old. [id number]. Patient is postmenopausal. TECHNIQUE: Bone Mineral Density (BMD) measurements of lumbar spine and bilateral hips were obtained. COMPARISON: Comparison is made with prior study from 05/22/2019. FINDINGS: Lumbar Spine (L1-L4): g/cm2 (0.794) / T-score (-2.6) / Z-score (0.0) Findings are suggestive of osteoporosis with a high fracture risk. Left Femur Total: g/cm2 (0.795) / T-score (-1.2) / Z-score (0.7) Left Femoral Neck: g/cm2 (0.725) / T-score (-1.1) / Z-score (1.1) Right Femur Total: g/cm2 (0.785) / T-score (-1.3) / Z-score (0.6) Right Femoral Neck: g/cm2 (0.632) / T-score (-2.0) / Z-score (0.2) The T-Scores on the most recent prior examination were: Lumbar Spine (L1-L4): There has been improvement of bone density since the previous examination. Left Femur Total: which represents an improvement of 0.5%. Right Femur Total: which represents an improvement of 1.1%. BD/Dexa Bone Density Study IMPRESSION: The patient is considered osteoporotic as outlined below according to World Diony Organization (WHO) criteria with a high fracture risk. There has been improvement of bone density since the previous examination. Reference Information: The T-score is the number of standard deviations above or below the standard which is normal for young adults at their peak bone mineral density. The World Health Organization (WHO) interprets the T-scores as follows: Above -1 Normal bone density Between -1 and -2.5 Osteopenia Equal to / or below -2.5 Osteoporosis As a practical clinical guideline, osteopenia may be graded as follows: Mild -1 through -1.5 Moderate -1.6 through -2.0 Severe -2.1 through -2.4 The Z-score is the number of standard deviations above or below age-matched controls. A Z-score of less than -1.5 would be considered abnormal. References: 1. NIH Osteoporosis and Related Bone Diseases www osteo.org 2. International Society for Clinical Densitometry www iscd.org 3. National Osteoporosis Foundation www nof.org Electronically Signed: Reyes Anglin MD at 12:23 EDT ,
== END | disposition home or self-care (01) ==
LOC: OPBD 10:22
PROVIDERS: PCP Nurse Practitioner; Visit Provider Nurse Practitioner Family
DX: Z12.31 Encounter for screening mammogram for malignant neoplasm of breast (principal); Z95.0 Presence of cardiac pacemaker; Z78.0 Asymptomatic menopausal state
CPT/HCPCS: 77063; 77067; 77080

== ENCOUNTER 2022-01-11 04:38 | Emergency (ER) | payer MEDICARE, SELFPAY ==
[2022-01-11 04:38] VITALS: BP 156/96; PULSE 88; RESP 16; TEMP 36.3; O2SAT 95; BMI 31.4
--- NOTE | 2022-01-11 04:51 | ED.VIS.BACK ---
HPI History of Present Illness Chief Complaint: Other, Pain/Inj Detail of Chief Complaint: Lateral neck pain Informant: patient Onset/Context/Timing Onset: Days Context: Gradual Onset Injury: direct trauma Timing: Continuous Quality: Dull and Aching Location: See diagram (Left lateral neck) Current Severity: Mild Maximum Severity: Mild Worsened by: improves with Movement Relieved by: Nothing Associated Symptoms Associated Symptoms: Negative for Numbness, Tingling, Radiation to Right Leg, Radiation to Left Leg, Fever, Abdominal Pain, Dysuria, Unable to Ambulate, Urinary Retention, Urinary Incontinence, Constipation or Fecal Incontinence Narrative Narrative: 76-year-old female history of cardiac disease with defibrillator. Received her flu vaccine in the right arm last Sunday. Over the weekend she started having stiffness to the left lateral side of her neck. Typically she does not have neck problems. She is never had neck surgery. She denies any recent falls or trauma. Nothing she can attribute to having caused her neck to be sore. Worse with movement. She denies any numbness or tingling or weakness to upper extremities. No back pain. No fever. Prior similar symptoms: No Recent Illness/Hospitalization: No PFSH PFSH Medical History Chronic combined systolic and diastolic CHF (congestive heart failure) Congestive heart failure (CHF) Diastolic dysfunction Essential (primary) hypertension HLD (hyperlipidemia) Hypothyroidism LBBB (left bundle branch block) Nonischemic cardiomyopathy Paroxysmal ventricular tachycardia Home Medications albuterol sulfate 2.5 mg/3 mL (0.083 %) solution for nebulization 2.5 mg inhalation TID PRN Sob &/Or Wheezing 30 days #270 mL 08/09/18 [History Last Taken Unknown] ondansetron 4 mg disintegrating tablet 4 mg PO Q6H PRN PRN Nausea #15 tabs 01/08/21 [Rx Last Taken Unknown] carvedilol 25 mg tablet 25 mg PO BID #180 tabs 01/17/21 [Rx Last Taken Unknown] simvastatin 20 mg tablet 20 mg PO QHS #90 tabs 02/21/21 [Rx Last Taken Unknown] furosemide 20 mg tablet 20 mg PO DAILY PRN 05/03/21 [History Last Taken Unknown] meclizine 12.5 mg tablet 12.5 mg PO TID PRN 05/03/21 [History Last Taken Unknown] potassium chloride 20 mEq tablet,extended release 20 meq PO DAILY PRN 05/03/21 [History Last Taken Unknown] losartan 50 mg tablet 50 mg PO BID #180 tabs 10/03/21 [Rx Last Taken Unknown] cholecalciferol (vitamin D3) 25 mcg (1,000 unit) capsule 2,000 unit PO DAILY 11/23/21 [History Last Taken Unknown] omeprazole 20 mg capsule,delayed release 20 mg PO DAILY #90 caps 12/19/21 [Rx Last Taken Unknown] dapagliflozin 10 mg tablet (Farxiga) 10 mg PO DAILY #30 tabs 01/02/22 [Rx Last Taken Unknown] levothyroxine 25 mcg tablet (Synthroid) 25 mcg PO DAILY #90 tabs 01/02/22 [Rx Last Taken Unknown] metaxalone 800 mg tablet 800 mg PO TID 7 days #21 tabs 01/11/22 [Rx Last Taken Unknown] Allergy/AdvReac Type Severity Reaction Status Date / Time amlodipine [From Norvasc] Allergy Unknown Verified 11/23/21 10:50 clarithromycin [From Biaxin] Allergy Unknown Verified 11/23/21 10:50 lisinopril [From Prinivil] Allergy Unknown Verified 11/23/21 10:50 pantoprazole [From Protonix] Allergy Unknown Verified 11/23/21 10:50 Penicillins [PCN] Allergy Rash Verified 11/23/21 10:50 sacubitril [From Entresto] AdvReac Intermediate Really Verified 11/23/21 10:50 dizzy, didn't feel well valsartan [From Entresto] AdvReac Intermediate Really Verified 11/23/21 10:50 dizzy, didn't feel well Family History Father Myocardial infarction CAD (coronary artery disease) Grafton's disease Mother Diabetes Myocardial infarction Hypertension FH: CABG (coronary artery bypass surgery) Grandfather Myocardial infarction Brother Negra's disease Sister Grafton's disease Diabetes Son Diabetes Surgical History History of appendectomy (~03/2006) History of left heart catheterization (07/19/04) History of tubal ligation (~1979) Hx laparoscopic cholecystectomy (~04/2009) Presence of biventricular implantable cardioverter-defibrillator (ICD) (02/15/17) Social History Smoking Status: Never smoker alcohol intake: never substance use type: does not use caffeine: Yes Type: coffee what type of physical activity do you participate in: none seatbelt use: always do you feel safe at home: Yes ROS ROS ED ROS Narrative Denies recent illness. Review of Systems ROS Unobtainable: Denies due to encephalopathy Constitutional Constitutional ED: Denies fever(s) Eyes Eyes: Denies blurry vision ENT ENT ED: Denies ear pain Cardiovascular Cardiovascular: Denies chest pain Respiratory/Chest Respiratory/Chest: Denies dyspnea Gastrointestinal Gastrointestinal: Denies abdominal pain Genitourinary Genitourinary ED: Denies dysuria Musculoskeletal Musculoskeletal: Denies arthralgias Integumentary Denies abscess Neurologic Neurologic: Denies headache(s) Psychiatric Psychiatric: Denies anxiety Endocrine Endocrinology: Denies cold intolerance Hematologic/Lymphatic Hematologic/Lymphatic: Denies easy bleeding Allergic/Immunologic Allergic/Immunologic ED: Denies mouth swelling or tongue swelling EXAM Physical Exam Narrative Exam Narrative: 76 female no acute distress. Vital signs stable afebrile. H EENT exam unremarkable. Neck she has left lateral posterior soft tissue tenderness of her neck consistent with paracervical muscle tenderness. There is no redness or warmth. No lymphadenopathy. Bones nontender. Right side is nontender. She has normal range of motion to her neck with some discomfort when she rotates to the left. Trachea midline. Lungs clear to auscultation. Heart regular rhythm rate about 90 no murmur. Abdomen soft nontender. Moving all 4 extremities. Normal strength. Neurologic exam unremarkable. Const Vital Signs: 01/11/22 04:38 Temperature 97.3 F L Temperature Source Temporal Pulse Rate 88 Respiratory Rate 16 Blood Pressure 156/96 H Blood Pressure Mean 116 Pulse Ox 95 Oxygen Delivery Method Room Air Positive well nourished and well developed; Negative for cachectic, contractures or unkempt General Appearance ED: well developed and NAD; Negative for unkempt, cachectic, contractures or pallor Nutritional Appearance: Negative for cachectic HEENT Reports moist mucous membranes; Denies dry mucous membranes Negative for trauma or tenderness Mouth ED: No dry mucous membranes Mouth: No dry mucous membranes Eyes PERRL and EOMs intact bilaterally General Eye ED: Negative for pale conjunctiva or scleral icterus Neck no lymphadenopathy, supple and no JVD Neck Narrative: Mild left lateral neck soft tissue tenderness consistent with myofascial strain and spasm. No lymphadenopathy. Full range of motion. General: tenderness Chest Wall Chest: Negative for other Resp normal respiratory effort and clear to auscultation bilaterally Auscultation: Negative for rales, rhonchi or wheezes Cardio regular rate, regular rhythm, S1 normal heart sound, S2 normal heart sound and no murmurs Palpation: Negative for palpable S3 Rate: Negative for bradycardia Rhythm: Negative for abnormal rhythm Bruits: Negative for other GI normal to inspection, nondistended, normoactive bowel sounds, soft to palpation, non-tender, non-distended and no masses Inspection: Negative for abdominal distention Palpation: Negative for tender or guarding Back/Spine normal to inspection and no thoracic nor lumbar tenderness General Back: Negative for CVA tenderness Cervical Spine: Negative for cervical spine tenderness and paracervical muscle tenderness Thoracic Spine / Upper Back: Negative for paraspinal muscle tenderness Lumbar Spine / Lower Back: Negative for ROM limited Extremity normal to inspection and no clubbing, cyanosis or edema General Extremety ED: Negative for edema or tenderness General Extremity: Negative for edema Neuro oriented x3 Sensorium / Orientation: alert; Negative for confused, lethargic or stuporous Sensory Exam: No other Motor Exam: strength 5/5 throughout Psych mental status grossly normal Appearance: Negative for unkempt Attitude: No agitated Mood & Affect: Negative for depressed or sad Skin no rashes or lesions noted and no wounds General Skin Exam: Negative for jaundice or pallor Lesions: No lesion noted Rashes: No rashes noted Trauma: Negative for abrasion Wounds: Negative for wounds noted MDM MDM MDM Narrative Medical decision making narrative: 76-year-old female with atraumatic left lateral neck discomfort consistent with myofascial strain and spasm. No history of any trauma. She does not any x-rays or lab work. We discussed conservative treatment such as Motrin, Tylenol, hot shower, warm bath and massage. She will be written for the muscle relaxant Skelaxin to use as needed. Discharge Plan Triage Chief Complaint: Other, Pain/Inj ED Provider: Damir Ngo Dx/Rx/DC Orders Clinical Impression: Muscle spasms of neck, History of hypertension, History of CHF (congestive heart failure) Instructions: ED Neck Spasm, No Trauma Prescriptions: New metaxalone 800 mg tablet 800 mg PO TID 7 Days Qty: 21 0RF No Action albuterol sulfate 2.5 mg /3 mL (0.083 %) solution for nebulization 2.5 mg INHALATION TID PRN (Reason: Sob &/Or Wheezing) 30 Days Qty: 270 cholecalciferol (vitamin D3) 25 mcg (1,000 unit) capsule 2,000 unit PO DAILY furosemide 20 mg tablet 20 mg PO DAILY PRN Label Comments: take 1 tablet by mouth once daily if needed potassium chloride 20 mEq tablet extended release 20 meq PO DAILY PRN Label Comments: TAKE 1 TABLET BY MOUTH DAILY WHEN TAKING LASIX (FUROSEMIDE). meclizine 12.5 mg tablet 12.5 mg PO TID PRN Label Comments: TAKE 1 TABLET BY MOUTH EVERY 8 HOURS NEEDED FOR VERTIGO ondansetron [ondansetron] 4 MG tablet 4 mg PO Q6H PRN PRN (Reason: Nausea) Qty: 15 0RF carvedilol 25 mg tablet 25 mg PO BID Qty: 180 3RF simvastatin 20 mg tablet 20 mg PO QHS Qty: 90 3RF losartan 50 mg tablet 50 mg PO BID Qty: 180 3RF omeprazole 20 mg capsule,delayed release(DR/EC) 20 mg PO DAILY Qty: 90 3RF levothyroxine [Synthroid] 25 mcg tablet 25 mcg PO DAILY Qty: 90 3RF Farxiga 10 mg tablet 10 mg PO DAILY Qty: 30 11RF Hold Instructions: diarrhea Primary Care Provider: Tania Roberson Referrals: Tania Roberson NP-C [Primary Care Provider] - 1 Week if not improving Activity Restrictions/Additional Instructions: Your exam is consistent with muscle spasms in the left side of your neck. Hot shower, warm bath and massage should all help decrease the pain and discomfort and relax the muscle. Motrin for pain and inflammation. Tylenol for pain. Massage to your neck. The muscle relaxant Skelaxin 1 pill 3 times a day for 1 week will also help with the muscle spasms in your neck. I would try the other measures first if its not improving then use a prescription. Disposition Disposition: Home, Self Care
== END 2022-01-11 05:39 | disposition home or self-care (01) ==
LOC: ED 05:08
PROVIDERS: Emergency Provider Emergency Medicine; PCP Nurse Practitioner Family; Visit Provider Emergency Medicine
DX: M62.838 Other muscle spasm (principal); I11.0 Hypertensive heart disease with heart failure; I50.42 Chronic combined systolic (congestive) and diastolic (congestive) heart failure; E78.5 Hyperlipidemia, unspecified
CPT/HCPCS: 99282

== ENCOUNTER → 2022-01-25 | Outpatient (CLI) | payer MEDICARE, SELFPAY ==
[2022-01-25 07:28] LABS: Absolute Lymphocyte Count 1.88 X10^3/uL (0.83-4.51); Absolute Neutrophil Count 3.6 X10^3/uL (2.0-7.7); Basophil# 0.03 X10^3/uL; Basophil% 0.5 % (0-1); Eosinophil# 0.16 X10^3/uL; Eosinophils% 2.5 % (0-5); Hematocrit 41.8 % (37-47); Hemoglobin 14.1 g/dL (12.0-15.0); Lymphocyte # 1.88 X10^3/ul (0.83-4.51); Lymphocyte % 29.9 % (19-41); Mean Corp Hgb Conc 33.7 g/dL (32-36); Mean Corpuscular Hgb 32.5 pg (27.0-32.0); Mean Corpuscular Volume 96.3 fL (81-99); Monocyte# 0.52 X10^3/uL; Monocyte% 8.3 % (0-10); NRBC Flagged by Analyzer 0 % (0-5); Neutrophil # 3.62 X10^3/uL (2.7-7.7); Neutrophil % 57.5 % (47-70); Platelet Count 176 K/mm3 (150-450); RBC Distribution Width CV 12.1 % (11.6-14.6); RBC Distribution Width SD 43.3 fl (35.1-43.9); Red Blood Count 4.34 M/mm3 (4.2-5.4); White Blood Count 6.3 K/mm3 (4.4-11.0)
[2022-01-25 08:06] LABS: ALB/GLOB Ratio 1.1 RATIO (0.9-2.4); AST(SGOT) 14 U/L (15-37); Alanine Aminotransfer ALT/SGPT 16 U/L (13-56); Albumin, Serum 3.7 g/dL (3.2-5.0); Alkaline Phosphatase 144 U/L (45-117); Anion Gap 6 (5-15); BUN 14 mg/dL (7-18); BUN/Creat Ratio 13.7 RATIO (10-20); Calcium,Total 9.1 mg/dL (8.5-10.1); Chloride 109 mmol/L (98-107); Cholesterol 142 mg/dL (200); Creatinine, Serum 1.02 mg/dL (0.55-1.02); EST Glomerular Filtration Rate 56 mL/min (>60); Est Glom Filt Rate - Afr Amer 68 mL/min (>60); Globulin 3.5 g/dL (2.2-4.2); Glucose 89 mg/dL (74-106); High Density Lipoprotein 57 mg/dL; Potassium 4.1 mmol/L (3.5-5.1); Protein, Total 7.2 g/dL (6.4-8.2); Sodium Level 143 mmol/L (136-145); Thyroid Stim Hormone (TSH) 3.24 uIU/mL (0.358-3.74); Triglycerides 81 mg/dL; Very Low Density Lipoprotein 16 mg/dL (5-40)
[2022-01-25 09:11] LABS: Vitamin D,25 Hydroxy 48.4 ng/mL
== END | disposition home or self-care (01) ==
LOC: LAB 06:58
PROVIDERS: PCP Nurse Practitioner Family; Referring Provider Nurse Practitioner Family; Visit Provider Nurse Practitioner Family
DX: E03.9 Hypothyroidism, unspecified (principal); I11.9 Hypertensive heart disease without heart failure; E55.9 Vitamin D deficiency, unspecified; E78.2 Mixed hyperlipidemia
CPT/HCPCS: 36415; 80053; 80061; 82306; 84443; 85025

== ENCOUNTER 2022-04-19 21:21 | Emergency (ER) | payer MEDICARE, SELFPAY ==
[2022-04-19 21:21] VITALS: BP 165/110; PULSE 92; RESP 18; TEMP 36.2; O2SAT 98; BMI 30.7
--- NOTE | 2022-04-19 21:34 | EKG12_ITS ---
Test Reason : CP Blood Pressure : / mmHG Vent. Rate : 092 BPM Atrial Rate : 092 BPM P-R Int : 156 ms QRS Dur : 086 ms QT Int : 360 ms P-R-T Axes : 030 007 068 degrees QTc Int : 445 ms Normal sinus rhythm Normal ECG Confirmed by MARU GASPAR, LI ([id number]), brands editor MARY VASQUEZ ([id number]) on 04/21/2022 9:00:07 AM Referred By: TAYLER Confirmed By:ALLIE MAHONEY MD
[2022-04-19 21:50] LABS: Absolute Lymphocyte Count 2.11 X10^3/uL (0.83-4.51); Absolute Neutrophil Count 4.6 X10^3/uL (2.0-7.7); Basophil# 0.03 X10^3/uL; Basophil% 0.4 % (0-1); Eosinophil# 0.22 X10^3/uL; Eosinophils% 2.9 % (0-5); Hematocrit 43.8 % (37-47); Hemoglobin 14.6 g/dL (12.0-15.0); Lymphocyte # 2.11 X10^3/ul (0.83-4.51); Lymphocyte % 28.1 % (19-41); Mean Corp Hgb Conc 33.3 g/dL (32-36); Mean Corpuscular Volume 96.1 fL (81-99); Mean Platelet Vol. 10.3 fl (6.2-12.0); Monocyte# 0.55 X10^3/uL; Monocyte% 7.3 % (0-10); NRBC Flagged by Analyzer 0 % (0-5); Neutrophil # 4.56 X10^3/uL (2.7-7.7); Neutrophil % 60.9 % (47-70); Platelet Count 166 K/mm3 (150-450); RBC Distribution Width CV 11.9 % (11.6-14.6); RBC Distribution Width SD 42.1 fl (35.1-43.9); Red Blood Count 4.56 M/mm3 (4.2-5.4); White Blood Count 7.5 K/mm3 (4.4-11.0)
--- NOTE | 2022-04-19 21:55 | RAD_ITS ---
STUDY: X-RAY CHEST REASON FOR EXAM: Female, 76 years old. chest pain TECHNIQUE: AP portable COMPARISON: None. FINDINGS: The lungs are clear and expanded. There is no demonstrated pleural abnormality. Heart is enlarged.. Normal mediastinum and obinna. Normal visualized pulmonary arteries. Tortuous mildly calcified aortic arch and descending thoracic aorta. Biventricular pacer noted on the left with electrodes in satisfactory position Normal visualized thoracic spine. Normal visualized ribs, clavicles, and shoulders. Large intrathoracic hiatal hernia is noted There is no demonstrated abnormality of the visualized soft tissue structures of the upper abdomen. RAD/Chest 1 View (Portable) IMPRESSION: ASHD without evidence for acute cardiopulmonary pathology Large intrathoracic hiatal hernia. Electronically Signed: Antonio Schulz MD at 22:12 EST ,
[2022-04-19 22:10] LABS: Anion Gap 7 (5-15); BUN 15 mg/dL (7-18); BUN/Creat Ratio 12.2 RATIO (10-20); Calcium,Total 9.4 mg/dL (8.5-10.1); Chloride 110 mmol/L (98-107); Creatinine, Serum 1.23 mg/dL (0.55-1.02); EST Glomerular Filtration Rate 45 mL/min (>60); Est Glom Filt Rate - Afr Amer 54 mL/min (>60); Estimated Creatinine Clearance 35.86 ml/min; Glucose 108 mg/dL (74-106); Potassium 4.1 mmol/L (3.5-5.1); Sodium Level 143 mmol/L (136-145); Troponin-I HS (w/2H Reflex) 6 pg/mL (3.0-54.0)
[2022-04-19 22:21] VITALS: BP 161/85; PULSE 92; RESP 15; O2SAT 98
[2022-04-19 22:22] VITALS: O2SAT 96
[2022-04-19] MEDS: Ondansetron 4 MG/2 ML Vial IV (22:29)
[2022-04-19] MEDS: Famotidine 200 MG/20 ML MDV 20 MG in 0.9% Normal Saline (Pres. free 8 ML 300 MG IV (22:46)
--- NOTE | 2022-04-19 22:57 | ED.VIS.CHEST ---
HPI History of Present Illness Chief Complaint: Chest Pain Detail of Chief Complaint: Chest pressure Informant: patient and spouse/S.O. Onset/Context/Timing Onset: Today (2029) Activity at onset: sudden and rest Timing: Continuous Quality: Positive for Pressure Location: Substernal Current Severity: Moderate Maximum Severity: Moderate Worsened By: Nothing Relieved By: Nothing Associated Symptoms: Positive for Nausea and Vomiting; Negative for Diaphoresis, Dyspnea, Cough, Fever, Lightheadedness, Acid Reflux or Palpitations Narrative Narrative: Patient is a 76-year-old woman with history of nonischemic cardiomyopathy status postplacement of pacemaker/defibrillator in 2017. She states her last cardiac cath was many years ago. There is no records of that cath. Her most recent echo was performed and interpreted by Dr. Bradly Kasper October 03, 2021. Estimated ejection fraction of 25%. Stage I diastolic dysfunction. There is moderate to severe global hypokinesis thesis of the left ventricle. The right ventricle was normal size. There was no significant abnormalities of the valves. The aortic root appeared normal. Patient does have history of hiatal hernia. She has not noted coffee grounds or blood in her emesis. She states she sleeps with 3 pillows because of the hiatal hernia. Prior to the onset of her chest discomfort she had salad with chicken salad she is status postcholecystectomy. She does have history of mild swelling of her legs. This is unchanged from prior. She denies recent dyspnea with exertion or chest discomfort with exertion. She denies recent history of PND. She denies black or maroon-colored stool. She states she is not on aspirin because she did have bloody stools in the past which was attributed to the aspirin. She did not take anything prior to coming. She denies history of PE or DVT. She denies leg pain or discoloration. 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 Prior Similar Symptoms: No Recent Illness/Hospitalization: No CVD Risk Factors: Positive for Hypertension and Hypercholesterolemia; Negative for Smoking PE Risk Factors: Negative for Recent Travel/Surgery, Recent Immobilization, Prior DVT or PE, Cancer or OCP + Smoking + >/=35 TAD Risk Factors: Positive for Hypertension; Negative for Marfan's Syndrome or Family History [facility] Medical History Chronic combined systolic and diastolic CHF (congestive heart failure) Congestive heart failure (CHF) Diastolic dysfunction Essential (primary) hypertension HLD (hyperlipidemia) Hypothyroidism LBBB (left bundle branch block) Nonischemic cardiomyopathy Paroxysmal ventricular tachycardia Home Medications albuterol sulfate 2.5 mg/3 mL (0.083 %) solution for nebulization 2.5 mg inhalation TID PRN Sob &/Or Wheezing 30 days #270 mL 08/09/18 [History Last Taken Unknown] furosemide 20 mg tablet 20 mg PO DAILY PRN chf 05/03/21 [History Last Taken Unknown] meclizine 12.5 mg tablet 12.5 mg PO TID PRN Vertigo 05/03/21 [History Last Taken Unknown] potassium chloride 20 mEq tablet,extended release 20 meq PO DAILY PRN supplement 05/03/21 [History Last Taken Unknown] losartan 50 mg tablet 50 mg PO BID #180 tabs 10/03/21 [Rx Last Taken Unknown] cholecalciferol (vitamin D3) 25 mcg (1,000 unit) capsule 2,000 unit PO DAILY 11/23/21 [History Last Taken Unknown] omeprazole 20 mg capsule,delayed release 20 mg PO DAILY #90 caps 12/19/21 [Rx Last Taken Unknown] dapagliflozin 10 mg tablet (Farxiga) 10 mg PO DAILY #30 tabs 01/02/22 [Rx Last Taken Unknown] levothyroxine 25 mcg tablet (Synthroid) 25 mcg PO DAILY #90 tabs 01/02/22 [Rx Last Taken Unknown] carvedilol 25 mg tablet 25 mg PO BID #180 tabs 01/16/22 [Rx Last Taken Unknown] simvastatin 20 mg tablet 20 mg PO QHS #90 tabs 02/25/22 [Rx Last Taken Unknown] Allergy/AdvReac Type Severity Reaction Status Date / Time amlodipine [From Norvasc] Allergy Unknown Verified 04/19/22 21:21 clarithromycin [From Biaxin] Allergy Unknown Verified 04/19/22 21:21 lisinopril [From Prinivil] Allergy Unknown Verified 04/19/22 21:21 pantoprazole [From Protonix] Allergy Unknown Verified 04/19/22 21:21 Penicillins [PCN] Allergy Rash Verified 04/19/22 21:21 sacubitril [From Entresto] AdvReac Intermediate Really Verified 04/19/22 21:21 dizzy, didn't feel well valsartan [From Entresto] AdvReac Intermediate Really Verified 04/19/22 21:21 dizzy, didn't feel well Family History Father Myocardial infarction CAD (coronary artery disease) Altus's disease Mother Diabetes Myocardial infarction Hypertension FH: CABG (coronary artery bypass surgery) Grandfather Myocardial infarction Brother Altus's disease Sister Negra's disease Diabetes Son Diabetes Surgical History History of appendectomy (~03/2006) History of left heart catheterization (07/19/04) History of tubal ligation (~1979) Hx laparoscopic cholecystectomy (~04/2009) Presence of biventricular implantable cardioverter-defibrillator (ICD) (02/15/17) Social History Smoking Status: Never smoker alcohol intake: never substance use type: does not use caffeine: Yes Type: coffee what type of physical activity do you participate in: none seatbelt use: always do you feel safe at home: Yes ROS ROS ED Constitutional Constitutional ED: Denies chills, fever(s), subjective, sweats or weight loss Eyes Eyes: Reports none ENT ENT ED: Denies ear pain, rhinorrhea or sore throat Cardiovascular Cardiovascular: Reports as per HPI; Denies orthopnea or paroxysmal nocturnal dyspnea Respiratory/Chest Respiratory/Chest: Denies cough, dyspnea, dyspnea on exertion, orthopnea or paroxysmal nocturnal dyspnea Gastrointestinal Gastrointestinal: Reports nausea and vomiting; Denies abdominal pain, constipation, diarrhea or melena Genitourinary Genitourinary ED: Denies dysuria, hematuria or urinary frequency Musculoskeletal Musculoskeletal: Denies arthralgias, back pain or myalgias Integumentary Denies abscess, Abrasions or rash Neurologic Neurologic: Denies headache(s), paresthesias or weakness Hematologic/Lymphatic Hematologic/Lymphatic: Denies easy bleeding, easy bruising or lymphadenopathy EXAM Physical Exam Const Vital Signs: 04/19/22 21:21 04/19/22 22:21 04/19/22 22:22 Temperature 97.2 F L Temperature Source Temporal Pulse Rate 92 92 Respiratory Rate 18 15 Respiratory Effort Blood Pressure 165/110 H 161/85 H Blood Pressure Mean 128 110 Pulse Ox 98 98 96 Oxygen Delivery Method Room Air Room Air Room Air 04/19/22 22:22 04/19/22 23:20 04/20/22 00:15 Temperature Temperature Source Pulse Rate 98 94 Respiratory Rate 11 L 14 Respiratory Effort Normal Blood Pressure 155/111 H 144/96 H Blood Pressure Mean 125 112 Pulse Ox 95 Oxygen Delivery Method Room Air Room Air Positive well nourished and well developed Constitutional Narrative: Patient was actively vomiting when I entered the room. She is still complaining of chest discomfort. She localizes it to the substernal subxiphoid region. She states the pain does not radiate to her jaw, neck but does radiate to the left trapezius area. The pain is not positional. General Appearance ED: well developed; Negative for NAD or pallor HEENT Reports TM's clear and moist mucous membranes normocephalic and atraumatic Tympanic Membrane ED: Yes TM's clear Eyes PERRL and EOMs intact bilaterally General Eye ED: Negative for pale conjunctiva or scleral icterus Neck no lymphadenopathy and supple Chest Wall inspection of chest normal and palpation of chest normal Resp normal respiratory effort and clear to auscultation bilaterally Cardio regular rate, regular rhythm, S1 normal heart sound, S2 normal heart sound and no murmurs Peripheral Pulses: pulses 2+ throughout GI normal to inspection, nondistended, normoactive bowel sounds, soft to palpation, non-tender, non-distended and no masses; Negative for hepatosplenomegaly Back/Spine no CVA tenderness and no thoracic nor lumbar tenderness Extremity Extremity Narrative: There is minimal edema of the lower extremities. There is no discoloration, asymmetry, leg vein distention, palpable cord sounds on the distribution deep venous system. General Extremety ED: Yes edema General Extremity: edema Neuro oriented x3, CN's II-XII intact bilaterally and no sensory deficits noted Sensorium / Orientation: awake and alert Psych mental status grossly normal Skin no rashes or lesions noted and no wounds General Skin Exam: Negative for jaundice or pallor MDM MDM MDM Narrative Medical decision making narrative: Patient with chest pain. Need to rule out cardiac versus noncardiac etiology and specifically gastritis/esophagitis versus peptic ulcer disease versus hiatal hernia. Since patient is status post cholecystectomy there is no concern at this point to suggest choledocholithiasis. EKG was obtained to rule out acute cardiac ischemia as well as initial troponin and 2-hour troponin. Basic metabolic panel was obtained to assess renal function Prior records were reviewed. There was no recent cardiac cath. Her recent echo was reviewed and documented in the HPI narrative. Furthermore, confirmed the patient does have history of hiatal hernia. Patient was initially treated with IV Pepcid and Zofran for her pain and nausea and vomiting respectively. I was informed by nursing staff at 2300 that she still was complaining of pain. Verbal order was given for GI cocktail. Her initial EKG reveals no acute ischemic changes. Patient was informed of her laboratory results. 2-hour troponin is 8 with a delta of 2. Patient was informed that the discomfort is not due to her heart. Suspect this is due to her large hiatal hernia. She did have improvement after GI cocktail. Will order IV Protonix. Patient was reassessed at 0050. Her pain has improved but she still having discomfort. She asked if she could have something prior to discharge so she can go home and sleep. She was informed of all her test results and impression. Lab Data Attestation: I reviewed the patient's lab results. Lab results narrative: CBC is unremarkable. Basic metabolic panel reveals elevated creatinine with a GFR of 45. Glucose is slightly elevated 108. CO2 gap are normal Labs: Laboratory Results - last 24 hr 04/19/22 04/19/22 04/19/22 21:45 21:45 22:32 WBC 7.5 RBC 4.56 Hgb 14.6 Hct 43.8 MCV 96.1 MCH 32.0 MCHC 33.3 RDW Std Deviation 42.1 RDW Coeff of Jose 11.9 Plt Count 166 MPV 10.3 Immature Gran % (Auto) 0.400 Neut % (Auto) 60.9 Lymph % (Auto) 28.1 Bates % (Auto) 7.3 Eos % (Auto) 2.9 Baso % (Auto) 0.4 Absolute Neuts (auto) 4.6 Absolute Lymphs (auto) 2.11 Nucleated RBC % 0 Sodium 143 Potassium 4.1 Chloride 110 H Carbon Dioxide 26.0 Anion Gap 7 BUN 15 Creatinine 1.23 H Estim Creat Clear Calc 35.86 Est GFR (MDRD) Af Amer 54 L Est GFR (MDRD) Non-Af 45 L BUN/Creatinine Ratio 12.2 Glucose 108 H Calcium 9.4 Troponin I High Sens 6 8 04/20/22 00:12 WBC RBC Hgb Hct MCV MCH MCHC RDW Std Deviation RDW Coeff of Jose Plt Count MPV Immature Gran % (Auto) Neut % (Auto) Lymph % (Auto) Bates % (Auto) Eos % (Auto) Baso % (Auto) Absolute Neuts (auto) Absolute Lymphs (auto) Nucleated RBC % Sodium Potassium Chloride Carbon Dioxide Anion Gap BUN Creatinine Estim Creat Clear Calc Est GFR (MDRD) Af Amer Est GFR (MDRD) Non-Af BUN/Creatinine Ratio Glucose Calcium Troponin I High Sens 10 Radiography Chest X-Ray - ED: 1 View and Read by ED Physician (View portable chest x-ray was independently reviewed and interpreted by me. There is evidence of pacemaker/defibrillator. There is evidence of a large intrathoracic hiatal hernia. There is no acute changes of the lung parenchyma. Patient does have cardiomyopathy. The perihilar regions unremarka) Diagnostic Testing: Clinical Impression(s) from Imaging Studies Chest X-Ray 04/19/22 21:55 IMPRESSION: ASHD without evidence for acute cardiopulmonary pathology Large intrathoracic hiatal hernia. Electronically Signed: Antonio Schulz MD at 22:12 EST , EKG Initial EKG: Attestation: I personally reviewed and interpreted this EKG as follows: Interpretation: Sinus Tachycardia (Regular rate is 103. There is evidence of a left anterior fascicular block. LA intervals 160 ms. QS duration 106 ms. QT duration 344 ms. [place] to left. There is no acute ischemic changes as previously noted.) Prior: Unchanged Discharge Plan Triage Chief Complaint: Chest Pain ED Provider: Akin Silva Dx/Rx/DC Orders Clinical Impression: Chest pain at rest, Presence of biventricular implantable cardioverter-defibrillator (ICD), Essential (primary) hypertension, Nonischemic cardiomyopathy, Chronic combined systolic and diastolic CHF (congestive heart failure), HLD (hyperlipidemia), Large hiatal hernia Instructions: ED Hiatal Hernia Prescriptions: No Action albuterol sulfate 2.5 mg /3 mL (0.083 %) solution for nebulization 2.5 mg INHALATION TID PRN (Reason: Sob &/Or Wheezing) 30 Days Qty: 270 cholecalciferol (vitamin D3) 25 mcg (1,000 unit) capsule 2,000 unit PO DAILY furosemide 20 mg tablet 20 mg PO DAILY PRN (Reason: chf) Label Comments: take 1 tablet by mouth once daily if needed potassium chloride 20 mEq tablet extended release 20 meq PO DAILY PRN (Reason: supplement) Label Comments: TAKE 1 TABLET BY MOUTH DAILY WHEN TAKING LASIX (FUROSEMIDE). meclizine 12.5 mg tablet 12.5 mg PO TID PRN (Reason: Vertigo) Label Comments: TAKE 1 TABLET BY MOUTH EVERY 8 HOURS NEEDED FOR VERTIGO losartan 50 mg tablet 50 mg PO BID Qty: 180 3RF omeprazole 20 mg capsule,delayed release(DR/EC) 20 mg PO DAILY Qty: 90 3RF levothyroxine [Synthroid] 25 mcg tablet 25 mcg PO DAILY Qty: 90 3RF Farxiga 10 mg tablet 10 mg PO DAILY Qty: 30 11RF Hold Instructions: diarrhea carvedilol 25 mg tablet 25 mg PO BID Qty: 180 3RF simvastatin 20 mg tablet 20 mg PO QHS Qty: 90 3RF Primary Care Provider: Tania Roberson Referrals: Cesar Chang DO [Med Staff - Active Staff] - 1-2 Weeks Tania Roberson NP-C [Primary Care Provider] - Disposition Disposition: Home, Self Care
[2022-04-19 23:02] LABS: Troponin-I HS 8 pg/mL (3.0-54.0)
[2022-04-19] MEDS: Mag Hydrox/Al Hydrox/Simeth 30 ML UDC PO (23:15)
[2022-04-19 23:20] VITALS: BP 155/111; PULSE 98; RESP 11
[2022-04-19 23:48] LABS: Reflex Troponin-HS? (from REC) Y
[2022-04-20 00:15] VITALS: BP 144/96; PULSE 94; RESP 14; O2SAT 95
[2022-04-20 00:45] LABS: Troponin-I HS 10 pg/mL (3.0-54.0)
[2022-04-20] MEDS: Morphine 2 MG/ML Syringe IV (01:00)
[2022-04-20 01:02] VITALS: BP 150/91; PULSE 94; RESP 13; O2SAT 97
== END 2022-04-20 01:03 | disposition home or self-care (01) ==
PROVIDERS: Emergency Provider Emergency Medicine; PCP Nurse Practitioner Family; Visit Provider Emergency Medicine
DX: R07.89 Other chest pain (principal); I11.0 Hypertensive heart disease with heart failure; I50.42 Chronic combined systolic (congestive) and diastolic (congestive) heart failure; R11.2 Nausea with vomiting, unspecified; E78.5 Hyperlipidemia, unspecified; K44.9 Diaphragmatic hernia without obstruction or gangrene; Z90.49 Acquired absence of other specified parts of digestive tract; Z95.810 Presence of automatic (implantable) cardiac defibrillator
CPT/HCPCS: 71045; 80048; 84484; 85025; 93005; 96365; 96375; 99284; A4216; J2405; J3490

== ENCOUNTER → 2022-08-07 | Outpatient (CLI) | payer MEDICARE, SELFPAY ==
[2022-08-07 07:54] LABS: Color, Urine Yellow (Yellow); Glucose, Dipstick 1000 mg/dl (Normal); Ketone-Dipstick Negative (Negative); Leukocyte Esterase-Dipstick 500 /ul (Negative); Nitrite-Dipstick Negative (Negative); Occult Blood-Urine 25 /ul (Negative); Protein-Dipstick 30 mg/dl (Negative); Urine Bilirubin Dipstick Negative (Negative); Urine Clarity Sl. Cloudy (Clear); Urine Urobilinogen 1 mg/dl (Normal)
[2022-08-07 09:00] LABS: Vitamin D,25 Hydroxy 64.4 ng/mL
[2022-08-07 09:12] LABS: ALB/GLOB Ratio 0.8 RATIO (0.9-2.4); AST(SGOT) 17 U/L (15-37); Alanine Aminotransfer ALT/SGPT 14 U/L (13-56); Albumin, Serum 3.4 g/dL (3.2-5.0); Alkaline Phosphatase 123 U/L (45-117); Anion Gap 7 (5-15); BUN 14 mg/dL (7-18); BUN/Creat Ratio 13.5 RATIO (10-20); Calcium,Total 9.5 mg/dL (8.5-10.1); Chloride 106 mmol/L (98-107); Cholesterol 150 mg/dL (200); Creatinine, Serum 1.04 mg/dL (0.55-1.02); EST Glomerular Filtration Rate 55 mL/min (>60); Est Glom Filt Rate - Afr Amer 66 mL/min (>60); Globulin 4.4 g/dL (2.2-4.2); Glucose 88 mg/dL (74-106); High Density Lipoprotein 60 mg/dL; Potassium 4.1 mmol/L (3.5-5.1); Protein, Total 7.8 g/dL (6.4-8.2); Sodium Level 142 mmol/L (136-145); Thyroid Stim Hormone (TSH) 3.54 uIU/mL (0.358-3.74); Triglycerides 103 mg/dL; Very Low Density Lipoprotein 21 mg/dL (5-40)
== END | disposition home or self-care (01) ==
LOC: LAB 07:06
PROVIDERS: PCP Nurse Practitioner Family; Referring Provider Nurse Practitioner Family; Visit Provider Nurse Practitioner Family
DX: E55.9 Vitamin D deficiency, unspecified (principal); I11.9 Hypertensive heart disease without heart failure; E03.9 Hypothyroidism, unspecified; E78.2 Mixed hyperlipidemia; N30.01 Acute cystitis with hematuria
CPT/HCPCS: 36415; 80053; 80061; 81002; 82306; 84443; 87086; 87088

== ENCOUNTER → 2023-05-01 | Outpatient (CLI) | payer MEDICARE, SELFPAY ==
--- OUTSIDE RECORDS SUMMARY | 2023-05-01 07:27 | XMS RPT_ITS | CCD ---
Author Name Unknown Address [address] [place] [address] Organization [facility] Care Team Providers Care Senior Software Qa Engineer Name Role Phone Jennifer Man Unavailable Unavailable Ivana Carrera Unavailable Eduardo Lord Unavailable Shayy Oro Unavailable Unavailable Janessa Gamboa E Unavailable Unavailable Unavailable Miranda Vila Unavailable Unavailable Ivana Carrera Unavailable Eduardo Lord Unavailable Shayy Oro Unavailable Unavailable Lele Lyons Unavailable Unavailable Janessa Gamboa Unavailable Unavailable Unavailable Ivana Carrera Unavailable Lele Lyons Unavailable Unavailable Unavailable Unavailable Ivana Carrera Primary Care Provider Pcp, No Primary Care Provider UnavailLele Woodall Unavailable Unavailable An Fitzgerald Unavailable Unavailable NIKHIL Reza Unavailable Unavailable Ivana Carrera MD Unavailable CiJanessa brown CNP Unavailable Dr. Eduardo Lord Unavailable An Fitzgerald LPN Unavailable Unavailable Lele Zuñiga LPN Unavailable Unavailable Unavailable Unavailable RADHA Cross, Elizabeth Albarado Unavailable Unavailable RADHA Cross, Elizabeth M Unavailable Unavailable RADHA Cross, Elizabeth Albarado Unavailable Unavailable MD Vannessa, Pop Brown Unavailable RADHA Cross, Elizabeth Albarado Unavailable Unavailable RADHA Cross, Elizabeth M Unavailable Unavailable Melly RN, Cristin A Unavailable Unavailable Melly RN, Cristin A Unavailable Unavailable Jennifer Man Unavailable Unavailable RADHA Cross, Elizabeth M Unavailable Unavailable RADHA Cross, Elizabeth M Unavailable Unavailable Melly RN, Cristin A Unavailable Unavailable Melly RN, Cristin A Unavailable Unavailable Melly RN, Cristin A Unavailable Unavailable Melly RN, Cristin A Unavailable Unavailable Melly RN, Cristin A Unavailable Unavailable RADHA Cross, Elizabeth M Unavailable Unavailable Ivana Carrera MD Unavailable [phone] Janessa Gamboa Unavailable Da MCKEON, Tania Unavailable [phone] Tania Roberson CNP Unavailable [phone] Tania Roberson CNP Attending Unavailable Da ERP DEVELOPER, Tania Consulting Unavailable Tania Roberson CNP Referring Unavailable Allergies Allergy Classification Reported Allergen(s) Allergy Type Date of Onset Reaction(s) Facility (20 sources) amLODIPine Drug Allergy 10-04-19 11 Edema [facility] Work Phone: (20 sources) clarithromycin Drug Allergy 10-04-19 11 Palpitations [facility] Work Phone: (20 sources) lisinopril Drug Allergy 10-04-19 11 Shortness of breath, cough [facility] Work Phone: (20 sources) pantoprazole Drug Allergy 10-04-19 11 Makes me goofy [facility] Work Phone: (20 sources) Penicillins (Antibiotic) drug allergy 07-08-19 16 [facility] Work Phone: (20 sources) Penicillins; Translations: [Penicillins] allergy to substance 05-03-19 10 [facility] Work Phone: Medications Completed/Discontinued Medications Medication Drug Class(es) Dates Sig (Normalized) Sig (Original) albuterol 0.83 mg/ml inhalation solution (20 sources) beta2-Adrenergic Agonist Start: 05-12-2019 Albuterol Sulfate (2.5 MG/3ML) 0.083% Inhalation Nebulization Solution 1 (one) each qid prn for 30 days Quantity: 1 {Box} Refills: 11 Ordered: 24-Feb-2020 Janessa Gamboa Start : 12-May-2019 Active Problems Active Problems Problem Classification Problem Date Documented Da te Episodic/Chronic Acute and unspecified renal failure (20 sources) Acute injury of kidney; Translations: [Acute kidney injury] Resolved: 06-07-2021 03-08-2021 Episodic Past or Other Problems Problem Classification Problem Date Documented Date Episodic/Chronic Acute bronchitis (20 sources) Acute bronchitis Chronic obstructive pulmonary disease and bronchiectasis (20 sources) Chronic obstructive pulmonary disease and bronchiectasis Complications of surgical procedures or medical care (20 sources) Functional disturbances following cardiac surgery; Translations: [Functional disturbances following cardiac surgery] Resolved: 01-01-2015 01-01-2015 Chronic Results Test Name Value Interpretation Reference Range Facil ity Vital Signs Date Time Vital Sign Value Performing Clinician Facility 02-01-2022 13:25-0500 Body height 161.93 cm An Fitzgerald LPN [facility] Work Phone: 02-01-2022 13:25-0500 Body mass index (BMI) [Ratio] 33.47 kg/m2 An Fitzgerald LPN [facility] Work Phone: 02-01-2022 13:25-0500 Body surface area Derived from formula 1.92 m2 An Fitzgerald LPN [facility] Work Phone: 02-01-2022 13:25-0500 Body temperature 98.1 [degF] An Fitzgerald LPN [facility] Work Phone: 02-01-2022 13:25-0500 Body weight 87.77 kg An Fitzgerald LPN [facility]; [facility] Work Phone: 02-01-2022 13:25-0500 Diastolic blood pressure 80 mm[Hg] An Fitzgerald LPN [facility]; [facility] Work Phone: Encounters Encounter Date Encounter Type Care Provider Facility Start: 02-01-2022 ambulatory Tania Roberson CNP [facility] Start: 02-01-2022 End: 02-07-2022 Office outpatient visit 15 minutes Tania Roberson CNP Work Phone: [facility] Start: 02-01-2022 Review Tania Roberson CNP Work Phone: [facility] Start: 10-26-2021 End: 10-26-2021 Patient encounter procedure Tania Roberson CNP Work Phone: [facility] Start: 10-26-2021 Review Tania Roberson CNP Work Phone: [facility] Start: 09-30-2021 End: 09-30-2021 Office outpatient visit 25 minutes Tania Roberson CNP Work Phone: [facility] Start: 06-14-2021 End: 06-14-2021 Office outpatient visit 10 minutes Ivana Carrera MD Work Phone: [facility] Start: 06-07-2021 End: 06-07-2021 Office outpatient visit 25 minutes Ivana Carrera MD Work Phone: [facility] Start: 03-08-2021 End: 03-08-2021 Office outpatient visit 15 minutes Ivana Carrera MD Work Phone: [facility] Start: 03-04-2021 End: 03-04-2021 Office outpatient visit 25 minutes Ivana Carrera MD Work Phone: [facility] Start: 01-21-2021 End: 01-21-2021 Office outpatient visit 10 minutes Ivana Carrera MD Work Phone: [facility] Start: 01-19-2021 End: 01-19-2021 Office outpatient visit 10 minutes Ivana Carrera MD Work Phone: [facility] Start: 01-18-2021 End: 01-18-2021 Office outpatient visit 15 minutes Ivana Carrera MD Work Phone: [facility] Start: 01-17-2021 End: 01-17-2021 Office outpatient visit 15 minutes Ivana Carrera MD Work Phone: [facility] Start: 10-04-2020 End: 10-04-2020 Office outpatient visit 15 minutes Ivana Carrera MD Work Phone: [facility] Start: 05-18-2020 End: 05-18-2020 Office outpatient visit 15 minutes Ivana Bonejonel [facility] Start: 04-14-2020 End: 04-14-2020 Lab Order Ivana Bonephili [facility] Start: 01-16-2020 End: 01-16-2020 Office outpatient visit 25 minutes Ivana Bonejonel [facility] Start: 09-16-2019 End: 09-16-2019 Annotation/Addendum Ivana Bonejonel [facility] Start: 09-15-2019 End: 09-15-2019 Office outpatient visit 25 minutes Ivana Bonejonel [facility] Start: 06-18-2019 End: 06-20-2019 Annotation/Addendum Ivana Bonejonel [facility] Start: 05-13-2019 End: 05-13-2019 Lab Order Ivana Bonejonel [facility] Start: 05-12-2019 End: 05-12-2019 Office outpatient visit 25 minutes Ivana Carrera [facility] Start: 01-15-2019 End: 01-15-2019 Office outpatient visit 15 minutes Ivana Bonejonel [facility] Start: 12-06-2018 End: 12-06-2018 Office outpatient visit 15 minutes Ivana Bonejonel [facility] Start: 11-29-2018 End: 11-29-2018 Office outpatient visit 25 minutes Ivana Boneojnel [facility] Start: 11-29-2018 [facility] Start: 02-27-2018 End: 02-27-2018 Office outpatient visit 15 minutes Ivana Bonejonel [facility] Start: 02-20-2018 End: 02-20-2018 Phone Encounter Ivana Carrera [facility] Start: 02-20-2018 End: 02-20-2018 Office outpatient visit 25 minutes Ivana Bonejonel [facility] Start: 01-30-2018 End: 01-30-2018 Office outpatient visit 25 minutes Ivana Bonejonel [facility] Start: 06-04-2015 End: 06-04-2015 Periodic preventive med est patient 18-39 yrs Ivana Carrera [facility] Start: 04-23-2015 End: 04-23-2015 Lab Order Ivana Bonejonel [facility] Start: 04-23-2015 End: 04-23-2015 Patient encounter procedure Tania Roberson ERP DEVELOPER Work Phone: [facility] Start: 04-23-2015 End: 04-23-2015 Periodic preventive med est patient 18-39 yrs Ivana Bonezzi [facility] Start: 04-01-2015 End: 04-05-2015 Office outpatient visit 15 minutes Ivana Bonezzi [facility] Start: 03-22-2015 End: 03-22-2015 Phone Encounter Ivana Bonezzi [facility] Start: 03-09-2015 End: 03-09-2015 Periodic preventive med est patient 40-64yrs Ivana Bonezzi [facility] Start: 01-01-2015 End: 01-01-2015 Office outpatient visit 40 minutes Ivana Bonezzi [facility] Start: 01-30-2014 End: 01-30-2014 Office outpatient visit 25 minutes Ivana Bonezzi [facility] Start: 01-02-2011 End: 01-02-2011 Office outpatient visit 25 minutes Ivana Bonezzi [facility] Start: 08-19-2009 End: 08-19-2009 Patient encounter Ivana Bonezzi [facility] Start: 02-23-2009 End: 02-23-2009 Office outpatient visit 25 minutes Ivana Bonezzi [facility] Start: 09-03-2008 End: 09-03-2008 Historical Summary Ivana Bonezzi [facility] Start: 06-22-2008 End: 06-22-2008 Patient encounter Ivana Bonezzi [facility] Start: 02-21-2008 End: 02-21-2008 Patient encounter Ivana Bonezzi [facility] Start: 11-01-2007 End: 11-01-2007 Patient encounter Ivana Bonezzi [facility] Start: 04-11-2006 End: 04-11-2006 Patient encounter procedure Robin Mejia Work Phone: [facility] Start: 04-11-2006 Results Only Robin Mejia Work Phone: [facility] End: 01-01-2015 Patient encounter procedure NIKHIL Reza [employer] [facility] Work Phone: Patient encounter procedure An Fitzgerald [employer] Work Phone: Procedures Date Procedure Procedure Detail Performing Clinician Start: 01-11-2022 End: 01-11-2022 Emergency Department Summary Procedure Note: See Note; NOTES: [facility] Records Department [address] [place] [address] Emergency Department Summary 01/11/22 MR#: [id number] Acct: [id number] Name: LIBIA MOYA Rep #: [id number] : 1945 76 From: Damir Ngo MD PCP: Tania Roberson [employer] Status:DEP ER Location: ED HPI History of Present Illness Chief Complaint: Other, Pain/Inj Detail of Chief Complaint: Lateral neck pain Informant: patient Onset/Context/Timing Onset: Days Context: Gradual Onset Injury: direct trauma Timing: Continuous Quality: Dull and Aching Location: See diagram (Left lateral neck) Current Severity: Mild Maximum Severity: Mild Worsened by: improves with Movement Relieved by: Nothing Associated Symptoms Associated Symptoms: Negative for Numbness, Tingling, Radiation to Right Leg, Radiation to Left Leg, Fever, Abdominal Pain, Dysuria, Unable to Ambulate, Urinary Retention, Urinary Incontinence, Constipation or Fecal Incontinence Narrative Narrative: 76-year-old female history of cardiac disease with defibrillator. Received her flu vaccine in the right arm last Sunday. Over the weekend she started having stiffness to the left lateral side of her neck. Typically she does not have neck problems. She is never had neck surgery. She denies any recent falls or trauma. Nothing she can attribute to having caused her neck to be sore. Worse with movement. She denies any numbness or tingling or weakness to upper extremities. No back pain. No fever. Prior similar symptoms: No Recent Illness/Hospitalization: No PFSH PFS Medical History Chronic combined systolic and diastolic CHF (congestive heart failure) Congestive heart failure (CHF) Diastolic dysfunction Essential (primary) hypertension HLD (hyperlipidemia) Hypothyroidism LBBB (left bundle branch block) Nonischemic cardiomyopathy Paroxysmal ventricular tachycardia Home Medications albuterol sulfate 2.5 mg/3 mL (0.083 %) solution for nebulization 2.5 mg inhalation TID PRN Sob /Or Wheezing 30 days #270 mL 08/09/18 [History Last Taken Unknown] ondansetron 4 mg disintegrating tablet 4 mg PO Q6H PRN PRN Nausea #15 tabs 01/08/21 [Rx Last Taken Unknown] carvedilol 25 mg tablet 25 mg PO BID #180 tabs 01/17/21 [Rx Last Taken Unknown] simvastatin 20 mg tablet 20 mg PO QHS #90 tabs 02/21/21 [Rx Last Taken Unknown] furosemide 20 mg tablet 20 mg PO DAILY PRN 05/03/21 [History Last Taken Unknown] meclizine 12.5 mg tablet 12.5 mg PO TID PRN 05/03/21 [History Last Taken Unknown] potassium chloride 20 mEq tablet,extended release 20 meq PO DAILY PRN 05/03/21 [History Last Taken Unknown] losartan 50 mg tablet 50 mg PO BID #180 tabs 10/03/21 [Rx Last Taken Unknown] cholecalciferol (vitamin D3) 25 mcg (1,000 unit) capsule 2,000 unit PO DAILY 11/23/21 [History Last Taken Unknown] omeprazole 20 mg capsule,delayed release 20 mg PO DAILY #90 caps 12/19/21 [Rx Last Taken Unknown] dapagliflozin 10 mg tablet (Farxiga) 10 mg PO DAILY #30 tabs 01/02/22 [Rx Last Taken Unknown] levothyroxine 25 mcg tablet (Synthroid) 25 mcg PO DAILY #90 tabs 01/02/22 [Rx Last Taken Unknown] metaxalone 800 mg tablet 800 mg PO TID 7 days #21 tabs 01/11/22 [Rx Last Taken Unknown] Allergy/AdvReac Type Severity Reaction Status Date / Time amlodipine [From Norvasc] Allergy Unknown Verified 11/23/21 10:50 clarithromycin [From Biaxin] Allergy Unknown Verified 11/23/21 10:50 lisinopril [From Prinivil] Allergy Unknown Verified 11/23/21 10:50 pantoprazole [From Protonix] Allergy Unknown Verified 11/23/21 10:50 Penicillins [PCN] Allergy Rash Verified 11/23/21 10:50 sacubitril [From Entresto] AdvReac Intermediate Really Verified 11/23/21 10:50 dizzy, didn't feel well valsartan [From Entresto] AdvReac Intermediate Really Verified 11/23/21 10:50 dizzy, didn't feel well Family History Father Myocardial infarction CAD (coronary artery disease) [place]'s disease Mother Diabetes Myocardial infarction Hypertension FH: CABG (coronary artery bypass surgery) Grandfather Myocardial infarction Brother Negra's disease Sister Negra's disease Diabetes Son Diabetes Surgical History History of appendectomy ( 03/2006) History of left heart catheterization (07/19/04) History of tubal ligation ( 1979) Hx laparoscopic cholecystectomy ( 04/2009) Presence of biventricular implantable cardioverter-defibrillator (ICD) (02/15/17) Social History Smoking Status: Never smoker alcohol intake: never substance use type: does not use caffeine: Yes Type: coffee what type of physical activity do you participate in: none seatbelt use: always do you feel safe at home: Yes ROS ROS ED ROS Narrative Denies recent illness. Review of Systems ROS Unobtainable: Denies due to encephalopathy Constitutional Constitutional ED: Denies fever(s) Eyes Eyes: Denies blurry vision ENT ENT ED: Denies ear pain Cardiovascular Cardiovascular: Denies chest pain Respiratory/Chest Respiratory/Chest: Denies dyspnea Gastrointestinal Gastrointestinal: Denies abdominal pain Genitourinary Genitourinary ED: Denies dysuria Musculoskeletal Musculoskeletal: Denies arthralgias Integumentary Denies abscess Neurologic Neurologic: Denies headache(s) Psychiatric Psychiatric: Denies anxiety Endocrine Endocrinology: Denies cold intolerance Hematologic/Lymphatic Hematologic/Lymphatic: Denies easy bleeding Allergic/Immunologic Allergic/Immunologic ED: Denies mouth swelling or tongue swelling EXAM Physical Exam Narrative Exam Narrative: 76 female no acute distress. Vital signs stable afebrile. H EENT exam unremarkable. Neck she has left lateral posterior soft tissue tenderness of her neck consistent with paracervical muscle tenderness. There is no redness or warmth. No lymphadenopathy. Bones nontender. Right side is nontender. She has normal range of motion to her neck with some discomfort when she rotates to the left. Trachea midline. Lungs clear to auscultation. Heart regular rhythm rate about 90 no murmur. Abdomen soft nontender. Moving all 4 extremities. Normal strength. Neurologic exam unremarkable. Const Vital Signs: 01/11/22 04:38 Temperature 97.3 F L Temperature Source Temporal Pulse Rate 88 Respiratory Rate 16 Blood Pressure 156/96 H Blood Pressure Mean 116 Pulse Ox 95 Oxygen Delivery Method Room Air Positive well nourished and well developed; Negative for cachectic, contractures or unkempt General Appearance ED: well developed and NAD; Negative for unkempt, cachectic, contractures or pallor Nutritional Appearance: Negative for cachectic HEENT Reports moist mucous membranes; Denies dry mucous membranes Negative for trauma or tenderness Mouth ED: No dry mucous membranes Mouth: No dry mucous membranes Eyes PERRL and EOMs intact bilaterally General Eye ED: Negative for pale conjunctiva or scleral icterus Neck no lymphadenopathy, supple and no JVD Neck Narrative: Mild left lateral neck soft tissue tenderness consistent with myofascial strain and spasm. No lymphadenopathy. Full range of motion. General: tenderness Chest Wall Chest: Negative for other Resp normal respiratory effort and clear to auscultation bilaterally Auscultation: Negative for rales, rhonchi or wheezes Cardio regular rate, regular rhythm, S1 normal heart sound, S2 normal heart sound and no murmurs Palpation: Negative for palpable S3 Rate: Negative for bradycardia Rhythm: Negative for abnormal rhythm Bruits: Negative for other GI normal to inspection, nondistended, normoactive bowel sounds, soft to palpation, non-tender, non- distended and no masses Inspection: Negative for abdominal distention Palpation: Negative for tender or guarding Back/Spine normal to inspection and no thoracic nor lumbar tenderness General Back: Negative for CVA tenderness Cervical Spine: Negative for cervical spine tenderness and paracervical muscle tenderness Thoracic Spine / Upper Back: Negative for paraspinal muscle tenderness Lumbar Spine / Lower Back: Negative for ROM limited Extremity normal to inspection and no clubbing, cyanosis or edema General Extremety ED: Negative for edema or tenderness General Extremity: Negative for edema Neuro oriented x3 Sensorium / Orientation: alert; Negative for confused, lethargic or stuporous Sensory Exam: No other Motor Exam: strength 5/5 throughout Psych mental status grossly normal Appearance: Negative for unkempt Attitude: No agitated Mood Affect: Negative for depressed or sad Skin no rashes or lesions noted and no wounds General Skin Exam: Negative for jaundice or pallor Lesions: No lesion noted Rashes: No rashes noted Trauma: Negative for abrasion Wounds: Negative for wounds noted MDM MDM MDM Narrative Medical decision making narrative: 76-year-old female with atraumatic left lateral neck discomfort consistent with myofascial strain and spasm. No history of any trauma. She does not any x-rays or lab work. We discussed conservative treatment such as Motrin, Tylenol, hot shower, warm bath and massage. She will be written for the muscle relaxant Skelaxin to use as needed. Discharge Plan Triage Chief Complaint: Other, Pain/Inj ED Provider: Damir Ngo Dx/Rx/DC Orders Clinical Impression: Muscle spasms of neck, History of hypertension, History of CHF (congestive heart failure) Instructions: ED Neck Spasm, No Trauma Prescriptions: New metaxalone 800 mg tablet 800 mg PO TID 7 Days Qty: 21 0RF No Action albuterol sulfate 2.5 mg /3 mL (0.083 %) solution for nebulization 2.5 mg INHALATION TID PRN (Reason: Sob /Or Wheezing) 30 Days Qty: 270 cholecalciferol (vitamin D3) 25 mcg (1,000 unit) capsule 2,000 unit PO DAILY furosemide 20 mg tablet 20 mg PO DAILY PRN Label Comments: take 1 tablet by mouth once daily if needed potassium chloride 20 mEq tablet extended release 20 meq PO DAILY PRN Label Comments: TAKE 1 TABLET BY MOUTH DAILY WHEN TAKING LASIX (FUROSEMIDE). meclizine 12.5 mg tablet 12.5 mg PO TID PRN Label Comments: TAKE 1 TABLET BY MOUTH EVERY 8 HOURS NEEDED FOR VERTIGO ondansetron [ondansetron] 4 MG tablet 4 mg PO Q6H PRN PRN (Reason: Nausea) Qty: 15 0RF carvedilol 25 mg tablet 25 mg PO BID Qty: 180 3RF simvastatin 20 mg tablet 20 mg PO QHS Qty: 90 3RF losartan 50 mg tablet 50 mg PO BID Qty: 180 3RF omeprazole 20 mg capsule,delayed release(DR/EC) 20 mg PO DAILY Qty: 90 3RF levothyroxine [Synthroid] 25 mcg tablet 25 mcg PO DAILY Qty: 90 3RF Farxiga 10 mg tablet 10 mg PO DAILY Qty: 30 11RF Hold Instructions: diarrhea Primary Care Provider: Tania Roberson Referrals: Tania Roberson, [employer] [Primary Care Provider] - 1 Week if not improving Activity Restrictions/Additional Instructions: Your exam is consistent with muscle spasms in the left side of your neck. Hot shower, warm bath and massage should all help decrease the pain and discomfort and relax the muscle. Motrin for pain and inflammation. Tylenol for pain. Massage to your neck. The muscle relaxant Skelaxin 1 pill 3 times a day for 1 week will also help with the muscle spasms in your neck. I would try the other measures first if its not improving then use a prescription. Disposition Disposition: Home, Self Care What to do if you have Problems For any increased pain, shortness of breath, bleeding, nausea or vomiting, chest pain, or any unexpected problems, contact your Primary Care Provider. Call [facility] ([phone]) or report to the closest Emergency Room. Call 911 if necessary. 01/11/22 0741 <Electronically signed by Damir Ngo MD> Cosigner Signature (if applicable): CC: LANDEN Roberson Signed Tania Roberson [facility] Work Phone: Start: 11-23-2021 End: 11-23-2021 Cardiology Visit Report Procedure Note: See Note; NOTES: [facility] [address] [place], [place] [address] OFFICE VISIT Date of Service: 11/23/21 MR#: [id number] Acct: [id number] Name: LIBIA MOYA Rep #: [id number] : 1945 Provider: CLAUDIO Molina Age/Sex: 76/F Location: [facility] [place] Status: Signed [facility] History of Present Illness Details: LIBIA MOYA is a 76 F who presents to the office today for a cardiovascular follow-up. She has a history of nonischemic cardiomyopathy with a biventricular ICD, hypertension and hyperlipidemia. It is noted that her EF decreased to 25% in 03/2021. She did not tolerate Entresto, she was started on Farxiga. Repeat echo demonstrated no improvement EF was 25%. She is noticing diarrhea every night, she wonders if this has to do with her medications as this is newer. She does not have any worsening SOB. She does not have any chest pain. She does not have any symptoms of CHF. She does occasionally have positional lightheadedness. She does not have any lower extremity edema. She does not have any symptoms of claudication. 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 Is patient in pain?: No Allergies amlodipine [From Norvasc] Allergy (Verified 11/23/21 10:50) Unknown clarithromycin [From Biaxin] Allergy (Verified 11/23/21 10:50) Unknown lisinopril [From Prinivil] Allergy (Verified 11/23/21 10:50) Unknown pantoprazole [From Protonix] Allergy (Verified 11/23/21 10:50) Unknown Penicillins [PCN] Allergy (Verified 11/23/21 10:50) Rash sacubitril [From Entresto] Adverse Reaction (Intermediate, Verified 11/23/21 10:50) Really dizzy, didn't feel well valsartan [From Entresto] Adverse Reaction (Intermediate, Verified 11/23/21 10:50) Really dizzy, didn't feel well Medications albuterol sulfate 2.5 mg/3 mL (0.083 %) solution for nebulization 2.5 mg inhalation TID PRN Sob /Or Wheezing 30 days #270 mL 08/09/18 [History Confirmed 05/03/21] levothyroxine 25 mcg tablet (Synthroid) 25 mcg PO DAILY #90 tabs 11/19/20 [Rx Confirmed 11/23/21] omeprazole 20 mg capsule,delayed release 20 mg PO DAILY #90 caps 12/27/20 [Rx Confirmed 11/23/21] ondansetron 4 mg disintegrating tablet 4 mg PO Q6H PRN PRN Nausea #15 tabs 01/08/21 [Rx Confirmed 05/03/21] carvedilol 25 mg tablet 25 mg PO BID #180 tabs 01/17/21 [Rx Confirmed 11/23/21] simvastatin 20 mg tablet 20 mg PO QHS #90 tabs 02/21/21 [Rx Confirmed 06/21/21] furosemide 20 mg tablet 20 mg PO DAILY PRN 05/03/21 [History Confirmed 05/03/21] meclizine 12.5 mg tablet 12.5 mg PO TID PRN 05/03/21 [History Confirmed 05/03/21] potassium chloride 20 mEq tablet,extended release 20 meq PO DAILY PRN 05/03/21 [History Confirmed 06/21/21] dapagliflozin 10 mg tablet (Farxiga) 10 mg PO DAILY #90 tabs 05/26/21 [Rx Confirmed 06/21/21] losartan 50 mg tablet 50 mg PO BID #180 tabs 10/03/21 [Rx Confirmed 11/23/21] cholecalciferol (vitamin D3) 25 mcg (1,000 unit) capsule 2,000 unit PO DAILY 11/23/21 [History Confirmed 11/23/21] [facility] Medical History Chronic combined systolic and diastolic CHF (congestive heart failure) Congestive heart failure (CHF) Diastolic dysfunction Essential (primary) hypertension HLD (hyperlipidemia) Hypothyroidism LBBB (left bundle branch block) Nonischemic cardiomyopathy Paroxysmal ventricular tachycardia Surgical History History of appendectomy ( 03/2006) History of left heart catheterization (07/19/04) History of tubal ligation ( 1979) Hx laparoscopic cholecystectomy ( 04/2009) Presence of biventricular implantable cardioverter-defibrillator (ICD) (02/15/17) Family History Father Myocardial infarction CAD (coronary artery disease) Watonwan's disease Mother Diabetes Myocardial infarction Hypertension FH: CABG (coronary artery bypass surgery) Grandfather Myocardial infarction Brother Watonwan's disease Sister Negra's disease Diabetes Son Diabetes Social History Smoking Status: Never smoker alcohol intake: never substance use type: does not use caffeine: Yes Type: coffee what type of physical activity do you participate in: none seatbelt use: always do you feel safe at home: Yes ROS Const Const: Negative for fatigue, weakness, headache(s), frequent falls, difficulty sleeping or excessive sweating Eyes Eyes: Negative for loss of peripheral vision, transient loss of vision, blurry vision, double vision or tunnel vision ENT ENT: Negative for headache(s), dizziness, Nosebleed/epistaxis or balance problems Cardio Chest Pain: No Palpitations: No Edema: None Muscle aches with walking: None Resp Respiratory: Negative for SOB with activity, SOB at rest, SOB orthopnea SOB lying down, Cough or paroxysmal nocturnal dyspnea GI GI: Positive for loose stools; Negative nausea, vomiting, heartburn or black,tarry stools : Negative for hematuria Musc Musc: Negative for muscle aches/ myalgia, muscle weakness, joint pain or balance problems Skin Skin: Negative non-healing lesions, rash or unusual bruising Neuro Neuro: Positive for vertigo; Negative for dizziness, lightheadedness, near syncope, syncope, frequent falls, headache(s), weakness, blurry vision, double vision or lack of coordination Jc Hematologic/Lymphatic: Negative for easy bleeding or easy bruising Endo Endo: Negative for fatigue, excessive sweating or increased thirst/drinking Psych Psych: Negative for anxiety or depression Allergy Allergy/Immunology: Negative for hives and Negative for rash Cardiology Exam Const Appearance: cooperative, healthy appearing, comfortable, no acute distress and well developed Orientation: alert, awake and oriented x3 Head Head: normal to inspection Ears: hearing grossly normal bilaterally Nose: external nose normal Face and Sinus: face symmetric Mouth: oral mucosae normal, lip normal and moist mucous membranes Eyes General: appearance normal, both eyes and all related structures Eyelids: eyelids normal Conjunctivae: conjunctivae normal Pupils: PERRL EOM: EOM intact bilaterally Neck Neck: normal visual inspection and trachea midline; Negative no JVD Carotids: Negative bruit Chest Chest inspection: normal inspection of the chest Auscultation: Bilateral: Clear to Auscultation Cardio Palpation: normal PMI Rate: regular rate Rhythm: regular rhythm Heart sounds: S1 normal and S2 normal; Negative rub, gallop or murmur GI GI: soft, no hepatosplenomegaly and bowel sounds present Neuro General: patient alert, patient awake, patient oriented x3 and CN's II-XI intact bilaterally Extremities Pulses: Normal: Right Posterior Tibial Pulse, Left Posterior Tibial Pulse, Right Radial Pulse and Left Radial Pulse Lower Extremity Edema: None: Bilateral Psych Psychological: normal affect Supplemental Info Supplemental Information Echocardiogram in August 2018 demonstrated: Normal LV size. The estimated ejection fraction is 35 %. Stage 2 diastolic dysfunction. There is moderate to severe global hypokinesis of the left ventricle. The left atrium is mildly enlarged. Mild (1+) eccentric mitral valve insufficiency. Mild focal aortic valve calcification. Compared to prior study, there is no significant change. Echocardiogram 03/2021: Mildly dilated left ventricle. The estimated ejection fraction is 25 %. There is severe global hypokinesis of the left ventricle. Stage 1 diastolic dysfunction. Compared to previous study, the left ventricular systolic function has worsened.. Echocardiogram 09/2021: Normal LV size. The estimated ejection fraction is 25 %. There is moderate to severe global hypokinesis of the left ventricle. ICD or pacer leads identified within the right ventricle. Stage 1 diastolic dysfunction. The global longitudinal strain is severely abnormal. The global longitudinal strain = -9.7% (abnormal). Labs: No Data to Display Diagnostics: Echocardiogram Pacemaker Check Chest X-Ray Venous Doppler Study Pulmonary: No Data to Display Assessment and Plan Assessment and Plan (1) Nonischemic cardiomyopathy: Status: Chronic Plan: Patient's EF has not improved with the addition of Farxiga. She is questioning if she is tolerating this. As she is having issues with her diarrhea we will have her hold this medications. She will call us back in a few weeks with an update. If her diarrhea does not resolve that she was advised that we will restart this medication. She did not tolerate any Entresto. She will continue with her carvedilol and her losartan. (2) Essential (primary) hypertension: Status: Chronic Plan: Blood pressure is well controlled on current medications, we do not recommend any changes at this time. (3) HLD (hyperlipidemia): Status: Chronic Qualifiers: Hyperlipidemia type: pure hypercholesterolemia Qualified Code(s): E78.00 - Pure hypercholesterolemia, unspecified; E78.0 - Pure hypercholesterolemia Plan: Patient will continue with moderate intensity statin (4) Presence of biventricular implantable cardioverter-defibrillator (ICD): Status: Chronic Comment: BI-V ICD upgrade 11/2005,GENERATOR CHANGE 03/23/2011;02/15/2017 Plan: ICD is functioning appropriately. We will continue to monitor with routine scheduled ICD interrogations. Patient has not had any discharges from their device. Medications: On Hold dapagliflozin (Farxiga) Hold Comment: diarrhea 10 mg PO DAILY 90 tabs 3RF Patient Instructions: Please let me know in a few weeks if hold the farxiga helped with your symptoms Plan Details Follow Up: 11/23/21 (keep as is) Coding Level of Care Code Off vis,est,level 3 Diagnoses Nonischemic cardiomyopathy I42.8 Essential (primary) hypertension I10 HLD (hyperlipidemia) E78.00; E78.0 Hyperlipidemia type: pure hypercholesterolemia Presence of biventricular implantable cardioverter-defibrillator (ICD) Z95.810 Coding Level of Care Code Off vis,est,level 3 Diagnoses Nonischemic cardiomyopathy I42.8 Essential (primary) hypertension I10 HLD (hyperlipidemia) E78.00; E78.0 Hyperlipidemia type: pure hypercholesterolemia Presence of biventricular implantable cardioverter-defibrillator (ICD) Z95.810 11/23/21 1123 <Electronically signed by Velma Pickard> Date Velma Castillo Signature: Date (if applicable) CC: PECAN CLEANERCa Roberson [facility] Work Phone: Start: 11-09-2021 End: 11-09-2021 Pacemaker Check Procedure Note: See Note; NOTES: [facility] [place] [address] Pacemaker Check Date of Service: 11/09/21 1756 MR#: [id number] Acct: [id number] Name: LIBIA MOYA Rep #: [id number] : 1945 From: Cathleen Cross Age/Sex: 76/F Location: [facility] Status: Signed Billing Codes ICD Device Billing: ICD Dev Interrogate (Rmt) Assessment and Plan Assessment and Plan (1) Nonischemic cardiomyopathy: Status: Chronic (2) Presence of biventricular implantable cardioverter-defibrillator (ICD): Status: Chronic Comment: BI-V ICD upgrade 11/2005,GENERATOR CHANGE 03/23/2011;02/15/2017 11/09/21 1759 <Electronically signed by Cathleen Cross > Date Cathleen Cross Cosigner Signature: Date (if applicable) CC: Tania Roberson [facility] Work Phone: Start: 10-19-2021 End: 10-26-2021 Dexa Bone Density Study Comments: See Note; NOTES: [facility] Imaging Services [address] [place] [id number] Dexa Bone Density Study MR#: [id number] Acct: [id number] Name: LIBIA MOYA Rep #: [id number] : 1945 F 75 From: Reyes ayers MD PCP: LANDEN Martel Status: [facility] Study: Dexa Bone Density Study Date of Exam: 10/19/21 Exam# [id number] Ordering Dr: Tania Roberson STUDY: DUAL ENERGY X-RAY ABSORPTIOMETRY / DXA REASON FOR EXAM: Female, 75 years old. [id number]. Patient is postmenopausal. TECHNIQUE: Bone Mineral Density (BMD) measurements of lumbar spine and bilateral hips were obtained. COMPARISON: Comparison is made with prior study from 05/22/2019. FINDINGS: Lumbar Spine (L1-L4): g/cm2 (0.794) / T-score (-2.6) / Z-score (0.0) Findings are suggestive of osteoporosis with a high fracture risk. Left Femur Total: g/cm2 (0.795) / T-score (-1.2) / Z-score (0.7) Left Femoral Neck: g/cm2 (0.725) / T-score (-1.1) / Z-score (1.1) Right Femur Total: g/cm2 (0.785) / T-score (-1.3) / Z-score (0.6) Right Femoral Neck: g/cm2 (0.632) / T-score (-2.0) / Z-score (0.2) The T-Scores on the most recent prior examination were: Lumbar Spine (L1-L4): There has been improvement of bone density since the previous examination. Left Femur Total: which represents an improvement of 0.5%. Right Femur Total: which represents an improvement of 1.1%. BD/Dexa Bone Density Study IMPRESSION: The patient is considered osteoporotic as outlined below according to World Diony Organization (WHO) criteria with a high fracture risk. There has been improvement of bone density since the previous examination. Reference Information: The T-score is the number of standard deviations above or below the standard which is normal for young adults at their peak bone mineral density. The World Health Organization (WHO) interprets the T-scores as follows: Above -1 Normal bone density Between -1 and -2.5 Osteopenia Equal to / or below -2.5 Osteoporosis As a practical clinical guideline, osteopenia may be graded as follows: Mild -1 through -1.5 Moderate -1.6 through -2.0 Severe -2.1 through -2.4 The Z-score is the number of standard deviations above or below age-matched controls. A Z-score of less than -1.5 would be considered abnormal. References: 1. NIH Osteoporosis and Related Bone Diseases www osteo.org 2. International Society for Clinical Densitometry www iscd.org 3. National Osteoporosis Foundation www nof.org Electronically Signed: Reyes Anglin MD at 12:23 EDT , CC: LANDEN Roberson; LANDEN Gamboa Visual Merchandising Director: Signed Tania Roberson CNP Work Phone: Start: 10-19-2021 End: 10-19-2021 SCRN MAMM (CAD)W/PRUDENCE BILAT Comments: See Note; NOTES: [facility] Imaging Services [address] [place] [address] SCRN MAMM (CAD)W/PRUDENCE BILAT MR#: [id number] Acct: [id number] Name: LIBIA MOYA Rep #: [id number] : 1945 F 75 From: Maynor Bautista MD PCP: LANDEN Martel Status: REG CLI Study: SCRN MAMM (CAD)W/PRUDENCE BILAT Date of Exam: 06/07 Exam# [id number] Ordering Dr: Tania Roberson MAMMOGRAPHY - BILATERAL SCREENING 3-D TOMOSYNTHESIS REASON FOR EXAM: Female, 75 years old. Annual screening mammogram. PERTINENT HISTORY: Left cardiac defibrillator/pacemaker. TECHNIQUE: 2-D mammograms and 3-D Tomosynthesis of the breast (s) were performed. CAD was performed. COMPARISON: 10/18/2020, 05/22/2019. FINDINGS: The breast composition is composed of scattered fibroglandular density. Stable lymph nodes. No dense spiculated masses or suspicious microcalcifications are identified. No architectural distortion is identified. There is no skin thickening or retraction. BI/SCRN MAMM (CAD)W/PRUDENCE BILAT IMPRESSION: No interval change and no mammographic signs of malignancy. Routine yearly mammograms recommended. ASSESSMENT CATEGORY: BIRADS Category 2: Benign. A letter regarding these results will be sent to the patient by the facility within 30 days. FOLLOW UP RECOMMENDATION: Yearly follow up mammogram recommended. (A) Approximately 10% of breast cancers are not detected by mammography. A normal mammogram should not delay biopsy of a clinically suspicious abnormality. Electronically Signed: Maynor Bautista MD at 12:15 EDT , CC: LANDEN Roberson; LANDEN Gamboa Visual Merchandising Director: Signed Tania Roberson CNP Work Phone: Start: 10-03-2021 End: 10-03-2021 Echo, Limited Study Comments: See Note; NOTES: [facility] [address] [place] [address] Echo, Limited Study 10/03/21 1107 MR#: [id number] Acct: [id number] Name: LIBIA MOYA Rep #: [id number] : 1945 75 From: Pop Hurd MD Attending Dr: CLAUDIO Meza Status: REG CLI Ordering Dr: Velma Sullivan Date: 09/16 11/07 Location: [facility] Sex: F C Admitted: Reason For Study: CMP Procedure This was a limited 2D transthoracic echocardiogram. Myocardial strain analysis was performed in this exam to aid in the assessment of cardiac function. Exam performed in department. Left Ventricle Normal LV size. The estimated ejection fraction is 25 %. Stage 1 diastolic dysfunction. There is moderate to severe global hypokinesis of the left ventricle. Right Ventricle Normal RV size. ICD or pacer leads identified within the right ventricle. Normal systolic function. Mitral Valve Normal mitral valve. Tricuspid Valve Normal tricuspid valve. Aortic Valve The aortic valve is not well visualized. Pulmonic Valve Normal pulmonic valve. Great Vessels Normal aortic root. The pulmonary artery is normal size. Normal inferior vena cava. Pericardium/Pleural No pericardial effusion. MMode/2D Measurements Calculations LVIDd: 5.0 cm IVSd: 1.0 cm Ao root diam: 3.8 cm LVIDs: 4.1 cm LVPWd: 1.1 cm LA dimension: 3.1 cm FS: 17.9 % LVAd ap4: 32.2 cm2 SV(MOD-sp4): 28.6 ml SV(sp4-el): 32.1 ml LVLd ap4: 7.2 cm EDV(MOD-sp4): 116.0 ml EDV(sp4-el): 121.7 ml LVAs ap4: 26.7 cm2 LVLs ap4: 6.8 cm ESV(MOD-sp4): 87.4 ml ESV(sp4-el): 89.6 ml EF(MOD-sp4): 24.7 % EF(sp4-el): 26.4 % Time Measurements MV dec time: 0.23 sec Doppler Measurements Calculations MV E max radha: 65.7 cm/sec Lat Peak E' Radha: 3.4 cm/sec Med Peak E' Radha: 4.0 cm/sec MV A max radha: 106.3 cm/sec E/E' lat: 19.6 E/E' med: 16.5 MV E/A: 0.62 MR max radha: 581.5 cm/sec MR max P.3 mmHg ECHO/Echo, Limited Study Interpretation Summary Normal LV size. The estimated ejection fraction is 25 %. There is moderate to severe global hypokinesis of the left ventricle. ICD or pacer leads identified within the right ventricle. Stage 1 diastolic dysfunction. The global longitudinal strain is severely abnormal. The global longitudinal strain = -9.7% (abnormal). _ Ordering Physician: Velma Sullivan Referring Physician: Janessa Gamboa Performed By: Royce Haines RCS 10/03/21 1532 Date Pop Hurd MD CC: PECAN CLEANER-C Janessa Gamboa; PA Velma Sullivan Date Dictated: 10/03/21 1107 Date Transcribed: 10/03/211531 Visual Merchandising Director: Jeffrey Roberson CNP Work Phone: Start: 08-03-2021 End: 08-03-2021 Pacemaker Check Comments: See Note; NOTES: [facility]. [address] [place] [address] Pacemaker Check Date of Service: 08/03/211713 MR#: [id number] Acct: [id number] Name: LIBIA MOYA Rep #: [id number] : 1945 From: Cathleen Cross Age/Sex: 75/F Location: [facility] Status: Signed Billing Codes ICD Device Billing: ICD Dev Interrogate (Rmt) Assessment and Plan Assessment and Plan (1) Presence of biventricular implantable cardioverter-defibrillator (ICD): Status: Chronic Comment: BI-V ICD upgrade 11/2005,GENERATOR CHANGE 03/23/2011;02/15/2017 (2) Nonischemic cardiomyopathy: Status: Chronic (3) Chronic combined systolic and diastolic CHF (congestive heart failure): Status: Chronic (4) LBBB (left bundle branch block): Status: Chronic 08/03/211719 <Electronically signed by Cathleen Cross > Date Cathleen Finebernadette Signature: Date (if applicable) CC: Tania Roberson ERP DEVELOPER Work Phone: Start: 06-21-2021 End: 06-21-2021 Cardiology Visit Report Comments: See Note; NOTES: [facility] [address] [place] [address] OFFICE VISIT Date of Service: 06/21/21 MR#: [id number] Acct: [id number] Name: LIBIA MOYA Rep #: [id number] : 1945 Provider: CLAUDIO Molina Age/Sex: 75/F Location: [facility] [place] Status: Signed HPI HPI History of Present Illness Details: LIBIA MOYA, is a 75 F who presents to the office today for a cardiovascular follow-up. She has a history of nonischemic cardiomyopathy with a biventricular ICD, hypertension and hyperlipidemia. She continues to do well with no complaints at this time. Her major issue is with the cost of her thyroid medication. It is noted that her EF decreased to 25% in 03/2021. We are adjusting her medications to optimize her medications. She is tolerating Farxiga. She does not have any worsening SOB. She does not have any chest pain. She does not have any symptoms of CHF. She does occasionally have positional lightheadedness. She does not have any lower extremity edema. She does not have any symptoms of claudication. 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 Is patient in pain?: No Allergies amlodipine [From Norvasc] Allergy (Verified 06/21/21 08:53) Unknown clarithromycin [From Biaxin] Allergy (Verified 06/21/21 08:53) Unknown lisinopril [From Prinivil] Allergy (Verified 06/21/21 08:53) Unknown pantoprazole [From Protonix] Allergy (Verified 06/21/21 08:53) Unknown Penicillins [PCN] Allergy (Verified 06/21/21 08:53) Rash sacubitril [From Entresto] Adverse Reaction (Intermediate, Verified 06/21/21 08:53) Really dizzy, didn't feel well valsartan [From Entresto] Adverse Reaction (Intermediate, Verified 06/21/21 08:53) Really dizzy, didn't feel well Medications albuterol sulfate 2.5 mg INHALATION TID PRN 30 Days #270 ml 08/09/18 [History Confirmed 05/03/21] levothyroxine 25 mcg tablet 25 mcg PO DAILY #90 tab 11/19/20 [Rx Confirmed 06/21/21] omeprazole 20 mg capsule,delayed release 20 mg PO DAILY #90 cap 12/27/20 [Rx Confirmed 05/03/21] ondansetron 4 mg PO Q6H PRN PRN #15 tab 01/08/21 [Rx Confirmed 05/03/21] carvedilol 25 mg tablet 25 mg PO BID #180 tab 01/17/21 [Rx Confirmed 06/21/21] simvastatin 20 mg tablet 20 mg PO QHS #90 tab 02/21/21 [Rx Confirmed 06/21/21] cholecalciferol (vitamin D3) 25 mcg (1,000 unit) capsule 5,000 unit PO DAILY cap 05/03/21 [History Confirmed 05/03/21] furosemide 20 mg tablet 20 mg PO DAILY PRN tab 05/03/21 [History Confirmed 05/03/21] meclizine 12.5 mg tablet 12.5 mg PO TID PRN tab 05/03/21 [History Confirmed 05/03/21] potassium chloride 20 mEq tablet,extended release 20 meq PO DAILY PRN tab 05/03/21 [History Confirmed 06/21/21] dapagliflozin 10 mg tablet 10 mg PO DAILY #90 tab 05/26/21 [Rx Confirmed 06/21/21] losartan 25 mg tablet 25 mg PO BID #180 tab 05/26/21 [Rx Confirmed 06/21/21] PFSH Medical History Chronic combined systolic and diastolic CHF (congestive heart failure) Congestive heart failure (CHF) Diastolic dysfunction Essential (primary) hypertension HLD (hyperlipidemia) Hypothyroidism LBBB (left bundle branch block) Nonischemic cardiomyopathy Paroxysmal ventricular tachycardia Surgical History History of appendectomy ( 03/2006) History of left heart catheterization (07/19/04) History of tubal ligation ( 1979) Hx laparoscopic cholecystectomy ( 04/2009) Presence of biventricular implantable cardioverter-defibrillator (ICD) (02/15/17) Family History Father Myocardial infarction CAD (coronary artery disease) Watonwan's disease Mother Diabetes Myocardial infarction Hypertension FH: CABG (coronary artery bypass surgery) Grandfather Myocardial infarction Brother Negra's disease Sister Watonwan's disease Diabetes Son Diabetes Social History Smoking Status: Never smoker alcohol intake: never substance use type: does not use caffeine: Yes Type: coffee what type of physical activity do you participate in: none seatbelt use: always do you feel safe at home: Yes ROS Const Const: Negative for fatigue, weakness, headache(s), frequent falls, difficulty sleeping or excessive sweating Eyes Eyes: Negative for loss of peripheral vision, transient loss of vision, blurry vision, double vision or tunnel vision ENT ENT: Negative for headache(s), dizziness, Nosebleed/epistaxis or balance problems Cardio Chest Pain: No Palpitations: No Edema: None Muscle aches with walking: None Resp Respiratory: Negative for SOB with activity, SOB at rest, SOB orthopnea SOB lying down, Cough or paroxysmal nocturnal dyspnea GI GI: Negative nausea, vomiting, heartburn or black,tarry stools : Negative for hematuria Musc Musc: Negative for muscle aches/ myalgia, muscle weakness, joint pain or balance problems Skin Skin: Negative non-healing lesions, rash or unusual bruising Neuro Neuro: Positive for vertigo; Negative for dizziness, lightheadedness, near syncope, syncope, frequent falls, headache(s), weakness, blurry vision, double vision or lack of coordination Jc Hematologic/Lymphatic: Negative for easy bleeding or easy bruising Endo Endo: Negative for fatigue, excessive sweating or increased thirst/drinking Psych Psych: Negative for anxiety or depression Allergy Allergy/Immunology: Negative for hives and Negative for rash Cardiology Exam Const Appearance: cooperative, healthy appearing, comfortable, no acute distress and well developed Orientation: alert, awake and oriented x3 Head Head: normal to inspection Ears: hearing grossly normal bilaterally Nose: external nose normal Face and Sinus: face symmetric Mouth: oral mucosae normal, lip normal and moist mucous membranes Eyes General: appearance normal, both eyes and all related structures Eyelids: eyelids normal Conjunctivae: conjunctivae normal Pupils: PERRL EOM: EOM intact bilaterally Neck Neck: normal visual inspection and trachea midline; Negative no JVD Carotids: Negative bruit Chest Chest inspection: normal inspection of the chest Auscultation: Bilateral: Clear to Auscultation Cardio Palpation: normal PMI Rate: regular rate Rhythm: regular rhythm Heart sounds: S1 normal and S2 normal; Negative rub, gallop or murmur GI GI: soft, no hepatosplenomegaly and bowel sounds present Neuro General: patient alert, patient awake, patient oriented x3 and CN's II-XI intact bilaterally Extremities Pulses: Normal: Right Posterior Tibial Pulse, Left Posterior Tibial Pulse, Right Radial Pulse and Left Radial Pulse Lower Extremity Edema: None: Bilateral Psych Psychological: normal affect Supplemental Info Supplemental Information Echocardiogram in August 2018 demonstrated: Normal LV size. The estimated ejection fraction is 35 %. Stage 2 diastolic dysfunction. There is moderate to severe global hypokinesis of the left ventricle. The left atrium is mildly enlarged. Mild (1+) eccentric mitral valve insufficiency. Mild focal aortic valve calcification. Compared to prior study, there is no significant change. Echocardiogram 03/2021: Mildly dilated left ventricle. The estimated ejection fraction is 25 %. There is severe global hypokinesis of the left ventricle. Stage 1 diastolic dysfunction. Compared to previous study, the left ventricular systolic function has worsened.. Labs: No Data to Display Diagnostics: Electrocardiogram Echocardiogram Pacemaker Check Chest X-Ray Venous Doppler Study Pulmonary: No Data to Display Assessment and Plan Assessment and Plan (1) Nonischemic cardiomyopathy: Status: Chronic Plan - Velma Sullivan PA, PA: Patient's heart function has worsened. Would like to try to optimize her medications. She did not tolerate Entresto. She resumed her losartan. She was started on Farxiga. Will like to repeat her echo to 3 months to see if her EF has improved (2) Essential (primary) hypertension: Status: Chronic Plan - Velma SNYDER PA: Blood pressure is well controlled on current medications, we do not recommend any changes at this time. (3) HLD (hyperlipidemia): Status: Chronic Qualifiers: Hyperlipidemia type: pure hypercholesterolemia Qualified Code(s): E78.00 - Pure hypercholesterolemia, unspecified; E78.0 - Pure hypercholesterolemia Plan - Velma SNYDER PA: Patient will continue with moderate intensity statin (4) Presence of biventricular implantable cardioverter-defibrillator (ICD): Status: Chronic Comment: BI-V ICD upgrade 11/2005,GENERATOR CHANGE 03/23/2011;02/15/2017 Plan - Velma SNYDER PA: ICD is functioning appropriately. We will continue to monitor with routine scheduled ICD interrogations. Patient has not had any discharges from their device. 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) Coding Level of Care Code Off vis,est,level 2 Diagnoses Nonischemic cardiomyopathy I42.8 Essential (primary) hypertension I10 HLD (hyperlipidemia) E78.00; E78.0 Hyperlipidemia type: pure hypercholesterolemia Presence of biventricular implantable cardioverter-defibrillator (ICD) Z95.810 Coding Level of Care Code Off vis,est,level 2 Diagnoses Nonischemic cardiomyopathy I42.8 Essential (primary) hypertension I10 HLD (hyperlipidemia) E78.00; E78.0 Hyperlipidemia type: pure hypercholesterolemia Presence of biventricular implantable cardioverter-defibrillator (ICD) Z95.810 06/21/21 0945 <Electronically signed by Velma Pickard> Date Velma SNYDER Cosigner Signature: Date (if applicable) CC: LANDEN Carrera MD Work Phone: Start: 05-03-2021 End: 05-04-2021 Cardiology Visit Report Comments: See Note; NOTES: [facility] [address] [place] [address] OFFICE VISIT Date of Service: 05/03/21 MR#: [id number] Acct: [id number] Name: LIBIA MOYA Rep #: [id number] : 1945 Provider: CLAUDIO Molina Age/Sex: 75/F Location: [facility] [place] Status: Signed HPI [facility] History of Present Illness Details: LIBIA MOYA, is a 73 F who presents to the office today for a cardiovascular follow-up. She has a history of nonischemic cardiomyopathy with a biventricular ICD, hypertension and hyperlipidemia. She continues to do well with no complaints at this time. Her major issue is with the cost of her thyroid medication. It is noted that her EF decreased to 25% in 03/2021. She does not have any symptoms of CHF. She does not have any chest discomfort/heaviness/tightnes s. She does occasionally have positional lightheadedness. She does not have any lower extremity edema. She does not have any symptoms of claudication. She is recovering from COVID. Pt has gained some weight back, and plans on restarting TOPS today, this was cancelled d/t COVID. Intake Vital Signs 05/03/21 11:36 Height 5 ft 6 in Weight: 188 lb BP 145/82 H Blood Pressure Location Lt brachial Position Sitting Respiration 16 Pulse 80 Pulse Source Monitor Intake Visit Reasons: 9 M FU (MOVED FROM [facility])ICD f/u @ 10:30am Mill Tender Warm Up Required: No Accompanied by: None Is patient in pain?: No Allergies amlodipine [From Norvasc] Allergy (Verified 05/03/21 11:37) Unknown clarithromycin [From Biaxin] Allergy (Verified 05/03/21 11:37) Unknown lisinopril [From Prinivil] Allergy (Verified 05/03/21 11:37) Unknown pantoprazole [From Protonix] Allergy (Verified 05/03/21 11:37) Unknown Penicillins [PCN] Allergy (Verified 05/03/21 11:37) Rash Medications albuterol sulfate 2.5 mg INHALATION TID PRN 30 Days #270 ml 05/24/19 [History Confirmed 05/03/21] levothyroxine 25 mcg tablet 25 mcg PO DAILY #90 tab 11/19/20 [Rx Confirmed 05/03/21] omeprazole 20 mg capsule,delayed release 20 mg PO DAILY #90 cap 12/27/20 [Rx Confirmed 05/03/21] ondansetron 4 mg PO Q6H PRN PRN #15 tab 01/08/21 [Rx Confirmed 05/03/21] carvedilol 25 mg tablet 25 mg PO BID #180 tab 01/17/21 [Rx Confirmed 05/03/21] simvastatin 20 mg tablet 20 mg PO QHS #90 tab 02/21/21 [Rx Confirmed 05/03/21] cholecalciferol (vitamin D3) 25 mcg (1,000 unit) capsule 5,000 unit PO DAILY cap 05/03/21 [History Confirmed 05/03/21] furosemide 20 mg tablet 20 mg PO DAILY PRN tab 05/03/21 [History Confirmed 05/03/21] meclizine 12.5 mg tablet 12.5 mg PO TID PRN tab 05/03/21 [History Confirmed 05/03/21] potassium chloride 20 mEq tablet,extended release 20 meq PO DAILY PRN tab 05/03/21 [History Confirmed 05/03/21] sacubitril 49 mg-valsartan 51 mg tablet 1 tab PO BID #60 tab 05/03/21 [Rx Confirmed 05/03/21] Ejection fraction %: 25 to 29 PFSH Medical History Chronic combined systolic and diastolic CHF (congestive heart failure) Congestive heart failure (CHF) Diastolic dysfunction Essential (primary) hypertension HLD (hyperlipidemia) Hypothyroidism LBBB (left bundle branch block) Nonischemic cardiomyopathy Paroxysmal ventricular tachycardia Surgical History History of appendectomy ( 03/2006) History of left heart catheterization (07/19/04) History of tubal ligation ( 1979) Hx laparoscopic cholecystectomy ( 04/2009) Presence of biventricular implantable cardioverter-defibrillator (ICD) (02/15/17) Family History Father Myocardial infarction CAD (coronary artery disease) Watonwan's disease Mother Diabetes Myocardial infarction Hypertension FH: CABG (coronary artery bypass surgery) Grandfather Myocardial infarction Brother Watonwan's disease Sister Negra's disease Diabetes Son Diabetes Social History Smoking Status: Never smoker alcohol intake: never substance use type: does not use caffeine: Yes Type: coffee what type of physical activity do you participate in: none seatbelt use: always do you feel safe at home: Yes ROS Const Const: Negative for fatigue, weakness, headache(s), frequent falls, difficulty sleeping or excessive sweating Eyes Eyes: Negative for loss of peripheral vision, transient loss of vision, blurry vision, double vision or tunnel vision ENT ENT: Negative for headache(s), dizziness, Nosebleed/epistaxis or balance problems Cardio Chest Pain: No Palpitations: No Edema: None Muscle aches with walking: None Resp Respiratory: Negative for SOB with activity, SOB at rest, SOB orthopnea SOB lying down, Cough or paroxysmal nocturnal dyspnea GI GI: Negative nausea, vomiting, heartburn or black,tarry stools : Negative for hematuria Musc Musc: Negative for muscle aches/ myalgia, muscle weakness, joint pain or balance problems Skin Skin: Negative non-healing lesions, rash or unusual bruising Neuro Neuro: Positive for vertigo; Negative for dizziness, lightheadedness, near syncope, syncope, frequent falls, headache(s), weakness, blurry vision, double vision or lack of coordination Jc Hematologic/Lymphatic: Negative for easy bleeding or easy bruising Endo Endo: Negative for fatigue, excessive sweating or increased thirst/drinking Psych Psych: Negative for anxiety or depression Allergy Allergy/Immunology: Negative for hives and Negative for rash Cardiology Exam Const Appearance: cooperative, healthy appearing, comfortable, no acute distress and well developed Orientation: alert, awake and oriented x3 Head Head: normal to inspection Ears: hearing grossly normal bilaterally Nose: external nose normal Face and Sinus: face symmetric Mouth: oral mucosae normal, lip normal and moist mucous membranes Eyes General: appearance normal, both eyes and all related structures Eyelids: eyelids normal Conjunctivae: conjunctivae normal Pupils: PERRL EOM: EOM intact bilaterally Neck Neck: normal visual inspection and trachea midline; Negative no JVD Carotids: Negative bruit Chest Chest inspection: normal inspection of the chest Auscultation: Bilateral: Clear to Auscultation Cardio Palpation: normal PMI Rate: regular rate Rhythm: regular rhythm Heart sounds: S1 normal and S2 normal; Negative rub, gallop or murmur GI GI: soft, no hepatosplenomegaly and bowel sounds present Neuro General: patient alert, patient awake, patient oriented x3 and CN's II-XI intact bilaterally Extremities Pulses: Normal: Right Posterior Tibial Pulse, Left Posterior Tibial Pulse, Right Radial Pulse and Left Radial Pulse Lower Extremity Edema: None: Bilateral Psych Psychological: normal affect Supplemental Info Supplemental Information Echocardiogram in August 2018 demonstrated: Normal LV size. The estimated ejection fraction is 35 %. Stage 2 diastolic dysfunction. There is moderate to severe global hypokinesis of the left ventricle. The left atrium is mildly enlarged. Mild (1+) eccentric mitral valve insufficiency. Mild focal aortic valve calcification. Compared to prior study, there is no significant change. Echocardiogram 03/2021: Mildly dilated left ventricle. The estimated ejection fraction is 25 %. There is severe global hypokinesis of the left ventricle. Stage 1 diastolic dysfunction. Compared to previous study, the left ventricular systolic function has worsened.. Labs: No Data to Display Diagnostics: Electrocardiogram Echocardiogram Pacemaker Check Chest X-Ray Venous Doppler Study Pulmonary: No Data to Display Assessment and Plan Assessment and Plan (1) Nonischemic cardiomyopathy: Status: Chronic Plan - Velma SNYDER PA: Patient's heart function has worsened. Would like to try to optimize her medications. We will have her stop her losartan and start Entresto. We will follow with patient closely and will continue to increase medications and then attempt to repeat echocardiogram to reevaluate LV function. (2) Essential (primary) hypertension: Status: Chronic Plan - Velma SNYDER PA: Blood pressure is well controlled on current medications, we do not recommend any changes at this time. (3) HLD (hyperlipidemia): Status: Chronic Qualifiers: Hyperlipidemia type: pure hypercholesterolemia Qualified Code(s): E78.00 - Pure hypercholesterolemia, unspecified; E78.0 - Pure hypercholesterolemia Sander SNYDER PA: Patient will continue with moderate intensity statin (4) Presence of biventricular implantable cardioverter-defibrillator (ICD): Status: Chronic Comment: BI-V ICD upgrade 11/2005,GENERATOR CHANGE 03/23/2011;02/15/2017 Sander Sullivan PA, PA: ICD is functioning appropriately. We will continue to monitor with routine scheduled ICD interrogations. Patient has not had any discharges from their device. Plan Details Other Medications: New: sacubitril-valsartan 49-51 mg (Entresto) 1 TAB PO BID 60 tabs 6RF Discontinued: losartan Discontinued Reason: Order Completed 25 mg PO BID 180 tabs 3RF Follow Up: 6 Weeks (6-8 weeks MMM) Coding Level of Care Code Off vis,est,level 3 Diagnoses Nonischemic cardiomyopathy I42.8 Essential (primary) hypertension I10 HLD (hyperlipidemia) E78.00; E78.0 Hyperlipidemia type: pure hypercholesterolemia Presence of biventricular implantable cardioverter-defibrillator (ICD) Z95.810 Coding Level of Care Code Off vis,est,level 3 Diagnoses Nonischemic cardiomyopathy I42.8 Essential (primary) hypertension I10 HLD (hyperlipidemia) E78.00; E78.0 Hyperlipidemia type: pure hypercholesterolemia Presence of biventricular implantable cardioverter-defibrillator (ICD) Z95.810 05/04/21 1254 <Electronically signed by Velma Sanderson A> Date Velma SNYDER Cosign Signature: Date (if applicable) CC: PECAN CLEANERCa Carrera MD Work Phone: Start: 05-03-2021 End: 05-23-2021 Pacemaker Check Comments: See Note; NOTES: [facility] [place] [address] Pacemaker Check Date of Service: 05/03/21 1120 MR#: [id number] Acct: [id number] Name: LIBIA MOYA Melly Rep #: [id number] : 1945 From: Cathleen Cross Age/Sex: 75/F Location: [facility] [place] Status: Signed Billing Codes ICD Device Billing: ICD Dev Prog Eval, Multi Assessment and Plan Assessment and Plan (1) Presence of biventricular implantable cardioverter-defibrillator (ICD): Status: Chronic Comment: BI-V ICD upgrade 11/2005,GENERATOR CHANGE 03/23/2011;02/15/2017 (2) Nonischemic cardiomyopathy: Status: Chronic (3) Diastolic dysfunction: Status: Chronic (4) Chronic combined systolic and diastolic CHF (congestive heart failure): Status: Chronic (5) LBBB (left bundle branch block): Status: Chronic Plan Details Other Medications: Discontinued: sacubitril-valsartan 49-51 mg Discontinued Reason: Pt no longer taking 1 TAB PO BID 60 tabs 6RF 05/23/21 1122 <Electronically signed by Cathleen Cross > Date Cathleen Cross Cosigner Signature: Date (if applicable) CC: Ivana Carrera MD Work Phone: Start: 03-23-2021 End: 03-23-2021 Echo Complete Comments: See Note; NOTES: [facility] [address] [place] [address] Echo Complete 03/23/21 1100 MR#: [id number] Acct: [id number] Name: LIBIA MOYA Rep #: [id number] : 1945 75 From: Pop Hurd MD Attending Dr: Janessa Gamboa NP-C Status: REG CLI Ordering Dr: Janessa Gamboa NP PECAN CLEANER-C Date: 03/23/21 Location: [facility] Sex: F C Admitted: Reason For Study: Cardiomyopathy Procedure This was a 2D Doppler, Color Flow transthoracic echocardiogram. Exam performed in department. Left Ventricle Mildly dilated left ventricle. The estimated ejection fraction is 25 %. Stage 1 diastolic dysfunction. There is severe global hypokinesis of the left ventricle. Right Ventricle Normal RV size. ICD or pacer leads identified within the right ventricle. Normal systolic function. Atria Normal left atrium. Normal right atrium. ICD or pacer leads identified within the right atrium. Mitral Valve Bileaflet diffuse mitral valve thickening. Mild (1+) eccentric mitral valve insufficiency. Tricuspid Valve Normal tricuspid valve. Mild (1+) tricuspid valve insufficiency. Pulmonary artery systolic pressure is 31 mmHg. Aortic Valve Trisinus/trileaflet aortic valve. Pulmonic Valve Normal pulmonic valve. Great Vessels Normal aortic root. The pulmonary artery is normal size. Normal inferior vena cava. Pericardium/Pleural Small pericardial effusion. MMode/2D Measurements Calculations LVIDd: 4.7 cm IVSd: 1.2 cm Ao root diam: 3.6 cm LVIDs: 3.9 cm LVPWd: 1.4 cm LA dimension: 2.3 cm FS: 16.9 % LAV(MOD-bp): 55.3 ml LA A4 area: 22.3 cm2 RA A4 area: 18.7 cm2 LAV(MOD-bp) Indexed: 28.8 ml/m2 LAV(MOD-sp2): 45.1 ml LAV(MOD-sp4): 64.9 ml Doppler Measurements Calculations MV E max radha: 50.4 cm/sec Lat Peak E' Radha: 3.0 cm/sec Med Peak E' Radha: 2.7 cm/sec MV A max radha: 98.8 cm/sec E/E' lat: 17.0 E/E' med: 18.6 MV E/A: 0.51 MV V2 max: 124.2 cm/sec Ao V2 max: 134.4 cm/sec LV V1 max: 87.2 cm/sec MV max P.2 mmHg Ao max P.2 mmHg LV V1 max P.0 mmHg MV V2 mean: 77.5 cm/sec MV mean P.8 mmHg MV V2 VTI: 24.0 cm MR max radha: 535.8 cm/sec PA V2 max: 87.6 cm/sec TR max radha: 259.6 cm/sec MR max P.8 mmHg TR max P.0 mmHg ECHO/Echo Complete Interpretation Summary Mildly dilated left ventricle. The estimated ejection fraction is 25 %. There is severe global hypokinesis of the left ventricle. Stage 1 diastolic dysfunction. Compared to previous study, the left ventricular systolic function has worsened.. _ Ordering Physician: Janessa Gamboa Referring Physician: Janessa Gamboa Performed By: Royce Haines RCS 03/23/21 1308 Date Pop Hurd MD CC: PECAN CLEANER-C Janessa Gamboa Date Dictated: 03/23/21 1100 Date Transcribed: 03/23/21 1308 Visual Merchandising Director: Signed Ana Cristina Shelly ERP DEVELOPER Work Phone: Start: 03-04-2021 End: 03-07-2021 Venous Duplex US - Yovany Extrem Comments: See Note; NOTES: [facility] [address] [place] [address] Venous Duplex US - Yovany Extrem 03/04/21 1412 MR#: [id number] Acct: [id number] Name: LIBIA MOYA Rep #: [id number] : 1945 75 From: Jayce Reynoso MD Attending Dr: LANDEN Martel Status: REG CLI Ordering Dr: Janessa Gamboa NP PECAN CLEANER-C Date: 03/04/21 Location: [facility] Sex: F C Admitted: Reason For Study: PAIN RIGHT LEFT GSV is normal. GSV is normal. CFV is compressible, spontaneous, phasic, CFV is compressible, spontaneous, phasic, competent and demonstrates normal competent, and demonstrates normal augmentation. augmentation. FV is compressible, spontaneous, phasic, FV is compressible, spontaneous, phasic, competent and demonstrates normal competent and demonstrates normal augmentation. augmentation. POP V is compressible, spontaneous, phasic, POP V is compressible, spontaneous, phasic, competent and demonstrates normal competent and demonstrates normal augmentation. augmentation. T/P Trunk is compressible. T/P Trunk is compressible. PTV is compressible. PTV is compressible. RT PerV is compressible. LT PerV is compressible. Procedure This is a venous duplex using B-mode, color flow and spectral Doppler. Exam performed in department. A preliminary report was called and/or faxed to JANESSA AGMBOA. VL/Venous Duplex US - Yovany Extrem Interpretation Summary Deep veins of the lower extremities are bilaterally patent and compressible segmentally. There is no evidence of deep vein thrombosis on either side. Valvular competence appears intact within the proximal deep venous systems bilaterally. The great saphenous veins appear bilaterally patent and compressible segmentally. _ Ordering Physician: Janessa Gamboa Referring Physician: Janessa Gamboa Performed By: Kareen Laughlin, RDCS, RVT 03/07/212158 Date Jayce Reynoso MD CC: PECAN CLEANER-C Janessa Gamboa Date Dictated: 03/04/21 1412 Date Transcribed: 03/07/212158 Visual Merchandising Director: Signed Janessa Gamboa [facility] Work Phone: Start: 03-04-2021 End: 03-04-2021 Chest PA and Lateral Comments: See Note; NOTES: [facility] [address] [place] [address] Chest PA and Lateral MR#: [id number] Acct: [id number] Name: LIBIA MOYA Rep #: [id number] : 1945 F 75 From: Reyes ayers MD PCP: LANDEN Martel Status: DEP AMB Study: Chest PA and Lateral Date of Exam: 03/04/21 Exam# [id number] Ordering Dr: Janessa Gamboa NP PECAN CLEANER-C STUDY: X-RAY CHEST REASON FOR EXAM: Female, 75 years old. SOB ON EXERTION -- STAT TECHNIQUE: PA and lateral views of the chest. COMPARISON: Comparison is made with prior study dated 02/04/2021. FINDINGS: Mild residual increased markings at the right lung base. This may represent atelectasis and/or scarring. Stable blunting of both costophrenic angles. There is moderate cardiac enlargement. A left-sided dual-chamber pacemaker seen. Normal mediastinum and obinna. Normal visualized pulmonary arteries. There is atherosclerotic calcification of the aortic arch with tortuosity. Normal visualized thoracic spine. Normal visualized ribs, clavicles, and shoulders. Large hiatal hernia. RAD/Chest PA and Lateral IMPRESSION: Mild degree of increased markings at the right lung base with the blunting of both costophrenic angles. There has been improvement as compared to prior study. Large hiatal hernia. Electronically Signed: Reyes Anglin MD at 10:34 EST , Service support , CC: LANDEN Gamboa Visual Merchandising Director: Signed Janessa Gamboa [facility] Work Phone: Start: 02-04-2021 End: 02-04-2021 Pacemaker Check Comments: See Note; NOTES: [facility] [place] [address] Pacemaker Check Date of Service: 02/04/211642 MR#: [id number] Acct: [id number] Name: LIBIA MOYA Rep #: [id number] : 1945 From: Cathleen Cross Age/Sex: 75/F Location: [facility] [place] Status: Signed Billing Codes ICD Device Billing: ICD Dev Interrogate (Rmt) Assessment and Plan Assessment and Plan (1) Presence of biventricular implantable cardioverter-defibrillator (ICD): Status: Chronic Comment: BI-V ICD upgrade 11/2005,GENERATOR CHANGE 03/23/2011;02/15/2017 (2) Nonischemic cardiomyopathy: Status: Chronic (3) Chronic combined systolic and diastolic CHF (congestive heart failure): Status: Chronic (4) LBBB (left bundle branch block): Status: Chronic 02/04/211643 <Electronically signed by Cathleen Cross > Date Cathleensamuel Finejanetquin Signature: Date (if applicable) CC: Ivana Carrera MD Work Phone: Start: 02-04-2021 End: 02-04-2021 Chest PA and Lateral Comments: See Note; NOTES: [facility] Imaging Services [address] [place] [address] Chest PA and Lateral MR#: [id number] Acct: [id number] Name: LIBIA MOYA Rep #: [id number] : 1945 F 75 From: Reyes ayers MD PCP: Janessa Gamboa PECAN CLEANER-C Status: REG ER Study: Chest PA and Lateral Date of Exam: 02/04/21 Exam# [id number] Ordering Dr: Duane Finnegan MD STUDY: X-RAY CHEST REASON FOR EXAM: Female, 75 years old. Cough and chest pain. TECHNIQUE: PA and lateral views of the chest. COMPARISON: Comparison is made with prior study dated 01/18/2021. FINDINGS: EKG electrodes are seen. Since prior study, there has been a mild degree of aggressive increased markings at the lung bases suggestive of bibasilar atelectasis superimposed on scarring. There is blunting of both costophrenic angles. Cardiomegaly. A left-sided dual-chamber pacemaker is seen. Normal mediastinum and obinna. Normal visualized pulmonary arteries. There is atherosclerotic calcification of the aortic arch with tortuosity. There are diffuse degenerative changes of the visualized thoracic spine. Normal visualized ribs, clavicles, and shoulders. Large hiatal hernia. RAD/Chest PA and Lateral IMPRESSION: Progressive increased markings at the lung bases suggestive of a atelectasis superimposed on chronic scarring. Large hiatal hernia. Electronically Signed: Reyes Anglin MD at 9:47 EST , Service support , CC: PECAN CLEANER-Ollie Gamboa; Dr. Duane Finnegan MD Visual Merchandising Director: Signed Ivana Carrera MD Work Phone: Start: 02-04-2021 End: 02-07-2021 12 Lead EKG Comments: See Note; NOTES: [facility] [address] [place] [address] 12 Lead EKG 02/04/21 0902 MR#: [id number] Acct: [id number] Name: LIBIA MOYA Rep #: [id number] : 1945 75 From: Pop Hurd MD Attending Dr: Status: DEP ER Ordering Dr: Duane Finnegan MD Date: 02/04/21 Location: ED Sex: F C Admitted: Test Reason : WEAKNESS Blood Pressure : / mmHG Vent. Rate : 082 BPM Atrial Rate : 082 BPM P-R Int : 182 ms QRS Dur : 086 ms QT Int : 402 ms P-R-T Axes : 018 -09 015 degrees QTc Int : 469 ms Normal sinus rhythm Normal ECG Confirmed by VANNESSA GASPAR, POP ([id number]), film editor MARY VASQUEZ ([id number]) on 02/07/2021 1:10:34 PM Referred By: JOLIE Confirmed By:POP HURD MD 02/07/21 1310 Date Pop Hurd MD CC: LANDEN Gamboa; Dr. Duane Finnegan MD Signed Ivana Carrera MD Work Phone: Start: 02-04-2021 End: 02-04-2021 Emergency Department Summary Comments: See Note; NOTES: [facility] Records Department [address] [place] [address] Emergency Department Summary 02/04/21 MR#: [id number] Acct: [id number] Name: LIBIA MOYA Rep #: [id number] : 1945 75 From: Duane Finnegan MD PCP: Janessa Gamboa PECAN CLEANER-C Status:REG ER Location: ED HPI History of Present Illness Chief Complaint: Weakness Detail of Chief Complaint: weak and right lat rib pain w/ cough Informant: patient and EMS Onset/Context/Timing Onset: Month(s) (1) Context: Gradual Onset Timing: Continuous Quality: weak Location: all over Current Severity: Moderate Maximum Severity: Moderate Associated Symptoms Associated Symptoms: cough, R rib pain Narrative Narrative: Patient diagnosed with Covid almost exactly 1 month ago, she has been feeling weak ever since, never had any fevers and was not vaccinated prior to this. She had no specific treatments for Covid, and she did not require hospitalization. She was coughing a lot and this got better, but 4 or 5 days ago the cough seemed to suddenly get worse, it is nonproductive she has been coughing a lot and now her right rib cage is hurting especially with coughing and deep breathing and moving all of which make it worse. This was gradual in onset, the pain did not start suddenly. She denies any dyspnea. No leg pain or swelling. No history of DVT or PE and not anticoagulated. She states she called an ambulance mostly because of the rib pain for which she has been taking Tylenol but it is not helping. They were not going to transport her, except they checked her blood pressure and it was 60 over palp. Patient did not feel lightheaded or near syncopal at any point recently including this morning when they took her blood pressure. He started an IV and gave her some IV fluid, she has received about 200 cc of fluid prior to arrival here, her blood pressure is 121/79. [facility] Medical History Chronic combined systolic and diastolic CHF (congestive heart failure) Congestive heart failure (CHF) Diastolic dysfunction Essential (primary) hypertension HLD (hyperlipidemia) Hypothyroidism LBBB (left bundle branch block) Nonischemic cardiomyopathy Paroxysmal ventricular tachycardia Home Medications albuterol sulfate 2.5 mg INHALATION TID PRN 30 Days #270 ml 08/09/18 [History Last Taken Unknown] cholecalciferol (vitamin D3) 25 mcg (1,000 unit) capsule 8,000 unit PO DAILY cap 10/28/19 [History Last Taken Unknown] losartan 25 mg tablet 25 mg PO BID #180 tab 02/23/20 [Rx Last Taken Unknown] simvastatin 20 mg tablet 20 mg PO QHS #90 tab 03/01/20 [Rx Last Taken Unknown] levothyroxine 25 mcg tablet 25 mcg PO DAILY #90 tab 11/19/20 [Rx Last Taken Unknown] omeprazole 20 mg capsule,delayed release 20 mg PO DAILY #90 cap 12/27/20 [Rx Last Taken Unknown] ondansetron 4 mg PO Q6H PRN PRN #15 tab 01/08/21 [Rx Last Taken Unknown] carvedilol 25 mg tablet 25 mg PO BID #180 tab 01/17/21 [Rx Last Taken Unknown] sulfamethoxazole-trimethoprim 1 tab PO BID #14 tablet 02/04/21 [Rx Last Taken Unknown] Allergy/AdvReac Type Severity Reaction Status Date / Time amlodipine [From Norvasc] Allergy Unknown Verified 02/04/21 08:15 clarithromycin [From Biaxin] Allergy Unknown Verified 02/04/21 08:15 lisinopril [From Prinivil] Allergy Unknown Verified 02/04/21 08:15 pantoprazole [From Protonix] Allergy Unknown Verified 02/04/21 08:15 Penicillins [PCN] Allergy Rash Verified 02/04/21 08:15 Family History Father Myocardial infarction CAD (coronary artery disease) Watonwan's disease Mother Diabetes Myocardial infarction Hypertension FH: CABG (coronary artery bypass surgery) Grandfather Myocardial infarction Brother Watonwan's disease Sister Watonwan's disease Diabetes Son Diabetes Surgical History History of appendectomy ( 03/2006) History of left heart catheterization (07/19/04) History of tubal ligation ( 1979) Hx laparoscopic cholecystectomy ( 04/2009) Presence of biventricular implantable cardioverter-defibrillator (ICD) (02/15/17) Social History Smoking Status: Never smoker alcohol intake: never substance use type: does not use caffeine: Yes Type: coffee what type of physical activity do you participate in: none seatbelt use: always do you feel safe at home: Yes ROS ROS ED Constitutional Constitutional ED: Reports malaise; Denies body ache(s), chills or fever(s) Eyes Eyes: Denies change in vision or diplopia ENT ENT ED: Denies rhinorrhea or sore throat Cardiovascular Cardiovascular: Reports other Details: No symptoms of angina. Patient having a right-sided inframammary/lateral rib pain. ; Denies chest pain or palpitations Respiratory/Chest Respiratory/Chest: Reports cough; Denies dyspnea Gastrointestinal Gastrointestinal: Denies abdominal pain, diarrhea, nausea or vomiting Genitourinary Genitourinary ED: Denies dysuria or hematuria Musculoskeletal Musculoskeletal: Denies back pain or neck pain Integumentary Denies abscess or rash Neurologic Neurologic: Denies headache(s), paresthesias or weakness Psychiatric Psychiatric: Denies anxiety or suicidal thoughts EXAM Physical Exam Const Vital Signs: 02/04/21 08:16 02/04/21 08:27 02/04/21 09:46 Temperature 98.1 F Temperature Source Temporal Pulse Rate 89 88 Respiratory Rate 16 19 H Respiratory Pattern Normal Blood Pressure 121/79 H 95/58 L Blood Pressure Mean 93 70 Pulse Ox 96 96 Oxygen Delivery Method Room Air Room Air 02/04/21 11:14 02/04/21 13:11 02/04/21 13:31 Temperature 97.5 F L Temperature Source Temporal Pulse Rate 82 81 81 Respiratory Rate 14 16 15 Respiratory Pattern Blood Pressure 104/57 L 105/64 106/70 Blood Pressure Mean 72 77 Pulse Ox 96 96 96 Oxygen Delivery Method Room Air Room Air Positive well nourished and well developed General Appearance ED: well developed and NAD HEENT Reports moist mucous membranes normocephalic and atraumatic Eyes PERRL and EOMs intact bilaterally Neck full ROM and supple Chest Wall Chest Narrative: Point tender right lateral/inframammary rib/intercostal space where patient indicates pain is located, reproduced with palpation. No crepitance, no step-off, no subcutaneous emphysema. Resp normal respiratory effort and clear to auscultation bilaterally Cardio regular rate, regular rhythm and no murmurs Rate: Negative for tachycardic GI non-tender and non-distended Auscultation: normoactive bowel sounds Palpation: soft Back/Spine no CVA tenderness General Back: other FROM Extremity normal to inspection, no calf tenderness and no pedal edema General Extremety ED: Negative for edema, pulses abnormal or tenderness General Extremity: Negative for edema or pulses abnormal Neuro oriented x3, CN's II-XII intact bilaterally and no sensory deficits noted Sensorium / Orientation: awake and alert Motor Exam: strength 5/5 throughout Skin no rashes or lesions noted and no wounds MDM MDM MDM Narrative Medical decision making narrative: Work-up shows a leukocytosis, her chest x-ray does not show pneumonia, but her urinalysis shows significant infection likely causing her symptoms of weakness. Her lactate is not elevated, her vital signs remained stable, and she was pancultured prior to starting antibiotics, Rocephin was given here. She was offered admission but she does not want to stay in the hospital and wants to go home. She understands risks. She also understands when to return. She probably does not have active Covid anymore. Given her allergy list will discharge her on Bactrim. Of note, the patient did have some transient hypotension, at discharge she was 87 systolic just after she had read 112 systolic and she was asymptomatic with it. I had the nurses recheck her with a different cuff/manual, it was 106/70 and her other vital signs are normal so I am okay with her going home. Of note the paramedics who dropped her off said that her's blood pressure was 60, but she was not symptomatic with that and I suspect that was incorrect. Lab Data Attestation: I reviewed the patient's lab results. Labs: Laboratory Results - last 24 hr 02/04/21 02/04/21 02/04/21 08:31 08:31 10:00 WBC 16.9 H RBC 3.57 L Hgb 11.5 L Hct 33.1 L MCV 92.7 MCH 32.2 H MCHC 34.7 RDW Std Deviation 44.0 H RDW Coeff of Jose 13.2 Plt Count TNP MPV 11.5 Immature Gran % (Auto) 0.800 Neut % (Auto) 86.7 H Lymph % (Auto) 6.3 L [place] % (Auto) 5.6 Eos % (Auto) 0.4 Baso % (Auto) 0.2 Absolute Neuts (auto) 14.7 H Absolute Lymphs (auto) 1.06 Nucleated RBC % 0 Platelet Estimate SLT DEC Sodium 131 L Potassium 3.5 Chloride 100 Carbon Dioxide 24.0 Anion Gap 7 BUN 21 H Creatinine 1.01 Estim Creat Clear Calc 44.36 Est GFR (MDRD) Af Amer 69 Est GFR (MDRD) Non-Af 57 L BUN/Creatinine Ratio 20.8 H Glucose 91 Lactic Acid Calcium 8.5 Troponin I High Sens 5 Urine Color Yellow Urine Clarity Sl. Cloudy Urine pH 5.0 Ur Specific [place] 1.010 Urine Protein Negative Urine Glucose (UA) Normal Urine Ketones Negative Urine Occult Blood Negative Urine Nitrite Negative Urine Bilirubin Negative Urine Urobilinogen Normal Ur Leukocyte Esterase 500 H Urine RBC 0 SEEN Urine WBC 25-50 SEEN Ur Squamous Epith Cells 5-10 SEEN Urine Bacteria 1+ Urine Mucus 0 SEEN 02/04/21 11:55 WBC RBC Hgb Hct MCV MCH MCHC RDW Std Deviation RDW Coeff of Jose Plt Count MPV Immature Gran % (Auto) Neut % (Auto) Lymph % (Auto) [place] % (Auto) Eos % (Auto) Baso % (Auto) Absolute Neuts (auto) Absolute Lymphs (auto) Nucleated RBC % Platelet Estimate Sodium Potassium Chloride Carbon Dioxide Anion Gap BUN Creatinine Estim Creat Clear Calc Est GFR (MDRD) Af Amer Est GFR (MDRD) Non-Af BUN/Creatinine Ratio Glucose Lactic Acid 1.1 Calcium Troponin I High Sens Urine Color Urine Clarity Urine pH Ur Specific [place] Urine Protein Urine Glucose (UA) Urine Ketones Urine Occult Blood Urine Nitrite Urine Bilirubin Urine Urobilinogen Ur Leukocyte Esterase Urine RBC Urine WBC Ur Squamous Epith Cells Urine Bacteria Urine Mucus Radiography Diagnostic Testing: Clinical Impression(s) from Imaging Studies Chest X-Ray 02/04/21 09:05 IMPRESSION: Progressive increased markings at the lung bases suggestive of a atelectasis superimposed on chronic scarring. Large hiatal hernia. Electronically Signed: Reyes Anglin MD at 9:47 EST , Service support , Rhythm Strip Rhythm Strip: Sinus Rhythm Rate: 80 Ectopy: None EKG Initial EKG: Attestation: I personally reviewed and interpreted this EKG as follows: Interpretation: Sinus Rhythm (82) and No Acute Injury Pattern Comments: normal EKG Discharge Plan Triage Chief Complaint: Weakness ED Provider: Duane Finnegan Dx/Rx/DC Orders Clinical Impression: Urinary tract infection, Generalized weakness Instructions: Understanding Urinary Tract ... Prescriptions: New sulfamethoxazole-trimethoprim [sulfamethoxazole-trimethopri m] 1 TABLET tablet 1 tab PO BID Qty: 14 RF: 0 No Action albuterol sulfate 2.5 mg /3 mL (0.083 %) solution for nebulization 2.5 mg INHALATION TID PRN (Reason: Sob /Or Wheezing) 30 Days Qty: 270 RF: 0 cholecalciferol (vitamin D3) 25 mcg (1,000 unit) capsule 8,000 unit PO DAILY RF: 0 ondansetron [ondansetron] 4 MG tablet 4 mg PO Q6H PRN PRN (Reason: Nausea) Qty: 15 RF: 0 losartan 25 mg tablet 25 mg PO BID Qty: 180 RF: 3 simvastatin 20 mg tablet 20 mg PO QHS Qty: 90 RF: 3 levothyroxine [Synthroid] 25 mcg tablet 25 mcg PO DAILY Qty: 90 RF: 3 omeprazole 20 mg capsule,delayed release(DR/EC) 20 mg PO DAILY Qty: 90 RF: 3 carvedilol 25 mg tablet 25 mg PO BID Qty: 180 RF: 3 Primary Care Provider: Janessa Gamboa NP Referrals: Janessa Gamboa PECAN CLEANER, PEC[employer] CLEANER-C [Primary Care Provider] - (2-3 days for reevaluation and to review culture results) Disposition Disposition: Home, Self Care What to do if you have Problems For any increased pain, shortness of breath, bleeding, nausea or vomiting, chest pain, or any unexpected problems, contact your Primary Care Provider. Call [place] ([phone]) or report to the closest Emergency Room. Call 911 if necessary. 02/04/21 1773 <Electronically signed by Duane Finnegan MD> Cosigner Signature (if applicable): CC: PECAN CLEANER-C Janessa Gamboa Signed Ivana Carrera MD Work Phone: Start: 01-18-2021 End: 01-18-2021 Chest PA and Lateral Comments: See Note; NOTES: [facility] Imaging Services [address] [place] [address] Chest PA and Lateral MR#: [id number] Acct: [id number] Name: LIBIA MOYA Rep #: [id number] : 1945 F 75 From: Reyes ayers MD PCP: LANDEN Martel Status: REG CLI Study: Chest PA and Lateral Date of Exam: 01/18/21 Exam# [id number] Ordering Dr: Janessa Gamboa NP STUDY: X-RAY CHEST REASON FOR EXAM: Female, 75 years old. COVID TECHNIQUE: PA and lateral views of the chest. COMPARISON: Comparison is made with prior study dated 01/08/2021. FINDINGS: Mild increased markings at the lung bases more prominent at the right base. This may represent early bibasilar infiltrates. There is no demonstrated pleural abnormality. A left-sided dual-chamber pacemaker is seen. Normal mediastinum and obinna. Normal visualized pulmonary arteries. There is atherosclerotic calcification of the aortic arch with tortuosity. There are diffuse degenerative changes of the visualized thoracic spine. Increased kyphosis. Normal visualized ribs, clavicles, and shoulders. Moderate sized hiatal hernia. RAD/Chest PA and Lateral IMPRESSION: Bibasilar pulmonary infiltrates. Moderate sized hiatal hernia. Electronically Signed: Reyes Anglin MD at 12:42 EDT , Service support , CC: LANDEN Gamboa Visual Merchandising Director: Signed Janessa Gamboa ERP DEVELOPER Work Phone: Start: 01-08-2021 End: 10-27-2021 Emergency Department Summary Comments: See Note; NOTES: [facility] Records Department [address] [place] [address] Emergency Department Summary 01/08/21 MR#: [id number] Acct: [id number] Name: LIBIA MOYA Rep #: [id number] : 1945 75 From: Cheikh Fischer DO PCP: ANDREEA MartelC Status:DEP ER Location: ED HPI History of Present Illness Chief Complaint: Cough Informant: patient Narrative Narrative: 75-year-old female presents the emergency room with a cough and diarrhea of 2 weeks duration. Patient states she feels globally fatigued. The cough is nonproductive. The diarrhea is not demonstrating any mucus or blood. She states her mouth feels very dry. She was not vaccinated against Covid. No reported fevers. Nothing is different about today symptoms as compared to a week ago it has just been ongoing. She has not yet talked with her doctors in the past 2 weeks regarding her illness. No nausea or vomiting. She took some Imodium A-D but states it is not helping. [facility] Medical History Chronic combined systolic and diastolic CHF (congestive heart failure) Diastolic dysfunction Essential (primary) hypertension HLD (hyperlipidemia) Hypothyroidism LBBB (left bundle branch block) Nonischemic cardiomyopathy Paroxysmal ventricular tachycardia Home Medications albuterol sulfate 2.5 mg INHALATION TID PRN 30 Days #270 ml 08/09/18 [History Last Taken Unknown] cholecalciferol (vitamin D3) 25 mcg (1,000 unit) capsule 8,000 unit PO DAILY cap 10/28/19 [History Last Taken Unknown] carvedilol 25 mg tablet 25 mg PO BID #180 tab 02/02/20 [Rx Last Taken Unknown] losartan 25 mg tablet 25 mg PO BID #180 tab 02/23/20 [Rx Last Taken Unknown] simvastatin 20 mg tablet 20 mg PO QHS #90 tab 03/01/20 [Rx Last Taken Unknown] levothyroxine 25 mcg tablet 25 mcg PO DAILY #90 tab 11/19/20 [Rx Last Taken Unknown] omeprazole 20 mg capsule,delayed release 20 mg PO DAILY #90 cap 12/27/20 [Rx Last Taken Unknown] ondansetron 4 mg PO Q6H PRN PRN #15 tab 01/08/21 [Rx Last Taken Unknown] Allergy/AdvReac Type Severity Reaction Status Date / Time amlodipine [From Norvasc] Allergy Unknown Verified 01/08/21 12:46 clarithromycin [From Biaxin] Allergy Unknown Verified 01/08/21 12:46 lisinopril [From Prinivil] Allergy Unknown Verified 01/08/21 12:46 pantoprazole [From Protonix] Allergy Unknown Verified 01/08/21 12:46 Penicillins [PCN] Allergy Rash Verified 01/08/21 12:46 Family History Father Myocardial infarction CAD (coronary artery disease) Watonwan's disease Mother Diabetes Myocardial infarction Hypertension FH: CABG (coronary artery bypass surgery) Grandfather Myocardial infarction Brother Watonwan's disease Sister Watonwan's disease Diabetes Son Diabetes Surgical History History of appendectomy ( 03/2006) History of left heart catheterization (07/19/04) History of tubal ligation ( 1979) Hx laparoscopic cholecystectomy ( 04/2009) Presence of biventricular implantable cardioverter-defibrillator (ICD) (02/15/17) Social History Smoking Status: Never smoker alcohol intake: never substance use type: does not use caffeine: Yes Type: coffee what type of physical activity do you participate in: none seatbelt use: always do you feel safe at home: Yes ROS ROS ED ROS Narrative Generalized fatigue Constitutional Constitutional ED: Denies chills, fever(s) or weight loss Eyes Eyes: Denies change in vision or diplopia ENT ENT ED: Denies ear pain, rhinorrhea or sore throat Cardiovascular Cardiovascular: Denies chest pain, orthopnea, palpitations or racing heartbeat Respiratory/Chest Respiratory/Chest: Reports cough; Denies dyspnea, orthopnea or sputum Gastrointestinal Gastrointestinal: Reports diarrhea; Denies abdominal pain, nausea or vomiting Genitourinary Genitourinary ED: Denies dysuria, hematuria or urinary frequency Musculoskeletal Musculoskeletal: Reports myalgias; Denies arthralgias Integumentary Denies abscess or rash Neurologic Neurologic: Denies headache(s) or weakness Psychiatric Psychiatric: Denies anxiety, depression, suicidal ideation or suicidal thoughts Endocrine Endocrinology: Denies polydipsia, polyphagia or polyuria Allergic/Immunologic Allergic/Immunologic ED: Denies mouth swelling, tongue swelling or urticaria EXAM Physical Exam Const Vital Signs: 01/08/21 11:34 01/08/21 12:43 01/08/21 13:10 Temperature 98.1 F Temperature Source Temporal Pulse Rate 87 81 Respiratory Rate 16 18 Respiratory Effort Normal Respiratory Depth Normal Respiratory Pattern Normal Blood Pressure 115/71 114/83 H Blood Pressure Mean 85 93 Pulse Ox 100 96 96 Oxygen Delivery Method Room Air Room Air Room Air Positive well nourished and well developed General Appearance ED: well developed HEENT Reports normocephalic, head/scalp atraumatic and moist mucous membranes Eyes PERRL and EOMs intact bilaterally Neck no lymphadenopathy, supple and no JVD Resp normal respiratory effort and clear to auscultation bilaterally Cardio regular rate, regular rhythm and no murmurs GI normal to inspection, nondistended, normoactive bowel sounds and non-tender Palpation: soft Back/Spine no CVA tenderness and normal ROM Extremity normal to inspection General Extremety ED: Negative for edema General Extremity: Negative for edema Neuro oriented x3 and CN's II-XII intact bilaterally Sensorium / Orientation: alert Motor Exam: strength 5/5 throughout Psych mental status grossly normal Mood Affect: Negative for depressed or tearful Skin no rashes or lesions noted and no wounds MDM MDM MDM Narrative Medical decision making narrative: My interpretation of the chest x-ray is no acute process. Patient is neutropenic. Platelet count is 88 with no signs of bleeding creatinine 1.69. This is change from baseline. Patient is Covid positive. EKG is a normal sinus rhythm. From a pulmonary standpoint the patient is doing well. I do not see any infiltrates on the chest x-ray. She received a liter of IV fluids. I will write for her to have Zofran at home. She is out of the window for monoclonal antibodies. I do not think she would benefit from Decadron at this time. Lab Data Attestation: I reviewed the patient's lab results. Labs: Laboratory Results - last 24 hr 01/08/21 01/08/21 13:13 13:13 WBC 3.7 L RBC 3.91 L Hgb 12.6 Hct 36.1 L MCV 92.3 MCH 32.2 H MCHC 34.9 RDW Std Deviation 40.1 RDW Coeff of Jose 11.9 Plt Count 88 L MPV 11.2 Immature Gran % (Auto) 0.300 Neut % (Auto) 56.7 Lymph % (Auto) 29.9 [place] % (Auto) 12.8 H Eos % (Auto) 0.0 Baso % (Auto) 0.3 Absolute Neuts (auto) 2.1 Absolute Lymphs (auto) 1.10 Nucleated RBC % 0 Differential Comment SCANNED Platelet Estimate SLT DEC Sodium 131 L Potassium 4.4 Chloride 98 Carbon Dioxide 23.0 Anion Gap 10 BUN 26 H Creatinine 1.69 H Estim Creat Clear Calc 26.51 Est GFR (MDRD) Af Amer 38 L Est GFR (MDRD) Non-Af 31 L BUN/Creatinine Ratio 15.4 Glucose 111 H Calcium 8.8 Total Bilirubin 0.60 AST 52 H ALT 31 Alkaline Phosphatase 84 Troponin I High Sens 25 Total Protein 7.4 Albumin 3.3 Globulin 4.1 Albumin/Globulin Ratio 0.8 L Radiography Diagnostic Testing: Clinical Impression(s) from Imaging Studies Chest X-Ray 01/08/21 11:43 IMPRESSION: No acute cardiopulmonary process identified. Large hiatal hernia. Electronically Signed: Je Wilburn MD at 12:40 EDT Tel , Service support , EKG Initial EKG: Attestation: I personally reviewed and interpreted this EKG as follows: Comments: Normal sinus rhythm with a ventricular rate of 86 bpm Discharge Plan Triage Chief Complaint: Cough ED Provider: Cheikh Fischer Dx/Rx/DC Orders Clinical Impression: COVID-19, Acute kidney injury, Thrombocytopenia associated with COVID-19 Instructions: Coronavirus Disease 2019 (COVID-19): Caring for Yourself or Others Prescriptions: New ondansetron [ondansetron] 4 MG tablet 4 mg PO Q6H PRN PRN (Reason: Nausea) Qty: 15 RF: 0 No Action albuterol sulfate 2.5 mg /3 mL (0.083 %) solution for nebulization 2.5 mg INHALATION TID PRN (Reason: Sob /Or Wheezing) 30 Days Qty: 270 RF: 0 cholecalciferol (vitamin D3) 25 mcg (1,000 unit) capsule 8,000 unit PO DAILY RF: 0 carvedilol 25 mg tablet 25 mg PO BID Qty: 180 RF: 3 losartan 25 mg tablet 25 mg PO BID Qty: 180 RF: 3 simvastatin 20 mg tablet 20 mg PO QHS Qty: 90 RF: 3 levothyroxine [Synthroid] 25 mcg tablet 25 mcg PO DAILY Qty: 90 RF: 3 omeprazole 20 mg capsule,delayed release(DR/EC) 20 mg PO DAILY Qty: 90 RF: 3 Primary Care Provider: Janessa Gamboa NP Referrals: Janessa Gamboa NP, PECAN CLEANER-C [Primary Care Provider] - As Needed Disposition Disposition: Home, Self Care What to do if you have Problems For any increased pain, shortness of breath, bleeding, nausea or vomiting, chest pain, or any unexpected problems, contact your Primary Care Provider. Call [facility] ([phone]) or report to the closest Emergency Room. Call 911 if necessary. 01/08/212144 <Electronically signed by Cheikh Fischer DO> Cosigner Signature (if applicable): CC: PECAN CLEANER-C Janessa Gamboa Signed Ivana Carrera MD Work Phone: Start: 01-08-2021 End: 01-11-2021 12 Lead EKG Comments: See Note; NOTES: [facility] Cardiovascular Services [address] [place] [id number] 12 Lead EKG 01/08/21 1202 MR#: [id number] Acct: [id number] Name: LIBIA MOYA Rep #: [id number] : 1945 75 From: Pop Hurd MD Attending Dr: Status: DEP ER Ordering Dr: Zana Land. Date: 01/08/21 Location: ED Sex: F C Admitted: Test Reason : Blood Pressure : / mmHG Vent. Rate : 086 BPM Atrial Rate : 086 BPM P-R Int : 174 ms QRS Dur : 084 ms QT Int : 384 ms P-R-T Axes : 014 -23 034 degrees QTc Int : 459 ms Normal sinus rhythm Normal ECG Confirmed by POP HURD MD ([id number]), film editor MARY VASQUEZ ([id number]) on 01/11/2021 8:51:58 AM Referred By: NED Confirmed By:POP HURD MD 01/11/21 0852 Date Pop Hurd MD CC: PECAN CLEANER-C Janessa Gamboa; Dr. Cheikh Fischer DO; ED PHYSICIAN PROVIDER Signed Ivana Carrera MD Work Phone: Start: 01-08-2021 End: 01-08-2021 Chest 1 View (Portable) Comments: See Note; NOTES: [facility] Imaging Services [address] [place] [address] Chest 1 View (Portable) MR#: [id number] Acct: [id number] Name: LIBIA MOYA Rep #: [id number] : 1945 F 75 From: Je Wilburn MD PCP: LANDEN Martel Status: REG ER Study: Chest 1 View (Portable) Date of Exam: 01/08/21 Exam# [id number] Ordering Dr: Cheikh Fischer DO STUDY: X-RAY CHEST REASON FOR EXAM: Female, 75 years old. COUGH / SOB TECHNIQUE: Frontal radiograph COMPARISON: 12/05/2018. FINDINGS: Left cardiac device. Large hiatal hernia. The lungs are clear and expanded. There is no demonstrated pleural abnormality. There is moderate cardiac enlargement. Normal mediastinum and obinna. Normal visualized pulmonary arteries. There is atherosclerotic calcification of the aortic arch with tortuosity. Normal visualized thoracic spine. Normal visualized ribs, clavicles, and shoulders. There is no demonstrated abnormality of the visualized soft tissue structures of the upper abdomen. RAD/Chest 1 View (Portable) IMPRESSION: No acute cardiopulmonary process identified. Large hiatal hernia. Electronically Signed: Je Wilburn MD at 12:40 EDT Tel , Service support , CC: LANDEN Gamboa; Dr. Cheikh Fischer DO Visual Merchandising Director: Signed Ivana Carrera MD Work Phone: Start: 11-03-2020 End: 11-03-2020 Pacemaker Check Comments: See Note; NOTES: [facility] [address] [place] [address] Pacemaker Check Date of Service: 11/03/201657 MR#: [id number] Acct: [id number] Name: LIBIA MOYA Rep #: [id number] : 1945 From: Cathleen Cross Age/Sex: 74/F Location: [facility] Status: Signed Billing Codes ICD Device Billing: ICD Dev Interrogate (Rmt) Assessment and Plan Assessment and Plan (1) Presence of biventricular implantable cardioverter-defibrillator (ICD): Status: Chronic Comment: BI-V ICD upgrade 11/2005,GENERATOR CHANGE 03/23/2011;02/15/2017 (2) Nonischemic cardiomyopathy: Status: Chronic (3) Chronic combined systolic and diastolic CHF (congestive heart failure): Status: Chronic (4) LBBB (left bundle branch block): Status: Chronic 11/03/201658 <Electronically signed by Cathleen Cross > Date Cathleen Fineignquin Signature: Date (if applicable) CC: Ivana Carrera MD Work Phone: Start: 10-18-2020 End: 10-18-2020 SCRN MAMM (CAD)W/PRUDENCE BILAT Comments: See Note; NOTES: [facility] Imaging Services [address] [place] [address] SCRN MAMM (CAD)W/PRUDENCE BILAT MR#: [id number] Acct: [id number] Name: LIBIA MOYA Rep #: [id number] : 1945 F 74 From: Gilberto Craig DO PCP: LANDEN Martel Status: REG CLI Study: SCRN MAMM (CAD)W/PRUDENCE BILAT Date of Exam: 05/09 Exam# [id number] Ordering Dr: Janessa Gamboa NP PECAN CLEANER-C MAMMOGRAPHY - BILATERAL SCREENING REASON FOR EXAM: Female, 74 years old. Routine annual screening examination. PERTINENT HISTORY: TECHNIQUE: Digital bilateral breast prudence (3D mammographic acquisition) in the CC and MLO projections. 2-D mediolateral oblique (MLO) and craniocaudad (CC) views of both breasts were obtained. CAD: Full Field Digital Mammography with Computer Added Detection was performed. COMPARISON: Previous mammogram obtained on 05/22/2019 FINDINGS: Breast Composition: Scattered breast parenchyma superimposed upon fatty degeneration of breast There are no dominant masses or suspicious calcifications. No other significant abnormalities are identified. A left cardiac pacemaker is noted in place. BI/SCRN MAMM (CAD)W/PRUDENCE BILAT IMPRESSION: Stable bilateral screening mammogram. Yearly follow-up mammogram recommended. (A) ASSESSMENT CATEGORY: BIRADS Category 1: Negative. A letter regarding these results will be sent to the patient by the facility within 30 days. Approximately 10% of breast cancers are not detected by mammography. A normal mammogram should not delay biopsy of a clinically suspicious abnormality. [id number] Electronically Signed: Gilberto Craig DO at 16:18 EDT Tel , Service support , CC: LANDEN Gamboa Visual Merchandising Director: Signed Janessa Gamboa CNP Work Phone: Start: 07-26-2020 End: 07-26-2020 Pacemaker Check Comments: See Note; NOTES: [facility] [address] [facility] [address] [place] [address] Pacemaker Check Date of Service: 07/26/201800 MR#: [id number] Acct: [id number] Name: LIBIA MOYA Rep #: [id number] : 1945 From: Cathleen Cross Age/Sex: 74/F Location: [facility] Status: Signed Billing Codes ICD Device Billing: ICD Dev Prog Eval, Multi Assessment and Plan Assessment and Plan (1) Presence of biventricular implantable cardioverter-defibrillator (ICD): Status: Chronic Comment: BI-V ICD upgrade 11/2005,GENERATOR CHANGE 03/23/2011;02/15/2017 (2) Nonischemic cardiomyopathy: Status: Chronic (3) Chronic combined systolic and diastolic CHF (congestive heart failure): Status: Chronic 07/26/201803 <Electronically signed by Cathleen Cross > Date Cathleen Castillo Signature: Date (if applicable) CC: Ivana Carrera MD Work Phone: Start: 07-26-2020 End: 07-26-2020 Cardiology Visit Report Comments: See Note; NOTES: [facility] [address] [place] [address] OFFICE VISIT Date of Service: 07/26/20 MR#: [id number] Acct: [id number] Name: LIBIA MOYA Rep #: [id number] : 1945 Provider: CLAUDIO Molina Age/Sex: 74/F Location: [facility] [place] Status: Signed HPI HPI History of Present Illness Details: LIBIA MOYA is a 73 F who presents to the office today for a cardiovascular follow-up. She has a history of nonischemic cardiomyopathy with a biventricular ICD, hypertension and hyperlipidemia. She continues to do well with no complaints at this time. Her major issue is with the cost of her thyroid medication. She does not have any chest discomfort/heaviness/tightnes s. Her exercise tolerance is stable for her age. She does not have any worsening symptoms of shortness of breath. She does not have any orthopnea. She denies PND. She does not have any symptoms of congestive heart failure. She does occasionally have positional lightheadedness. She does not have any lower extremity edema. She does not have any symptoms of claudication. Pt notes that she has been changing her diet and has lost 12 lbs. 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: No Is patient in pain?: No Allergies amlodipine [From Norvasc] Allergy (Verified 07/26/20 10:23) Unknown clarithromycin [From Biaxin] Allergy (Verified 07/26/20 10:23) Unknown lisinopril [From Prinivil] Allergy (Verified 07/26/20 10:23) Unknown pantoprazole [From Protonix] Allergy (Verified 07/26/20 10:23) Unknown Penicillins [PCN] Allergy (Verified 07/26/20 10:23) Rash Medications fluticasone propion-salmeterol 1 ea IH BID PRN 02/14/17 [History Confirmed 07/26/20] albuterol sulfate 2.5 mg INHALATION TID PRN 30 Days #270 ml 08/09/18 [History Confirmed 07/26/20] levothyroxine 25 mcg tablet 25 mcg PO DAILY 02/05/19 [History Confirmed 07/26/20] cholecalciferol (vitamin D3) 25 mcg (1,000 unit) capsule 8,000 unit PO DAILY cap 10/28/19 [History Confirmed 07/26/20] omeprazole 20 mg capsule,delayed release 20 mg PO DAILY #90 cap 01/19/20 [Rx Confirmed 07/26/20] carvedilol 25 mg tablet 25 mg PO BID #180 tab 02/02/20 [Rx Confirmed 07/26/20] losartan 25 mg tablet 25 mg PO BID #180 tab 02/23/20 [Rx Confirmed 07/26/20] simvastatin 20 mg tablet 20 mg PO QHS #90 tab 03/01/20 [Rx Confirmed 07/26/20] PFSH Medical History (Updated 07/26/20 @ 10:30 by Velma SNYDER, PA) Chronic combined systolic and diastolic CHF (congestive heart failure) Diastolic dysfunction Essential (primary) hypertension HLD (hyperlipidemia) Hypothyroidism LBBB (left bundle branch block) Nonischemic cardiomyopathy Paroxysmal ventricular tachycardia Surgical History History of appendectomy ( 03/2006) History of left heart catheterization (07/19/04) History of tubal ligation ( 1979) Hx laparoscopic cholecystectomy ( 04/2009) Presence of biventricular implantable cardioverter-defibrillator (ICD) (02/15/17) Family History Father Myocardial infarction CAD (coronary artery disease) Watonwan's disease Mother Diabetes Myocardial infarction Hypertension FH: CABG (coronary artery bypass surgery) Grandfather Myocardial infarction Brother Watonwan's disease Sister Negra's disease Diabetes Son Diabetes Social History Smoking Status: Never smoker alcohol intake: never substance use type: does not use caffeine: Yes Type: coffee what type of physical activity do you participate in: none seatbelt use: always do you feel safe at home: Yes ROS Const Const: Negative for fatigue, weakness, fever(s) or headache(s) Eyes Eyes: Negative for blind spots, loss of peripheral vision or transient loss of vision ENT ENT: Negative for headache(s), dizziness, tinnitus, Nosebleed/epistaxis or balance problems Cardio Chest Pain: No Palpitations: No Edema: None Muscle aches with walking: None Resp Respiratory: Negative for SOB with activity, SOB at rest, SOB orthopnea SOB lying down or Cough GI GI: Negative nausea, vomiting, heartburn or vomiting blood/hematemesis : Negative for hematuria Musc Musc: Negative for muscle aches/ myalgia, muscle weakness, joint pain or balance problems Neuro Neuro: Positive for lightheadedness; Negative for dizziness, near syncope, syncope, orthostatic symptoms, headache(s) or weakness Jc Hematologic/Lymphatic: Negative for easy bleeding Endo Endo: Negative for fatigue Cardiology Exam Const Appearance: cooperative, no acute [...] Chest Chest inspection: normal inspection of the chest and symmetric chest movement Auscultation: Bilateral: Clear to Auscultation Cardio Palpation: normal PMI Rate: regular rate Rhythm: regular rhythm Heart sounds: S1 normal and S2 normal; Negative rub, gallop or murmur GI GI: normal to inspection, soft, no hepatosplenomegaly and bowel sounds present; Negative tender Neuro General: patient alert, patient awake, patient oriented x3, CN's II-XI intact bilaterally and moves all extremities Extremities Pulses: Normal: Right Posterior Tibial Pulse, Left Posterior Tibial Pulse, Right Radial Pulse and Left Radial Pulse Lower Extremity Edema: None: Bilateral Psych Psychological: normal affect Assessment and Plan Assessment and Plan (1) Nonischemic cardiomyopathy: Status: Chronic Plan - Velma SNYDER, PA: Patient does not have any symptoms of congestive heart failure. Echocardiogram has been reviewed. We will continue to monitor by history, exam and echocardiograms as deemed appropriate. Patient w ill continue with aggressive medical management. (2) Essential (primary) hypertension: Status: Chronic Plan - Velma SNYDER PA: Blood pressure is well controlled on current medications, we do not recommend any changes at this time. (3) HLD (hyperlipidemia): Status: Chronic Qualifiers: Hyperlipidemia type: pure hypercholesterolemia Qualified Code(s): E78.00 - Pure hypercholesterolemia, unspecified; E78.0 - Pure hypercholesterolemia Plan - Velma SNYDER PA: Recent lipids ahve been reviewed, she will conitnue with moderate intensity statin. (4) Presence of biventricular implantable cardioverter-defibrillator (ICD): Status: Chronic Comment: BI-V ICD upgrade 11/2005,GENERATOR CHANGE 03/23/2011;02/15/2017 Plan - Velma SNYDER PA: ICD is functioning appropriately. Pt has not had any discharges from their device, they will continue with regular scheduled ICD interrogations. 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) Coding Level of Care Code Off vis,est,level 3 Diagnoses Nonischemic cardiomyopathy I42.8 Essential (primary) hypertension I10 HLD (hyperlipidemia) E78.00; E78.0 Hyperlipidemia type: pure hypercholesterolemia Presence of biventricular implantable cardioverter-defibrillator (ICD) Z95.810 Coding Level of Care Code Off vis,est,level 3 Diagnoses Nonischemic cardiomyopathy I42.8 Essential (primary) hypertension I10 HLD (hyperlipidemia) E78.00; E78.0 Hyperlipidemia type: pure hypercholesterolemia Presence of biventricular implantable cardioverter-defibrillator (ICD) Z95.810 Supplemental Info Supplemental Information Echocardiogram in August 2018 demonstrated: Normal LV size. The estimated ejection fraction is 35 %. Stage 2 diastolic dysfunction. There is moderate to severe global hypokinesis of the left ventricle. The left atrium is mildly enlarged. Mild (1+) eccentric mitral valve insufficiency. Mild focal aortic valve calcification. Compared to prior study, there is no significant change. Labs: LDL Cholesterol 68 mg/dL (0-130) HDL Cholesterol 64 mg/dL (40-) Triglycerides 80 mg/dL (-199) VLDL Cholesterol 16 mg/dL (5-40) Diagnostics: Pacemaker Check Pulmonary: No Data to Display 07/26/20 1036 <Electronically signed by Velma SNYDER P A> Date Velma Castillo Signature: Date (if applicable) CC: LANDEN Carrera MD Work Phone: Start: 05-12-2020 End: 05-12-2020 Pacemaker Check Comments: See Note; NOTES: [facility] [address] [place], [place] [address] Pacemaker Check Date of Service: 05/12/20 1616 MR#: [id number] Acct: [id number] Name: LIBIA MOYA Rep #: [id number] : 1945 From: Cathleen Cross Age/Sex: 74/F Location: [facility] Status: Signed Billing Codes ICD Device Billing: ICD Dev Interrogate (Rmt) 05/12/201617 <Electronically signed by Cathleen Cross > Date Cathleen Castillo Signature: Date (if applicable) CC: Ivana Carrera Start: 02-04-2020 End: 02-04-2020 Pacemaker Check Comments: See Note; NOTES: [facility] [address] [place], [place] [address] Pacemaker Check Date of Service: 02/04/20 1644 MR#: [id number] Acct: [id number] Name: NITALIBIA Melly Rep #: [id number] : 1945 From: Cathleen Cross Age/Sex: 74/F Location: [facility] [place] Status: Signed Billing Codes ICD Device Billing: ICD Dev Interrogate (Rmt) 02/04/20 1645 <Electronically signed by Cathleen Cross > Date Cathleen Castillo Signature: Date (if applicable) CC: Ivana Carrera Start: 10-28-2019 End: 10-28-2019 Pacemaker Check Comments: See Note; NOTES: [address] [place] [address] Pacemaker Check Date of Service: 10/28/191651 MR#: [id number] Acct: [id number] Name: LIBIA MOYA Rep #: [id number] : 1945 From: Cathleen Cross Age/Sex: 73/F Location: [facility] [place] Status: Signed Billing Codes ICD Device Billing: ICD Dev Prog Javon, Multi 10/28/19 1658 <Electronically signed by Cathleen Cross > Date Cathleen Castillo Signature: Date (if applicable) CC: Ivana Carrera Start: 10-28-2019 End: 10-28-2019 Cardiology Visit Report Comments: See Note; NOTES: [facility] [address] [place] [address] OFFICE VISIT Date of Service: 10/28/19 MR#: [id number] Acct: [id number] Name: LIBIA MOYA Rep #: [id number] : 1945 Provider: Dr. Pop Hurd MD Age/Sex: 73/F Location: [facility] [place] Status: Signed HPI HPI History of Present Illness Details: LIBIA MOYA, is a 73 F who presents to the office today for a cardiovascular follow-up. She has a history of nonischemic cardiomyopathy with a biventricular ICD, hypertension and hyperlipidemia. She continues to do well with no complaints at this time. Her major issue is with the cost of her thyroid medication. She does not have any chest discomfort/heaviness/tightnes s. Her exercise tolerance is stable for her age. She does not have any worsening symptoms of shortness of breath. She does not have any orthopnea. She denies PND. She does not have any symptoms of congestive heart failure. She does occasionally have positional lightheadedness. She does not have any lower extremity edema. She does not have any symptoms of claudication. Physical exam demonstrates clear lung voss regular rate and rhythm and no pedal edema. She had her ICD interrogated today. Intake Vital Signs 10/28/19 BMI 33.6 10/28/19 Height 5 ft 1.5 in 10/28/19 Weight: 201 lb 10/28/19 BMI 37.3 10/28/19 BP 138/85 H 10/28/19 Respiration 16 10/28/19 Pulse 74 10/28/19 Pulse Oximetry (%) 95 Intake Visit Reasons: 9 M FU (we r/s from 8-), ICD chk 10:30 Allergies amlodipine [From Norvasc] Allergy (Verified 10/28/19 10:49) Unknown clarithromycin [From Biaxin] Allergy (Verified 10/28/19 10:49) Unknown lisinopril [From Prinivil] Allergy (Verified 10/28/19 10:49) Unknown pantoprazole [From Protonix] Allergy (Verified 10/28/19 10:49) Unknown Penicillins [PCN] Allergy (Verified 10/28/19 10:49) Rash Medications Fluticasone/Salmeterol [Advair 100-50 Diskus] 1 ea IH BID PRN 02/14/17 [History Confirmed 10/28/19] albuterol sulfate 2.5 mg INHALATION TID PRN 30 Days #270 ml 08/09/18 [History Confirmed 10/28/19] carvedilol 25 mg tablet 25 mg PO BID #180 tab 02/05/19 [Rx Confirmed 10/28/19] levothyroxine 25 mcg tablet 25 mcg PO DAILY 02/05/19 [History Confirmed 10/28/19] losartan 25 mg tablet 25 mg PO BID #180 tab 02/05/19 [Rx Confirmed 10/28/19] simvastatin 20 mg tablet 20 mg PO QHS #90 tab 02/05/19 [Rx Confirmed 10/28/19] cholecalciferol (vitamin D3) 25 mcg (1,000 unit) capsule 8,000 unit PO DAILY cap 10/28/19 [History Confirmed 10/28/19] omeprazole 20 mg capsule,delayed release 20 mg PO DAILY #90 cap 10/28/19 [Rx Confirmed 10/28/19] Ejection fraction %: 35 to 39 [facility] Medical History Nonischemic cardiomyopathy (Chronic) Diastolic dysfunction (Chronic) Chronic combined systolic and diastolic CHF (congestive heart failure) (Chronic) Essential (primary) hypertension (Chronic) LBBB (left bundle branch block) (Chronic) HLD (hyperlipidemia) (Chronic) Hypothyroidism (Chronic) Palpitations (Chronic) Paroxysmal ventricular tachycardia (Resolved) Surgical History Presence of biventricular implantable cardioverter-defibrillator (ICD) (Chronic 02/15/17) History of appendectomy (Chronic 03/2006) History of tubal ligation (Chronic 1979) Hx laparoscopic cholecystectomy (Chronic 04/2009) History of left heart catheterization (Resolved 07/19/04) Family History Father Myocardial infarction CAD (coronary artery disease) Watonwan's disease Mother Diabetes Myocardial infarction Hypertension FH: CABG (coronary artery bypass surgery) Grandfather Myocardial infarction Brother Watonwan's disease Sister Negra's disease Diabetes Son Diabetes Social History (Updated 10/28/19 @ 13:[address] Pop Hurd MD) Smoking Status: Never smoker alcohol intake: never substance use type: does not use caffeine: Yes Type: coffee what type of physical activity do you participate in: none seatbelt use: always do you feel safe at home: Yes ROS Const Const: Negative for fatigue, weakness, headache(s), frequent falls, difficulty sleeping or excessive sweating Eyes Eyes: Negative for loss of peripheral vision, transient loss of vision, blurry vision, double vision or tunnel vision ENT ENT: Negative for headache(s), dizziness, Nosebleed/epistaxis or balance problems Cardio Chest Pain: No Palpitations: No Edema: None Muscle aches with walking: None Resp Respiratory: Negative for SOB with activity, SOB at rest, SOB orthopnea SOB lying down, Cough or paroxysmal nocturnal dyspnea GI GI: Negative nausea, vomiting, heartburn or black,tarry stools : Negative for hematuria Musc Musc: Negative for muscle aches/ myalgia, muscle weakness, joint pain or balance problems Skin Skin: Negative non-healing lesions, rash or unusual bruising Neuro Neuro: Negative for dizziness, lightheadedness, near syncope, syncope, orthostatic symptoms, frequent falls, headache(s), weakness, blurry vision, double vision or lack of coordination Jc Hematologic/Lymphatic: Negative for easy bleeding or easy bruising Endo Endo: Negative for fatigue, excessive sweating or increased thirst/drinking Psych Psych: Negative for anxiety or depression Allergy Allergy/Immunology: Negative for hives, Negative for rash Cardiology Exam Const Appearance: cooperative, healthy appearing, no acute distress, well developed and well groomed Nutritional Appearance: average body habitus and well nourished Orientation: alert, awake and oriented x3 Head Head: normal to inspection, normocephalic and atraumatic Ears: hearing grossly normal bilaterally and external ears normal Nose: external nose normal, nares normal, nasal mucous membranes and turbinates normal, septum normal, no nasal discharge Face [...] present Neuro General: alert, awake, oriented x3, gait normal, moves all extremities and no focal sensory deficit Skin Skin: no rashes or lesions noted Extremities Pulses: Normal: Right Femoral Pulse, Left Femoral Pulse, Right Dorsalis Pedis Pulse, Left Dorsalis Pedis Pulse, Right Posterior Tibial Pulse, Left Posterior Tibial Pulse, Right Radial Pulse, Left Radial Pulse Lower Extremity Edema: None: Bilateral Musculoskel Musculoskeletal: No joint tenderness Psych Psychological: normal affect Assessment Plan 1. Nonischemic cardiomyopathy I42.8 Plan She does have a history of a nonischemic cardiomyopathy. Her last echocardiogram from August 2018 demonstrated an ejection fraction of 35% with severe hypokinesis. Stage II diastolic dysfunction was noted. 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 I would not make any changes at this time. 2. Essential (primary) hypertension I10 Plan Her blood pressure is under good control at this particular time and I would not recommend we make any changes. 3. Presence of biventricular implantable cardioverter-defibrillator (ICD) Z95.810 BI-V ICD upgrade 11/2005,GENERATOR CHANGE 03/23/2011;02/15/2017 Plan Her ICD was interrogated today she is a sensed and RV and LV sensed at 73 bpm. Battery longevity is over 8 years no VT or VF episodes have been noted and battery and lead impedances to be normal. Thank you for allowing me to participate in her care. Plan Detail Other Medications Refilled: omeprazole 20 mg PO DAILY 90 caps 3RF Follow Up 9 Months (mmm) Coding Level of Care Code Off vis,est,level 3 Diagnoses Nonischemic cardiomyopathy I42.8 Essential (primary) hypertension I10 Presence of biventricular implantable cardioverter-defibrillator (ICD) Z95.810 Coding Level of Care Code Off vis,est,level 3 Diagnoses Nonischemic cardiomyopathy I42.8 Essential (primary) hypertension I10 Presence of biventricular implantable cardioverter-defibrillator (ICD) Z95.810 Supplemental Info Supplemental Information Labs LDL Cholesterol 71 mg/dL (0-130) 09/10/19 HDL Cholesterol 66 mg/dL (40-) 09/10/19 Triglycerides 81 mg/dL (-199) 09/10/19 VLDL Cholesterol 16 mg/dL (5-40) 09/10/19 Diagnostics Pacemaker Check 07/04/19 10/28/19 1332 <Electronically signed by Pop Hurd MD> Date Pop Fineignquin Signature: Date (if applicable) CC: Ivana Carrera Start: 07-04-2019 End: 07-04-2019 Pacemaker Check Comments: See Note; NOTES: [facility] [address] [facility] [address] [place] [address] Pacemaker Check Date of Service: 07/04/19 154 MR#: [id number] Acct: [id number] Name: LIBIA MOYA Rep #: [id number] : 1945 From: Cathleen Cross Age/Sex: 73/F Location: [facility] Status: Signed Billing Codes ICD Device Billing: ICD Dev Interrogate (Rmt) 07/04/19 1541 <Electronically signed by Cathleen Cross > Date Cathleen Castillo Signature: Date (if applicable) CC: Ivana Carrera Start: 05-22-2019 End: 05-28-2019 Dexa Bone Density Study Comments: See Note; NOTES: [facility] Imaging Services [address] [place] [address] Dexa Bone Density Study MR#: [id number] Acct: [id number] Name: LIBIA MOYA Rep #: [id number] : 1945 F 73 From: Reyes Anglin MD PCP: LANDEN Martel Status: DEP CLI Study: Dexa Bone Density Study Date of Exam: 05/22/19 Exam# [id number] Ordering Dr: Janessa Gamboa STUDY: DUAL ENERGY X-RAY ABSORPTIOMETRY / DXA REASON FOR EXAM: Female, 73 years old. 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 COMPARISON: None. FINDINGS: Lumbar Spine (L1-L4): g/cm2 (0.912) / T-score (-2.2) / Z-score (-0.5) Findings are suggestive of osteopenia with a high fracture risk. Left Femur Total: g/cm2 (0.53) / T-score (-1.2) / Z-score (0.5) Left Femoral Neck: g/cm2 (0.855) / T-score (-1.3) / Z-score (0.6) Right Femur Total: g/cm2 (0.837) / T-score (-1.4) / Z-score (0.3) Right Femoral Neck: g/cm2 (0.777) / T-score (-1.9) / Z-score (0.0) BD/Dexa Bone Density Study IMPRESSION: The patient is considered osteopenic as outlined below according to World Diony Organization (WHO) criteria with a high fracture risk. Reference Information: The T-score is the number of standard deviations above or below the standard which is normal for young adults at their peak bone mineral density. The World Health Organization (WHO) interprets the T-scores as follows: Above -1 Normal bone density Between -1 and -2.5 Osteopenia Equal to / or below -2.5 Osteoporosis As a practical clinical guideline, osteopenia may be graded as follows: Mild -1 through -1.5 Moderate -1.6 through -2.0 Severe -2.1 through -2.4 The Z-score is the number of standard deviations above or below age-matched controls. A Z-score of less than -1.5 would be considered abnormal. References: 1. NIH Osteoporosis and Related Bone Diseases http://www.osteo.org 2. International Society for Clinical Densitometry http://www.iscd.org 3. National Osteoporosis Foundation http://www.nof.org Electronically Signed: Reyes Anglin, at 14:42 EDT , Service support , CC: LANDEN Gamboa Visual Merchandising Director: Signed Janessa Gamboa Work Phone: Start: 05-22-2019 End: 05-23-2019 SCREEN MAMM (CAD) W/PRUDENCE BILAT Comments: See Note; NOTES: [facility] Imaging Services [address] [place] [address] SCREEN MAMM (CAD) W/PRUDENCE BILAT MR#: [id number] Acct: [id number] Name: LIBIA MOYA Rep #: [id number] : 1945 F 73 From: Reyes Anglin MD PCP: LANDEN Martel Status: [facility] Study: SCREEN MAMM (CAD) W/PRUDENCE BILAT Date of Exam: 05/22/19 Exam# [id number] Ordering Dr: Janessa Gamboa MAMMOGRAPHY - BILATERAL SCREENING REASON FOR EXAM: Female, 73 years old. Routine annual screening examination. PERTINENT HISTORY: Non-contributory. TECHNIQUE: Digital bilateral breast prudence (3D mammographic acquisition) in the CC and MLO projections. 2-D mediolateral oblique (MLO) and craniocaudad (CC) views of both breasts were obtained. CAD: Full Field Digital Mammography with Computer Added Detection was performed. COMPARISON: None. Baseline examination. FINDINGS: Breast Composition: The breasts are almost entirely fatty. There are no dominant masses or suspicious calcifications. A pacemaker battery pack is seen in the left axillary region. No other significant abnormalities are identified. BI/SCREEN MAMM (CAD) W/PRUDENCE BILAT IMPRESSION: Negative screening mammogram. Yearly followup mammogram recommended. (A) ASSESSMENT CATEGORY: BIRADS Category 1: Negative. A letter regarding these results will be sent to the patient by the facility within 30 days. Approximately 10% of breast cancers are not detected by mammography. A normal mammogram should not delay biopsy of a clinically suspicious abnormality. [id number] Electronically Signed: Reyes Anglin, at 9:04 EST , Service support , CC: LANDEN Gamboa Visual Merchandising Director: Signed Janessa Gamboa Work Phone: Start: 02-05-2019 End: 02-05-2019 Cardiology Visit Report Comments: See Note; NOTES: [facility] [address] [place] [address]. [address] [place] [address] OFFICE VISIT Date of Service: 02/05/19 MR#: [id number] Acct: [id number] Name: LIIBA MOYA Rep #: [id number] : 1945 Provider: Velma Sullivan Age/Sex: 73/F Location: [facility] [place] Status: Signed [facility] History of Present Illness Details: LIBIA MOYA is a 73 F who presents to the office today for a cardiovascular follow-up. She has a history of nonischemic cardiomyopathy with a biventricular ICD, hypertension and hyperlipidemia She was in the ER in November for palpitations. PPM was normal. TSH was hypo, she was started on a thyroid supplement since then. She is taking her losartan 25 mg BID. She does not have any chest discomfort/heaviness/tightnes s. Her exercise tolerance is stable for her age. She does not have any worsening symptoms of shortness of breath. Although she questions if she has a URI. She does not have any orthopnea. She denies PND. She does not have any symptoms of congestive heart failure. She does occasionally have positional lightheadedness. She does not have any lower extremity edema. She does not have any symptoms of claudication. 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: No Accompanied by: none Is patient in pain?: No Allergies amlodipine [From Norvasc] Allergy (Verified 02/05/19 10:54) Unknown clarithromycin [From Biaxin] Allergy (Verified 02/05/19 10:54) Unknown lisinopril [From Prinivil] Allergy (Verified 02/05/19 10:54) Unknown pantoprazole [From Protonix] Allergy (Verified 02/05/19 10:54) Unknown Penicillins [PCN] Allergy (Verified 02/05/19 10:54) Rash Medications Fluticasone/Salmeterol [Advair 100-50 Diskus] 1 ea IH BID PRN 02/14/17 [History Confirmed 02/05/19] albuterol sulfate 2.5 mg/3 mL (0.083 %) solution for nebulization 2.5 mg INHALATION TID PRN 30 Days #270 ml 08/09/18 [History Confirmed 02/05/19] carvedilol 25 mg tablet 25 mg PO BID #180 tab 02/05/19 [Rx Confirmed 02/05/19] levothyroxine 25 mcg tablet 25 mcg PO DAILY 02/05/19 [History Confirmed 02/05/19] losartan 25 mg tablet 25 mg PO BID #180 tab 02/05/19 [Rx Confirmed 02/05/19] omeprazole 20 mg capsule,delayed release 20 mg PO DAILY #90 cap 02/05/19 [Rx Confirmed 02/05/19] simvastatin 20 mg tablet 20 mg PO QHS #90 tab 02/05/19 [Rx Confirmed 02/05/19] PFSH Medical History Diastolic dysfunction (Chronic) Nonischemic cardiomyopathy (Chronic) Essential (primary) hypertension (Chronic) Chronic systolic congestive heart failure (Chronic) LBBB (left bundle branch block) (Chronic) HLD (hyperlipidemia) (Chronic) Paroxysmal ventricular tachycardia (Chronic) MVP (mitral valve prolapse) (Chronic) Palpitations (Chronic) Surgical History Presence of biventricular implantable cardioverter-defibrillator (ICD) (Chronic 02/15/17) History of appendectomy (Chronic 03/2006) History of tubal ligation (Chronic 1979) Hx laparoscopic cholecystectomy (Chronic 04/2009) History of left heart catheterization (Resolved 07/19/04) Family History Father Myocardial infarction CAD (coronary artery disease) Watonwan's disease Mother Diabetes Myocardial infarction Hypertension FH: CABG (coronary artery bypass surgery) Grandfather Myocardial infarction Brother Watonwan's disease Sister Watonwan's disease Diabetes Son Diabetes Social History (Updated 02/05/19 @ 11:34 by CLAUDIO Meza) Smoking Status: Never smoker alcohol intake: never substance use type: does not use caffeine: Yes Type: coffee what type of physical activity do you participate in: none seatbelt use: always do you feel safe at home: Yes ROS Const Const: Negative for fatigue, weakness, fever(s) or headache(s) Eyes Eyes: Negative for blind spots, loss of peripheral vision or transient loss of vision ENT ENT: Negative for headache(s), dizziness, tinnitus or Nosebleed/epistaxis Cardio Chest Pain: No Palpitations: Yes Edema: None Muscle aches with walking: None Resp Respiratory: Positive for SOB with activity; negative for SOB at rest, SOB orthopnea\SOB lying down or Cough GI GI: Negative nausea, vomiting, heartburn or vomiting blood/hematemesis : Negative for hematuria Musc Musc: Negative for muscle aches/ myalgia Neuro Neuro: Positive for lightheadedness; negative for dizziness, near syncope, syncope, orthostatic symptoms, headache(s) or weakness Jc Hematologic/Lymphatic: Negative for easy bleeding Endo Endo: Negative for fatigue Cardiology Exam Const Appearance: cooperative, no acute [...] Edema: None: Bilateral Psych Psychological: normal affect Assessment AND Plan 1. Nonischemic cardiomyopathy I42.8 Plan Patient is noting that she does have some shortness of breath. She questions if this is her asthma. She is not on a diuretic. We will have her obtain a BNP. Did discuss using a diuretic on an as-needed basis. We will call her back with her lab results. Orders Orders: 2. Essential hypertension I10 Plan Blood pressure is well controlled on current medications, we do not recommend any changes at this time. 3. Pure hypercholesterolemia E78.00 Plan Recent lipid profile demonstrates total cholesterol 160, HDL 63, LDL 80. She will continue with current low-dose simvastatin. 4. Presence of biventricular implantable cardioverter-defibrillator (ICD) Z95.810 ICD REPLACEMENT 03/23/2011; GENERATOR CHANGE 02/15/2017 Plan ICD is functioning appropriately. Pt has not had any discharges from their device, they will continue with regular scheduled ICD interrogations. Plan Detail Other Medications Refilled: Additional Comments Thank you for allowing us to participate in patient's plan of care, if you have any questions please do not hesitate to call. This note was generated using a voice recognition system and there may be incorrect words, spelling or punctuation errors that were not noted when reviewing the office note prior to saving. 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) Coding Level of Care Code Off vis,est,level 4 Diagnoses Nonischemic cardiomyopathy I42.8 Essential hypertension I10 Pure hypercholesterolemia E78.00 Hyperlipidemia type: pure hypercholesterolemia Presence of biventricular implantable cardioverter-defibrillator (ICD) Z95.810 Coding Level of Care Code Off vis,est,level 4 Diagnoses Nonischemic cardiomyopathy I42.8 Essential hypertension I10 Pure hypercholesterolemia E78.00 Hyperlipidemia type: pure hypercholesterolemia Presence of biventricular implantable cardioverter-defibrillator (ICD) Z95.810 Supplemental Info Supplemental Information Echocardiogram in August 2018 demonstrated: Normal LV size. The estimated ejection fraction is 35 %. Stage 2 diastolic dysfunction. There is moderate to severe global hypokinesis of the left ventricle. The left atrium is mildly enlarged. Mild (1+) eccentric mitral valve insufficiency. Mild focal aortic valve calcification. Compared to prior study, there is no significant change. Labs LDL Cholesterol 80 mg/dL (0-130) 12/23/18 HDL Cholesterol 63 mg/dL (40-) 12/23/18 Triglycerides 84 mg/dL (-199) 12/23/18 VLDL Cholesterol 17 mg/dL (5-40) 12/23/18 Diagnostics Electrocardiogram 12/05/18 Echocardiogram 09/05/18 Pacemaker Check 12/05/18 Chest X-Ray 12/05/18 02/05/19 1134 <Electronically signed by Velma SNYDER> Date Velma Castillo Signature: Date (if applicable) CC: PECAN CLEANERCa Carrera Start: 12-06-2018 End: 12-06-2018 12 lead ECG Comments: See Note; NOTES: [facility] Cardiovascular Services [address] [place] [address] 12 Lead EKG 12/05/18 0459 MR#: [id number] Acct: [id number] Name: LIBIA MOYA Rep #: [id number] : 1945 73 From: Irina Stiles MD Attending Dr: Status: DEP ER Ordering Dr: Nata Hankins MD Date: 12/05/18 Location: ED Sex: F C Admitted: Test Reason : TACHYCARDIA Blood Pressure : / mmHG Vent. Rate : 077 BPM Atrial Rate : 077 BPM P-R Int : 168 ms QRS Dur : 086 ms QT Int : 408 ms P-R-T Axes : 032 -02 054 degrees QTc Int : 461 ms Normal sinus rhythm Low voltage QRS Borderline ECG Confirmed by MARU GASPAR, LI ([id number]), film editor MARY VASQUEZ ([id number]) on 12/06/2018 1:23:31 PM Referred By: Janessa Gamboa Confirmed By:ALLIE STILES MD 12/06/18 1323 Date Irina Stiles MD CC: PECAN CLEANERCa Gamboa; Nata Hankins MD Signed Ivana Carrera Start: 12-05-2018 End: 12-05-2018 Emergency Department Summary Comments: See Note; NOTES: [facility] Medical Records Department [address] [place] [address] Emergency Department Summary 12/05/18 0550 MR#: [id number] Acct: [id number] Name: LIBIA MOYA Rep #: [id number] : 1945 73 From: Nata Hankins MD PCP: LANDEN Martel Status: REG ER - ER Visit Summary Date of Service: 12/05/18 Chief Complaint: Palpitations History of Present Illness: The patient is a 73 F presenting with palpitations. Patient states that she has had feelings of palpitations and heart racing over the past several nights. She states 3 out of the 4 past nights she has had these symptoms. She denies chest pain or shortness of breath. Denies fever. Denies cough. Denies syncope. Denies PE/DVT risk factors. She states that her losartan dosage has been changed recently. She states in July it was increased by Dr. Hurd to 50 mg once a day. She states she did not like the way this made her feel and she weaned herself off of it completely in October. When she saw her primary care physician they put her back on the losartan 25 mg once a day. Physical Examination: Vitals are stable. Patient is afebrile. Alert no acute distress. HEENT exam is unremarkable. Neck is supple. Lungs are clear and equal bilaterally. Heart is regular rate and rhythm. Abdomen is soft nontender nondistended. Extremities are unremarkable. Skin is warm and dry. No focal neurologic deficit. Remainder of exam is unremarkable. Emergency Department Course and Treatment: Patient was given aspirin on arrival. EKG is sinus rhythm rate of 77 with no acute ischemic changes. Chest xray shows cardiomegaly, arteriosclerosis, large hiatal hernia, postsurgical changes are stable. CBC, chemistries unremarkable. Troponin is negative. TSH 6.59. Patient believes her palpitations may be related to her losartan dose changes. Discussed with Dr. Hurd. She will take losartan 25 mg twice a day. She is advised to follow-up with Janessa Gamboa for abnormal thyroid studies. Delta troponin is obtained and is pending. This will be checked by the oncoming physician. Disposition: Pending delta troponin Impression: Palpitations This note was generated with [id number] software. It may contain incorrect words, spelling, and punctuation that were not noted in review of the chart prior to signing ED Disposition - Plan for ED Patient: Instructions: Palpitations Prescriptions: Losartan Potassium 25 mg PO BID #60 tab Prescription Printed Referrals: Janessa Gamboa NP-C [Primary Care Provider] - What to do if you have Problems For any increased pain, shortness of breath, bleeding, nausea or vomiting, chest pain, or any unexpected problems, contact your Primary Care Provider. Call [facility] ([phone]) or report to the closest Emergency Room. Call 911 if necessary. 12/05/18 0801 <Electronically signed by Nata Hankins MD> Date Nata Hankins MD Cosigner Signature (If Indicated): Date CC: LANDEN Carrera Start: 12-05-2018 End: 12-05-2018 Discharge Instruction Comments: See Note; NOTES: [facility] Medical Records Department [address] [place] [address] Discharge Instruction 12/05/18752 MR#: [id number] Acct: [id number] Name: LIBIA MOYA Rep #: [id number] : 1945 73 From: Nata Hankins MD PCP: LANDEN Martel Status: REG ER ED Disposition - Plan for ED Patient: Instructions: Palpitations Prescriptions: Losartan Potassium 25 mg PO BID #60 tablet Referrals: Janessa Gamboa NP-C [Primary Care Provider] - What to do if you have Problems For any increased pain, shortness of breath, bleeding, nausea or vomiting, chest pain, or any unexpected problems, contact your Primary Care Provider. Call [facility] ([phone]) or report to the closest Emergency Room. Call 911 if necessary. 12/05/18 0754 <Electronically signed by Nata Hankins MD> Date Nata Hankins MD Cosigner Signature (If Indicated): Date CC: LANDEN Gamboa Ivana Carrera Start: 12-05-2018 End: 12-05-2018 Chest 1 View (Portable) Comments: See Note; NOTES: [facility] Imaging Services [address] [place] [address] Chest 1 View (Portable) MR#: [id number] Acct: [id number] Name: LIBIA MOYA Rep #: [id number] : 1945 F 73 From: Grecia Castellon MD PCP: LANDEN Martel Status: REG ER Study: Chest 1 View (Portable) Date of Exam: 12/05/18 Exam# [id number] Ordering Dr: Nata Hankins MD STUDY: X-RAY CHEST REASON FOR EXAM: Female, 73 years old. Heart racing, no shortness of breath TECHNIQUE: Single AP portable view of the chest. COMPARISON: 02/17/2018. In 02/13/2017. FINDINGS: There is a multilead permanent pacemaker. There are superimposed monitor leads. Stable eventration of the left greater than right hemidiaphragm. Air lucency over the abdomen consistent with large hiatal hernia. There is no focal parenchymal abnormality. Minimal blunting of the left costophrenic angle suspected. There is cardiac enlargement. Normal mediastinum and obinna. Normal visualized pulmonary arteries. There is atherosclerotic calcification of the aortic arch with tortuosity. Obscured thoracic spine. Normal visualized ribs, clavicles, and shoulders. There is no demonstrated abnormality of the visualized soft tissue structures of the upper abdomen. RAD/Chest 1 View (Portable) IMPRESSION: Cardiomegaly, arteriosclerosis, large hiatal hernia, postsurgical changes are stable. No pulmonary edema, congestive heart failure or confluent pneumonia. Other findings as outlined above. Electronically Signed: Grecia Castellon MD at 5:54 EDT , Service support , CC: LANDEN Gamboa; Nata Hankins MD Visual Merchandising Director: Signed Ivanamelly Carrera Start: 09-05-2018 End: 09-05-2018 Echocardiogram Complete Comments: See Note; NOTES: [facility] Cardiovascular Services [address] [place] [address] Echo Complete 09/05/18 1056 MR#: [id number] Acct: [id number] Name: LIBIA MOYA Rep #: [id number] : 1945 72 From: Pop Hurd MD Attending Dr: Vannessa GASPAR,Pop Status: REG CLI Ordering Dr: Pop Hurd MD Date: 09/05/18 Location: [facility] Sex: F C Admitted: Reason For Study: NON-ischemic Cardiomyopathy Procedure This was a 2D Doppler, Color Flow transthoracic echocardiogram. Exam performed in department. Left Ventricle Normal LV size. The estimated ejection fraction is 35 %. Stage 2 diastolic dysfunction. There is moderate to severe global hypokinesis of the left ventricle. Right Ventricle Normal RV size. ICD or pacer leads identified within the right ventricle. Normal systolic function. Atria The left atrium is mildly enlarged. The right atrium is mildly enlarged. Mitral Valve Normal mitral valve. Mild (1+) eccentric mitral valve insufficiency. Tricuspid Valve Normal tricuspid valve. Mild (1+) tricuspid valve insufficiency. Pulmonary artery systolic pressure is 25 mmHg. Aortic Valve Trisinus/trileaflet aortic valve. Mild focal aortic valve calcification. Pulmonic Valve Normal pulmonic valve. Great Vessels Normal aortic root. The pulmonary artery is normal size. Normal inferior vena cava. Pericardium/Pleural No pericardial effusion. MMode/2D Measurements AND Calculations LVIDd: 5.5 cm IVSd: 1.2 cm Ao root diam: 3.5 cm LVIDs: 4.4 cm LVPWd: 1.2 cm RVDd: 3.5 cm FS: 20.9 % LAV(MOD-bp): 73.5 ml LA A4 area: 22.4 cm2 LA dimension(2D): 2.9 cm LAV(MOD-bp) Indexed: 36.4 ml/m2 LAV(MOD-sp2): 72.4 ml LAV(MOD-sp4): 73.0 ml RA A4 area: 19.2 cm2 Time Measurements MV dec time: 0.17 sec Doppler Measurements AND Calculations MV E max radha: 64.4 cm/sec Lat Peak E' Radha: 3.7 cm/sec Med Peak E' Radha: 2.6 cm/sec MV A max radha: 107.9 cm/sec E/E' lat: 17.4 E/E' med: 24.9 MV E/A: 0.60 Ao V2 max: 119.6 cm/sec LV V1 max: 67.2 cm/sec MR max radha: 519.8 cm/sec Ao max P.7 mmHg LV V1 max P.8 mmHg MR max P.1 mmHg PA V2 max: 75.9 cm/sec TR max radha: 232.9 cm/sec TR max P.7 mmHg Interpretation Summary Normal LV size. The estimated ejection fraction is 35 %. Stage 2 diastolic dysfunction. There is moderate to severe global hypokinesis of the left ventricle. The left atrium is mildly enlarged. Mild (1+) eccentric mitral valve insufficiency. Mild focal aortic valve calcification. Compared to prior study, there is no significant change. Ordering Physician: Pop Hurd Referring Physician: Janessa Gamboa Performed By: Rhonda Haro, FERNANDEZ, RVT 09/05/18 1513 Date Pop Hurd MD CC: MUNA Gamboa; Pop Hurd MD Date Dictated: 09/05/18 1056 Date Transcribed: 09/05/18 151 Visual Merchandising Director: Signed Ivana Carrera Start: 08-29-2018 End: 08-29-2018 Pacemaker Check Comments: See Note; NOTES: [facility] [address] [place], [place] [address]. [address] [place] [address] Pacemaker Check Date of Service: 08/29/18950 MR#: [id number] Acct: [id number] Name: LIBIA MOYA Rep #: [id number] : 1945 From: Cathleen Cross Age/Sex: 72/F Location: [facility] Status: Signed Billing Codes ICD Device Billing: ICD Dev Interrogate (Rmt) 08/29/18 0952 <Electronically signed by Cathleen Cross > Date Cathleen Cross Cosigner Signature: Date (if applicable) CC: Ivana Carrera Start: 08-09-2018 End: 08-09-2018 Cardiology Visit Report Comments: See Note; NOTES: [facility] [address] [place] [address]. [address] [place] [address] OFFICE VISIT Date of Service: 08/09/18 MR#: [id number] Acct: [id number] Name: LIBIA MOYA Rep #: [id number] : 1945 Provider: Pop Hurd MD Age/Sex: 72/F Location: [facility] [place] Status: Signed HPI HPI History of Present Illness Details: LIBIA MOYA, is a 72 F who presents to the office today for a cardiovascular follow-up. She has a history of nonischemic cardiomyopathy with a biventricular ICD, hypertension and hyperlipidemia From a cardiac standpoint, patient is doing well. She does not have any chest discomfort/heaviness/tightnes s. Her exercise tolerance is stable for her [...] does not have any symptoms of claudication. She has not been taking her blood pressures at home but they appear to be elevated here today. Her physical exam demonstrates clear lung voss regular rate and rhythm and no pedal edema. Intake Vital Signs08/09/18 Height 5 ft 6 in 08/09/18 Weight: 204 lb Intake Visit Reasons: 6 M FU (r/s from -) Allergies amlodipine [From Norvasc] Allergy (Verified 08/09/18 10:49) Unknown clarithromycin [From Biaxin] Allergy (Verified 08/09/18 10:49) Unknown lisinopril [From Prinivil] Allergy (Verified 08/09/18 10:49) Unknown pantoprazole [From Protonix] Allergy (Verified 08/09/18 10:49) Unknown Penicillins [PCN] Allergy (Verified 08/09/18 10:49) Rash Medications Fluticasone/Salmeterol [Advair 100-50 Diskus] 1 ea IH BID PRN 02/14/17 [History Confirmed 08/09/18] omeprazole 20 mg capsule,delayed release 20 mg PO DAILY #90 cap 01/15/18 [Rx Confirmed 08/09/18] simvastatin 20 mg tablet 20 mg PO QHS #90 tab 01/15/18 [Rx Confirmed 08/09/18] carvedilol 25 mg tablet 25 mg PO BID #180 tab 05/13/18 [Rx Confirmed 08/09/18] albuterol sulfate 2.5 mg/3 mL (0.083 %) solution for nebulization 2.5 mg INHALATION TID PRN 30 Days #270 ml 08/09/18 [History Confirmed 08/09/18] losartan 100 mg tablet 100 mg PO DAILY #90 tab 08/09/18 [Rx Confirmed 08/09/18] [facility] Medical History Nonischemic cardiomyopathy (Chronic) Essential (primary) hypertension (Chronic) Chronic systolic congestive heart failure (Chronic) LBBB (left bundle branch block) (Chronic) HLD (hyperlipidemia) (Chronic) Paroxysmal ventricular tachycardia (Chronic) MVP (mitral valve prolapse) (Chronic) Palpitations (Chronic) Surgical History Presence of biventricular implantable cardioverter-defibrillator (ICD) (Chronic 02/15/17) History of left heart catheterization (Resolved 07/19/04) History of appendectomy (Chronic 03/2006) History of tubal ligation (Chronic 1979) Hx laparoscopic cholecystectomy (Chronic 04/2009) Family History Father Myocardial infarction CAD (coronary artery disease) Watonwan's disease Mother Diabetes Myocardial infarction Hypertension FH: CABG (coronary artery bypass surgery) Grandfather Myocardial infarction Brother Watonwan's disease Sister Watonwan's disease Diabetes Son Diabetes Social History Smoking Status: Never smoker alcohol intake: never substance use type: does not use caffeine: Yes Type: coffee what type of physical activity do you participate in: none seatbelt use: always do you feel safe at home: Yes ROS Const Const: Negative for fatigue, weakness, headache(s), frequent falls, difficulty sleeping or excessive sweating Eyes Eyes: Negative for loss of peripheral vision, transient loss of vision, blurry vision, double vision or tunnel vision ENT ENT: Negative for headache(s), dizziness, Nosebleed/epistaxis or balance problems Cardio Chest Pain: No Palpitations: No Edema: None Muscle aches with walking: None Resp Respiratory: Negative for SOB with activity, SOB at rest, SOB orthopnea\SOB lying down, Cough or paroxysmal nocturnal dyspnea GI GI: Negative nausea, vomiting, heartburn or black,tarry stools : Negative for hematuria Musc Musc: Positive for joint pain (Left knee); negative for muscle aches/ myalgia, muscle weakness or balance problems Skin Skin: Negative non-healing lesions, rash or unusual bruising Neuro Neuro: Negative for dizziness, lightheadedness, near syncope, syncope, orthostatic symptoms, frequent falls, headache(s), weakness, blurry vision, double vision or lack of coordination Jc Hematologic/Lymphatic: Negative for easy bleeding or easy bruising Endo Endo: Negative for fatigue, excessive sweating or increased thirst/drinking Psych Psych: Negative for anxiety or depression Allergy Allergy/Immunology: Negative for hives, Negative for rash Cardiology Exam Const Appearance: cooperative, healthy appearing, no acute distress, well developed and well groomed Nutritional Appearance: average body habitus and well nourished Orientation: alert, awake and oriented x3 Head Head: normal to inspection, normocephalic and atraumatic Ears: hearing grossly normal bilaterally and external ears normal Nose: external nose normal, nares normal, nasal mucous membranes and turbinates normal, septum normal, no nasal discharge Face [...] present Neuro General: alert, awake, oriented x3, gait normal, moves all extremities and no focal sensory deficit Skin Skin: no rashes or lesions noted Extremities Pulses: Normal: Right Femoral Pulse, Left Femoral Pulse, Right Dorsalis Pedis Pulse, Left Dorsalis Pedis Pulse, Right Posterior Tibial Pulse, Left Posterior Tibial Pulse, Right Radial Pulse, Left Radial Pulse Lower Extremity Edema: None: Bilateral Musculoskel Musculoskeletal: No joint tenderness Psych Psychological: normal affect Assessment AND Plan 1. Essential (primary) hypertension I10 Plan Her blood pressure appears to be elevated today. I would recommend that we increase her losartan 100 mg a day and recheck her echocardiogram. She should be encouraged to continue monitoring her blood pressures at home. 2. Nonischemic cardiomyopathy I42.8 Plan He does have a history of nonischemic cardiomyopathy. Her last ejection fraction obtained 3 years ago demonstrated an ejection fraction of 35%. There was 1-2+ mitral regurgitation present. Orders Orders: 3. Pure hypercholesterolemia E78.00 Plan She does have a history of hyperlipidemia. Her most recent lipid profile was from December of last year demonstrating a total cholesterol 125 HDL of 50 and LDL of 50. No changes will be made with respect to the above. 4. Presence of biventricular implantable cardioverter-defibrillator (ICD) Z95.810 ICD REPLACEMENT 03/23/2011; GENERATOR CHANGE 02/15/2017 Plan She does have a biventricular ICD and interrogation in May of this year demonstrated no VT or VF episodes battery longevity was over 8 years with adequate lead impedances. We will continue to follow her here in our pacemaker clinic. Thank you for allowing me to participate in the care of your patient. Please don't hesitate to call if any issues arise Plan Detail Other Medications New: Discontinued: Follow Up 6 Months (mmm) Coding Level of Care Code Off vis,est,level 4 Diagnoses Essential (primary) hypertension I10 Nonischemic cardiomyopathy I42.8 Pure hypercholesterolemia E78.00 Hyperlipidemia type: pure hypercholesterolemia Presence of biventricular implantable cardioverter-defibrillator (ICD) Z95.810 Coding Level of Care Code Off vis,est,level 4 Diagnoses Essential (primary) hypertension I10 Nonischemic cardiomyopathy I42.8 Pure hypercholesterolemia E78.00 Hyperlipidemia type: pure hypercholesterolemia Presence of biventricular implantable cardioverter-defibrillator (ICD) Z95.810 Supplemental Info Supplemental Information Labs LDL Cholesterol 50 mg/dL (0-130) 12/17/17 HDL Cholesterol 50 mg/dL (40-) 12/17/17 Triglycerides 123 mg/dL (-199) 12/17/17 VLDL Cholesterol 25 mg/dL (5-40) 12/17/17 Diagnostics Electrocardiogram 02/17/18 Pacemaker Check 05/23/18 Chest X-Ray 02/17/18 08/09/18 1115 <Electronically signed by Pop Hurd MD> Date Pop Hurd MD Cosigner Signature: Date (if applicable) CC: MUNA Carrera Start: 05-23-2018 End: 05-23-2018 Pacemaker Check Comments: See Note; NOTES: [facility] [address] [place] [address] Pacemaker Check Date of Service: 05/23/18 1419 MR#: [id number] Acct: [id number] Name: LIBIA MOYA Rep #: [id number] : 1945 From: Cathleen Cross Age/Sex: 72/F Location: [facility] Status: Signed Billing Codes ICD Device Billing: ICD Dev Piedad Celis 05/23/18 1420 <Electronically signed by Cathleen Cross > Date Cathleen Cross Cosigner Signature: Date (if applicable) CC: Ivana Carrera Start: 04-19-2018 End: 04-19-2018 Discharge Instruction Comments: See Note; NOTES: [facility] Medical Records Department [address] [place] [address] Discharge Instruction 04/19/1817 MR#: [id number] Acct: [id number] Name: LIBIA MOYA Rep #: [id number] : 1945 72 From: Antonio Ngo MD PCP: Janessa Gamboa NP Status: DEP ER ED Disposition - Plan for ED Patient: Disposition: Home or Assisted Living Instructions: ED Gastroenteritis Viral Prescriptions: Ondansetron [Zofran Odt] 4 mg PO Q8H PRN PRN #7 tab PRN Reason: Nausea Referrals: Janessa Gamboa NP-C [Primary Care Provider] - 3-5 Days if not improving Additional Instructions: Plenty of fluids and rest. Zofran as needed for nausea. Imodium as needed for diarrhea. Follow-up with your primary care provider if not improving you may need stool cultures done but at this time this appears to be a viral gastroenteritis. What to do if you have Problems For any increased pain, shortness of breath, bleeding, nausea or vomiting, chest pain, or any unexpected problems, contact your Primary Care Provider. Call [facility] ([phone]) or report to the closest Emergency Room. Call 911 if necessary. 04/19/18 9827 <Electronically signed by Antonio Ngo MD> Date Antonio Ngo MD Cosigner Signature (If Indicated): Date CC: Janessa Carrera Start: 04-19-2018 End: 04-19-2018 Emergency Department Summary Comments: See Note; NOTES: [facility] Medical Records Department [address] [place] [address] Emergency Department Summary 04/19/18 0914 MR#: [id number] Acct: [id number] Name: LIBIA MOYA Rep #: [id number] : 1945 72 From: Antonio Ngo MD PCP: Janessa Gamboa NP Status: DEP ER - ER Visit Summary Date of Service: 04/19/18 Chief Complaint: Nausea, vomiting and diarrhea History of Present Illness: The patient is a 72 F history of asthma and prior appendectomy, cholecystectomy and a pacemaker defibrillator. Patient states for the last 3 days she has had nausea, vomiting and diarrhea. Has been able to hold some fluids down. But limited. No melena. No hematemesis. Other than some mild cramping no significant abdominal pain. No fever or dysuria. She has had no recent hospitalization. She is on no antibiotics recently. No history of C. difficile or exposure to it. Physical Examination: Older female no acute distress. Vital signs are stable and afebrile. H EENT exam dry mucous membranes. Otherwise unremarkable. Neck nontender no lymphadenopathy. Lungs clear to auscultation bilaterally. Heart regular rhythm no murmur. Abdomen is soft, nontender. Normal bowel sounds no peritoneal signs. No signs of obstruction. Extremities moves all 4. No edema. Skin unremarkable. No rashes. Back nontender. Neurologically she is awake and alert. Moving all 4 extremities. No focal motor deficits. Test Results: CBC shows a white count of 12.8. Hemoglobin 14 and hematocrit 42. No bands. Electrolytes show a CO2 of 17. Gap of 13. BUN 19 and creatinine 1.53 which is higher than her baseline. Emergency Department Course and Treatment: Patient clinically appears to be mildly dehydrated. I do not think she needs tested for C. difficile because she has had no recent hospitalization or surgery. She is been on no recent antibiotics. And this is only been a 3-day history. She and I discussed that the diarrhea would continue she may need stool testing. Patient was treated with a liter of normal saline. And IV Zofran. She is feeling much better on repeat exam at oh 9:15 AM. Is able to tolerate p.o. fluids. Is comfortable being discharged home. Treatment Plan: Zofran as needed. Imodium as needed. Plenty of fluids and rest. Follow-up with your doctor if not improving or return if worse. Disposition: Discharge Impression: Acute nausea, vomiting and diarrhea secondary to viral gastroenteritis Mild dehydration This note was generated with NUMBER26ation software. It may contain incorrect words, spelling, and punctuation that were not noted in review of the chart prior to signing ED Disposition - Plan for ED Patient: Referrals: Janessa Gamboa, MUNA-C [Primary Care Provider] - What to do if you have Problems For any increased pain, shortness of breath, bleeding, nausea or vomiting, chest pain, or any unexpected problems, contact your Primary Care Provider. Call [facility] ([phone]) or report to the closest Emergency Room. Call 911 if necessary. 04/19/18 4213 <Electronically signed by Antonio Ngo MD> Date Antonio Ngo MD Cosigner Signature (If Indicated): Date CC: Janessa Carrera Start: 03-25-2018 End: 03-25-2018 Pacemaker Check Comments: See Note; NOTES: [facility] [address] [place] [address] Pacemaker Check Date of Service: 03/21/18 0948 MR#: [id number] Acct: [id number] Name: LIBIA MOYA Rep #: [id number] : 1945 From: Cathleen Cross Age/Sex: 72/F Location: [facility] Status: Signed Billing Codes ICD Device Billing: ICD Dev Interrogate (Rmt) 03/21/18 0950 <Electronically signed by Cathleen Cross > Date Cathleen Cross 03/25/18 0644<Electronically signed by Pop Hurd MD> Cosigner Signature: Date (if applicable) Pop Hurd MD CC: Ivana Carrera Start: 02-19-2018 End: 02-19-2018 12 lead ECG Comments: See Note; NOTES: [facility] Cardiovascular Services [address] [place] [address] 12 Lead EKG 02/17/182017 MR#: [id number] Acct: [id number] Name: LIBIA MOYA Rep #: [id number] : 1945 72 From: Matthew Dejesus MD [...] voltage QRS Confirmed by ANJELICA GASPAR, MATTHEW ([id number]), film editor EVANGELINA CAO ([id number]) on 02/19/2018 3:23:02 PM Referred By: Pop Hurd Confirmed By:MATTHEW DEJESUS MD 02/19/18 1523 Date Matthew Dejesus MD CC: Janessa Gamboa NP; Pop Hurd MD; Mehnaz Sun MD Signed Ivana Debi Start: 02-18-2018 End: 02-18-2018 Emergency Department Summary Comments: See Note; NOTES: [facility] Medical Records Department [address] [place] [address] Emergency Department Summary 02/17/18 2246 MR#: [id number] Acct: [id number] Name: LIBIA MOYA Rep #: [id number] : 1945 72 From: Mehnaz Sun MD PCP: Janessa Gamboa NP Status: DEP ER - ER Visit [...] with that. [facility] [...] Asthma exacerbation This note was generated with StyleZen dictation software. It may contain incorrect words, spelling, and punctuation that were not noted in review of the chart prior to signing ED Disposition - Plan for ED Patient: Disposition: Home or Assisted Living Chief Complaint: Shortness of Breath Instructions: ED Reactive Airway Disease Prescriptions: Prednisone 10 mg PO UD #33 tablet Referrals: Janessa Gamboa, PECAN CLEANER-C [Primary Care Provider] - 3-5 Days What to do if you have Problems For any increased pain, shortness of breath, bleeding, nausea or vomiting, chest pain, or any unexpected problems, contact your Primary Care Provider. Call [facility] ([phone]) or report to the closest Emergency Room. Call 911 if necessary. 02/18/18 0046 <Electronically signed by Mehnaz Sun MD> Date Mehnaz Sun MD Cosigner Signature (If Indicated): Date CC: Janessa Carrera Start: 02-17-2018 End: 02-17-2018 Discharge Instruction Comments: See Note; NOTES: [facility] Medical Records Department [address] [place] [address] Discharge Instruction 02/17/18 2246 MR#: [id number] Acct: [id number] Name: LIBIA MOYA Rep #: [id number] : 1945 72 From: Mehnaz Sun MD PCP: Janessa Gamboa NP Status: REG ER ED Disposition - Plan for ED Patient: Disposition: Home or Assisted Living Chief Complaint: Shortness of Breath Instructions: ED Reactive Airway Disease Prescriptions: Prednisone 10 mg PO UD #33 tablet Referrals: Janessa Gamboa, PECAN CLEANER-C [Primary Care Provider] - 3-5 Days What to do if you have Problems For any increased pain, shortness of breath, bleeding, nausea or vomiting, chest pain, or any unexpected problems, contact your Primary Care Provider. Call [facility] ([phone]) or report to the closest Emergency Room. Call 911 if necessary. 02/17/18 2247 <Electronically signed by Mehnaz Sun MD> Date Mehnaz Sun MD Cosigner Signature (If Indicated): Date CC: Janessa Carrera Start: 02-17-2018 End: 02-17-2018 Chest PA and Lateral Comments: See Note; NOTES: [facility] Imaging Services [address] [place] [address] Chest PA and Lateral MR#: [id number] Acct: [id number] Name: LIBIA MOYA Rep #: [id number] : 1945 F 72 From: Norbert Menendez DO PCP: Janessa Gamboa NP Status: [facility] ER Study: Chest PA and Lateral Date of Exam: 02/17/18 Exam# [id number] Ordering Dr: Mehnaz Sun MD STUDY: X-RAY [...] Norbert Menendez DO at 23:15 EST Tel [phone], Service support , CC: Janessa Gamboa PECAN CLEANER; Mehnaz Sun MD Visual Merchandising Director: Signed Ivana Carrera Start: 01-18-2018 End: 01-18-2018 Cardiology Visit Report Comments: See Note; NOTES: [facility] [address] [place] [address] OFFICE VISIT Date of Service: 01/15/18 MR#: [id number] Acct: [id number] Name: LIBIA MOYA Rep #: [id number] : 1945 Provider: Velma Sullivan Age/Sex: 72/F Location: [facility] Status: Signed HPI [facility] Chief Complaint: Follow-up visit. Details: LIBIA MOYA, is a 72 F who presents to the office today for a cardiovascular follow-up. She has a history of nonischemic cardiomyopathy with a biventricular ICD, hypertension and hyperlipidemia From a cardiac standpoint, patient is doing well. She does not have any chest discomfort/heaviness/tightnes s. Her exercise tolerance is stable for her [...] Lt brachial Intake Visit Reasons: 6 M Mill Tender Warm Up Required: No Accompanied by: none Is patient [...] Father Myocardial infarction CAD (coronary artery disease) Watonwan's disease Mother Diabetes Myocardial infarction Hypertension FH: CABG (coronary artery bypass surgery) Grandfather Myocardial infarction Brother Watonwan's disease Sister Watonwan's disease Diabetes Son Diabetes Social History Smoking [...] in other diseases classified elsewhere I43 Plan CLAUDIO Palacios Stable, patient does not have any symptoms of congestive heart failure. She will continue with current medical management and risk factor modification 2. Essential hypertension I10 CLAUDIO Brothers Adequately controlled on current medications. Will not make any adjustments. 3. Pure hypercholesterolemia E78.00; E78.0 CLAUDIO Brothers Patient will continue with current low-dose statin. [...] saving. 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) Coding Level of Care Code Off [...] (if applicable) Pop Hurd MD CC: Janessa Carrera Start: 11-29-2017 End: 11-29-2017 Pacemaker Check Comments: See Note; NOTES: [facility] [address] [place] [address] Pacemaker Check Date of Service: 11/28/171704 MR#: [id number] Acct: [id number] Name: LIBIA MOYA Rep #: [id number] : 1945 From: Cathleen Cross Age/Sex: 72/F Location: [facility] Status: Signed Billing Codes ICD Device Billing: ICD Dev Interrogate (Rmt) 11/28/17 170 <Electronically signed by Cathleen Cross > Date Cathleen Cross 11/29/17 1026<Electronically signed by Pop Hurd MD> Cosigner Signature: Date (if applicable) oPp Hurd MD CC: Ivana Carrera Start: 07-12-2017 End: 07-12-2017 Cardiology Visit Report Comments: See Note; NOTES: [facility] [address] [place] [address]. [address] [place] [address] OFFICE VISIT Date of Service: 07/12/17 MR#: [id number] Acct: [id number] Name: LIBIA MOYA Rep #: [id number] : 1945 Provider: Pop Hurd MD Age/Sex: 71/F Location: [facility] Status: Signed [...] Lt brachial Intake Visit Reasons: 6 M Mill Tender Warm Up Required: No Accompanied by: None Is patient [...] 35 to 39 (35% per echo 07/23/2015) [facility] Medical History Chronic systolic congestive heart failure [...] Father Myocardial infarction CAD (coronary artery disease) Watonwan's disease Mother Diabetes Myocardial infarction Hypertension FH: CABG (coronary artery bypass surgery) Grandfather Myocardial infarction Brother Negra's disease Sister Watonwan's disease Diabetes Son Diabetes Social History Smoking [...] Cosigner Signature: Date (if applicable) CC: Janessa Carrera Start: 05-31-2017 End: 05-31-2017 Pacemaker Check Comments: See Note; NOTES: [facility] [place] [address] Pacemaker Check Date of Service: 05/21/17 1144 MR#: [id number] Acct: [id number] Name: LIBIA MOYA Rep #: [id number] : 1945 From: Pop Hurd MD Age/Sex: 71/F Location: [facility] Status: Signed Comments Summary Comments: Remote Bi-VICD Evaluation: Remote interrogation shows no VT/VF episodes since generator change 01/27/30. Presenting rhythm shows NSR @ 82 bpm. Cliff pacing programmed to ventricular pace as little as possible and programmed VVI @ 40 ppm d/t narrow QRS.Battery longevity approx 8 yrs. SENIOR RADIATION THERAPIST=0%. Lead impedances and sensing remain stable. Normal remote Bi-VICD function. Pt notified remote transmission received and next f/u appt scheduled for in 3 mos. Device Device Date Interviewed: 05/21/17 Follow-up Location: remote Interview Reason: scheduled follow up Guest Services Manager: [employer] Name: Dynagen PRODUCTION SUPPORT SPECIALIST-D IS-1/DF-1 Model: G154 Serial #: [id number] Implant Date: 02/15/17 Year(s): 0 Implant Physician: Dr. Mohinder Garcia Patient Characteristics Patient Substrate: Nonischemic cardiomyopathy Ejection fraction %: 35 to 39 By: Echo Underlying rhythm: Sinus rhythm Pacemaker Dependent: No Device Characteristics Device: Biventricular Type: Implantable defibrillator Remote Follow-Up: Latitude Leads Lead #1 Guest Services Manager Lead 1: Guidant Model Lead 1: 4470 Serial# Lead 1: [id number] Date Implanted Lead 1: 05/16/05 Position Lead 1: RA Lead #2 Guest Services Manager Lead 2: Guidant Model Lead 2: 0814 Serial# Lead 2: [id number] Date Implanted Lead 2: 05/16/05 Position Lead 2: RV Lead #3 Guest Services Manager Lead 3: Guidant Model Lead 3: 4518 Serial# Lead 3: [id number] Date Implanted Lead 3: 05/16/05 Position Lead [...] 05/31/17 1009<Electronically signed by Cathleen Cross > Anna Signature: Date (if applicable) Cathleen Cross CC: Ivana Carrera Start: 03-01-2017 End: 03-01-2017 Office Visit Report Comments: See Note; NOTES: [facility] [address] [place] [address] OFFICE VISIT Date of Service: 02/23/17 MR#: [id number] Acct: [id number] Patient: LIBIA MOYA Rep #: [id number] : 1945 Provider: Cathleen Cross Age/Sex: 71/F Location: [facility] Status: Signed Device Device Date Interviewed: 02/23/17 Follow-up Location: in office Interview Reason: device implant (wound check post generator change) Guest Services Manager: [employer] [employer] Name: Dynagen PRODUCTION SUPPORT SPECIALIST-D IS-1/DF-1 Model: G154 Serial #: [id number] Implant Date: 02/15/17 Year(s): 0 Implant Physician: Dr. Mohinder Garcia Patient Characteristics Patient Substrate: Nonischemic cardiomyopathy Ejection fraction %: 35 to 39 By: Echo Underlying rhythm: Sinus rhythm Pacemaker Dependent: No Device Characteristics Device: Biventricular Type: Implantable defibrillator Remote Follow-Up: Latitude Device Physical Exam Yes Incision well healed and Incision erythema Leads Lead #1 Guest Services Manager Lead 1: Guidant Model Lead 1: 4470 Serial# Lead 1: [id number] Date Implanted Lead 1: 05/16/05 Position Lead 1: RA Lead #2 Guest Services Manager Lead 2: Guidant Model Lead 2: 0814 Serial# Lead 2: [id number] Date Implanted Lead 2: 05/16/05 Position Lead 2: RV Lead #3 Guest Services Manager Lead 3: Guidant Model Lead 3: 4518 Serial# Lead 3: [id number] Date Implanted Lead 3: 05/16/05 Position Lead 3: LV Tachy Settings VF ms (bpm) FVT ms (bpm) VT ms (bpm) Monitor Monitor Only ms (bpm) VF Therapies VF Therapy Status On/Off On/Off On/Off On/Off On/Off On/Off Energy Pathway ATP: During charging FVT Therapies FVT Therapy Status On/Off On/Off On/Off On/Off On/Off On/Off VT Therapies FVT Therapy Status On/Off On/Off On/Off On/Off On/Off On/Off Comments: Cliff Settings Cliff Settings Pacemaker Mode Lower Rate Limit (bpm) Hysteresis Rate (bpm) Max Track Rate (bpm) Max Sensor Rate (bpm) Max AV Delay (msec) Max PV Delay (msec) Max PVARP (msec) Output/Sensing V/PW (ms) Sensitivity RA RV LV Comments: Comments Summary Comments: Wound Check: 1 wk post Bi-VICD generator change wound check completed. Left pectoral pocket/incision open to air with steri-strips off. Incision well approximated with some redness around incision. No drainage, hot to touch or swelling noted. No hematoma or ecchymosis noted. Pt afebrile T=98.2 degrees F temporally. Remote Latitude monitor ordered and next remote check scheduled for in 3 mos. 03/01/17 1621 <Electronically signed by Pop Hurd MD> Date Pop Hurd MD 02/23/17 1217<Electronically signed by Cathleen Cross > Anna Signature: Date (if applicable) Cathleen Cross CC: Ivana Carrera Start: 02-15-2017 End: 02-15-2017 Operative Report Comments: See Note; NOTES: [facility] Medical Records Department [address] [place] [address] Operative Report 02/15/17 1309 MR#: [id number] Acct: [id number] Name: LIBIA MOYA Rep #: [id number] : 1945 71 From: Mohinder Garcia MD PCP: Janessa Gamboa Status: REG SDC Y Location: [facility] Operative Report Date of Procedure: 02/15/17 Preoperative diagnosis is device at end of life for normal battery depletion. Postoperative diagnosis same as above. After informed consent and IV antibiotics the patient was brought to the [facility] and the skin over the device was prepped and draped in the usual sterile manner. Intermittent boluses of Versed, fentanyl were used for sedation and analgesia as well as 1% subcutaneous lidocaine. An incision was made over the pre-existing device. Using blunt and Bovie dissection the pocket was opened and the device was removed. Careful attention was paid not to injure the pre-existing leads. The leads were removed from the device header and they were interrogated. [...] placed in the pocket. The pocket was closed with a deep layer of running 2-0 Vicryl, a superficial layer of running 4-0 Vicryl, skin with Steri-Strips which were covered with a rolled 4 x 4 and Tegaderm. Patient left the room with the device programmed to proper parameters and there were no complications. [place] QRS is narrow so no BiV pacing for now, but reassess QRS at follow up All lead parameters were tested and found to be functionally normal. Lead and device serial and model numbers are available in the chart documents provided by the device company business representative procedure summary. 02/15/17 1314 <Electronically signed by Mohinder Garcia MD> Date Mohinder Garcia MD CC: Janessa Gamboa; Mohinder Garcia MD Signed Ivana Carrera Start: 02-13-2017 End: 02-13-2017 Urinalysis Cristin Pickard RN Start: 02-13-2017 End: 02-13-2017 Chest PA and Lateral Comments: See Note; NOTES: [facility] Imaging Services [address] [place] [address] Chest PA and Lateral MR#: [id number] Acct: [id number] Name: LIBIA MOYA Rep #: [id number] : 1945 F 71 From: Edson Dillon MD PCP: Janessa Gamboa Status: PRE SDC Study: Chest PA and Lateral Date of Exam: 02/13/17 Exam# [id number] Ordering Dr: Pop Hurd MD STUDY: X-RAY CHEST REASON FOR EXAM: Female, 71 years old. Preoperative [...] 15:52 EST Tel , Service support , CC: Janessa Gamboa; Pop Hurd MD Visual Merchandising Director: Signed Ivana Carrera Start: 02-13-2017 End: 02-13-2017 Dietary management education, guidance, and counseling Elizabeth Cross RN Start: 02-13-2017 End: 02-13-2017 Documentation of current medications Elizabeth Cross RN Start: 02-13-2017 End: 02-13-2017 Ecg routine ecg w/least 12 lds w/i&r Gilberto Plaza NP Work Phone: Start: 02-13-2017 End: 02-13-2017 Prgrmg eval implantable in person multi lead dfb Pop Hurd MD Start: 02-12-2017 End: 02-13-2017 *UA - Urinalysis w/o Micro Pop Hurd MD Start: 02-12-2017 End: 02-13-2017 Basic metabolic 2000 panel - Serum or Plasma Pop Hurd MD Start: 02-12-2017 End: 02-13-2017 CBC W Auto Differential panel - Blood Pop Hurd MD Start: 02-12-2017 End: 02-16-2017 Chest x-ray Pop Hurd MD Start: 02-12-2017 End: 02-12-2017 Ecg routine ecg w/least 12 lds w/i&r Pop Hurd MD Start: 02-12-2017 End: 02-13-2017 INR in Platelet poor plasma by Coagulation assay Pop Hurd MD Start: 02-12-2017 End: 02-16-2017 Pacemaker Generator Change Pop Hurd MD Start: 01-03-2017 End: 01-03-2017 NA Sullivan PA-C Work Phone: Start: 01-03-2017 End: 01-03-2017 Follow Up Appt 6 months Velma Sullivan PA-C Work Phone: Start: 01-03-2017 End: 01-03-2017 Dietary management education, guidance, and counseling Jennifer Man Start: 01-03-2017 End: 01-03-2017 Documentation of current medications Jennifer Man Start: 01-03-2017 End: 01-03-2017 RUG CLEANING SUPERVISOR Velma Sullivan PA-C Work Phone: Start: 01-03-2017 End: 01-03-2017 Follow Up Appt 6 months Velma Sullivan PA-C Work Phone: Start: 12-22-2016 End: 01-03-2017 Follow Up Appt 2 months Velma Sullivan PA-C Work Phone: Start: 12-22-2016 End: 01-03-2017 Pacer Clinic Velma Sullivan PA-C Work Phone: Start: 12-22-2016 End: 12-22-2016 Prgrmg eval implantable in person multi lead dfb Velma Sullivan PA-C Work Phone: Start: 12-22-2016 End: 01-03-2017 Follow Up Appt 2 months Velma Sullivan PA-C Work Phone: Start: 12-22-2016 End: 01-03-2017 Pacer Clinic Velma Sullivan PA-C Work Phone: Start: 12-22-2016 End: 12-22-2016 Prgrmg eval implantable in person multi lead dfb Velma Sullivan PA-C Work Phone: Start: 12-13-2016 End: 12-18-2016 *Hepatic Function Panel Per Salazar Start: 12-13-2016 End: 12-18-2016 Lipid 1996 panel - Serum or Plasma Pop Hurd MD Start: 12-13-2016 End: 12-18-2016 Hepatic function 2000 panel - Serum or Plasma Pop Hurd MD Start: 12-13-2016 End: 12-18-2016 Lipid 1996 panel - Serum or Plasma Pop Hurd MD Start: 09-14-2016 End: 12-19-2016 Follow Up Appt 3 months Per Salazar Start: 09-14-2016 End: 12-19-2016 Pacer Clinic Pop Hurd MD Start: 09-14-2016 End: 09-14-2016 Prgrmg eval implantable in person multi lead dfb Pop Hurd MD Start: 09-14-2016 End: 12-19-2016 Follow Up Appt 3 months Per Salazar Start: 09-14-2016 End: 12-19-2016 Pacer Clinic Pop Hurd MD Start: 09-14-2016 End: 09-14-2016 Prgrmg eval implantable in person multi lead dfb Pop Hurd MD Start: 07-04-2016 End: 12-19-2016 Follow Up Appt 6 months Per Salazar Start: 07-04-2016 End: 12-19-2016 THEA Hurd MD Start: 07-04-2016 End: 07-04-2016 Dietary management education, guidance, and counseling Elizabeth Cross RN Start: 07-04-2016 End: 07-04-2016 Documentation of current medications Elizabeth Cross RN Start: 07-04-2016 End: 12-19-2016 Follow Up Appt 6 months Per Salazar Start: 07-04-2016 End: 12-19-2016 THEA Hurd MD Start: 06-12-2016 End: 06-14-2016 *Hepatic Function Panel Per Salazar Start: 06-12-2016 End: 06-14-2016 Lipid 1996 panel - Serum or Plasma Pop Hurd MD Start: 06-12-2016 End: 06-14-2016 Hepatic function 2000 panel - Serum or Plasma Pop Hurd MD Start: 06-12-2016 End: 06-14-2016 Lipid 1996 panel - Serum or Plasma Pop Hurd MD Start: 06-07-2016 End: 12-19-2016 Follow Up Appt 3 months Per Salazar Start: 06-07-2016 End: 12-19-2016 Pacer Clinic Pop Hurd MD Start: 06-07-2016 End: 06-07-2016 Prgrmg eval implantable in person multi lead dfb Pop Hurd MD Start: 06-07-2016 End: 12-19-2016 Follow Up Appt 3 months Per Salazar Start: 06-07-2016 End: 12-19-2016 Pacer Clinic Pop Hurd MD Start: 06-07-2016 End: 06-07-2016 Prgrmg eval implantable in person multi lead dfb Pop Hurd MD Start: 03-06-2016 End: 12-19-2016 Follow Up Appt 3 months Velma Sullivan PA-C Work Phone: Start: 03-06-2016 End: 12-19-2016 Pacer Clinic Velma Sullivan PA-C Work Phone: Start: 03-06-2016 End: 03-06-2016 Prgrmg eval implantable in person multi lead dfb Velma Sullivan PA-C Work Phone: Start: 03-06-2016 End: 12-19-2016 Follow Up Appt 3 months Velma Sullivan PA-C Work Phone: Start: 03-06-2016 End: 12-19-2016 Pacer Clinic Velma Sullivan PA-C Work Phone: Start: 03-06-2016 End: 03-06-2016 Prgrmg eval implantable in person multi lead dfb Velma Sullivan PA-C Work Phone: Start: 01-06-2016 End: 12-19-2016 *CBC with Differential Tania Roberson PECAN CLEANER Work Phone: Start: 01-06-2016 End: 12-19-2016 *Hepatic Function Panel Tania Roberson PECAN CLEANER Work Phone: Start: 01-06-2016 End: 12-19-2016 RUG CLEANING SUPERVISOR Tania Roberson PECAN CLEANER Work Phone: Start: 01-06-2016 End: 12-19-2016 Follow Up Appt 6 months Tania Roberson PECAN CLEANER Work Phone: Start: 01-06-2016 End: 12-19-2016 Lipid 1996 panel - Serum or Plasma Tania Roberson PECAN CLEANER Work Phone: Start: 01-06-2016 End: 12-19-2016 CBC W Auto Differential panel - Blood Tania Roberson PECAN CLEANER Work Phone: Start: 01-06-2016 End: 12-19-2016 Follow Up Appt 6 months Tania Roberson PECAN CLEANER Work Phone: Start: 01-06-2016 End: 12-19-2016 Hepatic function 2000 panel - Serum or Plasma Tania Roberson PECAN CLEANER Work Phone: Start: 01-06-2016 End: 12-19-2016 Iron [Mass/Vol] Tania Roberson PECAN CLEANER Work Phone: Start: 01-06-2016 End: 12-19-2016 Lipid 1996 panel - Serum or Plasma Tania Roberson PECAN CLEANER Work Phone: Start: 12-13-2015 End: 12-16-2015 *Hepatic Function Panel Per Salazar Start: 12-13-2015 End: 12-16-2015 Lipid 1996 panel - Serum or Plasma Pop Hurd MD Start: 12-13-2015 End: 12-16-2015 Hepatic function 2000 panel - Serum or Plasma Pop Hurd MD Start: 12-13-2015 End: 12-16-2015 Lipid 1996 panel - Serum or Plasma Pop Hurd MD Start: 12-01-2015 End: 12-29-2015 Follow Up Appt 3 months Per Salazar Start: 12-01-2015 End: 12-29-2015 Pacer Clinic Pop Hurd MD Start: 12-01-2015 End: 12-01-2015 Prgrmg eval implantable in person multi lead dfb Pop Hurd MD Start: 12-01-2015 End: 12-29-2015 Follow Up Appt 3 months Per Salazar Start: 12-01-2015 End: 12-29-2015 Lipid 1996 panel Pop Hurd MD Start: 12-01-2015 End: 12-01-2015 Prgrmg eval implantable in person multi lead dfb Pop Hurd MD Start: 09-01-2015 End: 12-13-2015 Follow Up Appt 3 months Per Salazar Start: 09-01-2015 End: 12-13-2015 Pacer Clinic Pop Hurd MD Start: 09-01-2015 End: 09-01-2015 Prgrmg eval implantable in person multi lead dfb Pop Hurd MD Start: 09-01-2015 End: 12-13-2015 Prgrmg eval implantable in person multi lead dfb Pop Hurd MD Start: 07-23-2015 End: 07-23-2015 Echocardiogram Complete Comments: See Note; NOTES: [facility] Cardiovascular Services [address] [place] [address] Echo Complete W/ Contrast 07/22/15 1100 MR#: [id number] Acct: [id number] Name: LIBIA MOYA Rep #: [id number] : 1945 69 From: Pop Hurd MD Attending Dr: Pop Hurd MD Status: REG CLI Ordering Dr: Pop Hurd MD Date: 07/22/15 Location: [facility] Sex: F C Admitted: Reason For Study: cardiomyopathy Procedure This was a 2D Doppler, Color Flow transthoracic echocardiogram. Contrast injection was performed. Exam performed in department. Left Ventricle Normal LV size. Mild concentric left ventricular hypertrophy. Moderately severe global left ventricular systolic dysfunction. The estimated ejection fraction is 35 %. No regional wall motion abnormalities noted. Right Ventricle Normal RV size. ICD [...] Mild (1+) eccentric aortic valve insufficiency. Pulmonic Valve Normal pulmonic valve. Great Vessels Normal aortic root. The pulmonary artery is normal size. Normal inferior vena cava. Pericardium/Pleural No pericardial effusion. Medication Definity0.3ml given slow IV push to enhance endocardial [...] mmHg MR mean radha: 414.0 cm/sec MR mean P.9 mmHg MR VTI: 190.3 cm MR [...] Carrera MD Date Dictated: 07/22/15 1100 Date Transcribed: 07/23/15 0732 Visual Merchandising Director: Signed Ivana Carrera Start: 07-08-2015 End: 07-26-2015 Echocardiography Pop Hurd MD Start: 07-08-2015 End: 07-08-2015 Follow Up Appt 6 months Per Salazar Start: 07-08-2015 End: 07-08-2015 MM Pop Hurd MD Start: 07-08-2015 End: 07-26-2015 Echocardiography Pop Hurd MD Start: 07-08-2015 End: 07-08-2015 Follow Up Appt 6 months Per Salazar Start: 07-08-2015 End: 07-08-2015 MMM Pop Hurd MD Start: 06-14-2015 End: 06-14-2015 *Hepatic Function Panel Per Salazar Start: 06-14-2015 End: 06-14-2015 Lipid 1996 panel - Serum or Plasma Pop Hurd MD Start: 06-14-2015 End: 06-14-2015 Hepatic function 2000 panel - Serum or Plasma Pop Hurd MD Start: 06-14-2015 End: 06-14-2015 Lipid 1996 panel - Serum or Plasma Pop Hurd MD Start: 05-25-2015 End: 12-13-2015 Follow Up Appt 3 months Velma Sullivan PA-C Work Phone: Start: 05-25-2015 End: 12-13-2015 Pacer Clinic Velma Sullivan PA-C Work Phone: Start: 05-25-2015 End: 05-25-2015 Prgrmg eval implantable in person multi lead dfb Velma Sullivan PA-C Work Phone: Start: 05-25-2015 End: 12-13-2015 Lipid 1996 panel Velma Sullivan PA-C Work Phone: Start: 05-25-2015 End: 12-13-2015 Pacer Clinic Velma Sullivan PA-C Work Phone: Start: 05-25-2015 End: 05-25-2015 Prgrmg eval implantable in person multi lead dfb Velma Sullivan PA-C Work Phone: Start: 03-08-2015 End: 03-08-2015 *CBC with Differential Velma Sullivan PA-C Work Phone: Start: 03-08-2015 End: 03-08-2015 *CMP Complete Metabolic Panel Velma Sullivan PA-C Work Phone: Start: 03-08-2015 End: 12-13-2015 RUG CLEANING SUPERVISOR Velma Sullivan PA-C Work Phone: Start: 03-08-2015 End: 12-13-2015 Follow Up Appt 4 months Velma Sullivan PA-C Work Phone: Start: 03-08-2015 End: 03-08-2015 Thyrotropin [Units/volume] in Serum or Plasma Velma Sullivan PA-C Work Phone: Start: 03-08-2015 End: 03-08-2015 Thyroxine (T4) [Mass/volume] in Serum or Plasma Velma Sullivan PA-C Work Phone: Start: 03-08-2015 End: 03-08-2015 *CMP Complete Metabolic Panel Velma Sullivan PA-C Work Phone: Start: 03-08-2015 End: 03-08-2015 CBC W Auto Differential panel - Blood Velma Sullivan PA-C Work Phone: Start: 03-08-2015 End: 12-13-2015 RUG CLEANING SUPERVISOR Velma Sullivan PA-C Work Phone: Start: 03-08-2015 End: 12-13-2015 Prgrmg eval implantable in person multi lead dfb Velma Sullivan PA-C Work Phone: Start: 03-08-2015 End: 03-08-2015 Thyrotropin [Units/volume] in Serum or Plasma Velma Sullivan PA-C Work Phone: Start: 03-08-2015 End: 03-08-2015 Thyroxine (T4) [Mass/volume] in Serum or Plasma Velma Sullivan PA-C Work Phone: Start: 02-16-2015 End: 02-23-2015 Follow Up Appt 3 months Velma Sullivan PA-C Work Phone: Start: 02-16-2015 End: 02-23-2015 Pacer Clinic Velma Sullivan PA-C Work Phone: Start: 02-16-2015 End: 02-16-2015 Prgrmg eval implantable in person multi lead dfb Velma Sullivan PA-C Work Phone: Start: 02-16-2015 End: 02-23-2015 Follow Up Appt 3 months Velma Sullivan PA-C Work Phone: Start: 02-16-2015 End: 02-16-2015 Prgrmg eval implantable in person multi lead dfb Velma Sullivan PA-C Work Phone: Start: 02-16-2015 End: 02-23-2015 TSH Qn Velma Sullivan PA-C Work Phone: Start: 12-14-2014 End: 12-14-2014 *Hepatic Function Panel Per Salazar Start: 12-14-2014 End: 12-14-2014 Lipid 1996 panel - Serum or Plasma Pop Hurd MD Start: 12-14-2014 End: 12-14-2014 Hepatic function 2000 panel - Serum or Plasma Pop Hurd MD Start: 12-14-2014 End: 12-14-2014 Lipid 1996 panel - Serum or Plasma Pop Hurd MD Start: 11-10-2014 End: 02-23-2015 Follow Up Appt 3 months Per Salazar Start: 11-10-2014 End: 02-23-2015 Pacer Clinic Pop Hurd MD Start: 11-10-2014 End: 11-10-2014 Prgrmg eval implantable in person multi lead dfb Pop Hurd MD Start: 11-10-2014 End: 02-23-2015 Follow Up Appt 3 months Per Salazar Start: 11-10-2014 End: 02-23-2015 Pacer Clinic Pop Hurd MD Start: 11-10-2014 End: 11-10-2014 Prgrmg eval implantable in person multi lead dfb Pop Hurd MD Start: 09-10-2014 End: 09-10-2014 Device Interrogation Pop Hurd MD Start: 09-10-2014 End: 12-14-2014 Follow Up Appt 3 months Per Salazar Start: 09-10-2014 End: 09-10-2014 Follow Up Appt 6 months Per Salazar Start: 09-10-2014 End: 09-10-2014 MMPer Hurd MD Start: 09-10-2014 End: 12-14-2014 Pacer Clinic Pop Hurd MD Start: 09-10-2014 End: 09-10-2014 Prgrmg eval implantable in person multi lead dfb Pop Hurd MD Start: 09-10-2014 End: 09-10-2014 Device Interrogation Pop Hurd MD Start: 09-10-2014 End: 12-14-2014 Follow Up Appt 3 months Per Salazar Start: 09-10-2014 End: 09-10-2014 THEA Hurd MD Start: 09-10-2014 End: 12-14-2014 Pacer Clinic Pop Hurd MD Start: 09-10-2014 End: 09-10-2014 Prgrmg eval implantable in person multi lead dfb Pop Hurd MD Start: 08-04-2014 End: 12-14-2014 Follow Up Appt 3 months Per Salazar Start: 08-04-2014 End: 12-14-2014 Pacer Clinic Pop Hurd MD Start: 08-04-2014 End: 08-04-2014 Prgrmg eval implantable in person multi lead dfb Pop Hurd MD Start: 08-04-2014 End: 12-14-2014 Pacer Che Hurd MD Start: 08-04-2014 End: 12-14-2014 Prgrmg eval implantable in person multi lead dfb Pop Hurd MD Start: 06-12-2014 End: 06-12-2014 *Hepatic Function Panel Per Salazar Start: 06-12-2014 End: 06-12-2014 Lipid 1996 panel - Serum or Plasma Pop Hurd MD Start: 06-12-2014 End: 06-12-2014 Hepatic function 2000 panel - Serum or Plasma Pop Hurd MD Start: 06-12-2014 End: 06-12-2014 Lipid 1996 panel - Serum or Plasma Pop Hurd MD Start: 05-01-2014 End: 12-14-2014 Follow Up Appt 3 months Per Salazar Start: 05-01-2014 End: 12-14-2014 Pacer Che Hurd MD Start: 05-01-2014 End: 05-01-2014 Prgrmg eval implantable in person multi lead dfb Pop Hurd MD Start: 05-01-2014 End: 12-14-2014 Follow Up Appt 3 months Per Salazar Start: 05-01-2014 End: 12-14-2014 Lipid 1996 panel Pop Hurd MD Start: 05-01-2014 End: 05-01-2014 Prgrmg eval implantable in person multi lead dfb Pop Hurd MD Start: 02-23-2014 End: 02-23-2014 RUG CLEANING SUPERVISOR Velma Sullivan PA-C Work Phone: Start: 02-23-2014 End: 02-23-2014 Follow Up Appt 6 months Velma Sullivan PA-C Work Phone: Start: 02-23-2014 End: 02-23-2014 Follow Up Appt 6 months Velma Sullivan PA-C Work Phone: Start: 02-23-2014 End: 02-23-2014 Prgrmg eval implantable in person multi lead dfb Vlema Sullivan PA-C Work Phone: Start: 01-28-2014 End: 02-05-2014 Follow Up Appt 3 months Per Salazar Start: 01-28-2014 End: 02-05-2014 Pacer Clinic Pop Hurd MD Start: 01-28-2014 End: 01-28-2014 Prgrmg eval implantable in person multi lead dfb Pop Hurd MD Start: 01-28-2014 End: 02-05-2014 Follow Up Appt 3 months Per Salazar Start: 01-28-2014 End: 02-05-2014 Pacer Clinic Pop Hurd MD Start: 01-28-2014 End: 01-28-2014 Prgrmg eval implantable in person multi lead dfb Pop Hurd MD Start: 11-17-2013 End: 12-16-2013 *Hepatic Function Panel Per Salazar Start: 11-17-2013 End: 12-16-2013 Lipid 1996 panel - Serum or Plasma Pop Hurd MD Start: 11-17-2013 End: 12-16-2013 Hepatic function 2000 panel - Serum or Plasma Pop Hurd MD Start: 11-17-2013 End: 12-16-2013 Lipid 1996 panel - Serum or Plasma Pop Hurd MD Start: 10-28-2013 End: 02-05-2014 Follow Up Appt 3 months Matthew Dejesus MD Start: 10-28-2013 End: 02-05-2014 Pacer Clinic Matthew Dejesus MD Start: 10-28-2013 End: 10-28-2013 Prgrmg eval implantable in person multi lead dfb Matthew Dejesus MD Start: 10-28-2013 End: 02-05-2014 Lipid 1996 panel Matthew Dejesus MD Start: 10-28-2013 End: 02-05-2014 Prgrmg eval implantable in person multi lead dfb Matthew Dejesus MD Start: 08-22-2013 End: 08-22-2013 Follow Up Appt 6 months Per [facility] Start: 08-22-2013 End: 08-22-2013 MMM Pop Hurd MD Start: 08-22-2013 End: 08-22-2013 Follow Up Appt 6 months Per [facility]azar Start: 08-22-2013 End: 08-22-2013 MM Pop Hurd MD Start: 07-30-2013 End: 08-22-2013 Follow Up Appt 3 months Per Salazar Start: 07-30-2013 End: 08-22-2013 Pacer Clinic Pop Hurd MD Start: 07-30-2013 End: 07-30-2013 Prgrmg eval implantable in person multi lead dfb Pop Hurd MD Start: 07-30-2013 End: 08-22-2013 Pacer Clinic Pop Hurd MD Start: 07-30-2013 End: 08-22-2013 Prgrmg eval implantable in person multi lead dfb Pop Hurd MD Start: 05-17-2013 End: 06-10-2013 *Hepatic Function Panel Per Salazar Start: 05-17-2013 End: 06-10-2013 Lipid 1996 panel - Serum or Plasma Pop Hurd MD Start: 05-17-2013 End: 06-10-2013 Hepatic function 2000 panel - Serum or Plasma Pop Hurd MD Start: 05-17-2013 End: 06-10-2013 Lipid 1996 panel - Serum or Plasma Pop Hurd MD Start: 04-29-2013 End: 02-05-2014 Follow Up Appt 3 months Per Salazar Start: 04-29-2013 End: 02-05-2014 Pacer Che Hurd MD Start: 04-29-2013 End: 04-29-2013 Prgrmg eval implantable in person multi lead dfb Pop Hurd MD Start: 04-29-2013 End: 02-05-2014 Lipid 1996 panel Pop Hurd MD Start: 04-29-2013 End: 02-05-2014 Pacer Clinic Pop Hurd MD Start: 04-29-2013 End: 04-29-2013 Prgrmg eval implantable in person multi lead dfb Pop Hurd MD Start: 01-23-2013 End: 02-05-2014 Follow Up Appt 3 months Per Salazar Start: 01-23-2013 End: 02-05-2014 Pacer Clinic Pop Hurd MD Start: 01-23-2013 End: 01-23-2013 Prgrmg eval implantable in person multi lead dfb Pop Hurd MD Start: 01-23-2013 End: 02-05-2014 Follow Up Appt 3 months Per Salazar Start: 01-23-2013 End: 02-05-2014 Prgrmg eval implantable in person multi lead vikramb Pop Hurd MD Start: 01-08-2013 End: 01-08-2013 NA Hurd MD Start: 01-08-2013 End: 01-08-2013 Follow Up Appt 6 months Per Salazar Start: 01-08-2013 End: 01-08-2013 NA Hurd MD Start: 01-08-2013 End: 01-08-2013 Follow Up Appt 6 months Per Salazar Start: 01-02-2013 End: 01-23-2013 Peggy Hurd MD Start: 01-02-2013 End: 01-23-2013 Echocardiography Pop Hurd MD Start: 11-17-2012 End: 12-15-2012 *Hepatic Function Panel Per Salazar Start: 11-17-2012 End: 12-17-2012 Lipid 1996 panel - Serum or Plasma Pop Hurd MD Start: 11-17-2012 End: 12-15-2012 Hepatic function 2000 panel - Serum or Plasma Pop Hurd MD Start: 11-17-2012 End: 12-17-2012 Lipid 1996 panel - Serum or Plasma Pop Hurd MD Start: 10-21-2012 End: 01-23-2013 Follow Up Appt 3 months Per Salazar Start: 10-21-2012 End: 01-23-2013 Pacer Clinic Pop Hurd MD Start: 10-21-2012 End: 10-21-2012 Prgrmg eval implantable in person multi lead dfb Pop Hurd MD Start: 10-21-2012 End: 01-23-2013 Lipid 1996 panel Pop Hurd MD Start: 10-21-2012 End: 01-23-2013 Pacer Clinic Pop Hurd MD Start: 10-21-2012 End: 10-21-2012 Prgrmg eval implantable in person multi lead dfb Pop Hurd MD Start: 10-04-2012 End: 10-04-2012 *BMP Velma Sullivan PA-C Work Phone: Start: 10-04-2012 End: 10-04-2012 RUG CLEANING SUPERVISOR Velma Sullivan PA-C Work Phone: Start: 10-04-2012 End: 10-04-2012 Ecg routine ecg w/least 12 lds w/i&r Velma Sullivan PA-C Work Phone: Start: 10-04-2012 End: 10-04-2012 Follow Up Appt 6 months Velma Sullivan PA-C Work Phone: Start: 10-04-2012 End: 10-04-2012 Basic metabolic 2000 panel - Serum or Plasma Velma Sullivan PA-C Work Phone: Start: 10-04-2012 End: 10-04-2012 RUG CLEANING SUPERVISOR Velma Sullivan PA-C Work Phone: Start: 10-04-2012 End: 10-04-2012 Ecg routine ecg w/least 12 lds w/i&r Velma Sullivan PA-C Work Phone: Start: 10-04-2012 End: 10-04-2012 Follow Up Appt 6 months Velam Sullivan PA-C Work Phone: Start: 07-17-2012 End: 09-16-2012 Follow Up Appt 3 months Per Salazar Start: 07-17-2012 End: 09-16-2012 Pacer Clinic Pop Hurd MD Start: 07-17-2012 End: 07-17-2012 Prgrmg eval implantable in person multi lead dfb Pop Hurd MD Start: 07-17-2012 End: 09-16-2012 Follow Up Appt 3 months Per Salazar Start: 07-17-2012 End: 09-16-2012 Pacer Clinic Pop Hurd MD Start: 07-17-2012 End: 07-17-2012 Prgrmg eval implantable in person multi lead dfb Pop Hurd MD Start: 05-17-2012 End: 06-14-2012 *Hepatic Function Panel Per Salazar Start: 05-17-2012 End: 06-14-2012 Lipid 1996 panel - Serum or Plasma Pop Hurd MD Start: 05-17-2012 End: 06-14-2012 Hepatic function 2000 panel - Serum or Plasma Pop Hurd MD Start: 05-17-2012 End: 06-14-2012 Lipid 1996 panel - Serum or Plasma Pop Hurd MD Start: 03-21-2012 End: 03-21-2012 Follow Up Appt 6 months Per Salazar Start: 03-21-2012 End: 03-21-2012 Follow Up Appt 6 months Per Salazar Start: 11-17-2011 End: 12-13-2011 *Hepatic Function Panel Per Salazar Start: 11-17-2011 End: 12-13-2011 Lipid 1996 panel - Serum or Plasma Pop Hurd MD Start: 11-17-2011 End: 12-13-2011 Hepatic function 2000 panel - Serum or Plasma Pop Hurd MD Start: 11-17-2011 End: 12-13-2011 Lipid 1996 panel - Serum or Plasma Pop Hurd MD Start: 09-19-2011 End: 09-19-2011 Follow Up Appt 6 months Per Salazar Start: 09-19-2011 End: 09-19-2011 Follow Up Appt 6 months Per Salazar Start: 03-14-2011 End: 03-14-2011 Ecg routine ecg w/least 12 lds w/i&r Pop Hurd MD Start: 03-14-2011 End: 03-14-2011 Follow Up Appt 6 months Per Salazar Start: 03-14-2011 End: 03-14-2011 Ecg routine ecg w/least 12 lds w/i&r Pop Hurd MD Start: 03-14-2011 End: 03-14-2011 Lipid 1996 panel Pop Hurd MD Start: 10-03-2010 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, HX OF Elizabeth Cross RN Start: 04-11-2006 CONVERTED SURGICAL PATHOLOGY Robin Mejia Work Phone: Appendectomy Shayy Mariscallear Plan of Treatment Date Care Activity Detail Author Start: 02-07-2022 Patient Education Osteoporosis/Osteopenia [facility] Work Phone: Start: 02-07-2022 Provider Instructions for Treatment [facility] Work Phone: Start: 02-01-2022 Procedure Education Eprescribed prescriptions (G8553) [facility] Work Phone: Start: 02-01-2022 Provider Instructions for Treatment Follow up in 6 months [facility] Work Phone: Start: 02-01-2022 25 hydroxy includes fractions if performed CALCIFEDIOL (84726) [facility] Work Phone: Immunizations Immunization Date Immunization Notes Care Provider Ghassan [place] 12-31-2021 influenza, seasonal, injectable Tania Roberson CNP Work Phone: [facility] Work Phone: 12-30-2019 influenza, seasonal, injectable Ivana Brambilai [facility] Work Phone: Payers Date Payer Category Payer Unknown [id number] 2009 Medicare [id number] 2009 Unknown [id number] 1945 Unknown [id number] Medicare [id number] Unknown Medical [facility] [place] Adv Unknown [id number] Social History Date Type Detail Facility Caffeine Use Never smoker [facility] Work Phone: Clinical Notes 07-04-2016 to 02-13-2017 Note Date & Type Note Facility [facility] Work Phone: Instructions* Name Dates Details Patient Instructions Indication:Current nonsmoker (Renamed from Current non-smoker) Start:08-Mar-2021 Instruction Type:Provider Instructions for Treatment How to Access Health Informa tion Online using Patient Portal and [employer] Apps Indication:Current nonsmoker (Renamed from Current non-smoker) Start:08-Mar-2021 Instruction Type:Patient Education Patient Instructions Indication:BMI 32.0-32.9,adult Start:04-Mar-2021 Instruction Type:Provider Instructions for Treatment How to [facility] Informa tion Online using Patient Portal and [employer] Apps Indication:Current nonsmoker (Renamed from Current non-smoker) Start:04-Mar-2021 Instruction Type:Patient Education Patient Instructions Indication:BMI 33.0-33.9,adult Start:21-Jan-2021 Instruction Type:Provider Instructions for Treatment How to Access Health Informa tion Online using Patient Portal and [employer] Apps Indication:BMI 33.0-33.9,adult Start:21-Jan-2021 Instruction Type:Patient Education Patient Instructions Indication:Current nonsmoker (Renamed from Current non-smoker) Start:19-Jan-2021 Instruction Type:Provider Instructions for Treatment How to Access Health Informa tion Online using Patient Portal and [employer] Apps Indication:Current nonsmoker (Renamed from Current non-smoker) Start:19-Jan-2021 Instruction Type:Patient Education Patient Instructions Indication:BMI 33.0-33.9,adult Start:18-Jan-2021 Instruction Type:Provider Instructions for Treatment How to Access Health Informa tion Online using Patient Portal and [employer] Apps Indication:BMI 33.0-33.9,adult Start:18-Jan-2021 Instruction Type:Patient Education Patient Instructions Indication:Current nonsmoker (Renamed from Current non-smoker) Start:17-Jan-2021 Instruction Type:Provider Instructions for Treatment How to Access Health Informa tion Online using Patient Portal and [employer] Indication:Current nonsmoker (Renamed from Current non-smoker) Start:17-Jan-2021 Instruction Type:Patient Education Patient Instructions Indication:Current nonsmoker (Renamed from Current non-smoker) Start:04-Oct-2020 Instruction Type:Provider Instructions for Treatment How to Access Health Informa tion Online using Patient Portal and [employer] Indication:Current nonsmoker (Renamed from Current non-smoker) Start:04-Oct-2020 Instruction Type:Patient Education Patient Instructions Indication:Hypothyroid Start:18-May-2020 Instruction Type:Provider Instructions for Treatment How to Access Health Informa tion Online using Patient Portal and [employer] Indication:Current nonsmoker (Renamed from Current non-smoker) Start:18-May-2020 Instruction Type:Patient Education How to access health informa tion online Indication:Current nonsmoker (Renamed from Current non-smoker) Start:16-Jan-2020 Instruction Type:Patient Education How to access health informa tion online - Detail Indication:Current nonsmoker (Renamed from Current non-smoker) Start:16-Jan-2020 Instruction Type:Patient Education Patient Instructions Indication:Cardiomyopathy Start:16-Jan-2020 Instruction Type:Provider Instructions for Treatment How to access health informa tion online Indication:Current nonsmoker (Renamed from Current non-smoker) Start:15-Sep-2019 Instruction Type:Patient Education How to access health informa tion online - Detail Indication:Current nonsmoker (Renamed from Current non-smoker) Start:15-Sep-2019 Instruction Type:Patient Education Patient Instructions Indication:AJIT (iron deficiency anemia) Start:15-Sep-2019 Instruction Type:Provider Instructions for Treatment How to access health informa tion online Indication:Current nonsmoker (Renamed from Current non-smoker) Start:12-May-2019 Instruction Type:Patient Education How to access health informa tion online - Detail Indication:Current nonsmoker (Renamed from Current non-smoker) Start:12-May-2019 Instruction Type:Patient Education Patient Instructions Indication:Intrinsic asthma Start:12-May-2019 Instruction Type:Provider Instructions for Treatment How to access health informa tion online Indication:Abnormal thyroid function test Start:15-Jan-2019 Instruction Type:Patient Education How to access health informa tion online - Detail Indication:Abnormal thyroid function test Start:15-Jan-2019 Instruction Type:Patient Education Patient Instructions Indication:Hypertensive heart disease Start:15-Jan-2019 Instruction Type:Provider Instructions for Treatment How to access health informa tion online Indication:Current nonsmoker (Renamed from Current non-smoker) Start:06-Dec-2018 Instruction Type:Patient Education How to access health informa tion online - Detail Indication:Current nonsmoker (Renamed from Current non-smoker) Start:06-Dec-2018 Instruction Type:Patient Education How to access health informa tion online Indication:Current nonsmoker (Renamed from Current non-smoker) Start:29-Nov-2018 Instruction Type:Patient Education How to access health informa tion online - Detail Indication:Current nonsmoker (Renamed from Current non-smoker) Start:29-Nov-2018 Instruction Type:Patient Education Patient Instructions Indication:BMI 33.0-33.9,adult Start:29-Nov-2018 Instruction Type:Provider Instructions for Treatment How to access health informa tion online Indication:Current nonsmoker (Renamed from Current non-smoker) Start:27-Feb-2018 Instruction Type:Patient Education How to access health informa tion online - Detail Indication:Current nonsmoker (Renamed from Current non-smoker) Start:27-Feb-2018 Instruction Type:Patient Education Patient Instructions Indication:Current nonsmoker (Renamed from Current non-smoker) Start:27-Feb-2018 Instruction Type:Provider Instructions for Treatment How to access health informa tion online Indication:Current nonsmoker (Renamed from Current non-smoker) Start:20-Feb-2018 Instruction Type:Patient Education How to access health informa tion online - Detail Indication:Current nonsmoker (Renamed from Current non-smoker) Start:20-Feb-2018 Instruction Type:Patient Education Patient Instructions Indication:Current nonsmoker (Renamed from Current non-smoker) Start:20-Feb-2018 Instruction Type:Provider Instructions for Treatment How to access health informa tion online Indication:Current nonsmoker (Renamed from Current non-smoker) Start:30-Jan-2018 Instruction Type:Patient Education How to access health informa tion online - Detail Indication:Current nonsmoker (Renamed from Current non-smoker) Start:30-Jan-2018 Instruction Type:Patient Education Patient Instructions Indication:Current nonsmoker (Renamed from Current non-smoker) Start:30-Jan-2018 Instruction Type:Provider Instructions for Treatment How to access health informa tion online Indication:Bronchitis, acute Start:04-Jun-2015 Instruction Type:Patient Education How to access health informa tion online - Detail Indication:Bronchitis, acute Start:04-Jun-2015 Instruction Type:Patient Education Patient Instructions Indication:Bronchitis, acute Start:04-Jun-2015 Instruction Type:Provider Instructions for Treatment How to access health informa tion online Indication:Annual Medicare Physical (Renamed from Medicare annual wellness visit, subsequent) Start:23-Apr-2015 Instruction Type:Patient Education How to access health informa tion online - Detail Indication:Annual Medicare Physical (Renamed from Medicare annual wellness visit, subsequent) Start:23-Apr-2015 Instruction Type:Patient Education Patient Instructions Indication:Annual Medicare Physical (Renamed from Medicare annual wellness visit, subsequent) Start:23-Apr-2015 Instruction Type:Provider Instructions for Treatment How to access health informa tion online Indication:Anemia, unspecified type Start:09-Mar-2015 Instruction Type:Patient Education How to access health informa tion online - Detail Indication:Anemia, unspecified type Start:09-Mar-2015 Instruction Type:Patient Education Patient Instructions Indication:Anemia, unspecified type Start:09-Mar-2015 Instruction Type:Provider Instructions for Treatment How to access health informa tion online Indication:Current nonsmoker (Renamed from Current non-smoker) Start:01-Jan-2015 Instruction Type:Patient Education How to access health informa tion online - Detail Indication:Current nonsmoker (Renamed from Current non-smoker) Start:01-Jan-2015 Instruction Type:Patient Education Patient Instructions Indication:Current nonsmoker (Renamed from Current non-smoker) Start:01-Jan-2015 Instruction Type:Provider Instructions for Treatment How to access health informa tion online Indication:Unspecified asthma with (acute) exacerbation Start:30-Jan-2014 Instruction Type:Patient Education [facility]; [facility] Work Phone: Instructions* Name Dates Details Patient Instructions Indication:Current nonsmoker (Renamed from Current non-smoker) Start:08-Mar-2021 Instruction Type:Provider Instructions for Treatment How to Access Health Informa tion Online using Patient Portal and [employer] Apps Indication:Current nonsmoker (Renamed from Current non-smoker) Start:08-Mar-2021 Instruction Type:Patient Education Patient Instructions Indication:BMI 32.0-32.9,adult Start:04-Mar-2021 Instruction Type:Provider Instructions for Treatment How to Access Health Informa tion Online using Patient Portal and [employer] Indication:Current nonsmoker (Renamed from Current non-smoker) Start:04-Mar-2021 Instruction Type:Patient Education Patient Instructions Indication:BMI 33.0-33.9,adult Start:21-Jan-2021 Instruction Type:Provider Instructions for Treatment How to Access Health Informa tion Online using Patient Portal and [employer] Indication:BMI 33.0-33.9,adult Start:21-Jan-2021 Instruction Type:Patient Education Patient Instructions Indication:Current nonsmoker (Renamed from Current non-smoker) Start:19-Jan-2021 Instruction Type:Provider Instructions for Treatment How to Access Health Informa tion Online using Patient Portal and [employer] Indication:Current nonsmoker (Renamed from Current non-smoker) Start:19-Jan-2021 Instruction Type:Patient Education Patient Instructions Indication:BMI 33.0-33.9,adult Start:18-Jan-2021 Instruction Type:Provider Instructions for Treatment How to Access Health Informa tion Online using Patient Portal and [employer] Indication:BMI 33.0-33.9,adult Start:18-Jan-2021 Instruction Type:Patient Education Patient Instructions Indication:Current nonsmoker (Renamed from Current non-smoker) Start:17-Jan-2021 Instruction Type:Provider Instructions for Treatment How to Access Health Informa tion Online using Patient Portal and [employer] Indication:Current nonsmoker (Renamed from Current non-smoker) Start:17-Jan-2021 Instruction Type:Patient Education Patient Instructions Indication:Current nonsmoker (Renamed from Current non-smoker) Start:04-Oct-2020 Instruction Type:Provider Instructions for Treatment How to Access Health Informa tion Online using Patient Portal and [employer] Indication:Current nonsmoker (Renamed from Current non-smoker) Start:04-Oct-2020 Instruction Type:Patient Education Patient Instructions Indication:Hypothyroid Start:18-May-2020 Instruction Type:Provider Instructions for Treatment How to Access Health Informa tion Online using Patient Portal and [employer] Indication:Current nonsmoker (Renamed from Current non-smoker) Start:18-May-2020 Instruction Type:Patient Education How to access health informa tion online Indication:Current nonsmoker (Renamed from Current non-smoker) Start:16-Jan-2020 Instruction Type:Patient Education How to access health informa tion online - Detail Indication:Current nonsmoker (Renamed from Current non-smoker) Start:16-Jan-2020 Instruction Type:Patient Education Patient Instructions Indication:Cardiomyopathy Start:16-Jan-2020 Instruction Type:Provider Instructions for Treatment How to access health informa tion online Indication:Current nonsmoker (Renamed from Current non-smoker) Start:15-Sep-2019 Instruction Type:Patient Education How to access health informa tion online - Detail Indication:Current nonsmoker (Renamed from Current non-smoker) Start:15-Sep-2019 Instruction Type:Patient Education Patient Instructions Indication:AJIT (iron deficiency anemia) Start:15-Sep-2019 Instruction Type:Provider Instructions for Treatment How to access health informa tion online Indication:Current nonsmoker (Renamed from Current non-smoker) Start:12-May-2019 Instruction Type:Patient Education How to access health informa tion online - Detail Indication:Current nonsmoker (Renamed from Current non-smoker) Start:12-May-2019 Instruction Type:Patient Education Patient Instructions Indication:Intrinsic asthma Start:12-May-2019 Instruction Type:Provider Instructions for Treatment How to access health informa tion online Indication:Abnormal thyroid function test Start:15-Jan-2019 Instruction Type:Patient Education How to access health informa tion online - Detail Indication:Abnormal thyroid function test Start:15-Jan-2019 Instruction Type:Patient Education Patient Instructions Indication:Hypertensive heart disease Start:15-Jan-2019 Instruction Type:Provider Instructions for Treatment How to access health informa tion online Indication:Current nonsmoker (Renamed from Current non-smoker) Start:06-Dec-2018 Instruction Type:Patient Education How to access health informa tion online - Detail Indication:Current nonsmoker (Renamed from Current non-smoker) Start:06-Dec-2018 Instruction Type:Patient Education How to access health informa tion online Indication:Current nonsmoker (Renamed from Current non-smoker) Start:29-Nov-2018 Instruction Type:Patient Education How to access health informa tion online - Detail Indication:Current nonsmoker (Renamed from Current non-smoker) Start:29-Nov-2018 Instruction Type:Patient Education Patient Instructions Indication:BMI 33.0-33.9,adult Start:29-Nov-2018 Instruction Type:Provider Instructions for Treatment How to access health informa tion online Indication:Current nonsmoker (Renamed from Current non-smoker) Start:27-Feb-2018 Instruction Type:Patient Education How to access health informa tion online - Detail Indication:Current nonsmoker (Renamed from Current non-smoker) Start:27-Feb-2018 Instruction Type:Patient Education Patient Instructions Indication:Current nonsmoker (Renamed from Current non-smoker) Start:27-Feb-2018 Instruction Type:Provider Instructions for Treatment How to access health informa tion online Indication:Current nonsmoker (Renamed from Current non-smoker) Start:20-Feb-2018 Instruction Type:Patient Education How to access health informa tion online - Detail Indication:Current nonsmoker (Renamed from Current non-smoker) Start:20-Feb-2018 Instruction Type:Patient Education Patient Instructions Indication:Current nonsmoker (Renamed from Current non-smoker) Start:20-Feb-2018 Instruction Type:Provider Instructions for Treatment How to access health informa tion online Indication:Current nonsmoker (Renamed from Current non-smoker) Start:30-Jan-2018 Instruction Type:Patient Education How to access health informa tion online - Detail Indication:Current nonsmoker (Renamed from Current non-smoker) Start:30-Jan-2018 Instruction Type:Patient Education Patient Instructions Indication:Current nonsmoker (Renamed from Current non-smoker) Start:30-Jan-2018 Instruction Type:Provider Instructions for Treatment How to access health informa tion online Indication:Bronchitis, acute Start:04-Jun-2015 Instruction Type:Patient Education How to access health informa tion online - Detail Indication:Bronchitis, acute Start:04-Jun-2015 Instruction Type:Patient Education Patient Instructions Indication:Bronchitis, acute Start:04-Jun-2015 Instruction Type:Provider Instructions for Treatment How to access health informa tion online Indication:Annual Medicare Physical (Renamed from Medicare annual wellness visit, subsequent) Start:23-Apr-2015 Instruction Type:Patient Education How to access health informa tion online - Detail Indication:Annual Medicare Physical (Renamed from Medicare annual wellness visit, subsequent) Start:23-Apr-2015 Instruction Type:Patient Education Patient Instructions Indication:Annual Medicare Physical (Renamed from Medicare annual wellness visit, subsequent) Start:23-Apr-2015 Instruction Type:Provider Instructions for Treatment How to access health informa tion online Indication:Anemia, unspecified type Start:09-Mar-2015 Instruction Type:Patient Education How to access health informa tion online - Detail Indication:Anemia, unspecified type Start:09-Mar-2015 Instruction Type:Patient Education Patient Instructions Indication:Anemia, unspecified type Start:09-Mar-2015 Instruction Type:Provider Instructions for Treatment How to access health informa tion online Indication:Current nonsmoker (Renamed from Current non-smoker) Start:01-Jan-2015 Instruction Type:Patient Education How to access health informa tion online - Detail Indication:Current nonsmoker (Renamed from Current non-smoker) Start:01-Jan-2015 Instruction Type:Patient Education Patient Instructions Indication:Current nonsmoker (Renamed from Current non-smoker) Start:01-Jan-2015 Instruction Type:Provider Instructions for Treatment How to access health informa tion online Indication:Unspecified asthma with (acute) exacerbation Start:30-Jan-2014 Instruction Type:Patient Education [facility]; [facility] Work Phone: Instructions* Name Dates Details Patient Instructions Indication:Current nonsmoker (Renamed from Current non-smoker) Start:08-Mar-2021 Instruction Type:Provider Instructions for Treatment How to Access Health Informa tion Online using Patient Portal and [employer] Indication:Current nonsmoker (Renamed from Current non-smoker) Start:08-Mar-2021 Instruction Type:Patient Education Patient Instructions Indication:BMI 32.0-32.9,adult Start:04-Mar-2021 Instruction Type:Provider Instructions for Treatment How to Access Health Informa tion Online using Patient Portal and [employer] Indication:Current nonsmoker (Renamed from Current non-smoker) Start:04-Mar-2021 Instruction Type:Patient Education Patient Instructions Indication:BMI 33.0-33.9,adult Start:21-Jan-2021 Instruction Type:Provider Instructions for Treatment How to Access Health Informa tion Online using Patient Portal and [employer] Indication:BMI 33.0-33.9,adult Start:21-Jan-2021 Instruction Type:Patient Education Patient Instructions Indication:Current nonsmoker (Renamed from Current non-smoker) Start:19-Jan-2021 Instruction Type:Provider Instructions for Treatment How to Access Health Informa tion Online using Patient Portal and [employer] Indication:Current nonsmoker (Renamed from Current non-smoker) Start:19-Jan-2021 Instruction Type:Patient Education Patient Instructions Indication:BMI 33.0-33.9,adult Start:18-Jan-2021 Instruction Type:Provider Instructions for Treatment How to Access Health Informa tion Online using Patient Portal and [employer] Indication:BMI 33.0-33.9,adult Start:18-Jan-2021 Instruction Type:Patient Education Patient Instructions Indication:Current nonsmoker (Renamed from Current non-smoker) Start:17-Jan-2021 Instruction Type:Provider Instructions for Treatment How to Access Health Informa tion Online using Patient Portal and [employer] Indication:Current nonsmoker (Renamed from Current non-smoker) Start:17-Jan-2021 Instruction Type:Patient Education Patient Instructions Indication:Current nonsmoker (Renamed from Current non-smoker) Start:04-Oct-2020 Instruction Type:Provider Instructions for Treatment How to Access Health Informa tion Online using Patient Portal and [employer] Apps Indication:Current nonsmoker (Renamed from Current non-smoker) Start:04-Oct-2020 Instruction Type:Patient Education Patient Instructions Indication:Hypothyroid Start:18-May-2020 Instruction Type:Provider Instructions for Treatment How to Access Health Informa tion Online using Patient Portal and [employer] Apps Indication:Current nonsmoker (Renamed from Current non-smoker) Start:18-May-2020 Instruction Type:Patient Education How to access health informa tion online Indication:Current nonsmoker (Renamed from Current non-smoker) Start:16-Jan-2020 Instruction Type:Patient Education How to access health informa tion online - Detail Indication:Current nonsmoker (Renamed from Current non-smoker) Start:16-Jan-2020 Instruction Type:Patient Education Patient Instructions Indication:Cardiomyopathy Start:16-Jan-2020 Instruction Type:Provider Instructions for Treatment How to access health informa tion online Indication:Current nonsmoker (Renamed from Current non-smoker) Start:15-Sep-2019 Instruction Type:Patient Education How to access health informa tion online - Detail Indication:Current nonsmoker (Renamed from Current non-smoker) Start:15-Sep-2019 Instruction Type:Patient Education Patient Instructions Indication:AJIT (iron deficiency anemia) Start:15-Sep-2019 Instruction Type:Provider Instructions for Treatment How to access health informa tion online Indication:Current nonsmoker (Renamed from Current non-smoker) Start:12-May-2019 Instruction Type:Patient Education How to access health informa tion online - Detail Indication:Current nonsmoker (Renamed from Current non-smoker) Start:12-May-2019 Instruction Type:Patient Education Patient Instructions Indication:Intrinsic asthma Start:12-May-2019 Instruction Type:Provider Instructions for Treatment How to access health informa tion online Indication:Abnormal thyroid function test Start:15-Jan-2019 Instruction Type:Patient Education How to access health informa tion online - Detail Indication:Abnormal thyroid function test Start:15-Jan-2019 Instruction Type:Patient Education Patient Instructions Indication:Hypertensive heart disease Start:15-Jan-2019 Instruction Type:Provider Instructions for Treatment How to access health informa tion online Indication:Current nonsmoker (Renamed from Current non-smoker) Start:06-Dec-2018 Instruction Type:Patient Education How to access health informa tion online - Detail Indication:Current nonsmoker (Renamed from Current non-smoker) Start:06-Dec-2018 Instruction Type:Patient Education How to access health informa tion online Indication:Current nonsmoker (Renamed from Current non-smoker) Start:29-Nov-2018 Instruction Type:Patient Education How to access health informa tion online - Detail Indication:Current nonsmoker (Renamed from Current non-smoker) Start:29-Nov-2018 Instruction Type:Patient Education Patient Instructions Indication:BMI 33.0-33.9,adult Start:29-Nov-2018 Instruction Type:Provider Instructions for Treatment How to access health informa tion online Indication:Current nonsmoker (Renamed from Current non-smoker) Start:27-Feb-2018 Instruction Type:Patient Education How to access health informa tion online - Detail Indication:Current nonsmoker (Renamed from Current non-smoker) Start:27-Feb-2018 Instruction Type:Patient Education Patient Instructions Indication:Current nonsmoker (Renamed from Current non-smoker) Start:27-Feb-2018 Instruction Type:Provider Instructions for Treatment How to access health informa tion online Indication:Current nonsmoker (Renamed from Current non-smoker) Start:20-Feb-2018 Instruction Type:Patient Education How to access health informa tion online - Detail Indication:Current nonsmoker (Renamed from Current non-smoker) Start:20-Feb-2018 Instruction Type:Patient Education Patient Instructions Indication:Current nonsmoker (Renamed from Current non-smoker) Start:20-Feb-2018 Instruction Type:Provider Instructions for Treatment How to access health informa tion online Indication:Current nonsmoker (Renamed from Current non-smoker) Start:30-Jan-2018 Instruction Type:Patient Education How to access health informa tion online - Detail Indication:Current nonsmoker (Renamed from Current non-smoker) Start:30-Jan-2018 Instruction Type:Patient Education Patient Instructions Indication:Current nonsmoker (Renamed from Current non-smoker) Start:30-Jan-2018 Instruction Type:Provider Instructions for Treatment How to access health informa tion online Indication:Bronchitis, acute Start:04-Jun-2015 Instruction Type:Patient Education How to access health informa tion online - Detail Indication:Bronchitis, acute Start:04-Jun-2015 Instruction Type:Patient Education Patient Instructions Indication:Bronchitis, acute Start:04-Jun-2015 Instruction Type:Provider Instructions for Treatment How to access health informa tion online Indication:Annual Medicare Physical (Renamed from Medicare annual wellness visit, subsequent) Start:23-Apr-2015 Instruction Type:Patient Education How to access health informa tion online - Detail Indication:Annual Medicare Physical (Renamed from Medicare annual wellness visit, subsequent) Start:23-Apr-2015 Instruction Type:Patient Education Patient Instructions Indication:Annual Medicare Physical (Renamed from Medicare annual wellness visit, subsequent) Start:23-Apr-2015 Instruction Type:Provider Instructions for Treatment How to access health informa tion online Indication:Anemia, unspecified type Start:09-Mar-2015 Instruction Type:Patient Education How to access health informa tion online - Detail Indication:Anemia, unspecified type Start:09-Mar-2015 Instruction Type:Patient Education Patient Instructions Indication:Anemia, unspecified type Start:09-Mar-2015 Instruction Type:Provider Instructions for Treatment How to access health informa tion online Indication:Current nonsmoker (Renamed from Current non-smoker) Start:01-Jan-2015 Instruction Type:Patient Education How to access health informa tion online - Detail Indication:Current nonsmoker (Renamed from Current non-smoker) Start:01-Jan-2015 Instruction Type:Patient Education Patient Instructions Indication:Current nonsmoker (Renamed from Current non-smoker) Start:01-Jan-2015 Instruction Type:Provider Instructions for Treatment How to access health informa tion online Indication:Unspecified asthma with (acute) exacerbation Start:30-Jan-2014 Instruction Type:Patient Education [facility]; [facility] Work Phone: Instructions* Name Dates Details Patient Instructions Indication:Current nonsmoker (Renamed from Current non-smoker) Start:14-Jun-2021 Instruction Type:Provider Instructions for Treatment How to Access Health Informa tion Online using Patient Portal and [employer] Apps Indication:Current nonsmoker (Renamed from Current non-smoker) Start:14-Jun-2021 Instruction Type:Patient Education Patient Instructions Indication:History of COVID-19 Start:07-Jun-2021 Instruction Type:Provider Instructions for Treatment How to Access Health Informa tion Online using Patient Portal and [employer] Apps Indication:BMI 32.0-32.9,adult Start:07-Jun-2021 Instruction Type:Patient Education Patient Instructions Indication:Current nonsmoker (Renamed from Current non-smoker) Start:08-Mar-2021 Instruction Type:Provider Instructions for Treatment How to Access Health Informa tion Online using Patient Portal and [employer] Apps Indication:Current nonsmoker (Renamed from Current non-smoker) Start:08-Mar-2021 Instruction Type:Patient Education Patient Instructions Indication:BMI 32.0-32.9,adult Start:04-Mar-2021 Instruction Type:Provider Instructions for Treatment How to Access Health Informa tion Online using Patient Portal and [employer] Apps Indication:Current nonsmoker (Renamed from Current non-smoker) Start:04-Mar-2021 Instruction Type:Patient Education Patient Instructions Indication:BMI 33.0-33.9,adult Start:21-Jan-2021 Instruction Type:Provider Instructions for Treatment How to Access Health Informa tion Online using Patient Portal and [employer] Apps Indication:BMI 33.0-33.9,adult Start:21-Jan-2021 Instruction Type:Patient Education Patient Instructions Indication:Current nonsmoker (Renamed from Current non-smoker) Start:19-Jan-2021 Instruction Type:Provider Instructions for Treatment How to Access Health Informa tion Online using Patient Portal and [employer] Apps Indication:Current nonsmoker (Renamed from Current non-smoker) Start:19-Jan-2021 Instruction Type:Patient Education Patient Instructions Indication:BMI 33.0-33.9,adult Start:18-Jan-2021 Instruction Type:Provider Instructions for Treatment How to Access Health Informa tion Online using Patient Portal and [employer] Apps Indication:BMI 33.0-33.9,adult Start:18-Jan-2021 Instruction Type:Patient Education Patient Instructions Indication:Current nonsmoker (Renamed from Current non-smoker) Start:17-Jan-2021 Instruction Type:Provider Instructions for Treatment How to Access Health Informa tion Online using Patient Portal and [employer] Apps Indication:Current nonsmoker (Renamed from Current non-smoker) Start:17-Jan-2021 Instruction Type:Patient Education Patient Instructions Indication:Current nonsmoker (Renamed from Current non-smoker) Start:04-Oct-2020 Instruction Type:Provider Instructions for Treatment How to Access Health Informa tion Online using Patient Portal and [employer] Apps Indication:Current nonsmoker (Renamed from Current non-smoker) Start:04-Oct-2020 Instruction Type:Patient Education Patient Instructions Indication:Hypothyroid Start:18-May-2020 Instruction Type:Provider Instructions for Treatment How to Access Health Informa tion Online using Patient Portal and [employer] Apps Indication:Current nonsmoker (Renamed from Current non-smoker) Start:18-May-2020 Instruction Type:Patient Education How to access health informa tion online Indication:Current nonsmoker (Renamed from Current non-smoker) Start:16-Jan-2020 Instruction Type:Patient Education How to access health informa tion online - Detail Indication:Current nonsmoker (Renamed from Current non-smoker) Start:16-Jan-2020 Instruction Type:Patient Education Patient Instructions Indication:Cardiomyopathy Start:16-Jan-2020 Instruction Type:Provider Instructions for Treatment How to access health informa tion online Indication:Current nonsmoker (Renamed from Current non-smoker) Start:15-Sep-2019 Instruction Type:Patient Education How to access health informa tion online - Detail Indication:Current nonsmoker (Renamed from Current non-smoker) Start:15-Sep-2019 Instruction Type:Patient Education Patient Instructions Indication:AJIT (iron deficiency anemia) Start:15-Sep-2019 Instruction Type:Provider Instructions for Treatment How to access health informa tion online Indication:Current nonsmoker (Renamed from Current non-smoker) Start:12-May-2019 Instruction Type:Patient Education How to access health informa tion online - Detail Indication:Current nonsmoker (Renamed from Current non-smoker) Start:12-May-2019 Instruction Type:Patient Education Patient Instructions Indication:Intrinsic asthma Start:12-May-2019 Instruction Type:Provider Instructions for Treatment How to access health informa tion online Indication:Abnormal thyroid function test Start:15-Jan-2019 Instruction Type:Patient Education How to access health informa tion online - Detail Indication:Abnormal thyroid function test Start:15-Jan-2019 Instruction Type:Patient Education Patient Instructions Indication:Hypertensive heart disease Start:15-Jan-2019 Instruction Type:Provider Instructions for Treatment How to access health informa tion online Indication:Current nonsmoker (Renamed from Current non-smoker) Start:06-Dec-2018 Instruction Type:Patient Education How to access health informa tion online - Detail Indication:Current nonsmoker (Renamed from Current non-smoker) Start:06-Dec-2018 Instruction Type:Patient Education How to access health informa tion online Indication:Current nonsmoker (Renamed from Current non-smoker) Start:29-Nov-2018 Instruction Type:Patient Education How to access health informa tion online - Detail Indication:Current nonsmoker (Renamed from Current non-smoker) Start:29-Nov-2018 Instruction Type:Patient Education Patient Instructions Indication:BMI 33.0-33.9,adult Start:29-Nov-2018 Instruction Type:Provider Instructions for Treatment How to access health informa tion online Indication:Current nonsmoker (Renamed from Current non-smoker) Start:27-Feb-2018 Instruction Type:Patient Education How to access health informa tion online - Detail Indication:Current nonsmoker (Renamed from Current non-smoker) Start:27-Feb-2018 Instruction Type:Patient Education Patient Instructions Indication:Current nonsmoker (Renamed from Current non-smoker) Start:27-Feb-2018 Instruction Type:Provider Instructions for Treatment How to access health informa tion online Indication:Current nonsmoker (Renamed from Current non-smoker) Start:20-Feb-2018 Instruction Type:Patient Education How to access health informa tion online - Detail Indication:Current nonsmoker (Renamed from Current non-smoker) Start:20-Feb-2018 Instruction Type:Patient Education Patient Instructions Indication:Current nonsmoker (Renamed from Current non-smoker) Start:20-Feb-2018 Instruction Type:Provider Instructions for Treatment How to access health informa tion online Indication:Current nonsmoker (Renamed from Current non-smoker) Start:30-Jan-2018 Instruction Type:Patient Education How to access health informa tion online - Detail Indication:Current nonsmoker (Renamed from Current non-smoker) Start:30-Jan-2018 Instruction Type:Patient Education Patient Instructions Indication:Current nonsmoker (Renamed from Current non-smoker) Start:30-Jan-2018 Instruction Type:Provider Instructions for Treatment How to access health informa tion online Indication:Bronchitis, acute Start:04-Jun-2015 Instruction Type:Patient Education How to access health informa tion online - Detail Indication:Bronchitis, acute Start:04-Jun-2015 Instruction Type:Patient Education Patient Instructions Indication:Bronchitis, acute Start:04-Jun-2015 Instruction Type:Provider Instructions for Treatment How to access health informa tion online Indication:Annual Medicare Physical (Renamed from Medicare annual wellness visit, subsequent) Start:23-Apr-2015 Instruction Type:Patient Education How to access health informa tion online - Detail Indication:Annual Medicare Physical (Renamed from Medicare annual wellness visit, subsequent) Start:23-Apr-2015 Instruction Type:Patient Education Patient Instructions Indication:Annual Medicare Physical (Renamed from Medicare annual wellness visit, subsequent) Start:23-Apr-2015 Instruction Type:Provider Instructions for Treatment How to access health informa tion online Indication:Anemia, unspecified type Start:09-Mar-2015 Instruction Type:Patient Education How to access health informa tion online - Detail Indication:Anemia, unspecified type Start:09-Mar-2015 Instruction Type:Patient Education Patient Instructions Indication:Anemia, unspecified type Start:09-Mar-2015 Instruction Type:Provider Instructions for Treatment How to access health informa tion online Indication:Current nonsmoker (Renamed from Current non-smoker) Start:01-Jan-2015 Instruction Type:Patient Education How to access health informa tion online - Detail Indication:Current nonsmoker (Renamed from Current non-smoker) Start:01-Jan-2015 Instruction Type:Patient Education Patient Instructions Indication:Current nonsmoker (Renamed from Current non-smoker) Start:01-Jan-2015 Instruction Type:Provider Instructions for Treatment How to access health informa tion online Indication:Unspecified asthma with (acute) exacerbation Start:30-Jan-2014 Instruction Type:Patient Education [facility]; [facility] Work Phone: Instructions* Name Dates Details Patient Instructions Indication:Current nonsmoker (Renamed from Current non-smoker) Start:30-Sep-2021 Instruction Type:Provider Instructions for Treatment How to Access Health Informa tion Online using Patient Portal and [employer] Apps Indication:Current nonsmoker (Renamed from Current non-smoker) Start:30-Sep-2021 Instruction Type:Patient Education Patient Instructions Indication:Current nonsmoker (Renamed from Current non-smoker) Start:14-Jun-2021 Instruction Type:Provider Instructions for Treatment How to Access Health Informa tion Online using Patient Portal and [employer] Apps Indication:Current nonsmoker (Renamed from Current non-smoker) Start:14-Jun-2021 Instruction Type:Patient Education Patient Instructions Indication:History of COVID-19 Start:07-Jun-2021 Instruction Type:Provider Instructions for Treatment How to Access Health Informa tion Online using Patient Portal and [employer] Apps Indication:BMI 32.0-32.9,adult Start:07-Jun-2021 Instruction Type:Patient Education Patient Instructions Indication:Current nonsmoker (Renamed from Current non-smoker) Start:08-Mar-2021 Instruction Type:Provider Instructions for Treatment How to Access Health Informa tion Online using Patient Portal and [employer] Apps Indication:Current nonsmoker (Renamed from Current non-smoker) Start:08-Mar-2021 Instruction Type:Patient Education Patient Instructions Indication:BMI 32.0-32.9,adult Start:04-Mar-2021 Instruction Type:Provider Instructions for Treatment How to Access Health Informa tion Online using Patient Portal and [employer] Apps Indication:Current nonsmoker (Renamed from Current non-smoker) Start:04-Mar-2021 Instruction Type:Patient Education Patient Instructions Indication:BMI 33.0-33.9,adult Start:21-Jan-2021 Instruction Type:Provider Instructions for Treatment How to Access Health Informa tion Online using Patient Portal and [employer] Apps Indication:BMI 33.0-33.9,adult Start:21-Jan-2021 Instruction Type:Patient Education Patient Instructions Indication:Current nonsmoker (Renamed from Current non-smoker) Start:19-Jan-2021 Instruction Type:Provider Instructions for Treatment How to Access Health Informa tion Online using Patient Portal and [employer] Apps Indication:Current nonsmoker (Renamed from Current non-smoker) Start:19-Jan-2021 Instruction Type:Patient Education Patient Instructions Indication:BMI 33.0-33.9,adult Start:18-Jan-2021 Instruction Type:Provider Instructions for Treatment How to Access Health Informa tion Online using Patient Portal and [employer] Apps Indication:BMI 33.0-33.9,adult Start:18-Jan-2021 Instruction Type:Patient Education Patient Instructions Indication:Current nonsmoker (Renamed from Current non-smoker) Start:17-Jan-2021 Instruction Type:Provider Instructions for Treatment How to Access Health Informa tion Online using Patient Portal and [employer] Apps Indication:Current nonsmoker (Renamed from Current non-smoker) Start:17-Jan-2021 Instruction Type:Patient Education Patient Instructions Indication:Current nonsmoker (Renamed from Current non-smoker) Start:04-Oct-2020 Instruction Type:Provider Instructions for Treatment How to Access Health Informa tion Online using Patient Portal and [employer] Apps Indication:Current nonsmoker (Renamed from Current non-smoker) Start:04-Oct-2020 Instruction Type:Patient Education Patient Instructions Indication:Hypothyroid Start:18-May-2020 Instruction Type:Provider Instructions for Treatment How to Access Health Informa tion Online using Patient Portal and [employer] Apps Indication:Current nonsmoker (Renamed from Current non-smoker) Start:18-May-2020 Instruction Type:Patient Education How to access health informa tion online Indication:Current nonsmoker (Renamed from Current non-smoker) Start:16-Jan-2020 Instruction Type:Patient Education How to access health informa tion online - Detail Indication:Current nonsmoker (Renamed from Current non-smoker) Start:16-Jan-2020 Instruction Type:Patient Education Patient Instructions Indication:Cardiomyopathy Start:16-Jan-2020 Instruction Type:Provider Instructions for Treatment How to access health informa tion online Indication:Current nonsmoker (Renamed from Current non-smoker) Start:15-Sep-2019 Instruction Type:Patient Education How to access health informa tion online - Detail Indication:Current nonsmoker (Renamed from Current non-smoker) Start:15-Sep-2019 Instruction Type:Patient Education Patient Instructions Indication:AJIT (iron deficiency anemia) Start:15-Sep-2019 Instruction Type:Provider Instructions for Treatment How to access health informa tion online Indication:Current nonsmoker (Renamed from Current non-smoker) Start:12-May-2019 Instruction Type:Patient Education How to access health informa tion online - Detail Indication:Current nonsmoker (Renamed from Current non-smoker) Start:12-May-2019 Instruction Type:Patient Education Patient Instructions Indication:Intrinsic asthma Start:12-May-2019 Instruction Type:Provider Instructions for Treatment How to access health informa tion online Indication:Abnormal thyroid function test Start:15-Jan-2019 Instruction Type:Patient Education How to access health informa tion online - Detail Indication:Abnormal thyroid function test Start:15-Jan-2019 Instruction Type:Patient Education Patient Instructions Indication:Hypertensive heart disease Start:15-Jan-2019 Instruction Type:Provider Instructions for Treatment How to access health informa tion online Indication:Current nonsmoker (Renamed from Current non-smoker) Start:06-Dec-2018 Instruction Type:Patient Education How to access health informa tion online - Detail Indication:Current nonsmoker (Renamed from Current non-smoker) Start:06-Dec-2018 Instruction Type:Patient Education How to access health informa tion online Indication:Current nonsmoker (Renamed from Current non-smoker) Start:29-Nov-2018 Instruction Type:Patient Education How to access health informa tion online - Detail Indication:Current nonsmoker (Renamed from Current non-smoker) Start:29-Nov-2018 Instruction Type:Patient Education Patient Instructions Indication:BMI 33.0-33.9,adult Start:29-Nov-2018 Instruction Type:Provider Instructions for Treatment How to access health informa tion online Indication:Current nonsmoker (Renamed from Current non-smoker) Start:27-Feb-2018 Instruction Type:Patient Education How to access health informa tion online - Detail Indication:Current nonsmoker (Renamed from Current non-smoker) Start:27-Feb-2018 Instruction Type:Patient Education Patient Instructions Indication:Current nonsmoker (Renamed from Current non-smoker) Start:27-Feb-2018 Instruction Type:Provider Instructions for Treatment How to access health informa tion online Indication:Current nonsmoker (Renamed from Current non-smoker) Start:20-Feb-2018 Instruction Type:Patient Education How to access health informa tion online - Detail Indication:Current nonsmoker (Renamed from Current non-smoker) Start:20-Feb-2018 Instruction Type:Patient Education Patient Instructions Indication:Current nonsmoker (Renamed from Current non-smoker) Start:20-Feb-2018 Instruction Type:Provider Instructions for Treatment How to access health informa tion online Indication:Current nonsmoker (Renamed from Current non-smoker) Start:30-Jan-2018 Instruction Type:Patient Education How to access health informa tion online - Detail Indication:Current nonsmoker (Renamed from Current non-smoker) Start:30-Jan-2018 Instruction Type:Patient Education Patient Instructions Indication:Current nonsmoker (Renamed from Current non-smoker) Start:30-Jan-2018 Instruction Type:Provider Instructions for Treatment How to access health informa tion online Indication:Bronchitis, acute Start:04-Jun-2015 Instruction Type:Patient Education How to access health informa tion online - Detail Indication:Bronchitis, acute Start:04-Jun-2015 Instruction Type:Patient Education Patient Instructions Indication:Bronchitis, acute Start:04-Jun-2015 Instruction Type:Provider Instructions for Treatment How to access health informa tion online Indication:Annual Medicare Physical (Renamed from Medicare annual wellness visit, subsequent) Start:23-Apr-2015 Instruction Type:Patient Education How to access health informa tion online - Detail Indication:Annual Medicare Physical (Renamed from Medicare annual wellness visit, subsequent) Start:23-Apr-2015 Instruction Type:Patient Education Patient Instructions Indication:Annual Medicare Physical (Renamed from Medicare annual wellness visit, subsequent) Start:23-Apr-2015 Instruction Type:Provider Instructions for Treatment How to access health informa tion online Indication:Anemia, unspecified type Start:09-Mar-2015 Instruction Type:Patient Education How to access health informa tion online - Detail Indication:Anemia, unspecified type Start:09-Mar-2015 Instruction Type:Patient Education Patient Instructions Indication:Anemia, unspecified type Start:09-Mar-2015 Instruction Type:Provider Instructions for Treatment How to access health informa tion online Indication:Current nonsmoker (Renamed from Current non-smoker) Start:01-Jan-2015 Instruction Type:Patient Education How to access health informa tion online - Detail Indication:Current nonsmoker (Renamed from Current non-smoker) Start:01-Jan-2015 Instruction Type:Patient Education Patient Instructions Indication:Current nonsmoker (Renamed from Current non-smoker) Start:01-Jan-2015 Instruction Type:Provider Instructions for Treatment How to access health informa tion online Indication:Unspecified asthma with (acute) exacerbation Start:30-Jan-2014 Instruction Type:Patient Education [facility]; [facility] Work Phone: Instructions* Name Dates Details Patient Instructions Indication:Current nonsmoker (Renamed from Current non-smoker) Start:30-Sep-2021 Instruction Type:Provider Instructions for Treatment How to Access Health Informa tion Online using Patient Portal and [employer] Apps Indication:Current nonsmoker (Renamed from Current non-smoker) Start:30-Sep-2021 Instruction Type:Patient Education Patient Instructions Indication:Current nonsmoker (Renamed from Current non-smoker) Start:14-Jun-2021 Instruction Type:Provider Instructions for Treatment How to Access Health Informa tion Online using Patient Portal and [employer] Apps Indication:Current nonsmoker (Renamed from Current non-smoker) Start:14-Jun-2021 Instruction Type:Patient Education Patient Instructions Indication:History of COVID-19 Start:07-Jun-2021 Instruction Type:Provider Instructions for Treatment How to Access Health Informa tion Online using Patient Portal and [employer] Indication:BMI 32.0-32.9,adult Start:07-Jun-2021 Instruction Type:Patient Education Patient Instructions Indication:Current nonsmoker (Renamed from Current non-smoker) Start:08-Mar-2021 Instruction Type:Provider Instructions for Treatment How to Access Health Informa tion Online using Patient Portal and [employer] Apps Indication:Current nonsmoker (Renamed from Current non-smoker) Start:08-Mar-2021 Instruction Type:Patient Education Patient Instructions Indication:BMI 32.0-32.9,adult Start:04-Mar-2021 Instruction Type:Provider Instructions for Treatment How to Access Health Informa tion Online using Patient Portal and [employer] Indication:Current nonsmoker (Renamed from Current non-smoker) Start:04-Mar-2021 Instruction Type:Patient Education Patient Instructions Indication:BMI 33.0-33.9,adult Start:21-Jan-2021 Instruction Type:Provider Instructions for Treatment How to Access Health Informa tion Online using Patient Portal and [employer] Indication:BMI 33.0-33.9,adult Start:21-Jan-2021 Instruction Type:Patient Education Patient Instructions Indication:Current nonsmoker (Renamed from Current non-smoker) Start:19-Jan-2021 Instruction Type:Provider Instructions for Treatment How to Access Health Informa tion Online using Patient Portal and [employer] Indication:Current nonsmoker (Renamed from Current non-smoker) Start:19-Jan-2021 Instruction Type:Patient Education Patient Instructions Indication:BMI 33.0-33.9,adult Start:18-Jan-2021 Instruction Type:Provider Instructions for Treatment How to Access Health Informa tion Online using Patient Portal and [employer] Indication:BMI 33.0-33.9,adult Start:18-Jan-2021 Instruction Type:Patient Education Patient Instructions Indication:Current nonsmoker (Renamed from Current non-smoker) Start:17-Jan-2021 Instruction Type:Provider Instructions for Treatment How to Access Health Informa tion Online using Patient Portal and [employer] Indication:Current nonsmoker (Renamed from Current non-smoker) Start:17-Jan-2021 Instruction Type:Patient Education Patient Instructions Indication:Current nonsmoker (Renamed from Current non-smoker) Start:04-Oct-2020 Instruction Type:Provider Instructions for Treatment How to Access Health Informa tion Online using Patient Portal and [employer] Indication:Current nonsmoker (Renamed from Current non-smoker) Start:04-Oct-2020 Instruction Type:Patient Education Patient Instructions Indication:Hypothyroid Start:18-May-2020 Instruction Type:Provider Instructions for Treatment How to Access Health Informa tion Online using Patient Portal and [employer] Indication:Current nonsmoker (Renamed from Current non-smoker) Start:18-May-2020 Instruction Type:Patient Education How to access health informa tion online Indication:Current nonsmoker (Renamed from Current non-smoker) Start:16-Jan-2020 Instruction Type:Patient Education How to access health informa tion online - Detail Indication:Current nonsmoker (Renamed from Current non-smoker) Start:16-Jan-2020 Instruction Type:Patient Education Patient Instructions Indication:Cardiomyopathy Start:16-Jan-2020 Instruction Type:Provider Instructions for Treatment How to access health informa tion online Indication:Current nonsmoker (Renamed from Current non-smoker) Start:15-Sep-2019 Instruction Type:Patient Education How to access health informa tion online - Detail Indication:Current nonsmoker (Renamed from Current non-smoker) Start:15-Sep-2019 Instruction Type:Patient Education Patient Instructions Indication:AJIT (iron deficiency anemia) Start:15-Sep-2019 Instruction Type:Provider Instructions for Treatment How to access health informa tion online Indication:Current nonsmoker (Renamed from Current non-smoker) Start:12-May-2019 Instruction Type:Patient Education How to access health informa tion online - Detail Indication:Current nonsmoker (Renamed from Current non-smoker) Start:12-May-2019 Instruction Type:Patient Education Patient Instructions Indication:Intrinsic asthma Start:12-May-2019 Instruction Type:Provider Instructions for Treatment How to access health informa tion online Indication:Abnormal thyroid function test Start:15-Jan-2019 Instruction Type:Patient Education How to access health informa tion online - Detail Indication:Abnormal thyroid function test Start:15-Jan-2019 Instruction Type:Patient Education Patient Instructions Indication:Hypertensive heart disease Start:15-Jan-2019 Instruction Type:Provider Instructions for Treatment How to access health informa tion online Indication:Current nonsmoker (Renamed from Current non-smoker) Start:06-Dec-2018 Instruction Type:Patient Education How to access health informa tion online - Detail Indication:Current nonsmoker (Renamed from Current non-smoker) Start:06-Dec-2018 Instruction Type:Patient Education How to access health informa tion online Indication:Current nonsmoker (Renamed from Current non-smoker) Start:29-Nov-2018 Instruction Type:Patient Education How to access health informa tion online - Detail Indication:Current nonsmoker (Renamed from Current non-smoker) Start:29-Nov-2018 Instruction Type:Patient Education Patient Instructions Indication:BMI 33.0-33.9,adult Start:29-Nov-2018 Instruction Type:Provider Instructions for Treatment How to access health informa tion online Indication:Current nonsmoker (Renamed from Current non-smoker) Start:27-Feb-2018 Instruction Type:Patient Education How to access health informa tion online - Detail Indication:Current nonsmoker (Renamed from Current non-smoker) Start:27-Feb-2018 Instruction Type:Patient Education Patient Instructions Indication:Current nonsmoker (Renamed from Current non-smoker) Start:27-Feb-2018 Instruction Type:Provider Instructions for Treatment How to access health informa tion online Indication:Current nonsmoker (Renamed from Current non-smoker) Start:20-Feb-2018 Instruction Type:Patient Education How to access health informa tion online - Detail Indication:Current nonsmoker (Renamed from Current non-smoker) Start:20-Feb-2018 Instruction Type:Patient Education Patient Instructions Indication:Current nonsmoker (Renamed from Current non-smoker) Start:20-Feb-2018 Instruction Type:Provider Instructions for Treatment How to access health informa tion online Indication:Current nonsmoker (Renamed from Current non-smoker) Start:30-Jan-2018 Instruction Type:Patient Education How to access health informa tion online - Detail Indication:Current nonsmoker (Renamed from Current non-smoker) Start:30-Jan-2018 Instruction Type:Patient Education Patient Instructions Indication:Current nonsmoker (Renamed from Current non-smoker) Start:30-Jan-2018 Instruction Type:Provider Instructions for Treatment How to access health informa tion online Indication:Bronchitis, acute Start:04-Jun-2015 Instruction Type:Patient Education How to access health informa tion online - Detail Indication:Bronchitis, acute Start:04-Jun-2015 Instruction Type:Patient Education Patient Instructions Indication:Bronchitis, acute Start:04-Jun-2015 Instruction Type:Provider Instructions for Treatment How to access health informa tion online Indication:Annual Medicare Physical (Renamed from Medicare annual wellness visit, subsequent) Start:23-Apr-2015 Instruction Type:Patient Education How to access health informa tion online - Detail Indication:Annual Medicare Physical (Renamed from Medicare annual wellness visit, subsequent) Start:23-Apr-2015 Instruction Type:Patient Education Patient Instructions Indication:Annual Medicare Physical (Renamed from Medicare annual wellness visit, subsequent) Start:23-Apr-2015 Instruction Type:Provider Instructions for Treatment How to access health informa tion online Indication:Anemia, unspecified type Start:09-Mar-2015 Instruction Type:Patient Education How to access health informa tion online - Detail Indication:Anemia, unspecified type Start:09-Mar-2015 Instruction Type:Patient Education Patient Instructions Indication:Anemia, unspecified type Start:09-Mar-2015 Instruction Type:Provider Instructions for Treatment How to access health informa tion online Indication:Current nonsmoker (Renamed from Current non-smoker) Start:01-Jan-2015 Instruction Type:Patient Education How to access health informa tion online - Detail Indication:Current nonsmoker (Renamed from Current non-smoker) Start:01-Jan-2015 Instruction Type:Patient Education Patient Instructions Indication:Current nonsmoker (Renamed from Current non-smoker) Start:01-Jan-2015 Instruction Type:Provider Instructions for Treatment How to access health informa tion online Indication:Unspecified asthma with (acute) exacerbation Start:30-Jan-2014 Instruction Type:Patient Education [facility]; [facility] Work Phone: Instructions* Name Dates Details Patient Instructions Indication:Current nonsmoker (Renamed from Current non-smoker) Start:30-Sep-2021 Instruction Type:Provider Instructions for Treatment How to Access Health Informa tion Online using Patient Portal and [employer] Apps Indication:Current nonsmoker (Renamed from Current non-smoker) Start:30-Sep-2021 Instruction Type:Patient Education Patient Instructions Indication:Current nonsmoker (Renamed from Current non-smoker) Start:14-Jun-2021 Instruction Type:Provider Instructions for Treatment How to Access Health Informa tion Online using Patient Portal and [employer] Apps Indication:Current nonsmoker (Renamed from Current non-smoker) Start:14-Jun-2021 Instruction Type:Patient Education Patient Instructions Indication:History of COVID-19 Start:07-Jun-2021 Instruction Type:Provider Instructions for Treatment How to Access Health Informa tion Online using Patient Portal and [employer] Apps Indication:BMI 32.0-32.9,adult Start:07-Jun-2021 Instruction Type:Patient Education Patient Instructions Indication:Current nonsmoker (Renamed from Current non-smoker) Start:08-Mar-2021 Instruction Type:Provider Instructions for Treatment How to Access Health Informa tion Online using Patient Portal and [employer] Apps Indication:Current nonsmoker (Renamed from Current non-smoker) Start:08-Mar-2021 Instruction Type:Patient Education Patient Instructions Indication:BMI 32.0-32.9,adult Start:04-Mar-2021 Instruction Type:Provider Instructions for Treatment How to Access Health Informa tion Online using Patient Portal and [employer] Apps Indication:Current nonsmoker (Renamed from Current non-smoker) Start:04-Mar-2021 Instruction Type:Patient Education Patient Instructions Indication:BMI 33.0-33.9,adult Start:21-Jan-2021 Instruction Type:Provider Instructions for Treatment How to Access Health Informa tion Online using Patient Portal and [employer] Apps Indication:BMI 33.0-33.9,adult Start:21-Jan-2021 Instruction Type:Patient Education Patient Instructions Indication:Current nonsmoker (Renamed from Current non-smoker) Start:19-Jan-2021 Instruction Type:Provider Instructions for Treatment How to Access Health Informa tion Online using Patient Portal and [employer] Apps Indication:Current nonsmoker (Renamed from Current non-smoker) Start:19-Jan-2021 Instruction Type:Patient Education Patient Instructions Indication:BMI 33.0-33.9,adult Start:18-Jan-2021 Instruction Type:Provider Instructions for Treatment How to Access Health Informa tion Online using Patient Portal and [employer] Apps Indication:BMI 33.0-33.9,adult Start:18-Jan-2021 Instruction Type:Patient Education Patient Instructions Indication:Current nonsmoker (Renamed from Current non-smoker) Start:17-Jan-2021 Instruction Type:Provider Instructions for Treatment How to Access Health Informa tion Online using Patient Portal and [employer] Apps Indication:Current nonsmoker (Renamed from Current non-smoker) Start:17-Jan-2021 Instruction Type:Patient Education Patient Instructions Indication:Current nonsmoker (Renamed from Current non-smoker) Start:04-Oct-2020 Instruction Type:Provider Instructions for Treatment How to Access Health Informa tion Online using Patient Portal and [employer] Apps Indication:Current nonsmoker (Renamed from Current non-smoker) Start:04-Oct-2020 Instruction Type:Patient Education Patient Instructions Indication:Hypothyroid Start:18-May-2020 Instruction Type:Provider Instructions for Treatment How to Access Health Informa tion Online using Patient Portal and [employer] Apps Indication:Current nonsmoker (Renamed from Current non-smoker) Start:18-May-2020 Instruction Type:Patient Education How to access health informa tion online Indication:Current nonsmoker (Renamed from Current non-smoker) Start:16-Jan-2020 Instruction Type:Patient Education How to access health informa tion online - Detail Indication:Current nonsmoker (Renamed from Current non-smoker) Start:16-Jan-2020 Instruction Type:Patient Education Patient Instructions Indication:Cardiomyopathy Start:16-Jan-2020 Instruction Type:Provider Instructions for Treatment How to access health informa tion online Indication:Current nonsmoker (Renamed from Current non-smoker) Start:15-Sep-2019 Instruction Type:Patient Education How to access health informa tion online - Detail Indication:Current nonsmoker (Renamed from Current non-smoker) Start:15-Sep-2019 Instruction Type:Patient Education Patient Instructions Indication:AJIT (iron deficiency anemia) Start:15-Sep-2019 Instruction Type:Provider Instructions for Treatment How to access health informa tion online Indication:Current nonsmoker (Renamed from Current non-smoker) Start:12-May-2019 Instruction Type:Patient Education How to access health informa tion online - Detail Indication:Current nonsmoker (Renamed from Current non-smoker) Start:12-May-2019 Instruction Type:Patient Education Patient Instructions Indication:Intrinsic asthma Start:12-May-2019 Instruction Type:Provider Instructions for Treatment How to access health informa tion online Indication:Abnormal thyroid function test Start:15-Jan-2019 Instruction Type:Patient Education How to access health informa tion online - Detail Indication:Abnormal thyroid function test Start:15-Jan-2019 Instruction Type:Patient Education Patient Instructions Indication:Hypertensive heart disease Start:15-Jan-2019 Instruction Type:Provider Instructions for Treatment How to access health informa tion online Indication:Current nonsmoker (Renamed from Current non-smoker) Start:06-Dec-2018 Instruction Type:Patient Education How to access health informa tion online - Detail Indication:Current nonsmoker (Renamed from Current non-smoker) Start:06-Dec-2018 Instruction Type:Patient Education How to access health informa tion online Indication:Current nonsmoker (Renamed from Current non-smoker) Start:29-Nov-2018 Instruction Type:Patient Education How to access health informa tion online - Detail Indication:Current nonsmoker (Renamed from Current non-smoker) Start:29-Nov-2018 Instruction Type:Patient Education Patient Instructions Indication:BMI 33.0-33.9,adult Start:29-Nov-2018 Instruction Type:Provider Instructions for Treatment How to access health informa tion online Indication:Current nonsmoker (Renamed from Current non-smoker) Start:27-Feb-2018 Instruction Type:Patient Education How to access health informa tion online - Detail Indication:Current nonsmoker (Renamed from Current non-smoker) Start:27-Feb-2018 Instruction Type:Patient Education Patient Instructions Indication:Current nonsmoker (Renamed from Current non-smoker) Start:27-Feb-2018 Instruction Type:Provider Instructions for Treatment How to access health informa tion online Indication:Current nonsmoker (Renamed from Current non-smoker) Start:20-Feb-2018 Instruction Type:Patient Education How to access health informa tion online - Detail Indication:Current nonsmoker (Renamed from Current non-smoker) Start:20-Feb-2018 Instruction Type:Patient Education Patient Instructions Indication:Current nonsmoker (Renamed from Current non-smoker) Start:20-Feb-2018 Instruction Type:Provider Instructions for Treatment How to access health informa tion online Indication:Current nonsmoker (Renamed from Current non-smoker) Start:30-Jan-2018 Instruction Type:Patient Education How to access health informa tion online - Detail Indication:Current nonsmoker (Renamed from Current non-smoker) Start:30-Jan-2018 Instruction Type:Patient Education Patient Instructions Indication:Current nonsmoker (Renamed from Current non-smoker) Start:30-Jan-2018 Instruction Type:Provider Instructions for Treatment How to access health informa tion online Indication:Bronchitis, acute Start:04-Jun-2015 Instruction Type:Patient Education How to access health informa tion online - Detail Indication:Bronchitis, acute Start:04-Jun-2015 Instruction Type:Patient Education Patient Instructions Indication:Bronchitis, acute Start:04-Jun-2015 Instruction Type:Provider Instructions for Treatment How to access health informa tion online Indication:Annual Medicare Physical (Renamed from Medicare annual wellness visit, subsequent) Start:23-Apr-2015 Instruction Type:Patient Education How to access health informa tion online - Detail Indication:Annual Medicare Physical (Renamed from Medicare annual wellness visit, subsequent) Start:23-Apr-2015 Instruction Type:Patient Education Patient Instructions Indication:Annual Medicare Physical (Renamed from Medicare annual wellness visit, subsequent) Start:23-Apr-2015 Instruction Type:Provider Instructions for Treatment How to access health informa tion online Indication:Anemia, unspecified type Start:09-Mar-2015 Instruction Type:Patient Education How to access health informa tion online - Detail Indication:Anemia, unspecified type Start:09-Mar-2015 Instruction Type:Patient Education Patient Instructions Indication:Anemia, unspecified type Start:09-Mar-2015 Instruction Type:Provider Instructions for Treatment How to access health informa tion online Indication:Current nonsmoker (Renamed from Current non-smoker) Start:01-Jan-2015 Instruction Type:Patient Education How to access health informa tion online - Detail Indication:Current nonsmoker (Renamed from Current non-smoker) Start:01-Jan-2015 Instruction Type:Patient Education Patient Instructions Indication:Current nonsmoker (Renamed from Current non-smoker) Start:01-Jan-2015 Instruction Type:Provider Instructions for Treatment How to access health informa tion online Indication:Unspecified asthma with (acute) exacerbation Start:30-Jan-2014 Instruction Type:Patient Education [facility]; [facility] Work Phone: Instructions* Name Dates Details Patient Instructions Indication:Current nonsmoker (Renamed from Current non-smoker) Start:30-Sep-2021 Instruction Type:Provider Instructions for Treatment How to Access Health Informa tion Online using Patient Portal and [employer] Apps Indication:Current nonsmoker (Renamed from Current non-smoker) Start:30-Sep-2021 Instruction Type:Patient Education Patient Instructions Indication:Current nonsmoker (Renamed from Current non-smoker) Start:14-Jun-2021 Instruction Type:Provider Instructions for Treatment How to Access Health Informa tion Online using Patient Portal and [employer] Apps Indication:Current nonsmoker (Renamed from Current non-smoker) Start:14-Jun-2021 Instruction Type:Patient Education Patient Instructions Indication:History of COVID-19 Start:07-Jun-2021 Instruction Type:Provider Instructions for Treatment How to Access Health Informa tion Online using Patient Portal and [employer] Apps Indication:BMI 32.0-32.9,adult Start:07-Jun-2021 Instruction Type:Patient Education Patient Instructions Indication:Current nonsmoker (Renamed from Current non-smoker) Start:08-Mar-2021 Instruction Type:Provider Instructions for Treatment How to Access Health Informa tion Online using Patient Portal and [employer] Apps Indication:Current nonsmoker (Renamed from Current non-smoker) Start:08-Mar-2021 Instruction Type:Patient Education Patient Instructions Indication:BMI 32.0-32.9,adult Start:04-Mar-2021 Instruction Type:Provider Instructions for Treatment How to Access Health Informa tion Online using Patient Portal and [employer] Apps Indication:Current nonsmoker (Renamed from Current non-smoker) Start:04-Mar-2021 Instruction Type:Patient Education Patient Instructions Indication:BMI 33.0-33.9,adult Start:21-Jan-2021 Instruction Type:Provider Instructions for Treatment How to Access Health Informa tion Online using Patient Portal and [employer] Apps Indication:BMI 33.0-33.9,adult Start:21-Jan-2021 Instruction Type:Patient Education Patient Instructions Indication:Current nonsmoker (Renamed from Current non-smoker) Start:19-Jan-2021 Instruction Type:Provider Instructions for Treatment How to Access Health Informa tion Online using Patient Portal and [employer] Apps Indication:Current nonsmoker (Renamed from Current non-smoker) Start:19-Jan-2021 Instruction Type:Patient Education Patient Instructions Indication:BMI 33.0-33.9,adult Start:18-Jan-2021 Instruction Type:Provider Instructions for Treatment How to Access Health Informa tion Online using Patient Portal and [employer] Apps Indication:BMI 33.0-33.9,adult Start:18-Jan-2021 Instruction Type:Patient Education Patient Instructions Indication:Current nonsmoker (Renamed from Current non-smoker) Start:17-Jan-2021 Instruction Type:Provider Instructions for Treatment How to Access Health Informa tion Online using Patient Portal and [employer] Apps Indication:Current nonsmoker (Renamed from Current non-smoker) Start:17-Jan-2021 Instruction Type:Patient Education Patient Instructions Indication:Current nonsmoker (Renamed from Current non-smoker) Start:04-Oct-2020 Instruction Type:Provider Instructions for Treatment How to Access Health Informa tion Online using Patient Portal and [employer] Apps Indication:Current nonsmoker (Renamed from Current non-smoker) Start:04-Oct-2020 Instruction Type:Patient Education Patient Instructions Indication:Hypothyroid Start:18-May-2020 Instruction Type:Provider Instructions for Treatment How to Access Health Informa tion Online using Patient Portal and [employer] Apps Indication:Current nonsmoker (Renamed from Current non-smoker) Start:18-May-2020 Instruction Type:Patient Education How to access health informa tion online Indication:Current nonsmoker (Renamed from Current non-smoker) Start:16-Jan-2020 Instruction Type:Patient Education How to access health informa tion online - Detail Indication:Current nonsmoker (Renamed from Current non-smoker) Start:16-Jan-2020 Instruction Type:Patient Education Patient Instructions Indication:Cardiomyopathy Start:16-Jan-2020 Instruction Type:Provider Instructions for Treatment How to access health informa tion online Indication:Current nonsmoker (Renamed from Current non-smoker) Start:15-Sep-2019 Instruction Type:Patient Education How to access health informa tion online - Detail Indication:Current nonsmoker (Renamed from Current non-smoker) Start:15-Sep-2019 Instruction Type:Patient Education Patient Instructions Indication:AJIT (iron deficiency anemia) Start:15-Sep-2019 Instruction Type:Provider Instructions for Treatment How to access health informa tion online Indication:Current nonsmoker (Renamed from Current non-smoker) Start:12-May-2019 Instruction Type:Patient Education How to access health informa tion online - Detail Indication:Current nonsmoker (Renamed from Current non-smoker) Start:12-May-2019 Instruction Type:Patient Education Patient Instructions Indication:Intrinsic asthma Start:12-May-2019 Instruction Type:Provider Instructions for Treatment How to access health informa tion online Indication:Abnormal thyroid function test Start:15-Jan-2019 Instruction Type:Patient Education How to access health informa tion online - Detail Indication:Abnormal thyroid function test Start:15-Jan-2019 Instruction Type:Patient Education Patient Instructions Indication:Hypertensive heart disease Start:15-Jan-2019 Instruction Type:Provider Instructions for Treatment How to access health informa tion online Indication:Current nonsmoker (Renamed from Current non-smoker) Start:06-Dec-2018 Instruction Type:Patient Education How to access health informa tion online - Detail Indication:Current nonsmoker (Renamed from Current non-smoker) Start:06-Dec-2018 Instruction Type:Patient Education How to access health informa tion online Indication:Current nonsmoker (Renamed from Current non-smoker) Start:29-Nov-2018 Instruction Type:Patient Education How to access health informa tion online - Detail Indication:Current nonsmoker (Renamed from Current non-smoker) Start:29-Nov-2018 Instruction Type:Patient Education Patient Instructions Indication:BMI 33.0-33.9,adult Start:29-Nov-2018 Instruction Type:Provider Instructions for Treatment How to access health informa tion online Indication:Current nonsmoker (Renamed from Current non-smoker) Start:27-Feb-2018 Instruction Type:Patient Education How to access health informa tion online - Detail Indication:Current nonsmoker (Renamed from Current non-smoker) Start:27-Feb-2018 Instruction Type:Patient Education Patient Instructions Indication:Current nonsmoker (Renamed from Current non-smoker) Start:27-Feb-2018 Instruction Type:Provider Instructions for Treatment How to access health informa tion online Indication:Current nonsmoker (Renamed from Current non-smoker) Start:20-Feb-2018 Instruction Type:Patient Education How to access health informa tion online - Detail Indication:Current nonsmoker (Renamed from Current non-smoker) Start:20-Feb-2018 Instruction Type:Patient Education Patient Instructions Indication:Current nonsmoker (Renamed from Current non-smoker) Start:20-Feb-2018 Instruction Type:Provider Instructions for Treatment How to access health informa tion online Indication:Current nonsmoker (Renamed from Current non-smoker) Start:30-Jan-2018 Instruction Type:Patient Education How to access health informa tion online - Detail Indication:Current nonsmoker (Renamed from Current non-smoker) Start:30-Jan-2018 Instruction Type:Patient Education Patient Instructions Indication:Current nonsmoker (Renamed from Current non-smoker) Start:30-Jan-2018 Instruction Type:Provider Instructions for Treatment How to access health informa tion online Indication:Bronchitis, acute Start:04-Jun-2015 Instruction Type:Patient Education How to access health informa tion online - Detail Indication:Bronchitis, acute Start:04-Jun-2015 Instruction Type:Patient Education Patient Instructions Indication:Bronchitis, acute Start:04-Jun-2015 Instruction Type:Provider Instructions for Treatment How to access health informa tion online Indication:Annual Medicare Physical (Renamed from Medicare annual wellness visit, subsequent) Start:23-Apr-2015 Instruction Type:Patient Education How to access health informa tion online - Detail Indication:Annual Medicare Physical (Renamed from Medicare annual wellness visit, subsequent) Start:23-Apr-2015 Instruction Type:Patient Education Patient Instructions Indication:Annual Medicare Physical (Renamed from Medicare annual wellness visit, subsequent) Start:23-Apr-2015 Instruction Type:Provider Instructions for Treatment How to access health informa tion online Indication:Anemia, unspecified type Start:09-Mar-2015 Instruction Type:Patient Education How to access health informa tion online - Detail Indication:Anemia, unspecified type Start:09-Mar-2015 Instruction Type:Patient Education Patient Instructions Indication:Anemia, unspecified type Start:09-Mar-2015 Instruction Type:Provider Instructions for Treatment How to access health informa tion online Indication:Current nonsmoker (Renamed from Current non-smoker) Start:01-Jan-2015 Instruction Type:Patient Education How to access health informa tion online - Detail Indication:Current nonsmoker (Renamed from Current non-smoker) Start:01-Jan-2015 Instruction Type:Patient Education Patient Instructions Indication:Current nonsmoker (Renamed from Current non-smoker) Start:01-Jan-2015 Instruction Type:Provider Instructions for Treatment How to access health informa tion online Indication:Unspecified asthma with (acute) exacerbation Start:30-Jan-2014 Instruction Type:Patient Education [facility]; [facility] Work Phone: Instructions* Name Dates Details Patient Instructions Indication:Current nonsmoker (Renamed from Current non-smoker) Start:30-Sep-2021 Instruction Type:Provider Instructions for Treatment How to Access Health Informa tion Online using Patient Portal and [employer] Indication:Current nonsmoker (Renamed from Current non-smoker) Start:30-Sep-2021 Instruction Type:Patient Education Patient Instructions Indication:Current nonsmoker (Renamed from Current non-smoker) Start:14-Jun-2021 Instruction Type:Provider Instructions for Treatment How to Access Health Informa tion Online using Patient Portal and [employer] Apps Indication:Current nonsmoker (Renamed from Current non-smoker) Start:14-Jun-2021 Instruction Type:Patient Education Patient Instructions Indication:History of COVID-19 Start:07-Jun-2021 Instruction Type:Provider Instructions for Treatment How to Access Health Informa tion Online using Patient Portal and [employer] Apps Indication:BMI 32.0-32.9,adult Start:07-Jun-2021 Instruction Type:Patient Education Patient Instructions Indication:Current nonsmoker (Renamed from Current non-smoker) Start:08-Mar-2021 Instruction Type:Provider Instructions for Treatment How to Access Health Informa tion Online using Patient Portal and [employer] Apps Indication:Current nonsmoker (Renamed from Current non-smoker) Start:08-Mar-2021 Instruction Type:Patient Education Patient Instructions Indication:BMI 32.0-32.9,adult Start:04-Mar-2021 Instruction Type:Provider Instructions for Treatment How to Access Health Informa tion Online using Patient Portal and [employer] Apps Indication:Current nonsmoker (Renamed from Current non-smoker) Start:04-Mar-2021 Instruction Type:Patient Education Patient Instructions Indication:BMI 33.0-33.9,adult Start:21-Jan-2021 Instruction Type:Provider Instructions for Treatment How to Access Health Informa tion Online using Patient Portal and [employer] Apps Indication:BMI 33.0-33.9,adult Start:21-Jan-2021 Instruction Type:Patient Education Patient Instructions Indication:Current nonsmoker (Renamed from Current non-smoker) Start:19-Jan-2021 Instruction Type:Provider Instructions for Treatment How to Access Health Informa tion Online using Patient Portal and [employer] Apps Indication:Current nonsmoker (Renamed from Current non-smoker) Start:19-Jan-2021 Instruction Type:Patient Education Patient Instructions Indication:BMI 33.0-33.9,adult Start:18-Jan-2021 Instruction Type:Provider Instructions for Treatment How to Access Health Informa tion Online using Patient Portal and [employer] Apps Indication:BMI 33.0-33.9,adult Start:18-Jan-2021 Instruction Type:Patient Education Patient Instructions Indication:Current nonsmoker (Renamed from Current non-smoker) Start:17-Jan-2021 Instruction Type:Provider Instructions for Treatment How to Access Health Informa tion Online using Patient Portal and [employer] Apps Indication:Current nonsmoker (Renamed from Current non-smoker) Start:17-Jan-2021 Instruction Type:Patient Education Patient Instructions Indication:Current nonsmoker (Renamed from Current non-smoker) Start:04-Oct-2020 Instruction Type:Provider Instructions for Treatment How to Access Health Informa tion Online using Patient Portal and [employer] Apps Indication:Current nonsmoker (Renamed from Current non-smoker) Start:04-Oct-2020 Instruction Type:Patient Education Patient Instructions Indication:Hypothyroid Start:18-May-2020 Instruction Type:Provider Instructions for Treatment How to Access Health Informa tion Online using Patient Portal and [employer] Apps Indication:Current nonsmoker (Renamed from Current non-smoker) Start:18-May-2020 Instruction Type:Patient Education How to access health informa tion online Indication:Current nonsmoker (Renamed from Current non-smoker) Start:16-Jan-2020 Instruction Type:Patient Education How to access health informa tion online - Detail Indication:Current nonsmoker (Renamed from Current non-smoker) Start:16-Jan-2020 Instruction Type:Patient Education Patient Instructions Indication:Cardiomyopathy Start:16-Jan-2020 Instruction Type:Provider Instructions for Treatment How to access health informa tion online Indication:Current nonsmoker (Renamed from Current non-smoker) Start:15-Sep-2019 Instruction Type:Patient Education How to access health informa tion online - Detail Indication:Current nonsmoker (Renamed from Current non-smoker) Start:15-Sep-2019 Instruction Type:Patient Education Patient Instructions Indication:AJIT (iron deficiency anemia) Start:15-Sep-2019 Instruction Type:Provider Instructions for Treatment How to access health informa tion online Indication:Current nonsmoker (Renamed from Current non-smoker) Start:12-May-2019 Instruction Type:Patient Education How to access health informa tion online - Detail Indication:Current nonsmoker (Renamed from Current non-smoker) Start:12-May-2019 Instruction Type:Patient Education Patient Instructions Indication:Intrinsic asthma Start:12-May-2019 Instruction Type:Provider Instructions for Treatment How to access health informa tion online Indication:Abnormal thyroid function test Start:15-Jan-2019 Instruction Type:Patient Education How to access health informa tion online - Detail Indication:Abnormal thyroid function test Start:15-Jan-2019 Instruction Type:Patient Education Patient Instructions Indication:Hypertensive heart disease Start:15-Jan-2019 Instruction Type:Provider Instructions for Treatment How to access health informa tion online Indication:Current nonsmoker (Renamed from Current non-smoker) Start:06-Dec-2018 Instruction Type:Patient Education How to access health informa tion online - Detail Indication:Current nonsmoker (Renamed from Current non-smoker) Start:06-Dec-2018 Instruction Type:Patient Education How to access health informa tion online Indication:Current nonsmoker (Renamed from Current non-smoker) Start:29-Nov-2018 Instruction Type:Patient Education How to access health informa tion online - Detail Indication:Current nonsmoker (Renamed from Current non-smoker) Start:29-Nov-2018 Instruction Type:Patient Education Patient Instructions Indication:BMI 33.0-33.9,adult Start:29-Nov-2018 Instruction Type:Provider Instructions for Treatment How to access health informa tion online Indication:Current nonsmoker (Renamed from Current non-smoker) Start:27-Feb-2018 Instruction Type:Patient Education How to access health informa tion online - Detail Indication:Current nonsmoker (Renamed from Current non-smoker) Start:27-Feb-2018 Instruction Type:Patient Education Patient Instructions Indication:Current nonsmoker (Renamed from Current non-smoker) Start:27-Feb-2018 Instruction Type:Provider Instructions for Treatment How to access health informa tion online Indication:Current nonsmoker (Renamed from Current non-smoker) Start:20-Feb-2018 Instruction Type:Patient Education How to access health informa tion online - Detail Indication:Current nonsmoker (Renamed from Current non-smoker) Start:20-Feb-2018 Instruction Type:Patient Education Patient Instructions Indication:Current nonsmoker (Renamed from Current non-smoker) Start:20-Feb-2018 Instruction Type:Provider Instructions for Treatment How to access health informa tion online Indication:Current nonsmoker (Renamed from Current non-smoker) Start:30-Jan-2018 Instruction Type:Patient Education How to access health informa tion online - Detail Indication:Current nonsmoker (Renamed from Current non-smoker) Start:30-Jan-2018 Instruction Type:Patient Education Patient Instructions Indication:Current nonsmoker (Renamed from Current non-smoker) Start:30-Jan-2018 Instruction Type:Provider Instructions for Treatment How to access health informa tion online Indication:Bronchitis, acute Start:04-Jun-2015 Instruction Type:Patient Education How to access health informa tion online - Detail Indication:Bronchitis, acute Start:04-Jun-2015 Instruction Type:Patient Education Patient Instructions Indication:Bronchitis, acute Start:04-Jun-2015 Instruction Type:Provider Instructions for Treatment How to access health informa tion online Indication:Annual Medicare Physical (Renamed from Medicare annual wellness visit, subsequent) Start:23-Apr-2015 Instruction Type:Patient Education How to access health informa tion online - Detail Indication:Annual Medicare Physical (Renamed from Medicare annual wellness visit, subsequent) Start:23-Apr-2015 Instruction Type:Patient Education Patient Instructions Indication:Annual Medicare Physical (Renamed from Medicare annual wellness visit, subsequent) Start:23-Apr-2015 Instruction Type:Provider Instructions for Treatment How to access health informa tion online Indication:Anemia, unspecified type Start:09-Mar-2015 Instruction Type:Patient Education How to access health informa tion online - Detail Indication:Anemia, unspecified type Start:09-Mar-2015 Instruction Type:Patient Education Patient Instructions Indication:Anemia, unspecified type Start:09-Mar-2015 Instruction Type:Provider Instructions for Treatment How to access health informa tion online Indication:Current nonsmoker (Renamed from Current non-smoker) Start:01-Jan-2015 Instruction Type:Patient Education How to access health informa tion online - Detail Indication:Current nonsmoker (Renamed from Current non-smoker) Start:01-Jan-2015 Instruction Type:Patient Education Patient Instructions Indication:Current nonsmoker (Renamed from Current non-smoker) Start:01-Jan-2015 Instruction Type:Provider Instructions for Treatment How to access health informa tion online Indication:Unspecified asthma with (acute) exacerbation Start:30-Jan-2014 Instruction Type:Patient Education [facility]; [facility] Work Phone: Instructions* Name Dates Details Patient Instructions Indication:BMI 33.0-33.9,adult Start:01-Feb-2022 Instruction Type:Provider Instructions for Treatment How to Access Health Informa tion Online using Patient Portal and [employer] Apps Indication:BMI 33.0-33.9,adult Start:01-Feb-2022 Instruction Type:Patient Education Patient Instructions Indication:Current nonsmoker (Renamed from Current non-smoker) Start:30-Sep-2021 Instruction Type:Provider Instructions for Treatment How to Access Health Informa tion Online using Patient Portal and [employer] Apps Indication:Current nonsmoker (Renamed from Current non-smoker) Start:30-Sep-2021 Instruction Type:Patient Education Patient Instructions Indication:Current nonsmoker (Renamed from Current non-smoker) Start:14-Jun-2021 Instruction Type:Provider Instructions for Treatment How to Access Health Informa tion Online using Patient Portal and [employer] Apps Indication:Current nonsmoker (Renamed from Current non-smoker) Start:14-Jun-2021 Instruction Type:Patient Education Patient Instructions Indication:History of COVID-19 Start:07-Jun-2021 Instruction Type:Provider Instructions for Treatment How to Access Health Informa tion Online using Patient Portal and [employer] Apps Indication:BMI 32.0-32.9,adult Start:07-Jun-2021 Instruction Type:Patient Education Patient Instructions Indication:Current nonsmoker (Renamed from Current non-smoker) Start:08-Mar-2021 Instruction Type:Provider Instructions for Treatment How to Access Health Informa tion Online using Patient Portal and [employer] Apps Indication:Current nonsmoker (Renamed from Current non-smoker) Start:08-Mar-2021 Instruction Type:Patient Education Patient Instructions Indication:BMI 32.0-32.9,adult Start:04-Mar-2021 Instruction Type:Provider Instructions for Treatment How to Access Health Informa tion Online using Patient Portal and [employer] Apps Indication:Current nonsmoker (Renamed from Current non-smoker) Start:04-Mar-2021 Instruction Type:Patient Education Patient Instructions Indication:BMI 33.0-33.9,adult Start:21-Jan-2021 Instruction Type:Provider Instructions for Treatment How to Access Health Informa tion Online using Patient Portal and [employer] Apps Indication:BMI 33.0-33.9,adult Start:21-Jan-2021 Instruction Type:Patient Education Patient Instructions Indication:Current nonsmoker (Renamed from Current non-smoker) Start:19-Jan-2021 Instruction Type:Provider Instructions for Treatment How to Access Health Informa tion Online using Patient Portal and [employer] Apps Indication:Current nonsmoker (Renamed from Current non-smoker) Start:19-Jan-2021 Instruction Type:Patient Education Patient Instructions Indication:BMI 33.0-33.9,adult Start:18-Jan-2021 Instruction Type:Provider Instructions for Treatment How to Access Health Informa tion Online using Patient Portal and [employer] Apps Indication:BMI 33.0-33.9,adult Start:18-Jan-2021 Instruction Type:Patient Education Patient Instructions Indication:Current nonsmoker (Renamed from Current non-smoker) Start:17-Jan-2021 Instruction Type:Provider Instructions for Treatment How to Access Health Informa tion Online using Patient Portal and [employer] Apps Indication:Current nonsmoker (Renamed from Current non-smoker) Start:17-Jan-2021 Instruction Type:Patient Education Patient Instructions Indication:Current nonsmoker (Renamed from Current non-smoker) Start:04-Oct-2020 Instruction Type:Provider Instructions for Treatment How to Access Health Informa tion Online using Patient Portal and [employer] Apps Indication:Current nonsmoker (Renamed from Current non-smoker) Start:04-Oct-2020 Instruction Type:Patient Education Patient Instructions Indication:Hypothyroid Start:18-May-2020 Instruction Type:Provider Instructions for Treatment How to Access Health Informa tion Online using Patient Portal and [employer] Apps Indication:Current nonsmoker (Renamed from Current non-smoker) Start:18-May-2020 Instruction Type:Patient Education How to access health informa tion online Indication:Current nonsmoker (Renamed from Current non-smoker) Start:16-Jan-2020 Instruction Type:Patient Education How to access health informa tion online - Detail Indication:Current nonsmoker (Renamed from Current non-smoker) Start:16-Jan-2020 Instruction Type:Patient Education Patient Instructions Indication:Cardiomyopathy Start:16-Jan-2020 Instruction Type:Provider Instructions for Treatment How to access health informa tion online Indication:Current nonsmoker (Renamed from Current non-smoker) Start:15-Sep-2019 Instruction Type:Patient Education How to access health informa tion online - Detail Indication:Current nonsmoker (Renamed from Current non-smoker) Start:15-Sep-2019 Instruction Type:Patient Education Patient Instructions Indication:AJIT (iron deficiency anemia) Start:15-Sep-2019 Instruction Type:Provider Instructions for Treatment How to access health informa tion online Indication:Current nonsmoker (Renamed from Current non-smoker) Start:12-May-2019 Instruction Type:Patient Education How to access health informa tion online - Detail Indication:Current nonsmoker (Renamed from Current non-smoker) Start:12-May-2019 Instruction Type:Patient Education Patient Instructions Indication:Intrinsic asthma Start:12-May-2019 Instruction Type:Provider Instructions for Treatment How to access health informa tion online Indication:Abnormal thyroid function test Start:15-Jan-2019 Instruction Type:Patient Education How to access health informa tion online - Detail Indication:Abnormal thyroid function test Start:15-Jan-2019 Instruction Type:Patient Education Patient Instructions Indication:Hypertensive heart disease Start:15-Jan-2019 Instruction Type:Provider Instructions for Treatment How to access health informa tion online Indication:Current nonsmoker (Renamed from Current non-smoker) Start:06-Dec-2018 Instruction Type:Patient Education How to access health informa tion online - Detail Indication:Current nonsmoker (Renamed from Current non-smoker) Start:06-Dec-2018 Instruction Type:Patient Education How to access health informa tion online Indication:Current nonsmoker (Renamed from Current non-smoker) Start:29-Nov-2018 Instruction Type:Patient Education How to access health informa tion online - Detail Indication:Current nonsmoker (Renamed from Current non-smoker) Start:29-Nov-2018 Instruction Type:Patient Education Patient Instructions Indication:BMI 33.0-33.9,adult Start:29-Nov-2018 Instruction Type:Provider Instructions for Treatment How to access health informa tion online Indication:Current nonsmoker (Renamed from Current non-smoker) Start:27-Feb-2018 Instruction Type:Patient Education How to access health informa tion online - Detail Indication:Current nonsmoker (Renamed from Current non-smoker) Start:27-Feb-2018 Instruction Type:Patient Education Patient Instructions Indication:Current nonsmoker (Renamed from Current non-smoker) Start:27-Feb-2018 Instruction Type:Provider Instructions for Treatment How to access health informa tion online Indication:Current nonsmoker (Renamed from Current non-smoker) Start:20-Feb-2018 Instruction Type:Patient Education How to access health informa tion online - Detail Indication:Current nonsmoker (Renamed from Current non-smoker) Start:20-Feb-2018 Instruction Type:Patient Education Patient Instructions Indication:Current nonsmoker (Renamed from Current non-smoker) Start:20-Feb-2018 Instruction Type:Provider Instructions for Treatment How to access health informa tion online Indication:Current nonsmoker (Renamed from Current non-smoker) Start:30-Jan-2018 Instruction Type:Patient Education How to access health informa tion online - Detail Indication:Current nonsmoker (Renamed from Current non-smoker) Start:30-Jan-2018 Instruction Type:Patient Education Patient Instructions Indication:Current nonsmoker (Renamed from Current non-smoker) Start:30-Jan-2018 Instruction Type:Provider Instructions for Treatment How to access health informa tion online Indication:Bronchitis, acute Start:04-Jun-2015 Instruction Type:Patient Education How to access health informa tion online - Detail Indication:Bronchitis, acute Start:04-Jun-2015 Instruction Type:Patient Education Patient Instructions Indication:Bronchitis, acute Start:04-Jun-2015 Instruction Type:Provider Instructions for Treatment How to access health informa tion online Indication:Annual Medicare Physical (Renamed from Medicare annual wellness visit, subsequent) Start:23-Apr-2015 Instruction Type:Patient Education How to access health informa tion online - Detail Indication:Annual Medicare Physical (Renamed from Medicare annual wellness visit, subsequent) Start:23-Apr-2015 Instruction Type:Patient Education Patient Instructions Indication:Annual Medicare Physical (Renamed from Medicare annual wellness visit, subsequent) Start:23-Apr-2015 Instruction Type:Provider Instructions for Treatment How to access health informa tion online Indication:Anemia, unspecified type Start:09-Mar-2015 Instruction Type:Patient Education How to access health informa tion online - Detail Indication:Anemia, unspecified type Start:09-Mar-2015 Instruction Type:Patient Education Patient Instructions Indication:Anemia, unspecified type Start:09-Mar-2015 Instruction Type:Provider Instructions for Treatment How to access health informa tion online Indication:Current nonsmoker (Renamed from Current non-smoker) Start:01-Jan-2015 Instruction Type:Patient Education How to access health informa tion online - Detail Indication:Current nonsmoker (Renamed from Current non-smoker) Start:01-Jan-2015 Instruction Type:Patient Education Patient Instructions Indication:Current nonsmoker (Renamed from Current non-smoker) Start:01-Jan-2015 Instruction Type:Provider Instructions for Treatment How to access health informa tion online Indication:Unspecified asthma with (acute) exacerbation Start:30-Jan-2014 Instruction Type:Patient Education [facility]; [facility] Work Phone: Instructions* Name Dates Details Patient Instructions Indication:BMI 33.0-33.9,adult Start:01-Feb-2022 Instruction Type:Provider Instructions for Treatment How to Access Health Informa tion Online using Patient Portal and [employer] Indication:BMI 33.0-33.9,adult Start:01-Feb-2022 Instruction Type:Patient Education Patient Instructions Indication:Current nonsmoker (Renamed from Current non-smoker) Start:30-Sep-2021 Instruction Type:Provider Instructions for Treatment How to Access Health Informa tion Online using Patient Portal and [employer] Indication:Current nonsmoker (Renamed from Current non-smoker) Start:30-Sep-2021 Instruction Type:Patient Education Patient Instructions Indication:Current nonsmoker (Renamed from Current non-smoker) Start:14-Jun-2021 Instruction Type:Provider Instructions for Treatment How to Access Health Informa tion Online using Patient Portal and [employer] Indication:Current nonsmoker (Renamed from Current non-smoker) Start:14-Jun-2021 Instruction Type:Patient Education Patient Instructions Indication:History of COVID-19 Start:07-Jun-2021 Instruction Type:Provider Instructions for Treatment How to Access Health Informa tion Online using Patient Portal and [employer] Indication:BMI 32.0-32.9,adult Start:07-Jun-2021 Instruction Type:Patient Education Patient Instructions Indication:Current nonsmoker (Renamed from Current non-smoker) Start:08-Mar-2021 Instruction Type:Provider Instructions for Treatment How to Access Health Informa tion Online using Patient Portal and [employer] Indication:Current nonsmoker (Renamed from Current non-smoker) Start:08-Mar-2021 Instruction Type:Patient Education Patient Instructions Indication:BMI 32.0-32.9,adult Start:04-Mar-2021 Instruction Type:Provider Instructions for Treatment How to Access Health Informa tion Online using Patient Portal and [employer] Indication:Current nonsmoker (Renamed from Current non-smoker) Start:04-Mar-2021 Instruction Type:Patient Education Patient Instructions Indication:BMI 33.0-33.9,adult Start:21-Jan-2021 Instruction Type:Provider Instructions for Treatment How to Access Health Informa tion Online using Patient Portal and [employer] Indication:BMI 33.0-33.9,adult Start:21-Jan-2021 Instruction Type:Patient Education Patient Instructions Indication:Current nonsmoker (Renamed from Current non-smoker) Start:19-Jan-2021 Instruction Type:Provider Instructions for Treatment How to Access Health Informa tion Online using Patient Portal and [employer] Indication:Current nonsmoker (Renamed from Current non-smoker) Start:19-Jan-2021 Instruction Type:Patient Education Patient Instructions Indication:BMI 33.0-33.9,adult Start:18-Jan-2021 Instruction Type:Provider Instructions for Treatment How to Access Health Informa tion Online using Patient Portal and [employer] Indication:BMI 33.0-33.9,adult Start:18-Jan-2021 Instruction Type:Patient Education Patient Instructions Indication:Current nonsmoker (Renamed from Current non-smoker) Start:17-Jan-2021 Instruction Type:Provider Instructions for Treatment How to Access Health Informa tion Online using Patient Portal and [employer] Apps Indication:Current nonsmoker (Renamed from Current non-smoker) Start:17-Jan-2021 Instruction Type:Patient Education Patient Instructions Indication:Current nonsmoker (Renamed from Current non-smoker) Start:04-Oct-2020 Instruction Type:Provider Instructions for Treatment How to Access Health Informa tion Online using Patient Portal and [employer] Apps Indication:Current nonsmoker (Renamed from Current non-smoker) Start:04-Oct-2020 Instruction Type:Patient Education Patient Instructions Indication:Hypothyroid Start:18-May-2020 Instruction Type:Provider Instructions for Treatment How to Access Health Informa tion Online using Patient Portal and [employer] Apps Indication:Current nonsmoker (Renamed from Current non-smoker) Start:18-May-2020 Instruction Type:Patient Education How to access health informa tion online Indication:Current nonsmoker (Renamed from Current non-smoker) Start:16-Jan-2020 Instruction Type:Patient Education How to access health informa tion online - Detail Indication:Current nonsmoker (Renamed from Current non-smoker) Start:16-Jan-2020 Instruction Type:Patient Education Patient Instructions Indication:Cardiomyopathy Start:16-Jan-2020 Instruction Type:Provider Instructions for Treatment How to access health informa tion online Indication:Current nonsmoker (Renamed from Current non-smoker) Start:15-Sep-2019 Instruction Type:Patient Education How to access health informa tion online - Detail Indication:Current nonsmoker (Renamed from Current non-smoker) Start:15-Sep-2019 Instruction Type:Patient Education Patient Instructions Indication:AJIT (iron deficiency anemia) Start:15-Sep-2019 Instruction Type:Provider Instructions for Treatment How to access health informa tion online Indication:Current nonsmoker (Renamed from Current non-smoker) Start:12-May-2019 Instruction Type:Patient Education How to access health informa tion online - Detail Indication:Current nonsmoker (Renamed from Current non-smoker) Start:12-May-2019 Instruction Type:Patient Education Patient Instructions Indication:Intrinsic asthma Start:12-May-2019 Instruction Type:Provider Instructions for Treatment How to access health informa tion online Indication:Abnormal thyroid function test Start:15-Jan-2019 Instruction Type:Patient Education How to access health informa tion online - Detail Indication:Abnormal thyroid function test Start:15-Jan-2019 Instruction Type:Patient Education Patient Instructions Indication:Hypertensive heart disease Start:15-Jan-2019 Instruction Type:Provider Instructions for Treatment How to access health informa tion online Indication:Current nonsmoker (Renamed from Current non-smoker) Start:06-Dec-2018 Instruction Type:Patient Education How to access health informa tion online - Detail Indication:Current nonsmoker (Renamed from Current non-smoker) Start:06-Dec-2018 Instruction Type:Patient Education How to access health informa tion online Indication:Current nonsmoker (Renamed from Current non-smoker) Start:29-Nov-2018 Instruction Type:Patient Education How to access health informa tion online - Detail Indication:Current nonsmoker (Renamed from Current non-smoker) Start:29-Nov-2018 Instruction Type:Patient Education Patient Instructions Indication:BMI 33.0-33.9,adult Start:29-Nov-2018 Instruction Type:Provider Instructions for Treatment How to access health informa tion online Indication:Current nonsmoker (Renamed from Current non-smoker) Start:27-Feb-2018 Instruction Type:Patient Education How to access health informa tion online - Detail Indication:Current nonsmoker (Renamed from Current non-smoker) Start:27-Feb-2018 Instruction Type:Patient Education Patient Instructions Indication:Current nonsmoker (Renamed from Current non-smoker) Start:27-Feb-2018 Instruction Type:Provider Instructions for Treatment How to access health informa tion online Indication:Current nonsmoker (Renamed from Current non-smoker) Start:20-Feb-2018 Instruction Type:Patient Education How to access health informa tion online - Detail Indication:Current nonsmoker (Renamed from Current non-smoker) Start:20-Feb-2018 Instruction Type:Patient Education Patient Instructions Indication:Current nonsmoker (Renamed from Current non-smoker) Start:20-Feb-2018 Instruction Type:Provider Instructions for Treatment How to access health informa tion online Indication:Current nonsmoker (Renamed from Current non-smoker) Start:30-Jan-2018 Instruction Type:Patient Education How to access health informa tion online - Detail Indication:Current nonsmoker (Renamed from Current non-smoker) Start:30-Jan-2018 Instruction Type:Patient Education Patient Instructions Indication:Current nonsmoker (Renamed from Current non-smoker) Start:30-Jan-2018 Instruction Type:Provider Instructions for Treatment How to access health informa tion online Indication:Bronchitis, acute Start:04-Jun-2015 Instruction Type:Patient Education How to access health informa tion online - Detail Indication:Bronchitis, acute Start:04-Jun-2015 Instruction Type:Patient Education Patient Instructions Indication:Bronchitis, acute Start:04-Jun-2015 Instruction Type:Provider Instructions for Treatment How to access health informa tion online Indication:Annual Medicare Physical (Renamed from Medicare annual wellness visit, subsequent) Start:23-Apr-2015 Instruction Type:Patient Education How to access health informa tion online - Detail Indication:Annual Medicare Physical (Renamed from Medicare annual wellness visit, subsequent) Start:23-Apr-2015 Instruction Type:Patient Education Patient Instructions Indication:Annual Medicare Physical (Renamed from Medicare annual wellness visit, subsequent) Start:23-Apr-2015 Instruction Type:Provider Instructions for Treatment How to access health informa tion online Indication:Anemia, unspecified type Start:09-Mar-2015 Instruction Type:Patient Education How to access health informa tion online - Detail Indication:Anemia, unspecified type Start:09-Mar-2015 Instruction Type:Patient Education Patient Instructions Indication:Anemia, unspecified type Start:09-Mar-2015 Instruction Type:Provider Instructions for Treatment How to access health informa tion online Indication:Current nonsmoker (Renamed from Current non-smoker) Start:01-Jan-2015 Instruction Type:Patient Education How to access health informa tion online - Detail Indication:Current nonsmoker (Renamed from Current non-smoker) Start:01-Jan-2015 Instruction Type:Patient Education Patient Instructions Indication:Current nonsmoker (Renamed from Current non-smoker) Start:01-Jan-2015 Instruction Type:Provider Instructions for Treatment How to access health informa Pixelated online Indication:Unspecified asthma with (acute) exacerbation Start:30-Jan-2014 Instruction Type:Patient Education [facility]; [facility] Work Phone: Family History Unknown Family Member Name Dates Details Father Comments:[place], HTN, hyperlipid emia, age 58 Status:Active Maternal Grandmother Comments:pancreatic cancer Status:Active Mother Comments:IDDM,HYN, hyperlipi dem[place] age 68 Status:Active Sister 1 Comments:IDDM later, younger than pt Status:Active Unknown Family Member Name Dates Details Father Comments:[place], HTN, hyperlipid emia, age 58 Status:Active Maternal Grandmother Comments:pancreatic cancer Status:Active Mother Comments:IDDM,HYN, hyperlipi dem[place], [place] age 68 Status:Active Sister 1 Comments:IDDM later, younger than pt Status:Active Unknown Family Member Name Dates Details Father Comments:[place], HTN, hyperlipid emia, age 58 Status:Active Maternal Grandmother Comments:pancreatic cancer Status:Active Mother Comments:IDDM,HYN, hyperlipi dem[place], [place] age 68 Status:Active Sister 1 Comments:IDDM later, younger than pt Status:Active Unknown Family Member Name Dates Details Father Comments:[place], HTN, hyperlipid emia, age 58 Status:Active Maternal Grandmother Comments:pancreatic cancer Status:Active Mother Comments:IDDM,HYN, hyperlipi dem[place], [place] age 68 Status:Active Sister 1 Comments:IDDM later, younger than pt Status:Active Unknown Family Member Name Dates Details Father Comments:[place], HTN, hyperlipid emia, age 58 Status:Active Maternal Grandmother Comments:pancreatic cancer Status:Active Mother Comments:IDDM,HYN, hyperlipi dem[place], [place] age 68 Status:Active Sister 1 Comments:IDDM later, younger than pt Status:Active Unknown Family Member Name Dates Details Father Comments:[place], HTN, hyperlipid emia, age 58 Status:Active Maternal Grandmother Comments:pancreatic cancer Status:Active Mother Comments:IDDM,HYN, hyperlipi dem[place], [place] age 68 Status:Active Sister 1 Comments:IDDM later, younger than pt Status:Active Unknown Family Member Name Dates Details Father Comments:[place], HTN, hyperlipid emia, age 58 Status:Active Maternal Grandmother Comments:pancreatic cancer Status:Active Mother Comments:IDDM,HYN, hyperlipi dem[place], [place] age 68 Status:Active Sister 1 Comments:IDDM later, younger than pt Status:Active Unknown Family Member Name Dates Details Father Comments:[place], HTN, hyperlipid emia, age 58 Status:Active Maternal Grandmother Comments:pancreatic cancer Status:Active Mother Comments:IDDM,HYN, hyperlipi dem[place], [place] age 68 Status:Active Sister 1 Comments:IDDM later, younger than pt Status:Active Unknown Family Member Name Dates Details Father Comments:[place], HTN, hyperlipid emia, age 58 Status:Active Maternal Grandmother Comments:pancreatic cancer Status:Active Mother Comments:IDDM,HYN, hyperlipi dem[place], [place] age 68 Status:Active Sister 1 Comments:IDDM later, younger than pt Status:Active Unknown Family Member Name Dates Details Father Comments:[place], HTN, hyperlipid emia, age 58 Status:Active Maternal Grandmother Comments:pancreatic cancer Status:Active Mother Comments:IDDM,HYN, hyperlipi dem[place], [place] age 68 Status:Active Sister 1 Comments:IDDM later, younger than pt Status:Active Unknown Family Member Name Dates Details Father Comments:[place], HTN, hyperlipid emia, age 58 Status:Active Maternal Grandmother Comments:pancreatic cancer Status:Active Mother Comments:IDDM,HYN, hyperlipi demia, [place] age 68 Status:Active Sister 1 Comments:IDDM later, younger than pt Status:Active Unknown Family Member Name Dates Details Father Comments:[place], HTN, hyperlipid emia, age 58 Status:Active Maternal Grandmother Comments:pancreatic cancer Status:Active Mother Comments:IDDM,HYN, hyperlipi demia, [place] age 68 Status:Active Sister 1 Comments:IDDM later, younger than pt Status:Active Unknown Family Member Name Dates Details Father Comments:[place], HTN, hyperlipid emia, age 58 Status:Active Maternal Grandmother Comments:pancreatic cancer Status:Active Mother Comments:IDDM,HYN, hyperlipi demia, [place] age 68 Status:Active Sister 1 Comments:IDDM later, younger than pt Status:Active Unknown Family Member Name Dates Details Father Comments:[place], HTN, hyperlipid emia, age 58 Status:Active Maternal Grandmother Comments:pancreatic cancer Status:Active Mother Comments:IDDM,HYN, hyperlipi dem[place], [place] age 68 Status:Active Sister 1 Comments:IDDM later, younger than pt Status:Active Unknown Family Member Name Dates Details Father Comments:[place], HTN, hyperlipid emia, age 58 Status:Active Maternal Grandmother Comments:pancreatic cancer Status:Active Mother Comments:IDDM,HYN, hyperlipi dem[place], [place] age 68 Status:Active Sister 1 Comments:IDDM later, younger than pt Status:Active Unknown Family Member Name Dates Details Father Comments:[place], HTN, hyperlipid emia, age 58 Status:Active Maternal Grandmother Comments:pancreatic cancer Status:Active Mother Comments:IDDM,HYN, hyperlipi demia, [place] age 68 Status:Active Sister 1 Comments:IDDM later, younger than pt Status:Active Unknown Family Member Name Dates Details Father Comments:[place], HTN, hyperlipid emia, age 58 Status:Active Maternal Grandmother Comments:pancreatic cancer Status:Active Mother Comments:IDDM,HYN, hyperlipi demia, [place] age 68 Status:Active Sister 1 Comments:IDDM later, younger than pt Status:Active Unknown Family Member Name Dates Details Father Comments:[place], HTN, hyperlipid emia, age 58 Status:Active Maternal Grandmother Comments:pancreatic cancer Status:Active Mother Comments:IDDM,HYN, hyperlipi demia, [place] age 68 Status:Active Sister 1 Comments:IDDM later, younger than pt Status:Active Unknown Family Member Name Dates Details Father Comments:[place], HTN, hyperlipid emia, age 58 Status:Active Maternal Grandmother Comments:pancreatic cancer Status:Active Mother Comments:IDDM,HYN, hyperlipi dem[place], [place] age 68 Status:Active Sister 1 Comments:IDDM later, younger than pt Status:Active Unknown Family Member Name Dates Details Father Comments:[place], HTN, hyperlipid emia, age 58 Status:Active Maternal Grandmother Comments:pancreatic cancer Status:Active Mother Comments:IDDM,HYN, hyperlipi dem[place], [place] age 68 Status:Active Sister 1 Comments:IDDM later, younger than pt Status:Active Unknown Family Member Name Dates Details Father Comments:[place], HTN, hyperlipid emia, age 58 Status:Active Maternal Grandmother Comments:pancreatic cancer Status:Active Mother Comments:IDDM,HYN, hyperlipi dem[place], [place] age 68 Status:Active Sister 1 Comments:IDDM later, younger than pt Status:Active Unknown Family Member Name Dates Details Father Comments:[place], HTN, hyperlipid emia, age 58 Status:Active Maternal Grandmother Comments:pancreatic cancer Status:Active Mother Comments:IDDM,HYN, hyperlipi dem[place], [place] age 68 Status:Active Sister 1 Comments:IDDM later, younger than pt Status:Active Unknown Family Member Name Dates Details Father Comments:[place], HTN, hyperlipid emia, age 58 Status:Active Maternal Grandmother Comments:pancreatic cancer Status:Active Mother Comments:IDDM,HYN, hyperlipi demia, [place] age 68 Status:Active Sister 1 Comments:IDDM later, younger than pt Status:Active Unknown Family Member Name Dates Details Father Comments:[place], HTN, hyperlipid emia, age 58 Status:Active Maternal Grandmother Comments:pancreatic cancer Status:Active Mother Comments:IDDM,HYN, hyperlipi demia, [place] age 68 Status:Active Sister 1 Comments:IDDM later, younger than pt Status:Active Unknown Family Member Name Dates Details Father Comments:[place], HTN, hyperlipid emia, age 58 Status:Active Maternal Grandmother Comments:pancreatic cancer Status:Active Mother Comments:IDDM,HYN, hyperlipi demia, [place] age 68 Status:Active Sister 1 Comments:IDDM later, younger than pt Status:Active Instructions Name Dates Details Current nonsmoker (Renamed f rom Current non-smoker) : How to access health information online Indication:Current nonsmoker (Renamed from Current non-smoker) Current nonsmoker (Renamed f rom Current non-smoker) : How to access health information online - Detail Indication:Current nonsmoker (Renamed from Current non-smoker) Current nonsmoker (Renamed f rom Current non-smoker) : Patient Instructions Indication:Current nonsmoker (Renamed from Current non-smoker) Bronchitis, acute : How to a ccess health information online Indication:Bronchitis, acute Bronchitis, acute : How to a ccess health information online - Detail Indication:Bronchitis, acute Bronchitis, acute : Patient Instructions Indication:Bronchitis, acute Annual Medicare Physical (Re named from Medicare annual wellness visit, subsequent) : How to access health information online Indication:Annual Medicare Physical (Renamed from Medicare annual wellness visit, subsequent) Annual Medicare Physical (Re named from Medicare annual wellness visit, subsequent) : How to access health information online - Detail Indication:Annual Medicare Physical (Renamed from Medicare annual wellness visit, subsequent) Annual Medicare Physical (Re named from Medicare annual wellness visit, subsequent) : Patient Instructions Indication:Annual Medicare Physical (Renamed from Medicare annual wellness visit, subsequent) Anemia, unspecified type : H ow to access health information online Indication:Anemia, unspecified type Anemia, unspecified type : H ow to access health information online - Detail Indication:Anemia, unspecified type Anemia, unspecified type : P atient Instructions Indication:Anemia, unspecified type Unspecified asthma with (acu te) exacerbation : How to access health information online Indication:Unspecified asthma with (acute) exacerbation Name Dates Details Current nonsmoker (Renamed f rom Current non-smoker) : How to access health information online Indication:Current nonsmoker (Renamed from Current non-smoker) Current nonsmoker (Renamed f rom Current non-smoker) : How to access health information online - Detail Indication:Current nonsmoker (Renamed from Current non-smoker) Current nonsmoker (Renamed f rom Current non-smoker) : Patient Instructions Indication:Current nonsmoker (Renamed from Current non-smoker) Bronchitis, acute : How to a ccess health information online Indication:Bronchitis, acute Bronchitis, acute : How to a ccess health information online - Detail Indication:Bronchitis, acute Bronchitis, acute : Patient Instructions Indication:Bronchitis, acute Annual Medicare Physical (Re named from Medicare annual wellness visit, subsequent) : How to access health information online Indication:Annual Medicare Physical (Renamed from Medicare annual wellness visit, subsequent) Annual Medicare Physical (Re named from Medicare annual wellness visit, subsequent) : How to access health information online - Detail Indication:Annual Medicare Physical (Renamed from Medicare annual wellness visit, subsequent) Annual Medicare Physical (Re named from Medicare annual wellness visit, subsequent) : Patient Instructions Indication:Annual Medicare Physical (Renamed from Medicare annual wellness visit, subsequent) Anemia, unspecified type : H ow to access health information online Indication:Anemia, unspecified type Anemia, unspecified type : H ow to access health information online - Detail Indication:Anemia, unspecified type Anemia, unspecified type : P atient Instructions Indication:Anemia, unspecified type Unspecified asthma with (acu te) exacerbation : How to access health information online Indication:Unspecified asthma with (acute) exacerbation Name Dates Details How to access health informa tion online Indication:Current nonsmoker (Renamed from Current non-smoker) Start:29-Nov-2018 Instruction Type:Patient Education How to access health informa tion online - Detail Indication:Current nonsmoker (Renamed from Current non-smoker) Start:29-Nov-2018 Instruction Type:Patient Education Patient Instructions Indication:Current nonsmoker (Renamed from Current non-smoker) Start:29-Nov-2018 Instruction Type:Provider Instructions for Treatment How to access health informa tion online Indication:Current nonsmoker (Renamed from Current non-smoker) Start:27-Feb-2018 Instruction Type:Patient Education How to access health informa tion online - Detail Indication:Current nonsmoker (Renamed from Current non-smoker) Start:27-Feb-2018 Instruction Type:Patient Education Patient Instructions Indication:Current nonsmoker (Renamed from Current non-smoker) Start:27-Feb-2018 Instruction Type:Provider Instructions for Treatment How to access health informa tion online Indication:Current nonsmoker (Renamed from Current non-smoker) Start:20-Feb-2018 Instruction Type:Patient Education How to access health informa tion online - Detail Indication:Current nonsmoker (Renamed from Current non-smoker) Start:20-Feb-2018 Instruction Type:Patient Education Patient Instructions Indication:Current nonsmoker (Renamed from Current non-smoker) Start:20-Feb-2018 Instruction Type:Provider Instructions for Treatment How to access health informa tion online Indication:Current nonsmoker (Renamed from Current non-smoker) Start:30-Jan-2018 Instruction Type:Patient Education How to access health informa tion online - Detail Indication:Current nonsmoker (Renamed from Current non-smoker) Start:30-Jan-2018 Instruction Type:Patient Education Patient Instructions Indication:Current nonsmoker (Renamed from Current non-smoker) Start:30-Jan-2018 Instruction Type:Provider Instructions for Treatment How to access health informa tion online Indication:Bronchitis, acute Start:04-Jun-2015 Instruction Type:Patient Education How to access health informa tion online - Detail Indication:Bronchitis, acute Start:04-Jun-2015 Instruction Type:Patient Education Patient Instructions Indication:Bronchitis, acute Start:04-Jun-2015 Instruction Type:Provider Instructions for Treatment How to access health informa tion online Indication:Annual Medicare Physical (Renamed from Medicare annual wellness visit, subsequent) Start:23-Apr-2015 Instruction Type:Patient Education How to access health informa tion online - Detail Indication:Annual Medicare Physical (Renamed from Medicare annual wellness visit, subsequent) Start:23-Apr-2015 Instruction Type:Patient Education Patient Instructions Indication:Annual Medicare Physical (Renamed from Medicare annual wellness visit, subsequent) Start:23-Apr-2015 Instruction Type:Provider Instructions for Treatment How to access health informa tion online Indication:Anemia, unspecified type Start:09-Mar-2015 Instruction Type:Patient Education How to access health informa tion online - Detail Indication:Anemia, unspecified type Start:09-Mar-2015 Instruction Type:Patient Education Patient Instructions Indication:Anemia, unspecified type Start:09-Mar-2015 Instruction Type:Provider Instructions for Treatment How to access health informa tion online Indication:Current nonsmoker (Renamed from Current non-smoker) Start:01-Jan-2015 Instruction Type:Patient Education How to access health informa tion online - Detail Indication:Current nonsmoker (Renamed from Current non-smoker) Start:01-Jan-2015 Instruction Type:Patient Education Patient Instructions Indication:Current nonsmoker (Renamed from Current non-smoker) Start:01-Jan-2015 Instruction Type:Provider Instructions for Treatment How to access health informa tion online Indication:Unspecified asthma with (acute) exacerbation Start:30-Jan-2014 Instruction Type:Patient Education Name Dates Details How to access health informa tion online Indication:Current nonsmoker (Renamed from Current non-smoker) Start:29-Nov-2018 Instruction Type:Patient Education How to access health informa tion online - Detail Indication:Current nonsmoker (Renamed from Current non-smoker) Start:29-Nov-2018 Instruction Type:Patient Education Patient Instructions Indication:BMI 33.0-33.9,adult Start:29-Nov-2018 Instruction Type:Provider Instructions for Treatment How to access health informa tion online Indication:Current nonsmoker (Renamed from Current non-smoker) Start:27-Feb-2018 Instruction Type:Patient Education How to access health informa tion online - Detail Indication:Current nonsmoker (Renamed from Current non-smoker) Start:27-Feb-2018 Instruction Type:Patient Education Patient Instructions Indication:Current nonsmoker (Renamed from Current non-smoker) Start:27-Feb-2018 Instruction Type:Provider Instructions for Treatment How to access health informa tion online Indication:Current nonsmoker (Renamed from Current non-smoker) Start:20-Feb-2018 Instruction Type:Patient Education How to access health informa tion online - Detail Indication:Current nonsmoker (Renamed from Current non-smoker) Start:20-Feb-2018 Instruction Type:Patient Education Patient Instructions Indication:Current nonsmoker (Renamed from Current non-smoker) Start:20-Feb-2018 Instruction Type:Provider Instructions for Treatment How to access health informa tion online Indication:Current nonsmoker (Renamed from Current non-smoker) Start:30-Jan-2018 Instruction Type:Patient Education How to access health informa tion online - Detail Indication:Current nonsmoker (Renamed from Current non-smoker) Start:30-Jan-2018 Instruction Type:Patient Education Patient Instructions Indication:Current nonsmoker (Renamed from Current non-smoker) Start:30-Jan-2018 Instruction Type:Provider Instructions for Treatment How to access health informa tion online Indication:Bronchitis, acute Start:04-Jun-2015 Instruction Type:Patient Education How to access health informa tion online - Detail Indication:Bronchitis, acute Start:04-Jun-2015 Instruction Type:Patient Education Patient Instructions Indication:Bronchitis, acute Start:04-Jun-2015 Instruction Type:Provider Instructions for Treatment How to access health informa tion online Indication:Annual Medicare Physical (Renamed from Medicare annual wellness visit, subsequent) Start:23-Apr-2015 Instruction Type:Patient Education How to access health informa tion online - Detail Indication:Annual Medicare Physical (Renamed from Medicare annual wellness visit, subsequent) Start:23-Apr-2015 Instruction Type:Patient Education Patient Instructions Indication:Annual Medicare Physical (Renamed from Medicare annual wellness visit, subsequent) Start:23-Apr-2015 Instruction Type:Provider Instructions for Treatment How to access health informa tion online Indication:Anemia, unspecified type Start:09-Mar-2015 Instruction Type:Patient Education How to access health informa tion online - Detail Indication:Anemia, unspecified type Start:09-Mar-2015 Instruction Type:Patient Education Patient Instructions Indication:Anemia, unspecified type Start:09-Mar-2015 Instruction Type:Provider Instructions for Treatment How to access health informa tion online Indication:Current nonsmoker (Renamed from Current non-smoker) Start:01-Jan-2015 Instruction Type:Patient Education How to access health informa tion online - Detail Indication:Current nonsmoker (Renamed from Current non-smoker) Start:01-Jan-2015 Instruction Type:Patient Education Patient Instructions Indication:Current nonsmoker (Renamed from Current non-smoker) Start:01-Jan-2015 Instruction Type:Provider Instructions for Treatment How to access health informa tion online Indication:Unspecified asthma with (acute) exacerbation Start:30-Jan-2014 Instruction Type:Patient Education Name Dates Details How to access health informa tion online Indication:Current nonsmoker (Renamed from Current non-smoker) Start:06-Dec-2018 Instruction Type:Patient Education How to access health informa tion online - Detail Indication:Current nonsmoker (Renamed from Current non-smoker) Start:06-Dec-2018 Instruction Type:Patient Education How to access health informa tion online Indication:Current nonsmoker (Renamed from Current non-smoker) Start:29-Nov-2018 Instruction Type:Patient Education How to access health informa tion online - Detail Indication:Current nonsmoker (Renamed from Current non-smoker) Start:29-Nov-2018 Instruction Type:Patient Education Patient Instructions Indication:BMI 33.0-33.9,adult Start:29-Nov-2018 Instruction Type:Provider Instructions for Treatment How to access health informa tion online Indication:Current nonsmoker (Renamed from Current non-smoker) Start:27-Feb-2018 Instruction Type:Patient Education How to access health informa tion online - Detail Indication:Current nonsmoker (Renamed from Current non-smoker) Start:27-Feb-2018 Instruction Type:Patient Education Patient Instructions Indication:Current nonsmoker (Renamed from Current non-smoker) Start:27-Feb-2018 Instruction Type:Provider Instructions for Treatment How to access health informa tion online Indication:Current nonsmoker (Renamed from Current non-smoker) Start:20-Feb-2018 Instruction Type:Patient Education How to access health informa tion online - Detail Indication:Current nonsmoker (Renamed from Current non-smoker) Start:20-Feb-2018 Instruction Type:Patient Education Patient Instructions Indication:Current nonsmoker (Renamed from Current non-smoker) Start:20-Feb-2018 Instruction Type:Provider Instructions for Treatment How to access health informa tion online Indication:Current nonsmoker (Renamed from Current non-smoker) Start:30-Jan-2018 Instruction Type:Patient Education How to access health informa tion online - Detail Indication:Current nonsmoker (Renamed from Current non-smoker) Start:30-Jan-2018 Instruction Type:Patient Education Patient Instructions Indication:Current nonsmoker (Renamed from Current non-smoker) Start:30-Jan-2018 Instruction Type:Provider Instructions for Treatment How to access health informa tion online Indication:Bronchitis, acute Start:04-Jun-2015 Instruction Type:Patient Education How to access health informa tion online - Detail Indication:Bronchitis, acute Start:04-Jun-2015 Instruction Type:Patient Education Patient Instructions Indication:Bronchitis, acute Start:04-Jun-2015 Instruction Type:Provider Instructions for Treatment How to access health informa tion online Indication:Annual Medicare Physical (Renamed from Medicare annual wellness visit, subsequent) Start:23-Apr-2015 Instruction Type:Patient Education How to access health informa tion online - Detail Indication:Annual Medicare Physical (Renamed from Medicare annual wellness visit, subsequent) Start:23-Apr-2015 Instruction Type:Patient Education Patient Instructions Indication:Annual Medicare Physical (Renamed from Medicare annual wellness visit, subsequent) Start:23-Apr-2015 Instruction Type:Provider Instructions for Treatment How to access health informa tion online Indication:Anemia, unspecified type Start:09-Mar-2015 Instruction Type:Patient Education How to access health informa tion online - Detail Indication:Anemia, unspecified type Start:09-Mar-2015 Instruction Type:Patient Education Patient Instructions Indication:Anemia, unspecified type Start:09-Mar-2015 Instruction Type:Provider Instructions for Treatment How to access health informa tion online Indication:Current nonsmoker (Renamed from Current non-smoker) Start:01-Jan-2015 Instruction Type:Patient Education How to access health informa tion online - Detail Indication:Current nonsmoker (Renamed from Current non-smoker) Start:01-Jan-2015 Instruction Type:Patient Education Patient Instructions Indication:Current nonsmoker (Renamed from Current non-smoker) Start:01-Jan-2015 Instruction Type:Provider Instructions for Treatment How to access health informa tion online Indication:Unspecified asthma with (acute) exacerbation Start:30-Jan-2014 Instruction Type:Patient Education Name Dates Details How to access health informa tion online Indication:Current nonsmoker (Renamed from Current non-smoker) Start:06-Dec-2018 Instruction Type:Patient Education How to access health informa tion online - Detail Indication:Current nonsmoker (Renamed from Current non-smoker) Start:06-Dec-2018 Instruction Type:Patient Education How to access health informa tion online Indication:Current nonsmoker (Renamed from Current non-smoker) Start:29-Nov-2018 Instruction Type:Patient Education How to access health informa tion online - Detail Indication:Current nonsmoker (Renamed from Current non-smoker) Start:29-Nov-2018 Instruction Type:Patient Education Patient Instructions Indication:BMI 33.0-33.9,adult Start:29-Nov-2018 Instruction Type:Provider Instructions for Treatment How to access health informa tion online Indication:Current nonsmoker (Renamed from Current non-smoker) Start:27-Feb-2018 Instruction Type:Patient Education How to access health informa tion online - Detail Indication:Current nonsmoker (Renamed from Current non-smoker) Start:27-Feb-2018 Instruction Type:Patient Education Patient Instructions Indication:Current nonsmoker (Renamed from Current non-smoker) Start:27-Feb-2018 Instruction Type:Provider Instructions for Treatment How to access health informa tion online Indication:Current nonsmoker (Renamed from Current non-smoker) Start:20-Feb-2018 Instruction Type:Patient Education How to access health informa tion online - Detail Indication:Current nonsmoker (Renamed from Current non-smoker) Start:20-Feb-2018 Instruction Type:Patient Education Patient Instructions Indication:Current nonsmoker (Renamed from Current non-smoker) Start:20-Feb-2018 Instruction Type:Provider Instructions for Treatment How to access health informa tion online Indication:Current nonsmoker (Renamed from Current non-smoker) Start:30-Jan-2018 Instruction Type:Patient Education How to access health informa tion online - Detail Indication:Current nonsmoker (Renamed from Current non-smoker) Start:30-Jan-2018 Instruction Type:Patient Education Patient Instructions Indication:Current nonsmoker (Renamed from Current non-smoker) Start:30-Jan-2018 Instruction Type:Provider Instructions for Treatment How to access health informa tion online Indication:Bronchitis, acute Start:04-Jun-2015 Instruction Type:Patient Education How to access health informa tion online - Detail Indication:Bronchitis, acute Start:04-Jun-2015 Instruction Type:Patient Education Patient Instructions Indication:Bronchitis, acute Start:04-Jun-2015 Instruction Type:Provider Instructions for Treatment How to access health informa tion online Indication:Annual Medicare Physical (Renamed from Medicare annual wellness visit, subsequent) Start:23-Apr-2015 Instruction Type:Patient Education How to access health informa tion online - Detail Indication:Annual Medicare Physical (Renamed from Medicare annual wellness visit, subsequent) Start:23-Apr-2015 Instruction Type:Patient Education Patient Instructions Indication:Annual Medicare Physical (Renamed from Medicare annual wellness visit, subsequent) Start:23-Apr-2015 Instruction Type:Provider Instructions for Treatment How to access health informa tion online Indication:Anemia, unspecified type Start:09-Mar-2015 Instruction Type:Patient Education How to access health informa tion online - Detail Indication:Anemia, unspecified type Start:09-Mar-2015 Instruction Type:Patient Education Patient Instructions Indication:Anemia, unspecified type Start:09-Mar-2015 Instruction Type:Provider Instructions for Treatment How to access health informa tion online Indication:Current nonsmoker (Renamed from Current non-smoker) Start:01-Jan-2015 Instruction Type:Patient Education How to access health informa tion online - Detail Indication:Current nonsmoker (Renamed from Current non-smoker) Start:01-Jan-2015 Instruction Type:Patient Education Patient Instructions Indication:Current nonsmoker (Renamed from Current non-smoker) Start:01-Jan-2015 Instruction Type:Provider Instructions for Treatment How to access health informa tion online Indication:Unspecified asthma with (acute) exacerbation Start:30-Jan-2014 Instruction Type:Patient Education Name Dates Details How to access health informa tion online Indication:Current nonsmoker (Renamed from Current non-smoker) Start:15-Sep-2019 Instruction Type:Patient Education How to access health informa tion online - Detail Indication:Current nonsmoker (Renamed from Current non-smoker) Start:15-Sep-2019 Instruction Type:Patient Education Patient Instructions Indication:AJIT (iron deficiency anemia) Start:15-Sep-2019 Instruction Type:Provider Instructions for Treatment How to access health informa tion online Indication:Current nonsmoker (Renamed from Current non-smoker) Start:12-May-2019 Instruction Type:Patient Education How to access health informa tion online - Detail Indication:Current nonsmoker (Renamed from Current non-smoker) Start:12-May-2019 Instruction Type:Patient Education Patient Instructions Indication:Intrinsic asthma Start:12-May-2019 Instruction Type:Provider Instructions for Treatment How to access health informa tion online Indication:Abnormal thyroid function test Start:15-Jan-2019 Instruction Type:Patient Education How to access health informa tion online - Detail Indication:Abnormal thyroid function test Start:15-Jan-2019 Instruction Type:Patient Education Patient Instructions Indication:Hypertensive heart disease Start:15-Jan-2019 Instruction Type:Provider Instructions for Treatment How to access health informa tion online Indication:Current nonsmoker (Renamed from Current non-smoker) Start:06-Dec-2018 Instruction Type:Patient Education How to access health informa tion online - Detail Indication:Current nonsmoker (Renamed from Current non-smoker) Start:06-Dec-2018 Instruction Type:Patient Education How to access health informa tion online Indication:Current nonsmoker (Renamed from Current non-smoker) Start:29-Nov-2018 Instruction Type:Patient Education How to access health informa tion online - Detail Indication:Current nonsmoker (Renamed from Current non-smoker) Start:29-Nov-2018 Instruction Type:Patient Education Patient Instructions Indication:BMI 33.0-33.9,adult Start:29-Nov-2018 Instruction Type:Provider Instructions for Treatment How to access health informa tion online Indication:Current nonsmoker (Renamed from Current non-smoker) Start:27-Feb-2018 Instruction Type:Patient Education How to access health informa tion online - Detail Indication:Current nonsmoker (Renamed from Current non-smoker) Start:27-Feb-2018 Instruction Type:Patient Education Patient Instructions Indication:Current nonsmoker (Renamed from Current non-smoker) Start:27-Feb-2018 Instruction Type:Provider Instructions for Treatment How to access health informa tion online Indication:Current nonsmoker (Renamed from Current non-smoker) Start:20-Feb-2018 Instruction Type:Patient Education How to access health informa tion online - Detail Indication:Current nonsmoker (Renamed from Current non-smoker) Start:20-Feb-2018 Instruction Type:Patient Education Patient Instructions Indication:Current nonsmoker (Renamed from Current non-smoker) Start:20-Feb-2018 Instruction Type:Provider Instructions for Treatment How to access health informa tion online Indication:Current nonsmoker (Renamed from Current non-smoker) Start:30-Jan-2018 Instruction Type:Patient Education How to access health informa tion online - Detail Indication:Current nonsmoker (Renamed from Current non-smoker) Start:30-Jan-2018 Instruction Type:Patient Education Patient Instructions Indication:Current nonsmoker (Renamed from Current non-smoker) Start:30-Jan-2018 Instruction Type:Provider Instructions for Treatment How to access health informa tion online Indication:Bronchitis, acute Start:04-Jun-2015 Instruction Type:Patient Education How to access health informa tion online - Detail Indication:Bronchitis, acute Start:04-Jun-2015 Instruction Type:Patient Education Patient Instructions Indication:Bronchitis, acute Start:04-Jun-2015 Instruction Type:Provider Instructions for Treatment How to access health informa tion online Indication:Annual Medicare Physical (Renamed from Medicare annual wellness visit, subsequent) Start:23-Apr-2015 Instruction Type:Patient Education How to access health informa tion online - Detail Indication:Annual Medicare Physical (Renamed from Medicare annual wellness visit, subsequent) Start:23-Apr-2015 Instruction Type:Patient Education Patient Instructions Indication:Annual Medicare Physical (Renamed from Medicare annual wellness visit, subsequent) Start:23-Apr-2015 Instruction Type:Provider Instructions for Treatment How to access health informa tion online Indication:Anemia, unspecified type Start:09-Mar-2015 Instruction Type:Patient Education How to access health informa tion online - Detail Indication:Anemia, unspecified type Start:09-Mar-2015 Instruction Type:Patient Education Patient Instructions Indication:Anemia, unspecified type Start:09-Mar-2015 Instruction Type:Provider Instructions for Treatment How to access health informa tion online Indication:Current nonsmoker (Renamed from Current non-smoker) Start:01-Jan-2015 Instruction Type:Patient Education How to access health informa tion online - Detail Indication:Current nonsmoker (Renamed from Current non-smoker) Start:01-Jan-2015 Instruction Type:Patient Education Patient Instructions Indication:Current nonsmoker (Renamed from Current non-smoker) Start:01-Jan-2015 Instruction Type:Provider Instructions for Treatment How to access health informa tion online Indication:Unspecified asthma with (acute) exacerbation Start:30-Jan-2014 Instruction Type:Patient Education Name Dates Details How to access health informa tion online Indication:Current nonsmoker (Renamed from Current non-smoker) Start:15-Sep-2019 Instruction Type:Patient Education How to access health informa tion online - Detail Indication:Current nonsmoker (Renamed from Current non-smoker) Start:15-Sep-2019 Instruction Type:Patient Education Patient Instructions Indication:AJIT (iron deficiency anemia) Start:15-Sep-2019 Instruction Type:Provider Instructions for Treatment How to access health informa tion online Indication:Current nonsmoker (Renamed from Current non-smoker) Start:12-May-2019 Instruction Type:Patient Education How to access health informa tion online - Detail Indication:Current nonsmoker (Renamed from Current non-smoker) Start:12-May-2019 Instruction Type:Patient Education Patient Instructions Indication:Intrinsic asthma Start:12-May-2019 Instruction Type:Provider Instructions for Treatment How to access health informa tion online Indication:Abnormal thyroid function test Start:15-Jan-2019 Instruction Type:Patient Education How to access health informa tion online - Detail Indication:Abnormal thyroid function test Start:15-Jan-2019 Instruction Type:Patient Education Patient Instructions Indication:Hypertensive heart disease Start:15-Jan-2019 Instruction Type:Provider Instructions for Treatment How to access health informa tion online Indication:Current nonsmoker (Renamed from Current non-smoker) Start:06-Dec-2018 Instruction Type:Patient Education How to access health informa tion online - Detail Indication:Current nonsmoker (Renamed from Current non-smoker) Start:06-Dec-2018 Instruction Type:Patient Education How to access health informa tion online Indication:Current nonsmoker (Renamed from Current non-smoker) Start:29-Nov-2018 Instruction Type:Patient Education How to access health informa tion online - Detail Indication:Current nonsmoker (Renamed from Current non-smoker) Start:29-Nov-2018 Instruction Type:Patient Education Patient Instructions Indication:BMI 33.0-33.9,adult Start:29-Nov-2018 Instruction Type:Provider Instructions for Treatment How to access health informa tion online Indication:Current nonsmoker (Renamed from Current non-smoker) Start:27-Feb-2018 Instruction Type:Patient Education How to access health informa tion online - Detail Indication:Current nonsmoker (Renamed from Current non-smoker) Start:27-Feb-2018 Instruction Type:Patient Education Patient Instructions Indication:Current nonsmoker (Renamed from Current non-smoker) Start:27-Feb-2018 Instruction Type:Provider Instructions for Treatment How to access health informa tion online Indication:Current nonsmoker (Renamed from Current non-smoker) Start:20-Feb-2018 Instruction Type:Patient Education How to access health informa tion online - Detail Indication:Current nonsmoker (Renamed from Current non-smoker) Start:20-Feb-2018 Instruction Type:Patient Education Patient Instructions Indication:Current nonsmoker (Renamed from Current non-smoker) Start:20-Feb-2018 Instruction Type:Provider Instructions for Treatment How to access health informa tion online Indication:Current nonsmoker (Renamed from Current non-smoker) Start:30-Jan-2018 Instruction Type:Patient Education How to access health informa tion online - Detail Indication:Current nonsmoker (Renamed from Current non-smoker) Start:30-Jan-2018 Instruction Type:Patient Education Patient Instructions Indication:Current nonsmoker (Renamed from Current non-smoker) Start:30-Jan-2018 Instruction Type:Provider Instructions for Treatment How to access health informa tion online Indication:Bronchitis, acute Start:04-Jun-2015 Instruction Type:Patient Education How to access health informa tion online - Detail Indication:Bronchitis, acute Start:04-Jun-2015 Instruction Type:Patient Education Patient Instructions Indication:Bronchitis, acute Start:04-Jun-2015 Instruction Type:Provider Instructions for Treatment How to access health informa tion online Indication:Annual Medicare Physical (Renamed from Medicare annual wellness visit, subsequent) Start:23-Apr-2015 Instruction Type:Patient Education How to access health informa tion online - Detail Indication:Annual Medicare Physical (Renamed from Medicare annual wellness visit, subsequent) Start:23-Apr-2015 Instruction Type:Patient Education Patient Instructions Indication:Annual Medicare Physical (Renamed from Medicare annual wellness visit, subsequent) Start:23-Apr-2015 Instruction Type:Provider Instructions for Treatment How to access health informa tion online Indication:Anemia, unspecified type Start:09-Mar-2015 Instruction Type:Patient Education How to access health informa tion online - Detail Indication:Anemia, unspecified type Start:09-Mar-2015 Instruction Type:Patient Education Patient Instructions Indication:Anemia, unspecified type Start:09-Mar-2015 Instruction Type:Provider Instructions for Treatment How to access health informa tion online Indication:Current nonsmoker (Renamed from Current non-smoker) Start:01-Jan-2015 Instruction Type:Patient Education How to access health informa tion online - Detail Indication:Current nonsmoker (Renamed from Current non-smoker) Start:01-Jan-2015 Instruction Type:Patient Education Patient Instructions Indication:Current nonsmoker (Renamed from Current non-smoker) Start:01-Jan-2015 Instruction Type:Provider Instructions for Treatment How to access health informa tion online Indication:Unspecified asthma with (acute) exacerbation Start:30-Jan-2014 Instruction Type:Patient Education Name Dates Details How to access health informa tion online Indication:Current nonsmoker (Renamed from Current non-smoker) Start:16-Jan-2020 Instruction Type:Patient Education How to access health informa tion online - Detail Indication:Current nonsmoker (Renamed from Current non-smoker) Start:16-Jan-2020 Instruction Type:Patient Education Patient Instructions Indication:Cardiomyopathy Start:16-Jan-2020 Instruction Type:Provider Instructions for Treatment How to access health informa tion online Indication:Current nonsmoker (Renamed from Current non-smoker) Start:15-Sep-2019 Instruction Type:Patient Education How to access health informa tion online - Detail Indication:Current nonsmoker (Renamed from Current non-smoker) Start:15-Sep-2019 Instruction Type:Patient Education Patient Instructions Indication:AJIT (iron deficiency anemia) Start:15-Sep-2019 Instruction Type:Provider Instructions for Treatment How to access health informa tion online Indication:Current nonsmoker (Renamed from Current non-smoker) Start:12-May-2019 Instruction Type:Patient Education How to access health informa tion online - Detail Indication:Current nonsmoker (Renamed from Current non-smoker) Start:12-May-2019 Instruction Type:Patient Education Patient Instructions Indication:Intrinsic asthma Start:12-May-2019 Instruction Type:Provider Instructions for Treatment How to access health informa tion online Indication:Abnormal thyroid function test Start:15-Jan-2019 Instruction Type:Patient Education How to access health informa tion online - Detail Indication:Abnormal thyroid function test Start:15-Jan-2019 Instruction Type:Patient Education Patient Instructions Indication:Hypertensive heart disease Start:15-Jan-2019 Instruction Type:Provider Instructions for Treatment How to access health informa tion online Indication:Current nonsmoker (Renamed from Current non-smoker) Start:06-Dec-2018 Instruction Type:Patient Education How to access health informa tion online - Detail Indication:Current nonsmoker (Renamed from Current non-smoker) Start:06-Dec-2018 Instruction Type:Patient Education How to access health informa tion online Indication:Current nonsmoker (Renamed from Current non-smoker) Start:29-Nov-2018 Instruction Type:Patient Education How to access health informa tion online - Detail Indication:Current nonsmoker (Renamed from Current non-smoker) Start:29-Nov-2018 Instruction Type:Patient Education Patient Instructions Indication:BMI 33.0-33.9,adult Start:29-Nov-2018 Instruction Type:Provider Instructions for Treatment How to access health informa tion online Indication:Current nonsmoker (Renamed from Current non-smoker) Start:27-Feb-2018 Instruction Type:Patient Education How to access health informa tion online - Detail Indication:Current nonsmoker (Renamed from Current non-smoker) Start:27-Feb-2018 Instruction Type:Patient Education Patient Instructions Indication:Current nonsmoker (Renamed from Current non-smoker) Start:27-Feb-2018 Instruction Type:Provider Instructions for Treatment How to access health informa tion online Indication:Current nonsmoker (Renamed from Current non-smoker) Start:20-Feb-2018 Instruction Type:Patient Education How to access health informa tion online - Detail Indication:Current nonsmoker (Renamed from Current non-smoker) Start:20-Feb-2018 Instruction Type:Patient Education Patient Instructions Indication:Current nonsmoker (Renamed from Current non-smoker) Start:20-Feb-2018 Instruction Type:Provider Instructions for Treatment How to access health informa tion online Indication:Current nonsmoker (Renamed from Current non-smoker) Start:30-Jan-2018 Instruction Type:Patient Education How to access health informa tion online - Detail Indication:Current nonsmoker (Renamed from Current non-smoker) Start:30-Jan-2018 Instruction Type:Patient Education Patient Instructions Indication:Current nonsmoker (Renamed from Current non-smoker) Start:30-Jan-2018 Instruction Type:Provider Instructions for Treatment How to access health informa tion online Indication:Bronchitis, acute Start:04-Jun-2015 Instruction Type:Patient Education How to access health informa tion online - Detail Indication:Bronchitis, acute Start:04-Jun-2015 Instruction Type:Patient Education Patient Instructions Indication:Bronchitis, acute Start:04-Jun-2015 Instruction Type:Provider Instructions for Treatment How to access health informa tion online Indication:Annual Medicare Physical (Renamed from Medicare annual wellness visit, subsequent) Start:23-Apr-2015 Instruction Type:Patient Education How to access health informa tion online - Detail Indication:Annual Medicare Physical (Renamed from Medicare annual wellness visit, subsequent) Start:23-Apr-2015 Instruction Type:Patient Education Patient Instructions Indication:Annual Medicare Physical (Renamed from Medicare annual wellness visit, subsequent) Start:23-Apr-2015 Instruction Type:Provider Instructions for Treatment How to access health informa tion online Indication:Anemia, unspecified type Start:09-Mar-2015 Instruction Type:Patient Education How to access health informa tion online - Detail Indication:Anemia, unspecified type Start:09-Mar-2015 Instruction Type:Patient Education Patient Instructions Indication:Anemia, unspecified type Start:09-Mar-2015 Instruction Type:Provider Instructions for Treatment How to access health informa tion online Indication:Current nonsmoker (Renamed from Current non-smoker) Start:01-Jan-2015 Instruction Type:Patient Education How to access health informa tion online - Detail Indication:Current nonsmoker (Renamed from Current non-smoker) Start:01-Jan-2015 Instruction Type:Patient Education Patient Instructions Indication:Current nonsmoker (Renamed from Current non-smoker) Start:01-Jan-2015 Instruction Type:Provider Instructions for Treatment How to access health informa tion online Indication:Unspecified asthma with (acute) exacerbation Start:30-Jan-2014 Instruction Type:Patient Education Name Dates Details How to access health informa tion online Indication:Abnormal thyroid function test Start:15-Jan-2019 Instruction Type:Patient Education How to access health informa tion online - Detail Indication:Abnormal thyroid function test Start:15-Jan-2019 Instruction Type:Patient Education Patient Instructions Indication:Hypertensive heart disease Start:15-Jan-2019 Instruction Type:Provider Instructions for Treatment How to access health informa tion online Indication:Current nonsmoker (Renamed from Current non-smoker) Start:06-Dec-2018 Instruction Type:Patient Education How to access health informa tion online - Detail Indication:Current nonsmoker (Renamed from Current non-smoker) Start:06-Dec-2018 Instruction Type:Patient Education How to access health informa tion online Indication:Current nonsmoker (Renamed from Current non-smoker) Start:29-Nov-2018 Instruction Type:Patient Education How to access health informa tion online - Detail Indication:Current nonsmoker (Renamed from Current non-smoker) Start:29-Nov-2018 Instruction Type:Patient Education Patient Instructions Indication:BMI 33.0-33.9,adult Start:29-Nov-2018 Instruction Type:Provider Instructions for Treatment How to access health informa tion online Indication:Current nonsmoker (Renamed from Current non-smoker) Start:27-Feb-2018 Instruction Type:Patient Education How to access health informa tion online - Detail Indication:Current nonsmoker (Renamed from Current non-smoker) Start:27-Feb-2018 Instruction Type:Patient Education Patient Instructions Indication:Current nonsmoker (Renamed from Current non-smoker) Start:27-Feb-2018 Instruction Type:Provider Instructions for Treatment How to access health informa tion online Indication:Current nonsmoker (Renamed from Current non-smoker) Start:20-Feb-2018 Instruction Type:Patient Education How to access health informa tion online - Detail Indication:Current nonsmoker (Renamed from Current non-smoker) Start:20-Feb-2018 Instruction Type:Patient Education Patient Instructions Indication:Current nonsmoker (Renamed from Current non-smoker) Start:20-Feb-2018 Instruction Type:Provider Instructions for Treatment How to access health informa tion online Indication:Current nonsmoker (Renamed from Current non-smoker) Start:30-Jan-2018 Instruction Type:Patient Education How to access health informa tion online - Detail Indication:Current nonsmoker (Renamed from Current non-smoker) Start:30-Jan-2018 Instruction Type:Patient Education Patient Instructions Indication:Current nonsmoker (Renamed from Current non-smoker) Start:30-Jan-2018 Instruction Type:Provider Instructions for Treatment How to access health informa tion online Indication:Bronchitis, acute Start:04-Jun-2015 Instruction Type:Patient Education How to access health informa tion online - Detail Indication:Bronchitis, acute Start:04-Jun-2015 Instruction Type:Patient Education Patient Instructions Indication:Bronchitis, acute Start:04-Jun-2015 Instruction Type:Provider Instructions for Treatment How to access health informa tion online Indication:Annual Medicare Physical (Renamed from Medicare annual wellness visit, subsequent) Start:23-Apr-2015 Instruction Type:Patient Education How to access health informa tion online - Detail Indication:Annual Medicare Physical (Renamed from Medicare annual wellness visit, subsequent) Start:23-Apr-2015 Instruction Type:Patient Education Patient Instructions Indication:Annual Medicare Physical (Renamed from Medicare annual wellness visit, subsequent) Start:23-Apr-2015 Instruction Type:Provider Instructions for Treatment How to access health informa tion online Indication:Anemia, unspecified type Start:09-Mar-2015 Instruction Type:Patient Education How to access health informa tion online - Detail Indication:Anemia, unspecified type Start:09-Mar-2015 Instruction Type:Patient Education Patient Instructions Indication:Anemia, unspecified type Start:09-Mar-2015 Instruction Type:Provider Instructions for Treatment How to access health informa tion online Indication:Current nonsmoker (Renamed from Current non-smoker) Start:01-Jan-2015 Instruction Type:Patient Education How to access health informa tion online - Detail Indication:Current nonsmoker (Renamed from Current non-smoker) Start:01-Jan-2015 Instruction Type:Patient Education Patient Instructions Indication:Current nonsmoker (Renamed from Current non-smoker) Start:01-Jan-2015 Instruction Type:Provider Instructions for Treatment How to access health informa tion online Indication:Unspecified asthma with (acute) exacerbation Start:30-Jan-2014 Instruction Type:Patient Education Name Dates Details How to access health informa tion online Indication:Abnormal thyroid function test Start:15-Jan-2019 Instruction Type:Patient Education How to access health informa tion online - Detail Indication:Abnormal thyroid function test Start:15-Jan-2019 Instruction Type:Patient Education Patient Instructions Indication:Hypertensive heart disease Start:15-Jan-2019 Instruction Type:Provider Instructions for Treatment How to access health informa tion online Indication:Current nonsmoker (Renamed from Current non-smoker) Start:06-Dec-2018 Instruction Type:Patient Education How to access health informa tion online - Detail Indication:Current nonsmoker (Renamed from Current non-smoker) Start:06-Dec-2018 Instruction Type:Patient Education How to access health informa tion online Indication:Current nonsmoker (Renamed from Current non-smoker) Start:29-Nov-2018 Instruction Type:Patient Education How to access health informa tion online - Detail Indication:Current nonsmoker (Renamed from Current non-smoker) Start:29-Nov-2018 Instruction Type:Patient Education Patient Instructions Indication:BMI 33.0-33.9,adult Start:29-Nov-2018 Instruction Type:Provider Instructions for Treatment How to access health informa tion online Indication:Current nonsmoker (Renamed from Current non-smoker) Start:27-Feb-2018 Instruction Type:Patient Education How to access health informa tion online - Detail Indication:Current nonsmoker (Renamed from Current non-smoker) Start:27-Feb-2018 Instruction Type:Patient Education Patient Instructions Indication:Current nonsmoker (Renamed from Current non-smoker) Start:27-Feb-2018 Instruction Type:Provider Instructions for Treatment How to access health informa tion online Indication:Current nonsmoker (Renamed from Current non-smoker) Start:20-Feb-2018 Instruction Type:Patient Education How to access health informa tion online - Detail Indication:Current nonsmoker (Renamed from Current non-smoker) Start:20-Feb-2018 Instruction Type:Patient Education Patient Instructions Indication:Current nonsmoker (Renamed from Current non-smoker) Start:20-Feb-2018 Instruction Type:Provider Instructions for Treatment How to access health informa tion online Indication:Current nonsmoker (Renamed from Current non-smoker) Start:30-Jan-2018 Instruction Type:Patient Education How to access health informa tion online - Detail Indication:Current nonsmoker (Renamed from Current non-smoker) Start:30-Jan-2018 Instruction Type:Patient Education Patient Instructions Indication:Current nonsmoker (Renamed from Current non-smoker) Start:30-Jan-2018 Instruction Type:Provider Instructions for Treatment How to access health informa tion online Indication:Bronchitis, acute Start:04-Jun-2015 Instruction Type:Patient Education How to access health informa tion online - Detail Indication:Bronchitis, acute Start:04-Jun-2015 Instruction Type:Patient Education Patient Instructions Indication:Bronchitis, acute Start:04-Jun-2015 Instruction Type:Provider Instructions for Treatment How to access health informa tion online Indication:Annual Medicare Physical (Renamed from Medicare annual wellness visit, subsequent) Start:23-Apr-2015 Instruction Type:Patient Education How to access health informa tion online - Detail Indication:Annual Medicare Physical (Renamed from Medicare annual wellness visit, subsequent) Start:23-Apr-2015 Instruction Type:Patient Education Patient Instructions Indication:Annual Medicare Physical (Renamed from Medicare annual wellness visit, subsequent) Start:23-Apr-2015 Instruction Type:Provider Instructions for Treatment How to access health informa tion online Indication:Anemia, unspecified type Start:09-Mar-2015 Instruction Type:Patient Education How to access health informa tion online - Detail Indication:Anemia, unspecified type Start:09-Mar-2015 Instruction Type:Patient Education Patient Instructions Indication:Anemia, unspecified type Start:09-Mar-2015 Instruction Type:Provider Instructions for Treatment How to access health informa tion online Indication:Current nonsmoker (Renamed from Current non-smoker) Start:01-Jan-2015 Instruction Type:Patient Education How to access health informa tion online - Detail Indication:Current nonsmoker (Renamed from Current non-smoker) Start:01-Jan-2015 Instruction Type:Patient Education Patient Instructions Indication:Current nonsmoker (Renamed from Current non-smoker) Start:01-Jan-2015 Instruction Type:Provider Instructions for Treatment How to access health informa tion online Indication:Unspecified asthma with (acute) exacerbation Start:30-Jan-2014 Instruction Type:Patient Education Name Dates Details How to access health informa tion online Indication:Current nonsmoker (Renamed from Current non-smoker) Start:16-Jan-2020 Instruction Type:Patient Education How to access health informa tion online - Detail Indication:Current nonsmoker (Renamed from Current non-smoker) Start:16-Jan-2020 Instruction Type:Patient Education Patient Instructions Indication:Cardiomyopathy Start:16-Jan-2020 Instruction Type:Provider Instructions for Treatment How to access health informa tion online Indication:Current nonsmoker (Renamed from Current non-smoker) Start:15-Sep-2019 Instruction Type:Patient Education How to access health informa tion online - Detail Indication:Current nonsmoker (Renamed from Current non-smoker) Start:15-Sep-2019 Instruction Type:Patient Education Patient Instructions Indication:AJIT (iron deficiency anemia) Start:15-Sep-2019 Instruction Type:Provider Instructions for Treatment How to access health informa tion online Indication:Current nonsmoker (Renamed from Current non-smoker) Start:12-May-2019 Instruction Type:Patient Education How to access health informa tion online - Detail Indication:Current nonsmoker (Renamed from Current non-smoker) Start:12-May-2019 Instruction Type:Patient Education Patient Instructions Indication:Intrinsic asthma Start:12-May-2019 Instruction Type:Provider Instructions for Treatment How to access health informa tion online Indication:Abnormal thyroid function test Start:15-Jan-2019 Instruction Type:Patient Education How to access health informa tion online - Detail Indication:Abnormal thyroid function test Start:15-Jan-2019 Instruction Type:Patient Education Patient Instructions Indication:Hypertensive heart disease Start:15-Jan-2019 Instruction Type:Provider Instructions for Treatment How to access health informa tion online Indication:Current nonsmoker (Renamed from Current non-smoker) Start:06-Dec-2018 Instruction Type:Patient Education How to access health informa tion online - Detail Indication:Current nonsmoker (Renamed from Current non-smoker) Start:06-Dec-2018 Instruction Type:Patient Education How to access health informa tion online Indication:Current nonsmoker (Renamed from Current non-smoker) Start:29-Nov-2018 Instruction Type:Patient Education How to access health informa tion online - Detail Indication:Current nonsmoker (Renamed from Current non-smoker) Start:29-Nov-2018 Instruction Type:Patient Education Patient Instructions Indication:BMI 33.0-33.9,adult Start:29-Nov-2018 Instruction Type:Provider Instructions for Treatment How to access health informa tion online Indication:Current nonsmoker (Renamed from Current non-smoker) Start:27-Feb-2018 Instruction Type:Patient Education How to access health informa tion online - Detail Indication:Current nonsmoker (Renamed from Current non-smoker) Start:27-Feb-2018 Instruction Type:Patient Education Patient Instructions Indication:Current nonsmoker (Renamed from Current non-smoker) Start:27-Feb-2018 Instruction Type:Provider Instructions for Treatment How to access health informa tion online Indication:Current nonsmoker (Renamed from Current non-smoker) Start:20-Feb-2018 Instruction Type:Patient Education How to access health informa tion online - Detail Indication:Current nonsmoker (Renamed from Current non-smoker) Start:20-Feb-2018 Instruction Type:Patient Education Patient Instructions Indication:Current nonsmoker (Renamed from Current non-smoker) Start:20-Feb-2018 Instruction Type:Provider Instructions for Treatment How to access health informa tion online Indication:Current nonsmoker (Renamed from Current non-smoker) Start:30-Jan-2018 Instruction Type:Patient Education How to access health informa tion online - Detail Indication:Current nonsmoker (Renamed from Current non-smoker) Start:30-Jan-2018 Instruction Type:Patient Education Patient Instructions Indication:Current nonsmoker (Renamed from Current non-smoker) Start:30-Jan-2018 Instruction Type:Provider Instructions for Treatment How to access health informa tion online Indication:Bronchitis, acute Start:04-Jun-2015 Instruction Type:Patient Education How to access health informa tion online - Detail Indication:Bronchitis, acute Start:04-Jun-2015 Instruction Type:Patient Education Patient Instructions Indication:Bronchitis, acute Start:04-Jun-2015 Instruction Type:Provider Instructions for Treatment How to access health informa tion online Indication:Annual Medicare Physical (Renamed from Medicare annual wellness visit, subsequent) Start:23-Apr-2015 Instruction Type:Patient Education How to access health informa tion online - Detail Indication:Annual Medicare Physical (Renamed from Medicare annual wellness visit, subsequent) Start:23-Apr-2015 Instruction Type:Patient Education Patient Instructions Indication:Annual Medicare Physical (Renamed from Medicare annual wellness visit, subsequent) Start:23-Apr-2015 Instruction Type:Provider Instructions for Treatment How to access health informa tion online Indication:Anemia, unspecified type Start:09-Mar-2015 Instruction Type:Patient Education How to access health informa tion online - Detail Indication:Anemia, unspecified type Start:09-Mar-2015 Instruction Type:Patient Education Patient Instructions Indication:Anemia, unspecified type Start:09-Mar-2015 Instruction Type:Provider Instructions for Treatment How to access health informa tion online Indication:Current nonsmoker (Renamed from Current non-smoker) Start:01-Jan-2015 Instruction Type:Patient Education How to access health informa tion online - Detail Indication:Current nonsmoker (Renamed from Current non-smoker) Start:01-Jan-2015 Instruction Type:Patient Education Patient Instructions Indication:Current nonsmoker (Renamed from Current non-smoker) Start:01-Jan-2015 Instruction Type:Provider Instructions for Treatment How to access health informa tion online Indication:Unspecified asthma with (acute) exacerbation Start:30-Jan-2014 Instruction Type:Patient Education Name Dates Details Patient Instructions Indication:Hypothyroid Start:18-May-2020 Instruction Type:Provider Instructions for Treatment How to Access Health Informa tion Online using Patient Portal and [employer] Indication:Current nonsmoker (Renamed from Current non-smoker) Start:18-May-2020 Instruction Type:Patient Education How to access health informa tion online Indication:Current nonsmoker (Renamed from Current non-smoker) Start:16-Jan-2020 Instruction Type:Patient Education How to access health informa tion online - Detail Indication:Current nonsmoker (Renamed from Current non-smoker) Start:16-Jan-2020 Instruction Type:Patient Education Patient Instructions Indication:Cardiomyopathy Start:16-Jan-2020 Instruction Type:Provider Instructions for Treatment How to access health informa tion online Indication:Current nonsmoker (Renamed from Current non-smoker) Start:15-Sep-2019 Instruction Type:Patient Education How to access health informa tion online - Detail Indication:Current nonsmoker (Renamed from Current non-smoker) Start:15-Sep-2019 Instruction Type:Patient Education Patient Instructions Indication:AJIT (iron deficiency anemia) Start:15-Sep-2019 Instruction Type:Provider Instructions for Treatment How to access health informa tion online Indication:Current nonsmoker (Renamed from Current non-smoker) Start:12-May-2019 Instruction Type:Patient Education How to access health informa tion online - Detail Indication:Current nonsmoker (Renamed from Current non-smoker) Start:12-May-2019 Instruction Type:Patient Education Patient Instructions Indication:Intrinsic asthma Start:12-May-2019 Instruction Type:Provider Instructions for Treatment How to access health informa tion online Indication:Abnormal thyroid function test Start:15-Jan-2019 Instruction Type:Patient Education How to access health informa tion online - Detail Indication:Abnormal thyroid function test Start:15-Jan-2019 Instruction Type:Patient Education Patient Instructions Indication:Hypertensive heart disease Start:15-Jan-2019 Instruction Type:Provider Instructions for Treatment How to access health informa tion online Indication:Current nonsmoker (Renamed from Current non-smoker) Start:06-Dec-2018 Instruction Type:Patient Education How to access health informa tion online - Detail Indication:Current nonsmoker (Renamed from Current non-smoker) Start:06-Dec-2018 Instruction Type:Patient Education How to access health informa tion online Indication:Current nonsmoker (Renamed from Current non-smoker) Start:29-Nov-2018 Instruction Type:Patient Education How to access health informa tion online - Detail Indication:Current nonsmoker (Renamed from Current non-smoker) Start:29-Nov-2018 Instruction Type:Patient Education Patient Instructions Indication:BMI 33.0-33.9,adult Start:29-Nov-2018 Instruction Type:Provider Instructions for Treatment How to access health informa tion online Indication:Current nonsmoker (Renamed from Current non-smoker) Start:27-Feb-2018 Instruction Type:Patient Education How to access health informa tion online - Detail Indication:Current nonsmoker (Renamed from Current non-smoker) Start:27-Feb-2018 Instruction Type:Patient Education Patient Instructions Indication:Current nonsmoker (Renamed from Current non-smoker) Start:27-Feb-2018 Instruction Type:Provider Instructions for Treatment How to access health informa tion online Indication:Current nonsmoker (Renamed from Current non-smoker) Start:20-Feb-2018 Instruction Type:Patient Education How to access health informa tion online - Detail Indication:Current nonsmoker (Renamed from Current non-smoker) Start:20-Feb-2018 Instruction Type:Patient Education Patient Instructions Indication:Current nonsmoker (Renamed from Current non-smoker) Start:20-Feb-2018 Instruction Type:Provider Instructions for Treatment How to access health informa tion online Indication:Current nonsmoker (Renamed from Current non-smoker) Start:30-Jan-2018 Instruction Type:Patient Education How to access health informa tion online - Detail Indication:Current nonsmoker (Renamed from Current non-smoker) Start:30-Jan-2018 Instruction Type:Patient Education Patient Instructions Indication:Current nonsmoker (Renamed from Current non-smoker) Start:30-Jan-2018 Instruction Type:Provider Instructions for Treatment How to access health informa tion online Indication:Bronchitis, acute Start:04-Jun-2015 Instruction Type:Patient Education How to access health informa tion online - Detail Indication:Bronchitis, acute Start:04-Jun-2015 Instruction Type:Patient Education Patient Instructions Indication:Bronchitis, acute Start:04-Jun-2015 Instruction Type:Provider Instructions for Treatment How to access health informa tion online Indication:Annual Medicare Physical (Renamed from Medicare annual wellness visit, subsequent) Start:23-Apr-2015 Instruction Type:Patient Education How to access health informa tion online - Detail Indication:Annual Medicare Physical (Renamed from Medicare annual wellness visit, subsequent) Start:23-Apr-2015 Instruction Type:Patient Education Patient Instructions Indication:Annual Medicare Physical (Renamed from Medicare annual wellness visit, subsequent) Start:23-Apr-2015 Instruction Type:Provider Instructions for Treatment How to access health informa tion online Indication:Anemia, unspecified type Start:09-Mar-2015 Instruction Type:Patient Education How to access health informa tion online - Detail Indication:Anemia, unspecified type Start:09-Mar-2015 Instruction Type:Patient Education Patient Instructions Indication:Anemia, unspecified type Start:09-Mar-2015 Instruction Type:Provider Instructions for Treatment How to access health informa tion online Indication:Current nonsmoker (Renamed from Current non-smoker) Start:01-Jan-2015 Instruction Type:Patient Education How to access health informa tion online - Detail Indication:Current nonsmoker (Renamed from Current non-smoker) Start:01-Jan-2015 Instruction Type:Patient Education Patient Instructions Indication:Current nonsmoker (Renamed from Current non-smoker) Start:01-Jan-2015 Instruction Type:Provider Instructions for Treatment How to access health informa tion online Indication:Unspecified asthma with (acute) exacerbation Start:30-Jan-2014 Instruction Type:Patient Education Advance Directives Name Dates Details Immunization Registry [place] - Effective on 01/16/2020. Expiration date unspecified Effective:16-Jan-2020 Name Dates Details Immunization Registry [place] - Effective on 01/16/2020. Expiration date unspecified Effective:16-Jan-2020 Name Dates Details Immunization Registry [place] - Effective on 01/16/2020. Expiration date unspecified Effective:16-Jan-2020 Name Dates Details Immunization Registry [place] - Effective on 01/16/2020. Expiration date unspecified Effective:16-Jan-2020 Name Dates Details Immunization Registry [place] - Effective on 01/16/2020. Expiration date unspecified Effective:16-Jan-2020 Name Dates Details Immunization Registry [place] - Effective on 01/16/2020. Expiration date unspecified Effective:16-Jan-2020 Name Dates Details Immunization Registry [place] - Effective on 01/16/2020. Expiration date unspecified Effective:16-Jan-2020 Name Dates Details Immunization Registry [place] - Effective on 01/16/2020. Expiration date unspecified Effective:16-Jan-2020 Name Dates Details Immunization Registry [place] - Effective on 01/16/2020. Expiration date unspecified Effective:16-Jan-2020 Name Dates Details Immunization Registry [place] - Effective on 01/16/2020. Expiration date unspecified Effective:16-Jan-2020 Name Dates Details Immunization Registry [place] - Effective on 01/16/2020. Expiration date unspecified Effective:16-Jan-2020 Name Dates Details Immunization Registry [place] - Effective on 01/16/2020. Expiration date unspecified Effective:16-Jan-2020 Name Dates Details Immunization Registry [place] - Effective on 01/16/2020. Expiration date unspecified Effective:16-Jan-2020 Name Dates Details Immunization Registry [place] - Effective on 01/16/2020. Expiration date unspecified Effective:16-Jan-2020 Summary Purpose Additional Source Comments Source Comments (unrecognize d section and content) In the event this informatio n is protected by the Federal Confidentiality of Alcohol and Drug Abuse Patient Records regulations: The Federal rules restrict any use of the information to criminally investigate or prosecute any alcohol or drug abuse patient.[facility] INFORMATION SOURCE (unrecogn ized section and content) FOR RECORDS PERTAINING TO PATIENTS WHO ARE OR HAVE BEEN ENROLLED IN A CHEMICAL DEPENDENCY/SUBSTANCEABUSE PROGRAM, SOME INFORMATION MAY BE OMITTED. This clinical summary was aggregated from multiple sources. Caution should be exercised in using it in the provision of clinical care. This summary normalizes information from multiple sources, and as a consequence, information in this document may materially change the coding, format and clinical context of patient data. In addition, data may be omitted in some cases. CLINICAL DECISIONS SHOULD BE BASED ON THE PRIMARY CLINICAL RECORDS. [facility] [employer] [facility]. provides no warranty or guarantee of the accuracy or completeness of information in this document.
[2023-05-01 08:30] LABS: ALB/GLOB Ratio 1.1 RATIO (0.9-2.4); AST(SGOT) 20 U/L (15-37); Alanine Aminotransfer ALT/SGPT 14 U/L (13-56); Albumin, Serum 3.7 g/dL (3.2-5.0); Alkaline Phosphatase 141 U/L (45-117); Anion Gap 4 (5-15); BUN 16 mg/dL (7-18); BUN/Creat Ratio 14.7 RATIO (10-20); Calcium,Total 9.5 mg/dL (8.5-10.1); Chloride 112 mmol/L (98-107); Cholesterol 134 mg/dL (200); Creatinine, Serum 1.09 mg/dL (0.55-1.02); EST Glomerular Filtration Rate 52 mL/min (>60); Est Glom Filt Rate - Afr Amer 62 mL/min (>60); Globulin 3.5 g/dL (2.2-4.2); Glucose 97 mg/dL (74-106); High Density Lipoprotein 57 mg/dL; Potassium 4.2 mmol/L (3.5-5.1); Protein, Total 7.2 g/dL (6.4-8.2); Sodium Level 144 mmol/L (136-145); Triglycerides 90 mg/dL; Very Low Density Lipoprotein 18 mg/dL (5-40)
== END | disposition home or self-care (01) ==
LOC: LAB 07:19
PROVIDERS: PCP Nurse Practitioner Family; Referring Provider Nurse Practitioner Family; Visit Provider Nurse Practitioner Family
DX: E78.2 Mixed hyperlipidemia (principal); N18.31 Chronic kidney disease, stage 3a; E03.9 Hypothyroidism, unspecified
CPT/HCPCS: 36415; 80053; 80061; 84443

== ENCOUNTER → 2023-10-23 | Outpatient (CLI) | payer MEDICARE, SELFPAY ==
[2023-10-23 16:10] LABS: Mucous, Urine 0 SEEN /hpf (<or=2+)
[2023-10-23 16:17] LABS: Color, Urine Red (Yellow); Glucose, Dipstick 250 mg/dl (Normal); Ketone-Dipstick Negative (Negative); Leukocyte Esterase-Dipstick 500 /ul (Negative); Nitrite-Dipstick Negative (Negative); Occult Blood-Urine 250 /ul (Negative); Protein-Dipstick 100 mg/dl (Negative); Urine Bilirubin Dipstick Negative (Negative); Urine Clarity Cloudy (Clear); Urine Urobilinogen Normal (Normal)
[2023-10-23 16:29] LABS: Bacteria 4+ /hpf (None Seen); White Blood Cells >100 SEEN /hpf (0-5)
[2023-10-23 16:30] LABS: Red Blood Cells-Urine 10-25 SEEN /hpf (0-5); Squamous Epithelial Cells - UA 0-5 SEEN /hpf (5-10); Transitional Epithelial - Ur 5-10 SEEN /hpf (0-5)
== END | disposition home or self-care (01) ==
LOC: LABSPEC 15:47
PROVIDERS: PCP Nurse Practitioner Family; Referring Provider Physician Assistant; Visit Provider Physician Assistant
DX: R30.0 Dysuria (principal)
CPT/HCPCS: 81001; 87086; 87088; 87186

== ENCOUNTER → 2024-01-11 | Outpatient (CLI) | payer MEDICARE, SELFPAY ==
--- NOTE | 2024-01-11 12:52 | ECHOD_ITS ---
Reason For Study: DCMP Procedure This was a 2D Doppler, Color Flow transthoracic echocardiogram. Exam performed in department. Left Ventricle Normal LV size. Stage 1 diastolic dysfunction. The left ventricular ejection fraction is 35 %. No regional wall motion abnormalities noted. Right Ventricle Normal RV size. ICD or pacer leads identified within the right ventricle. Normal systolic function. Atria Normal left atrium. Normal right atrium. Mitral Valve Normal mitral valve. Tricuspid Valve Normal tricuspid valve. Aortic Valve Trisinus/trileaflet aortic valve. Mild focal aortic valve thickening. Pulmonic Valve Normal pulmonic valve. Great Vessels Normal aortic root. The pulmonary artery is normal size. Inferior vena cava collapse with respiration. Pericardium/Pleural No pericardial effusion. MMode/2D Measurements & Calculations LVIDd: 4.6 cm IVSd: 1.1 cm LVOT diam: 2.1 cm LVIDs: 3.6 cm LVPWd: 1.1 cm LVOT area: 3.5 cm2 RVDd: 3.3 cm FS: 22.6 % Ao root diam: 3.2 cm LAV(MOD-bp): 38.1 ml LVAd ap4: 27.9 cm2 LAV(MOD-bp) Indexed: 20.2 ml/m2 LVLd ap4: 7.4 cm LAV(MOD-sp2): 32.1 ml EDV(MOD-sp4): 89.7 ml LAV(MOD-sp4): 37.4 ml EDV(sp4-el): 89.6 ml LVAs ap4: 21.2 cm2 LVLs ap4: 6.6 cm ESV(MOD-sp4): 58.8 ml ESV(sp4-el): 58.0 ml EF(MOD-sp4): 34.4 % EF(sp4-el): 35.2 % SV(MOD-sp4): 30.9 ml SV(sp4-el): 31.5 ml LA A4 area: 17.4 cm2 LA dimension(2D): 2.6 cm RA A4 area: 13.9 cm2 Time Measurements MV dec time: 0.11 sec Doppler Measurements & Calculations MV E max mikhail: 66.6 cm/sec Lat Peak E' Mikhail: 17.9 cm/sec Med Peak E' Mikhail: 9.5 cm/sec MV A max mikhail: 92.4 cm/sec E/E' lat: 3.7 E/E' med: 7.0 MV E/A: 0.72 MV V2 max: 99.8 cm/sec Ao V2 max: 107.6 cm/sec MV max P.0 mmHg MV dec slope: 604.6 cm/sec2 Ao max P.6 mmHg MV V2 mean: 64.7 cm/sec Ao V2 mean: 79.9 cm/sec MV mean P.9 mmHg Ao mean P.8 mmHg MV V2 VTI: 28.3 cm Ao V2 VTI: 25.5 cm AV (velocity ratio): 0.82 MVA(VTI): 2.6 cm2 LAILA(I,D): 2.9 cm2 LAILA(V,D): 2.8 cm2 LV V1 max: 83.7 cm/sec SV(LVOT): 74.6 ml PA V2 max: 85.5 cm/sec LV V1 max P.8 mmHg PA V2 mean: 54.0 cm/sec LV V1 mean P.4 mmHg LV V1 mean: 53.7 cm/sec LV V1 VTI: 21.0 cm ECHO/Echo Complete Interpretation Summary Normal LV size. Stage 1 diastolic dysfunction. The left ventricular ejection fraction is 35 %. Compared to previous study, the left ventricular systolic function has improved .. Ordering Physician: Pop Hurd Referring Physician: Pop Hurd Performed By: Anne Marie Black RCS
== END | disposition home or self-care (01) ==
LOC: CVS 12:52
PROVIDERS: PCP Nurse Practitioner Family; Referring Provider Internal Medicine Cardiovascular Disease; Visit Provider Internal Medicine Cardiovascular Disease
DX: I42.8 Other cardiomyopathies (principal)
CPT/HCPCS: 93306

== ENCOUNTER → 2024-01-30 | Outpatient (CLI) | payer MEDICARE, SELFPAY ==
--- NOTE | 2024-01-30 10:18 | BI_ITS ---
MAMMOGRAPHY - BILATERAL SCREENING REASON FOR EXAM: Female, 78 years old. Routine annual screening examination. PERTINENT HISTORY: Non-contributory. TECHNIQUE: Digital bilateral breast prudence (3D mammographic acquisition) in the CC and MLO projections. 2-D mediolateral oblique (MLO) and craniocaudad (CC) views of both breasts were obtained. CAD: Full Field Digital Mammography with Computer Added Detection was performed. COMPARISON: Comparison is made with prior study dated October 19, 2021 and October 18, 2020. FINDINGS: Breast Composition: The breasts are almost entirely fatty. There are no dominant masses or suspicious calcifications. A battery pack of a pacemaker is seen in the left axilla. No other significant abnormalities are identified. There has been no significant change since the prior study. BI/SCRN MAMM (CAD)W/PRUDENCE BILAT IMPRESSION: Stable bilateral screening mammogram. Yearly follow-up mammogram recommended. (A) ASSESSMENT CATEGORY: BIRADS Category 1: Negative. A letter regarding these results will be sent to the patient by the facility within 30 days. Approximately 10% of breast cancers are not detected by mammography. A normal mammogram should not delay biopsy of a clinically suspicious abnormality. [id number] Electronically Signed: Reyes Anglin MD at 11:14 EST ,
--- NOTE | 2024-01-30 10:21 | BD_ITS ---
STUDY: DUAL ENERGY X-RAY ABSORPTIOMETRY / DXA REASON FOR EXAM: Female, 78 years old. [id number] TECHNIQUE: Bone Mineral Density (BMD) measurements of lumbar spine and bilateral hips were obtained. COMPARISON: Comparison is made with prior study October 19, 2021. FINDINGS: Lumbar Spine (L1-L4): g/cm2 (0.721) / T-score (-3.5) / Z-score (-0.7) Findings are suggestive of osteoporosis with a high fracture risk. Left Femur Total: g/cm2 (0.743) / T-score (-1.6) / Z-score (0.4) Left Femoral Neck: g/cm2 (0.625) / T-score (-2.0) / Z-score (0.3) Right Femur Total: g/cm2 (0.761) / T-score (-1.5) / Z-score (0.5) Right Femoral Neck: g/cm2 (0.550) / T-score (-2.7) / Z-score (-0.4) The T-Scores on the most recent prior examination were: Lumbar Spine (L1-L4): There has been worsening of bone density since the previous examination. Left Femur Total: which represents a worsening of 6.6%. Right Femur Total: which represents a worsening of 3.1%. BD/Dexa Bone Density Study IMPRESSION: The patient is considered osteoporotic as outlined below according to World Diony Organization (WHO) criteria with a high fracture risk. There has been worsening of bone density since the previous examination. Reference Information: The T-score is the number of standard deviations above or below the standard which is normal for young adults at their peak bone mineral density. The World Health Organization (WHO) interprets the T-scores as follows: Above -1 Normal bone density Between -1 and -2.5 Osteopenia Equal to / or below -2.5 Osteoporosis As a practical clinical guideline, osteopenia may be graded as follows: Mild -1 through -1.5 Moderate -1.6 through -2.0 Severe -2.1 through -2.4 The Z-score is the number of standard deviations above or below age-matched controls. A Z-score of less than -1.5 would be considered abnormal. References: 1. NIH Osteoporosis and Related Bone Diseases www osteo.org 2. International Society for Clinical Densitometry www iscd.org 3. National Osteoporosis Foundation www nof.org Electronically Signed: Reyes Anglin MD at 12:07 EST ,
== END | disposition home or self-care (01) ==
LOC: OPBD 10:18
PROVIDERS: PCP Nurse Practitioner Family; Referring Provider Nurse Practitioner Family; Visit Provider Nurse Practitioner Family
DX: Z12.31 Encounter for screening mammogram for malignant neoplasm of breast (principal); M81.0 Age-related osteoporosis without current pathological fracture
CPT/HCPCS: 77063; 77067; 77080

== ENCOUNTER → 2024-02-04 | Outpatient (CLI) | payer MEDICARE, SELFPAY ==
[2024-02-04 08:10] LABS: Vitamin B12 241 pg/mL (211-911); Vitamin D,25 Hydroxy 36.8 ng/mL
[2024-02-04 08:16] LABS: AST(SGOT) 21 U/L (15-37); Alanine Aminotransfer ALT/SGPT 19 U/L (13-56); Albumin, Serum 3.7 g/dL (3.2-5.0); Alkaline Phosphatase 134 U/L (45-117); Anion Gap 5 (5-15); BUN 14 mg/dL (7-18); BUN/Creat Ratio 12.4 RATIO (10-20); Calcium,Total 8.9 mg/dL (8.5-10.1); Chloride 111 mmol/L (98-107); Cholesterol 148 mg/dL (200); Creatinine, Serum 1.13 mg/dL (0.55-1.02); EST Glomerular Filtration Rate 49 mL/min (>60); Est Glom Filt Rate - Afr Amer 60 mL/min (>60); Globulin 3.6 g/dL (2.2-4.2); Glucose 90 mg/dL (74-106); High Density Lipoprotein 64 mg/dL; Potassium 3.9 mmol/L (3.5-5.1); Protein, Total 7.3 g/dL (6.4-8.2); Sodium Level 143 mmol/L (136-145); Triglycerides 95 mg/dL; Very Low Density Lipoprotein 19 mg/dL (5-40)
== END | disposition home or self-care (01) ==
LOC: LAB 07:06
PROVIDERS: PCP Nurse Practitioner Family; Referring Provider Nurse Practitioner Family; Visit Provider Nurse Practitioner Family
DX: E78.2 Mixed hyperlipidemia (principal); N18.31 Chronic kidney disease, stage 3a; E55.9 Vitamin D deficiency, unspecified; E03.9 Hypothyroidism, unspecified
CPT/HCPCS: 36415; 80053; 80061; 82306; 82607; 82746; 84443

== ENCOUNTER → 2024-06-17 | Outpatient (CLI) | payer MEDICARE, SELFPAY | END | disposition home or self-care (01) | LOC: LABSPEC 14:30 | PROVIDERS: PCP Nurse Practitioner Family; Visit Provider Physician Assistant | DX: R30.0 Dysuria (principal) | CPT/HCPCS: 87086 ==

== ENCOUNTER → 2024-07-29 | Outpatient (CLI) | payer MEDICARE, SELFPAY ==
[2024-07-29 07:34] LABS: Absolute Lymphocyte Count 1.88 X10^3/uL (0.83-4.51); Absolute Neutrophil Count 3.4 X10^3/uL (2.0-7.7); Basophil# 0.05 X10^3/uL; Basophil% 0.8 % (0-1); Eosinophil# 0.13 X10^3/uL; Eosinophils% 2.2 % (0-5); Hematocrit 41.3 % (37-47); Hemoglobin 14.4 g/dL (12.0-15.0); Lymphocyte # 1.88 X10^3/ul (0.83-4.51); Lymphocyte % 31.2 % (19-41); Mean Corp Hgb Conc 34.9 g/dL (32-36); Mean Corpuscular Hgb 33.3 pg (27.0-32.0); Mean Corpuscular Volume 95.6 fL (81-99); Mean Platelet Vol. 10.7 fl (6.2-12.0); Monocyte# 0.54 X10^3/uL; NRBC Flagged by Analyzer 0 % (0-5); Neutrophil % 56.5 % (47-70); Platelet Count 147 K/mm3 (150-450); RBC Distribution Width SD 42.6 fl (35.1-43.9); Red Blood Count 4.32 M/mm3 (4.2-5.4)
[2024-07-29 08:32] LABS: Albumin, Serum 4.1 g/dL (3.4-4.8); BUN 12 mg/dL (4-19); BUN/Creat Ratio 11.1 RATIO (10-20); Creatinine, Serum 1.08 mg/dL (0.70-1.20); EST Glomerular Filtration Rate 52 (>60); Globulin 2.7 g/dL (2.2-4.2); Glucose 90 mg/dL (70-99); Protein, Total 6.8 g/dL (5.9-8.4)
[2024-07-29 08:33] LABS: ALB/GLOB Ratio 1.5 RATIO (0.9-2.4); AST(SGOT) 24 U/L (<=31); Alanine Aminotransfer ALT/SGPT 10 U/L (<=34); Alkaline Phosphatase 118 U/L (35-104); Anion Gap 10 (5-15); Calcium,Total 9.5 mg/dL (7.6-11.0); Carbon Dioxide 23.3 mmol/L (21.0-32.0); Chloride 109 mmol/L (98-108); Cholesterol 135 mg/dL (<=200); High Density Lipoprotein 56 mg/dL; Low Density Lipoprotein Calc. 61 mg/dL; Potassium 3.9 mmol/L (3.3-5.1); Sodium Level 142 mmol/L (133-145); Total Bilirubin 1.08 mg/dL (0.00-1.30); Triglycerides 90 mg/dL; Very Low Density Lipoprotein 18 mg/dL (5-40); Vitamin B12 517 pg/mL (180-914); cholesterol:hdl ratio screen 2.42
== END | disposition home or self-care (01) ==
LOC: LAB 06:51
PROVIDERS: PCP Nurse Practitioner Family; Referring Provider Nurse Practitioner Family; Visit Provider Nurse Practitioner Family
DX: E53.8 Deficiency of other specified B group vitamins (principal); N18.31 Chronic kidney disease, stage 3a; E03.9 Hypothyroidism, unspecified; E78.2 Mixed hyperlipidemia; I11.9 Hypertensive heart disease without heart failure
CPT/HCPCS: 36415; 80053; 80061; 82607; 84443; 85025

== ENCOUNTER → 2025-01-19 | Outpatient (CLI) | payer MEDICARE, SELFPAY ==
--- NOTE | 2025-01-19 12:52 | CDU_ITS ---
Reason For Study VL/Carotid Duplex Ultrasound
== END | disposition home or self-care (01) ==
LOC: CVS 12:50
PROVIDERS: PCP Nurse Practitioner Family; Referring Provider Internal Medicine; Visit Provider Internal Medicine
DX: R42 Dizziness and giddiness (principal)
CPT/HCPCS: 93880

== ENCOUNTER → 2025-01-19 | Outpatient (CLI) | payer MEDICARE, SELFPAY ==
[2025-01-19 08:56] LABS: Vitamin B12 339 pg/mL (180-914); Vitamin D,25 Hydroxy 50.6 ng/mL (30-100)
[2025-01-19 09:07] LABS: FOLATES,SERUM (FOLIC ACID) 15.00 ng/mL (4.60-34.80)
[2025-01-19 09:38] LABS: Cholesterol 131 mg/dL (<=200); Low Density Lipoprotein Calc. 63 mg/dL; Triglycerides 85 mg/dL; Very Low Density Lipoprotein 17 mg/dL (5-40); cholesterol:hdl ratio screen 2.55
== END | disposition home or self-care (01) ==
LOC: LAB 07:02
PROVIDERS: PCP Nurse Practitioner Family; Referring Provider Internal Medicine; Visit Provider Internal Medicine
DX: E03.9 Hypothyroidism, unspecified (principal); E55.9 Vitamin D deficiency, unspecified; E78.2 Mixed hyperlipidemia; E53.8 Deficiency of other specified B group vitamins
CPT/HCPCS: 36415; 80061; 82306; 82607; 82746; 84443